=== PATIENT | female | born 1955 | race Caucasian/White ===

== ENCOUNTER 2024-07-05 09:44 | Outpatient (OUT) | payer MEDICARE, SELFPAY ==
[2024-07-05 10:13] LABS: Bilirubin Urine NEGATIVE (NEGATIVE); Blood Urine SMALL (NEGATIVE); Clarity Urine CLEAR (CLEAR); Color Urine LT. YELLOW (YELLOW); Glucose Urine UA NEGATIVE (NEGATIVE); Ketones Urine NEGATIVE (NEGATIVE); Leukocyte Esterase Urine SMALL (NEGATIVE); Nitrite Urine NEGATIVE (NEGATIVE); Protein Urine NEGATIVE (NEG/TRACE); Specific Gravity Urine <=1.005 (1.005-1.025); Urobilinogen Urine 0.2 EU/dL (0.2-1.0)
[2024-07-05 10:24] LABS: Bacteria Urine TRACE #/HPF (NONE SEEN); Cast Seen? NONE SEEN #/LPF (NONE SEEN); Crystals Seen? None Seen #/HPF (None Seen); Mucus Urine NONE SEEN (NONE SEEN); RBC Urine 0-2 #/HPF (0-2); Squamous Epithelial Cell Urine RARE #/LPF (NONE/RARE)
== END 2024-07-05 09:45 | disposition home or self-care (01) ==
LOC: LAB 09:56
PROVIDERS: PCP Internal Medicine; Visit Provider Internal Medicine
DX: R30.0 Dysuria (principal)
CPT/HCPCS: 81001; 87086

== ENCOUNTER 2024-08-11 09:22 | Outpatient (OUT) | payer MEDICARE, SELFPAY ==
--- OUTSIDE RECORDS SUMMARY | 2024-08-11 09:44 | XMS_ITS | CCD ---
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 Role Phone ALEXEY MANLEY Admitting Unavailable ALEXEY MANLEY Attending Unavailable ALEXEY MANLEY Primary Care Unavailable ALEXEY MANLEY Consulting Unavailable SITA PACK V Consulting Unavailable CORETTA MESSINA Admitting Unavailable CORETTA MESSINA Attending Unavailable VINEET, ALEXEY Primary Care Unavailable CORETTA MESSINA Consulting Unavailable DO Alexey Manley Primary Care Provider Community, Outreach Attending Provider DO Alexey Manley Primary Care Provider DO Katina Vigil Attending Provider DO Alexey Manley Primary Care Provider Community, Outreach Attending Provider Alexey Manley Unavailable DO Alexey Manley Primary Care Provider DO Katina Vigil Attending Provider DO Alexey Manley Primary Care Provider MD Joseph Cotton Attending Provider [phone] DO Alexey Manley Referring Provider Community, Outreach Attending Provider [phone] DO Alexey Manley Primary Care Provider MD Joseph Cotton Attending Provider EDDIE Almanzar Attending Provider NO FAMILY, PHYSICIAN Primary Care Provider Unava ilable MD Joseph Cotton Attending Provider [phone] DO Alexey Manley Primary Care Provider MD Joseph Cotton Attending Provider Ly, DO Shari Baumann Attending Provider [phone] Ball, DO Alexey Attending Provider [phone] ANOOP STONER Referring Unavailable KATINA VIGIL Attending Unavailable ANOOP STONER Attending Unavailable ANOOP STONER Referring Unavailable Alexey Manley MD Primary Care Provider NatKatina elias DO Attending Provider Vineet REID, Alexey Primary Care Provider Joseph Cotton MD Attending Provider Vineet REID, Alexey Primary Care Provider [phone] Joseph Cotton MD Attending Provider Vineet REID, Alexey Attending Provider Ball Alexey REID Referring Provider [phone] Community, Outreach Attending Provider [phone] Alexey Manley Admitting Unavailable Vineet, Alexey Attending Unavailable Joseph Cotton Admitting Unavailab le Joseph Cotton Attending Unavailab le Alexey Manley Primary Care Unavailable Ball, Alexey Referring Unavailable Community, Outreach Admitting Unavailable Community, Outreach Attending Unavailable Vineet, Alexey Referring Unavailable Community, Outreach Attending Unavailable Ball, Alexey Primary Care Unavailable Community, Outreach Admitting Unavailable Ball, Alexey Admitting Unavailable Ball, Alexey Primary Care Unavailable Ball, Alexey Attending Unavailable Ball, Alexey Admitting Unavailable Ball, Alexey Primary Care Unavailable Ball, Alexey Attending Unavailable NO FAMILY, PHYSICIAN Primary Care Unavailable Mar Almanzar L Admitting Unavailable Mar Almanzar Attending Unavailable Ball, Alexey Admitting Unavailable Ball, Alexey Primary Care Unavailable Ball, Alexey Attending Unavailable Ball, Alexey Primary Care Unavailable Nataprawira, Katina Admitting Unavailable Nataprawira, Katina Attending Unavailable Ball, Alexey Primary Care Unavailable Alma, Shari Baumann Admitting Unavailable Ly, Shari Baumann Attending Unavailable Medications Current Medications Medication Drug Class(es) Dates Sig (Normalized) Sig (Original) Apple Cider Vinegar (4 sources) Apple Cider Vinegar Active Fish Oils (4 sources) take 1 capsule by mouth twice daily Fish Oil 1200 MG 1 capsule Orally BID Active Flaxseed extract (7 sources) Non-Standardized Food Allergenic Extract, Non-Standardized Plant Allergenic Extract Start: 12-22-2023 take 1 capsule by mouth once daily Flaxseed 1,000 mg capsule Active 1000 MG PO Daily December 22, 2023 12:00am Start: 12-22-2023 take 1000 mg by mouth once nichol ly Flaxseed Active 1000 MG PO Daily December 22, 2023 12:00am Flaxseed Oil 1200 MG (2 sources) Flaxseed Oil 120 0 MG Orally Active fluticasone propionate 0.05 mg/actuat metered dose nasal spray (16 sources) Corticosteroid Start: 10-09-2023 take 1 spray(s) nasal route once daily Fluticasone Propionate (Flonase Allergy Relief) 50 mcg/actuation spray,suspension Active 1 SPRAY INTRANASAL Daily October 09, 2023 12:00am administer into each nostril Start: 11-02-2021 Flonase 50MCG/ ACT Flonase( 50MCG/ACT Nasal As needed for allergies ) Active -Hx Entry Nasal As needed for allergies for 0 *Reorder from [employer] for eRx and Interaction Alerts* Oct, Active fluticasone (José Miguel nase) 50 MCG/ACT nasal spray 1 (one) time each day at the same time. Active Bdiotyii-Rcuw-Cbp1-C-Yuri-Benedict sw (Osteo Bi-Flex Triple Strength) 750 mg-644 mg- 30 mg-1 mg tablet (7 sources) Start: 12-22-2023 take 2 tablets by mouth once daily Ybilbykm-Dkmj-Ftx0-C-Yuri-Bosw (Osteo Bi-Flex Triple Strength) 750 mg-644 mg- 30 mg-1 mg tablet Active 2 TAB PO Daily December 22, 2023 12:00am linseed oil 1200 mg oral cap johnna (2 sources) Flaxseed Oil 120 0 MG Orally Active loratadine 10 mg oral tablet (10 sources) Start: 11-09-2023 take 1 tablet by mouth once daily Loratadine (Allergy Relief (Loratadine)) 10 mg tablet Active 10 MG PO Daily November 09, 2023 12:00am Loratadine (Clar itin) 10 MG capsule Oral Active lutein 25 mg / zeaxanthin 5 mg oral capsule (4 sources) Lutein-Zeaxanthi n 25-5 MG Orally Active Lutein-Zeaxanthi n 25-5 MG Orally Active magnesium citrate 125 mg oral capsule (13 sources) Start: 12-22-2023 take 1 capsule by mouth once daily Magnesium Citrate 125 mg capsule Active 125 MG PO Daily December 22, 2023 12:00am Magnesium Citrat e 200 MG tablet as directed Orally Active Magnesium Citrat e Active milk thistle extract 150 mg oral capsule (4 sources) Milk Thistle 150 MG as directed Orally Active paxlovid (300/100) 20 x 150 mg & 10 x 100mg tablet therapy pack (2 sources) Start: 04-19-19 take 3 tablets by mouth every twelve hours Paxlovid (300/100) 20 x 150 MG & 10 x 100MG 3 tablets Orally Twice a day for 5 days Mar, Active potassium citrate (4 sources) Potassium Citrat e Active sulfamethoxazole 800 mg / trimethoprim 160 mg oral tablet (8 sources) Dihydrofolate Reductase Inhibitor Antibacterial, Sulfonamide Antimicrobial Start: 06-08-19 End: 06-23-19 take 1 tablet by mouth twice daily Sulfamethoxazole- Trimethoprim 800-160 mg tablet Active 1 TAB PO Twice daily 10 June 22, 2024 10:09am Turmeric Curcumin 500 MG (4 sources) Turmeric Curcumi n 500 MG Orally Active Vit C,L-Lu-Ycbff-Lutein-Zeax an (Preservision Areds-2) 250-90-40-1 mg capsule (7 sources) Start: 12-22-19 Vit C,Q-Hn-Fjxbo-Lute in-Zeaxan (Preservision Areds-2) 250-90-40-1 mg capsule Active 1 TAB PO Twice daily December 22, 2023 12:00am vitamin B12 (4 sources) Vitamin B12 Vitamin B12 Active Completed/Discontinued Medications Medication Drug Class(es) Dates Sig (Normalized) Sig (Original) nitrofurantoin, macrocrystals 25 mg / nitrofurantoin, monohydrate 75 mg oral capsule (20 sources) Nitrofuran Antibacterial Start: 10-09-2023 End: 11-09-2023 take 1 capsule by mouth every twelve hours at mealtime Nitrofurantoin Monohyd/M-Cryst (Macrobid) 100 mg capsule Discontinued 100 MG PO Q12H 8 October 12, 2023 12:00am November 09, 2023 1:41pm must administer with a meal/food Problems Active Problems Problem Classification Problem Date Documented Da te Episodic/Chronic Abdominal pain (4 sources) Left lower quadrant pain; Translations: [Left lower quadrant pain] Episodic Calculus of urinary tract (20 sources) Calculus of ureter; Translations: [H/O: urinary stone] Onset: 02-24-2018 11-07-2023 Episodic Diabetes mellitus without complication (2 sources) Impaired fasting glucose Episodic Diverticulosis and diverticulitis (4 sources) Diverticular disease of colon; Translations: [Diverticulosis of large intestine without perforation or abscess without bleeding] Chronic Genitourinary symptoms and ill-defined conditions (1 source) Other specified urinary incontinence; Translations: [Other specified urinary incontinence] Onset: 03-02-2024 Chronic Genitourinary symptoms and ill-defined conditions (11 sources) Dysuria; Translations: [Dysuria] Onset: 10-09-2023 10-09-2023 Episodic Mood disorders (6 sources) Moderate major depression, single episode; Translations: [Major depressive disorder, single episode, moderate] Chronic Other bone disease and musculoskeletal deformities (4 sources) Bone density finding; Translations: [Other specified disorders of bone density and structure, unspecified site] Episodic Other bone disease and musculoskeletal deformities (8 sources) Osteopenia; Translations: [Other specified disorders of bone density and structure, unspecified site] 11-07-2023 Episodic Comment on above: HipDEXA - 02/2024 Other injuries and conditions due to external causes (4 sources) History of fall; Translations: [History of falling] Episodic Other non-traumatic joint disorders (2 sources) Pain in right knee; Translations: [Other acute pain] 04-24-2024 Episodic Other nutritional; endocrine; and metabolic disorders (4 sources) Simple obesity ; Translations: [Other obesity due to excess calories] Onset: 05-30-2015 Chronic Other nutritional; endocrine; and metabolic disorders (4 sources) Obesity; Translations: [Obesity, unspecified] Chronic Other nutritional; endocrine; and metabolic disorders (2 sources) Body mass index 30+ - obesity; Translations: [Body mass index (BMI) 30.0-30.9, adult] Chronic Other nutritional; endocrine; and metabolic disorders (1 source) Other obesity due to excess calories Chronic Other nutritional; endocrine; and metabolic disorders (1 source) Body mass index (BMI) 30.0-30.9, adult Chronic Other nutritional; endocrine; and metabolic disorders (2 sources) Overweight Episodic Residual codes; unclassified (4 sources) Procedure not done; Translations: [Procedure and treatment not carried out because of patient's decision for unspecified reasons] Episodic Residual codes; unclassified (8 sources) Menopause present; Translations: [Asymptomatic menopausal state] 11-07-2023 Episodic Urinary tract infections (6 sources) Acute cystitis; Translations: [Acute cystitis without hematuria] 06-22-2024 Episodic Past or Other Problems Problem Classification Problem Date Documented Da te Episodic/Chronic Gastrointestinal hemorrhage (4 sources) Melena; Translations: [Melena] Onset: 12-24-2014 Episodic Intestinal infection (4 sources) Infectious colitis, enteritis and gastroenteritis; Translations: [Infectious gastroenteritis and colitis, unspecified] Onset: 12-24-2014 Episodic Malaise and fatigue (1 source) Other fatigue; Translations: [OTHER FATIGUE] Onset: 03-14-2018 Episodic Noninfectious gastroenteritis (4 sources) Non-infective enteritis and colitis; Translations: [Noninfective gastroenteritis and colitis, unspecified] Onset: 12-24-2014 Episodic Other bone disease and musculoskeletal deformities (5 sources) Other specified disorders of bone density and structure, unspecified site; Translations: [Disorder of bone and cartilage, unspecified] Onset: 03-14-2018 11-09-2023 Episodic Other liver diseases (1 source) Nonspecific elevation of levels of transaminase and lactic acid dehydrogenase [LDH]; Translations: [NONSPEC ELEV LVLS TRANSAMINSE AND LDH] Onset: 03-14-2018 Episodic Other screening for suspected conditions (not mental disorders or infectious disease) (20 sources) Encounter for screening for osteoporosis; Translations: [Encounter for screening for malignant neoplasm of cervix] Onset: 03-10-2018 Episodic Other skin disorders (4 sources) Localized swelling, mass and lump, left lower limb; Translations: [Localized swelling, mass and lump, left lower limb] Onset: 02-24-2018 Episodic Residual codes; unclassified (4 sources) Asymptomatic menopausal state; Translations: [Symptomatic menopausal or female climacteric states] Onset: 03-20-2024 11-09-2023 Episodic Residual codes; unclassified (1 source) Family history of ischemic heart disease and other diseases of the circulatory system; Translations: [Family history of ischemic heart disease and other diseases of the circulatory system] Onset: 01-06-2024 Episodic Viral infection (2 sources) COVID-19 Results Test Name Value Interpretation Reference Range Facility Redraw Abbie 07-18-2024 AST [Catalytic activity/Vol] 28 U/L Normal 13-39 [facility] Comment on above: Performed By: #### R EDRAW VITD, REDRAW AST, REDRAW K #### [address] Redraw Potassiumon Potassium [Moles/Vol] 4.5 mmol/L Normal 3.5-5.1 [facility] Comment on above: Performed By: #### R EDRAW VITD, REDRAW AST, REDRAW K #### [address] Redraw Vitamin D 25OHon 06-28 Redraw Vitamin D 25OH 92.0 ng/mL Normal 30-100 [facility] Comment on above: Result Comment: MECHE MIN D STATUS 25(OH)VITAMIN D RANGE (ng/mL) Deficient <20 Insufficient 20 to <30 Sufficient 30 to 100 Reference: Candido MF,Bryan NC, Sienna LOJA, et al. Evaluation,treatment, and prevention of vitamin D deficiency; an Endocrine Society clinical practice guideline. JCEM. 2010; 96(7):1911-30. PERFORMED BY: [place] [address] PATHOLOGIST FIRE OFFICER ANNAMARIA KNOX M.D. Performed By: #### R EDRAW VITD, REDRAW AST, REDRAW K #### [address] Alanine aminotransferase [En zymatic activity/volume] in Serum or PlasmaOrdered By: [facility]RE[facility]ITY on 07-08-2024 ALT [Catalytic activity/Vol] Alanine aminotransferase [Enzymatic activity/volume] in Serum or Plasma [facility] Albumin [Mass/volume] in Ser um or Plasma by Bromocresol green (BCG) dye binding methoOrdered By: [facility]REACH COMMUNITY on 07-08-2024 Albumin BCG dye [Mass/Vol] Albumin [Mass/volume] in Serum or Plasma by Bromocresol green (BCG) dye binding metho 3.5-5.7 [facility] Alkaline phosphatase [Enzyma tic activity/volume] in Serum or PlasmaOrdered By: [facility] on 07-08-2024 ALP [Catalytic activity/Vol] Alkaline phosphatase [Enzymatic activity/volume] in Serum or Plasma 34-104 [facility] Aspartate aminotransferase [ Enzymatic activity/volume] in Serum or PlasmaOrdered By: [facility] on 07-08-2024 AST [Catalytic activity/Vol] Aspartate aminotransferase [Enzymatic activity/volume] in Serum or Plasma 13-39 [facility] Comment on above: Specimen hemolyzed, redraw requested Bilirubin.total [Mass/volume ] in Serum or PlasmaOrdered By: [facility] on 07-08-2024 Bilirubin [Mass/Vol] Bilirubin.total [Mass/volume] in Serum or Plasma 0.3-1.0 [facility] Blood estimated average gluc ose determination by estimation from glycated hemoglobinOrdered By: [facility] on 07-08-2024 Average glucose Estimated from glycated hemoglobin (Bld) [Mass/Vol] Glucose mean value [Mass/volume] in Blood Estimated from glycated hemoglobin [facility] CBC Without Differentialon 0 07-08-2024 Erythrocyte distribution width (RBC) [Ratio] 13.3 % Normal 11.9-15.3 [facility] Comment on above: Performed By: #### O UTREACH VITD, OUTREACH GLYCO, OUTREACH CMP, CBCNOOUTREACH, OUTREACH LIPID ####[place] [id number] [address] Hematocrit (Bld) [Volume fraction] 40.8 % Normal 34.0-46.4 [facility] Comment on above: Performed By: #### O UTREACH VITD, OUTREACH GLYCO, OUTREACH CMP, CBCNOOUTREACH, OUTREACH LIPID ####[place] [id number] [address] Hemoglobin (Bld) [Mass/Vol] 13.7 g/dL Normal 11.8-15.4 [facility] Comment on above: Performed By: #### O UTREACH VITD, OUTREACH GLYCO, OUTREACH CMP, CBCNOOUTREACH, OUTREACH LIPID ####[address] MCH (RBC) [Entitic mass] 32.1 pg Normal 24.7-34.3 [facility] Comment on above: Performed By: #### O UTREACH VITD, OUTREACH GLYCO, OUTREACH CMP, CBCNOOUTREACH, OUTREACH LIPID ####[address] MCV (RBC) [Entitic vol] 95.7 fL Normal 80-100 [facility] Comment on above: Performed By: #### O UTREACH VITD, OUTREACH GLYCO, OUTREACH CMP, CBCNOOUTREACH, OUTREACH LIPID ####[address] Mean Corpuscular HGB Conc 33.6 g/dL Normal 32.0-35.0 [facility] Comment on above: Performed By: #### O UTREACH VITD, OUTREACH GLYCO, OUTREACH CMP, CBCNOOUTREACH, OUTREACH LIPID ####[address] Platelet mean volume (Bld) [Entitic vol] 7.2 fL Normal 6.3-10.7 [facility] Comment on above: Result Comment: PERF ORMED BY: [facility] [address] [place] [address] PATHOLOGIST FIRE OFFICER ANNAMARIA KNOX M.D. Performed By: #### O UTREACH VITD, OUTREACH GLYCO, OUTREACH CMP, CBCNOOUTREACH, OUTREACH LIPID ####[address] Platelets (Bld) [#/Vol] 271 10*3/uL Normal 150-450 [facility] Comment on above: Performed By: #### O UTREACH VITD, OUTREACH GLYCO, OUTREACH CMP, CBCNOOUTREACH, OUTREACH LIPID ####[place] [id number] [facility] RBC (Bld) [#/Vol] 4.26 10*6/uL Normal 3.60-5.00 [facility] Comment on above: Performed By: #### O UTREACH VITD, OUTREACH GLYCO, OUTREACH CMP, CBCNOOUTREACH, OUTREACH LIPID ####[address] [address] [facility] [place] WBC (Bld) [#/Vol] 3.9 10*3/uL Normal 3.8-11.6 [facility] Comment on above: Performed By: #### O UTREACH VITD, OUTREACH GLYCO, OUTREACH CMP, CBCNOOUTREACH, OUTREACH LIPID ####[place] [id number] [facility] CMP Outreachon 07-08-2024 Albumin [Mass/Vol] 3.8 g/dL Normal 3.5-5.7 [facility] Comment on above: Performed By: #### O UTREACH VITD, OUTREACH GLYCO, OUTREACH CMP, CBCNOOUTREACH, OUTREACH LIPID ####[address] [address] [facility] ALP [Catalytic activity/Vol] 83 U/L Normal 34-104 [facility] Comment on above: Performed By: #### O UTREACH VITD, OUTREACH GLYCO, OUTREACH CMP, CBCNOOUTREACH, OUTREACH LIPID ####[address] [address] [facility] ALT [Catalytic activity/Vol] 41 U/L Normal 7-52 [facility] Comment on above: Performed By: #### O UTREACH VITD, OUTREACH GLYCO, OUTREACH CMP, CBCNOOUTREACH, OUTREACH LIPID ####[address] [address] [facility] Anion gap [Moles/Vol] Not performed Normal 6.0-15.0 [facility] Comment on above: Performed By: #### O UTREACH VITD, OUTREACH GLYCO, OUTREACH CMP, CBCNOOUTREACH, OUTREACH LIPID ####[address] [address] [facility] Aspartate Amino Transferase Normal 13-39 [facility] Comment on above: Result Comment: Spec imen hemolyzed, redraw requested Performed By: #### O UTREACH VITD, OUTREACH GLYCO, OUTREACH CMP, CBCNOOUTREACH, OUTREACH LIPID ####[place] [id number] [facility] [place] Bilirubin [Mass/Vol] 0.4 mg/dL Normal 0.3-1.0 [facility] Comment on above: Performed By: #### O UTREACH VITD, OUTREACH GLYCO, OUTREACH CMP, CBCNOOUTREACH, OUTREACH LIPID ####[place] [id number] [facility] [place] Calcium [Mass/Vol] 9.1 mg/dL Normal 8.6-10.3 [facility] Comment on above: Performed By: #### O UTREACH VITD, OUTREACH GLYCO, OUTREACH CMP, CBCNOOUTREACH, OUTREACH LIPID ####[place] [id number] [place] Chloride [Moles/Vol] 108 mmol/L High 98-107 [facility] Comment on above: Performed By: #### O UTREACH VITD, OUTREACH GLYCO, OUTREACH CMP, CBCNOOUTREACH, OUTREACH LIPID ####[place] [id number] [facility] [place] CO2 [Moles/Vol] 28.3 mmol/L Normal 21.0-31.0 [facility] Comment on above: Performed By: #### O UTREACH VITD, OUTREACH GLYCO, OUTREACH CMP, CBCNOOUTREACH, OUTREACH LIPID ####[place] [id number] [facility] [place] Creatinine [Mass/Vol] 0.76 mg/dL Normal 0.60-1.20 [facility] Comment on above: Performed By: #### O UTREACH VITD, OUTREACH GLYCO, OUTREACH CMP, CBCNOOUTREACH, OUTREACH LIPID ####[place] [id number] [facility] [place] GFR/1.73 sq M.predicted MDRD (S/P/Bld) [Vol rate/Area] mL/min/{1.73_m2} Normal [facility] Comment on above: Performed By: #### O UTREACH VITD, OUTREACH GLYCO, OUTREACH CMP, CBCNOOUTREACH, OUTREACH LIPID ####[place] [id number] [facility] [place] Glucose [Mass/Vol] 86 mg/dL Normal 70-100 [facility] Comment on above: Result Comment: [facility] Glucose Reference Range is dependent on time and content of last meal. Glucose of more than 200 mg/dL in a nonstressed, ambulatory subject supports the diagnosis of Diabetes Mellitus. ADA recommended reference range Performed By: #### O UTREACH VITD, OUTREACH GLYCO, OUTREACH CMP, CBCNOOUTREACH, OUTREACH LIPID ####[address] Potassium Normal 3.5-5.1 [facility] Comment on above: Result Comment: Spec imen hemolyzed, redraw requested Performed By: #### O UTREACH VITD, OUTREACH GLYCO, OUTREACH CMP, CBCNOOUTREACH, OUTREACH LIPID ####[place] [id number] [facility] [place] Protein [Mass/Vol] 6.7 g/dL Normal 6.4-8.9 [facility] Comment on above: Performed By: #### O UTREACH VITD, OUTREACH GLYCO, OUTREACH CMP, CBCNOOUTREACH, OUTREACH LIPID ####[place] [id number] [facility] [place] Sodium [Moles/Vol] 141 mmol/L Normal 136-145 [facility] Comment on above: Performed By: #### O UTREACH VITD, OUTREACH GLYCO, OUTREACH CMP, CBCNOOUTREACH, OUTREACH LIPID ####[place] [id number] [facility] [place] Urea nitrogen [Mass/Vol] 19 mg/dL Normal 7-25 [facility] Comment on above: Performed By: #### O UTREACH VITD, OUTREACH GLYCO, OUTREACH CMP, CBCNOOUTREACH, OUTREACH LIPID ####[address] [place] [address] [facility] Calcium [Mass/volume] in Ser um or PlasmaOrdered By: [facility] on 07-08-2024 Calcium [Mass/Vol] Calcium [Mass/volume ] in Serum or Plasma 8.6-10.3 [facility] Carbon dioxide, total [Moles /volume] in Serum or PlasmaOrdered By: [facility]RE[facility] on 07-08-2024 CO2 [Moles/Vol] Carbon dioxide, tota l [Moles/volume] in Serum or Plasma 21.0-31.0 [facility] Chloride [Moles/volume] in S jean or PlasmaOrdered By: [facility] on 07-08-2024 Chloride [Moles/Vol] Chloride [Moles/volume] in Serum or Plasma High 98-107 [facility] Cholesterol [Mass/volume] in Serum or PlasmaOrdered By: [facility]RE[facility] on 07-08-2024 Cholesterol [Mass/Vol] Cholesterol [Mass/volume] in Serum or Plasma 140-200 [facility] Comment on above: Chol less than 200 m g/dl low riskChol 201-239 mg/dl borderline riskChol 240 mg/dl and greater high risk Cholesterol in HDL [Mass/vol ume] in Serum or PlasmaOrdered By: [facility]RE[facility] on 07-08-2024 Cholesterol in HDL [Mass/Vol] Serum or plasma high density lipoprotein (HDL) cholesterol measurement 23-92 [facility] Comment on above: HDL CHOL ATP-III CLA SSIFICATION Cardiovascular RiskHDL > or equal to 60 mg/dL LOWHDL < 40 mg/dL HIGH Cholesterol in LDL Calc [Mas s/Vol]Ordered By: [facility] on 07-08-2024 Cholesterol in LDL [Mass/Vol] Cholesterol in LDL [Mass/volume] in Serum or Plasma by calculation High 0-100 [facility] Comment on above: LDL ATP III CLASSIFI CATIONLDL less than 100 mg/dL OptimalLDL 100-129 mg/dL Near or above optimalLDL 130-159 mg/dL Borderline highLDL 160-189 mg/dL HighLDL greater than 189 mg/dL Very high Cholesterol in VLDL Calc [Ma ss/Vol]Ordered By: [facility] on 07-08-2024 Cholesterol in VLDL [Mass/Vol] Cholesterol in VLDL [Mass/volume] in Serum or Plasma by calculation [facility] Creatinine [Mass/volume] in Serum or PlasmaOrdered By: [facility] on 07-08-2024 Creatinine [Mass/Vol] Creatinine [Mass/volume] in Serum or Plasma 0.60-1.20 [facility] Erythrocyte distribution wid th Auto (RBC) [Ratio]Ordered By: [facility] on 07-08-2024 Erythrocyte distribution width (RBC) [Ratio] Erythrocyte distribution width [Ratio] by Automated count 11.9-15.3 [facility] Glucose [Mass/volume] in Ser um or PlasmaOrdered By: [facility] on 07-08-2024 Glucose [Mass/Vol] Glucose [Mass/volume ] in Serum or Plasma 70-100 [facility] Comment on above: ADA recommended refe rence rangeRandom Glucose Reference Range is dependent on time and content of last meal. Glucose of more than 200 mg/dL in a nonstressed, ambulatory subject supports the diagnosis of Diabetes Mellitus. Hematocrit Auto (Bld) [Volum e fraction]Ordered By: [facility] on 07-08-2024 Hematocrit (Bld) [Volume fraction] Hematocrit [Volume Fraction] of Blood by Automated count 34.0-46.4 [facility] Hemoglobin A1c measurementOr dered By: [facility] on 07-08-2024 HbA1c (Bld) [Mass fraction] 5.4 % Normal 4.3-5.6 [facility] Comment on above: Increased risk for d iabetes: 5.7 - 6.4diabetes: >6.4glycemic control for adults with diabetes: <7.0 Result Comment: Incr eased risk for diabetes: 5.7 - 6.4 diabetes: >6.4 glycemic control for adults with diabetes: <7.0 Performed By: #### O UTREACH VITD, OUTREACH GLYCO, OUTREACH CMP, CBCNOOUTREACH, OUTREACH LIPID ####[facility] [address] [place] [address] [facility] Hemoglobin [Mass/volume] in BloodOrdered By: [facility] on 07-08-2024 Hemoglobin (Bld) [Mass/Vol] Hemoglobin [Mass/volume] in Blood 11.8-15.4 [facility] Leukocytes [#/volume] correc scott for nucleated erythrocytes in Blood by Automated counOrdered By: [facility] on 07-08-2024 WBC corrected for nucl RBC Auto (Bld) [#/Vol] Leukocytes [#/volume] corrected for nucleated erythrocytes in Blood by Automated coun 3.8-11.6 [facility] Lipid Profile Outreach Cholesterol [Mass/Vol] 184 mg/dL Normal 140-200 Th e [facility] Comment on above: Result Comment: Chol less than 200 mg/dl low risk Chol 201-239 mg/dl borderline risk Chol 240 mg/dl and greater high risk Performed By: #### O UTREACH VITD, OUTREACH GLYCO, OUTREACH CMP, CBCNOOUTREACH, OUTREACH LIPID ####[place] [address] [place] [address] [facility] Cholesterol in HDL [Mass/Vol] 63 mg/dL Normal 23-92 [facility] Comment on above: Result Comment: HDL CHOL ATP-III CLASSIFICATION Cardiovascular Risk HDL > or equal to 60 mg/dL LOW HDL < 40 mg/dL HIGH Performed By: #### O UTREACH VITD, OUTREACH GLYCO, OUTREACH CMP, CBCNOOUTREACH, OUTREACH LIPID ####[place] [address] [place] [address] [facility] Cholesterol.total/Rosa sterol in HDL [Mass ratio] 2.9 {ratio} Normal <5.0 [facility] Comment on above: Performed By: #### O UTREACH VITD, OUTREACH GLYCO, OUTREACH CMP, CBCNOOUTREACH, OUTREACH LIPID ####[place] [address] [place] [address] [facility] LDL Cholesterol,Calculated 104 mg/dL High 0-100 [facility] Comment on above: Result Comment: LDL ATP III CLASSIFICATION LDL less than 100 mg/dL Optimal LDL 100-129 mg/dL Near or above optimal LDL 130-159 mg/dL Borderline high LDL 160-189 mg/dL High LDL greater than 189 mg/dL Very high Performed By: #### O UTREACH VITD, OUTREACH GLYCO, OUTREACH CMP, CBCNOOUTREACH, OUTREACH LIPID ####[place] [address] [place] [address] [facility] Triglyceride w/Reflex 83 mg/dL Normal 0-149 [facility] Comment on above: Result Comment: TRIG ATP III CLASSIFICATION TRIG less than 150 mg/dL Normal TRIG 150-199 mg/dL Borderline high TRIG 200-500 mg/dL High TRIG greater than 500 mg/dL Very high Standard traceable to the Center for Disease Conrtrol and Prevention (CDC) test method. Performed By: #### O UTREACH VITD, OUTREACH GLYCO, OUTREACH CMP, CBCNOOUTREACH, OUTREACH LIPID ####[facility] VLDL CHOLESTEROL 16 mg/dL Normal [facility] Comment on above: Performed By: #### O UTREACH VITD, OUTREACH GLYCO, OUTREACH CMP, CBCNOOUTREACH, OUTREACH LIPID ####[place] [address] MCH Auto (RBC) [Entitic mass ]Ordered By: [facility] on 07-08-2024 MCH (RBC) [Entitic mass] MCH [Entitic mass] by Automated count 24.7-34.3 [facility] MCHC Auto (RBC) [Mass/Vol]Or dered By: [facility] on 07-08-2024 MCHC (RBC) [Mass/Vol] MCHC [Mass/volume] by Automated count 32.0-35.0 [facility] MCV Auto (RBC) [Entitic vol] Ordered By: [facility] on 07-08-2024 MCV (RBC) [Entitic vol] MCV [Entitic vol ume] by Automated count 80-100 [facility] No Panel InformationOrdered By: [facility] on 07-08-2024 Estimated GFR (CKD-EPI) > 60.0 mL/Min [facility] Creatinine Clearance (Chem N/A [facility] Outreach Glycoon 07-08-2024 Glucose [Mass/Vol] 108 mg/dL Normal [facility] Comment on above: Result Comment: PERF ORMED BY: [facility] [address] [place] [id number] PATHOLOGIST FIRE OFFICER ANNAMARIA KNOX M.D. Performed By: #### O UTREACH VITD, OUTREACH GLYCO, OUTREACH CMP, CBCNOOUTREACH, OUTREACH LIPID ####[place] [address] [place] [address] [facility] Outreach VitD 25on 5 Outreach VitD 25 Normal 30-100 [facility] Comment on above: Result Comment: Spec imen hemolyzed, redraw requested VITAMIN D STATUS 25(OH)VITAMIN D RANGE (ng/mL) Deficient <20 Insufficient 20 to <30 Sufficient 30 to 100 Reference: Candido MF,Bryan NC, Sienna LOJA, et al. Evaluation,treatment, and prevention of vitamin D deficiency; an Endocrine Society clinical practice guideline. JCEM. 2010; 96(7):1911-30. PERFORMED BY: [facility] [address] [place] [phone] PATHOLOGIST FIRE OFFICER ANNAMARIA KNOX M.D. Performed By: #### O UTREACH VITD, OUTREACH GLYCO, OUTREACH CMP, CBCNOOUTREACH, OUTREACH LIPID ####[facility] [place] [address] [facility] Platelet mean volume Auto (B ld) [Entitic vol]Ordered By: [facility] on 07-08-2024 Platelet mean volume (Bld) [Entitic vol] Platelet mean volume [Entitic volume] in Blood by Automated count 6.3-10.7 [facility] Platelets Auto (Bld) [#/Vol] Ordered By: [facility] on 07-08-2024 Platelets (Bld) [#/Vol] Platelets [#/vol ume] in Blood by Automated count 150-450 [facility] Potassium [Moles/volume] in Serum or PlasmaOrdered By: [facility] on 07-08-2024 Potassium [Moles/Vol] Potassium [Moles/volume] in Serum or Plasma 3.5-5.1 [facility] Comment on above: Specimen hemolyzed, redraw requested Protein [Mass/volume] in Ser um or PlasmaOrdered By: [facility] on 07-08-2024 Protein [Mass/Vol] Protein [Mass/volume ] in Serum or Plasma 6.4-8.9 [facility] RBC Auto (Bld) [#/Vol]Ordere d By: [facility] on 07-08-2024 RBC (Bld) [#/Vol] Erythrocytes [#/volume] in Blood by Automated count 3.60-5.00 [facility] Serum or plasma anion gap de terminationOrdered By: [facility] on 07-08-2024 Anion gap [Moles/Vol] Serum or plasma an ion gap determination [facility] Comment on above: Test not performed Serum or plasma total choles terol/high density lipoprotein (HDL) cholesterol mass ratOrdered By: [facility] on 07-08-2024 Cholesterol.total/Rosa sterol in HDL [Mass ratio] Serum or plasma total cholesterol/high density lipoprotein (HDL) cholesterol mass rat <5.0 [facility] Sodium [Moles/volume] in Ser um or PlasmaOrdered By: [facility] on 07-08-2024 Sodium [Moles/Vol] Sodium [Moles/volume ] in Serum or Plasma 136-145 [facility] Triglyceride [Mass/volume] i n Serum or PlasmaOrdered By: OUTREACH [facility] on 07-08-2024 Triglyceride [Mass/Vol] Triglyceride [Mass/volume] in Serum or Plasma 0-149 [facility] Comment on above: TRIG ATP III CLASSIF ICATIONTRIG less than 150 mg/dL NormalTRIG 150-199 mg/dL Borderline highTRIG 200-500 mg/dL High TRIG greater than 500 mg/dL Very highStandard traceable to the Center for Disease Conrtrol and Prevention (CDC) test method. Urea nitrogen [Mass/volume] in Serum or PlasmaOrdered By: [facility] on 07-08-2024 Urea nitrogen [Mass/Vol] Urea nitrogen [Mass/volume] in Serum or Plasma 7-25 [facility] Vitamin D+Metabolites [Mass/ volume] in Serum or PlasmaOrdered By: [facility] on 07-08-2024 Vitamin D+Metabolites [Mass/Vol] Vitamin D+Metabolites [Mass/volume] in Serum or Plasma 30-100 [facility] Comment on above: Specimen hemolyzed, redraw requestedVITAMIN D STATUS 25(OH)VITAMIN D RANGE (ng/mL) Deficient <20 Insufficient 20 to <30Sufficient 30 to 100Reference: Candido MF,Bryan NC, Sienna LOJA, et al. Evaluation,treatment, and prevention of vitamin D deficiency; an Endocrine Society clinical practice guideline. JCEM. 2010; 96(7):1911-30. Urine Cultureon 07-05-2024 Bacteria identified Cx Nom (U) <10,000 colonies/ml mixed bacterial skin contaminants including mixed gram negative bacilli - 2 Days PERFORMED BY: [place] [address] PATHOLOGIST FIRE OFFICER ANNAMARIA KNOX M.D. Normal [facility] Comment on above: Performed By: #### C UU ####[address] Urine cultureOrdered By: Fuentes Manley on 07-05-2024 Bacteria identified Cx Nom (U) Urine culture [facility] Blood Urea Nitrogenon 2024 Urea nitrogen [Mass/Vol] 15 mg/dL Normal 10-20 [facility] Comment on above: Order Comment: STAT FOR CT Performed By: #### C REAT, BUN ####[address] abdomen pelvis w conon CT abdomen pelvis w con [facility] Main [place] [address] [place] [address] CT Scan Report Signed Patient: Joseph Abbott MR#: [id number] : 1955 Acct:[id number] Age/Sex: 69 / F ADM Date: 06/28/24 Loc: CT Room: Type: [facility] Attending Dr: Alexey Manley DO Copies to: Alexey Manley DO Ordering Provider: Alexey Manley DO Date of Service: 06/28/24 CT/CT abdomen pelvis w con: R31.0 - Gross hematuria CT ABDOMEN AND PELVIS WITH INTRAVENOUS CONTRAST: CLINICAL HISTORY: Recurrent UTIs hematuria back pain. COMPARISON: None TECHNIQUE: Spiral images were obtained through the abdomen and pelvis following the administration of intravenous contrast. This CT exam was performed using one or more following dose reduction techniques: Automated exposure control, adjustment of the mA and/or kV according to patient size, or use of iterative reconstruction technique. FINDINGS: Lung Bases: [Bibasilar atelectasis/scarring. ] Organs:Liver gallbladder portal vein spleen pancreas and adrenal glands appear unremarkable. 3 mm stone right kidney. Left kidney appears unremarkable. Delayed images demonstrate no collecting system lesion. Aorta appears normal in caliber.[ GI: Stomach is grossly unremarkable. Small bowel appears nondilated. No acute colonic abnormalities.[ Pelvis:[Uterus is atrophic. No adnexal mass. Urinary bladder is grossly unremarkable.] Peritoneum/Retroperit oneum:No free air or free fluid or lymphadenopathy.[ Abd wall/Bones:Abdominal wall demonstrate no acute findings. Osseous structures demonstrate degenerative change.[ CT/CT abdomen pelvis w con IMPRESSION: No acute process. Right nephrolithiasis. Impression dictated by: Ozzy Duggan Jr., D.ORachel06/28/2024 9:34 AM Dictation Location: [place] [address] Transcribed By: [facility] 06/28/24 0934 Dictated By: Ozzy Duggan Jr, DO 06/28/24 0931 Signed By: 06/28/24 0934 Normal [facility] Creatinineon 06-28-2024 Creatinine [Mass/Vol] 0.82 mg/dL Normal 0.60-1.20 [facility] Comment on above: Order Comment: STAT FOR CT Performed By: #### C REISABELA, BUN ####[place] [address] [place] [phone] [facility] GFR/1.73 sq M.predicted MDRD (S/P/Bld) [Vol rate/Area] mL/min/{1.73_m2} Normal [facility] Comment on above: Order Comment: STAT FOR CT Result Comment: PERF ORMED BY: [facility] [address] [place] [address] PATHOLOGIST FIRE OFFICER ANNAMARIA KNOX M.D. Performed By: #### C REISABELA, BUN ####[place] [address] [place] [address] [facility] Creatinine [Mass/volume] in Serum or PlasmaOrdered By: Alexey Manley on 06-28-2024 Creatinine [Mass/Vol] Creatinine [Mass/volume] in Serum or Plasma 0.60-1.20 [facility] No Panel InformationOrdered By: Alexey Manley on 06-28-2024 Estimated GFR (CKD-EPI) > 60.0 mL/Min [facility] Creatinine Clearance (Chem N/A [facility] Urea nitrogen [Mass/volume] in Serum or PlasmaOrdered By: Alexey Manley on 06-28-2024 Urea nitrogen [Mass/Vol] Urea nitrogen [Mass/volume] in Serum or Plasma 10-20 [facility] Laboratory - Chemistry and C hemistry - challengeon 06-07-2024 Bilirubin Ql (U) Negative [facility] Glucose (U) [Mass/Vol] [facility] Ketones Ql (U) Negative [facility] pH (U) 6.5 [pH] [facility] Specific gravity (U) [Rel density] 1.000 [facility] Urobilinogen (U) [Mass/Vol] 0.2 mg/dL [facility] Laboratory - Specimen inform ationon 06-07-2024 Appearance (U) cloudy [facility] Color (U) lightyellow [facility] Laboratory - Urinalysison Leukocyte esterase Test strip Ql (U) + [facility] Nitrite Ql (U) Negative [facility] Protein Ql (U) + [facility] No Panel Informationon 06-07 Urine Occult Blood +++ [facility] XR Knee - left 3 [facility] Result: X-rays and imaging permanently saved to the patient's record were reviewed bilateral AP, lateral and sunrise views weight bearing films taken in the [place] office shows moderate, borderline early severe degenerative changes particularly of the lateral facet of the patella and medial joints. There is no fracture, dislocation, tumor or infection seen. [facility] XR Knee - right 3 [facility] Result: X-rays and imaging permanently saved to the patient's record were reviewed bilateral AP, lateral and sunrise views weight bearing films taken in the [place] office shows moderate, borderline early severe degenerative changes particularly of the lateral facet of the patella and medial joints. There is no fracture, dislocation, tumor or infection seen. [facility] No Panel Informationon 04-26 Radiology Study observation (narrative) [facility] MM screening mammo BI w/CADo n 12-23-2024 MM screening mammo BI w/CAD [facility] Main [place] [address] [place] [id number] Mammography Report Signed Patient: Joseph Abbott MR#: [id number] : 1955 Acct:[id number] Age/Sex: 69 / F ADM Date: 03/20/24 Loc: [place] Room: Type: [facility] Attending Dr: Katina Vigil DO Copies to: DO MARLYN Holder MONA DO Ordering Provider: KATINA VIGIL DO Date of Service: 03/20/24 MM/MM screening mammo BI w/CAD: screening CLINICAL DATA: Screening for malignancy. BILATERAL SCREENING MAMMOGRAMS - FULL FIELD DIGITAL WITH TOMOSYNTHESIS AND CAD Tomosynthesis craniocaudal and mediolateral oblique views of both breasts were obtained using low- dose digital technique. Comparison is made to prior studies from February 29, 2020 through March 17, 2023. This examination was reviewed with the aid of CAD. There are scattered fibroglandular densities. There are no developing masses, typically malignant calcifications or architectural distortion. There has been no significant interval change. MM/MM screening mammo BI w/CAD IMPRESSION: NO MAMMOGRAPHIC EVIDENCE OF MALIGNANCY. ROUTINE FOLLOW-UP IS RECOMMENDED IN ONE YEAR. RESULT CODE: 1 Negative DENSITY CODE: 2 (approximately 25-50% glandular) FOLLOW UP: 1YR The false-negative rate of mammography is approximately 10-percent. Management of a palpable abnormality must be based on clinical grounds. Patient was entered into a reminder system with a target due date for the next mammogram. Impression dictated by: Archana Curiel M.D.03/20/2024 4:38 PM Dictation Location: [facility] Transcribed By: [facility] 03/20/24 1638 Dictated By: Archana Curiel MD 03/20/24 1635 Signed By: 03/20/24 1638 Normal [facility] CT heart calcium score genaro 01-06-2024 CT heart calcium score wo [facility] Main [address] [address] [address] Scan Report Signed Patient: Joseph Abbott MR#: [id number] : 1955 Acct:[id number] Age/Sex: 68 / F ADM Date: 01/06/24 Loc: CT Room: Type: [facility] Attending Dr: Alexey Manley DO Copies to: Alexey Manley DO Ordering Provider: Alexey Manley DO Date of Service: 01/06/24 CT/CT heart calcium score wo: Z82.49 - Family history of ischemic heart disease and oth... CT heart calcium score w/o contrast REASON FOR EXAM: Family history of coronary artery disease TECHNIQUE: Prospective gated imaging of the heart were obtained for calcium evaluation of the coronary arteries. Agatston score was calculated. The CT exam was performed using one or more the following dose reduction techniques: Automated exposure control, adjustment of the MA and/or Kv according to patient size, or use of the iterative reconstruction technique. COMPARISON:None FINDINGS: LEFT MAIN: 8.05 LEFT ANTERIOR DESCENDIN CIRCUMFLEX: 0 RIGHT CORONARY ARTERY: 60.3 TOTAL AGATSTON CALCIUM SCORE: 68.35 This calcium score places the patient at the 73rd percentile. EXTRACARDIAC STRUCTURES: No evidence of mediastinal or hilar lymphadenopathy. No pericardial effusion. Visualized lungs demonstrate no acute process. No lung nodule is seen. Limited images of the upper abdomen demonstrate no acute findings. CT/CT heart calcium score wo IMPRESSION: No significant extracardiac CT findings. CALCIUM SCORE INTERPRETATION (1-99) RIsk is mildly increased. Treatment recommendation - moderate intensity statin. Source: May 2017 - Coronary artery calcium data and reporting system. An expert consensus document of the Society of Cardiovascular Computed Tomography) Impression dictated by: Ozzy Duggan Jr., D.ORachel01/06/2024 2:32 PM Dictation Location: [place] [address] Transcribed By: [facility] 01/06/24 1432 Dictated By: Ozzy Duggan Jr, DO 01/06/24 1423 Signed By: 01/06/24 1432 Normal [facility] Laboratory - Chemistry and C hemistry - challengeon 10-09-2023 Bilirubin Ql (U) Negative [facility] Glucose (U) [Mass/Vol] Negative [facility] Ketones Ql (U) Negative [facility] pH (U) 7.0 [pH] [facility] Specific gravity (U) [Rel density] 1.005 [facility] Urobilinogen (U) [Mass/Vol] 0.2 mg/dL [facility] Laboratory - Specimen inform ationon 10-09-2023 Appearance (U) cloudy [facility] Color (U) lightorange [facility] Laboratory - Urinalysison Leukocyte esterase Test strip Ql (U) Moderate [facility] Nitrite Ql (U) Negative [facility] Protein Ql (U) Positive [facility] No Panel Informationon 10-08 Urine Occult Blood Large [facility] Urine Cultureon 10-09-2023 Bacteria identified Cx Nom (U) >100,000 colonies/ml mixed bacterial skin contaminants 2 Days PERFORMED BY: [facility] [address] [place] [address] PATHOLOGIST FIRE OFFICER MATTHEW BLOCK M.D. Normal [facility] Comment on above: Performed By: #### C UU ####[facility] [address] Urine culture routineOrdered By: Mar Almanzar on 10-09-2023 Bacteria identified Cx Nom (U) 2 Days [facility] Alanine aminotransferase [En zymatic activity/volume] in Serum or PlasmaOrdered By: [facility] on 09-11-2023 ALT [Catalytic activity/Vol] 27 U/L Normal 7-52 [facility] Comment on above: Performed By: #### O UTREACH GLYCO, CBCNOOUTREACH, OUTREACH LIPID, OUTREACH CMP #### [facility] [address] Albumin [Mass/volume] in Ser um or Plasma by Bromocresol green (BCG) dye binding methoOrdered By: [facility] on 09-11-2023 Albumin BCG dye [Mass/Vol] 4.0 g/dL 3.5-5.7 [facility] Alkaline phosphatase [Enzyma tic activity/volume] in Serum or PlasmaOrdered By: [facility] on 09-11-2023 ALP [Catalytic activity/Vol] 54 U/L Normal 34-104 [facility] Comment on above: Performed By: #### O UTREACH GLYCO, CBCNOOUTREACH, OUTREACH LIPID, OUTREACH CMP #### [address] Aspartate aminotransferase [ Enzymatic activity/volume] in Serum or PlasmaOrdered By: [facility] on 09-11-2023 AST [Catalytic activity/Vol] 29 U/L Normal 13-39 [facility] Comment on above: Performed By: #### O UTREACH GLYCO, CBCNOOUTREACH, OUTREACH LIPID, OUTREACH CMP #### [address] Bilirubin.total [Mass/volume ] in Serum or PlasmaOrdered By: [facility] on 09-11-2023 Bilirubin [Mass/Vol] 0.5 mg/dL Normal 0.3-1.0 [facility] Comment on above: Performed By: #### O UTREACH GLYCO, CBCNOOUTREACH, OUTREACH LIPID, OUTREACH CMP #### [address] CBC Without Differentialon 0 09-11-2023 Mean Corpuscular HGB Conc 33.3 g/dL Normal 32.0-35.0 [facility] Comment on above: Performed By: #### O UTREACH GLYCO, CBCNOOUTREACH, OUTREACH LIPID, OUTREACH CMP #### [address] WBC (Bld) [#/Vol] 3.9 10*3/uL Normal 3.8-11.6 [facility] Comment on above: Performed By: #### O UTREACH GLYCO, CBCNOOUTREACH, OUTREACH LIPID, OUTREACH CMP #### [address] CMP Outreachon 09-11-2023 Albumin [Mass/Vol] 4.0 g/dL Normal 3.5-5.7 [facility] Comment on above: Performed By: #### O UTREACH GLYCO, CBCNOOUTREACH, OUTREACH LIPID, OUTREACH CMP #### [address] GFR/1.73 sq M.predicted MDRD (S/P/Bld) [Vol rate/Area] mL/min/{1.73_m2} Normal [facility] Comment on above: Performed By: #### O UTREACH GLYCO, CBCNOOUTREACH, OUTREACH LIPID, OUTREACH CMP #### [facility] [address] [place] [id number] [place] Calcium [Mass/volume] in Ser um or PlasmaOrdered By: [facility] on 09-11-2023 Calcium [Mass/Vol] 9.1 mg/dL Normal 8.6-10.3 [facility] Comment on above: Performed By: #### O UTREACH GLYCO, CBCNOOUTREACH, OUTREACH LIPID, OUTREACH CMP #### [facility] [address] [place] [address] [place] Carbon dioxide, total [Moles /volume] in Serum or PlasmaOrdered By: [facility] on 09-11-2023 CO2 [Moles/Vol] 28.9 mmol/L Normal 21.0-31.0 [facility] Comment on above: Performed By: #### O UTREACH GLYCO, CBCNOOUTREACH, OUTREACH LIPID, OUTREACH CMP #### [facility] [address] [id number] [place] Chloride [Moles/volume] in S jean or PlasmaOrdered By: [facility]REACH [facility] on 09-11-2023 Chloride [Moles/Vol] 105 mmol/L Normal 98-107 [facility] Comment on above: Performed By: #### O UTREACH GLYCO, CBCNOOUTREACH, OUTREACH LIPID, OUTREACH CMP #### [facility] [address] [id number] [place] Cholesterol [Mass/volume] in Serum or PlasmaOrdered By: [facility] on 09-11-2023 Cholesterol [Mass/Vol] 185 mg/dL Normal 140-200 [facility] Comment on above: Chol less than 200 m g/dl low riskChol 201-239 mg/dl borderline riskChol 240 mg/dl and greater high risk Result Comment: Chol less than 200 mg/dl low risk Chol 201-239 mg/dl borderline risk Chol 240 mg/dl and greater high risk Performed By: #### O UTREACH GLYCO, CBCNOOUTREACH, OUTREACH LIPID, OUTREACH CMP #### [facility] [address] [place] [address] [place] Cholesterol in LDL Calc [Mas s/Vol]Ordered By: OUTREACH [facility] on 09-11-2023 Cholesterol in LDL [Mass/Vol] 98 mg/dL 0-100 [facility] Comment on above: LDL ATP III CLASSIFI CATIONLDL less than 100 mg/dL OptimalLDL 100-129 mg/dL Near or above optimalLDL 130-159 mg/dL Borderline highLDL 160-189 mg/dL HighLDL greater than 189 mg/dL Very high Cholesterol in VLDL Calc [Ma ss/Vol]Ordered By: [facility] on 09-11-2023 Cholesterol in VLDL [Mass/Vol] 17 mg/dL [facility] Creatinine [Mass/volume] in Serum or PlasmaOrdered By: [facility] on 09-11-2023 Creatinine [Mass/Vol] 0.86 mg/dL Normal 0.60-1.20 [facility] Comment on above: Performed By: #### O UTREACH GLYCO, CBCNOOUTREACH, OUTREACH LIPID, OUTREACH CMP #### [facility] [address] [id number] [place] Erythrocyte distribution wid th [Ratio] by Automated countOrdered By: [facility] on 09-11-2023 Erythrocyte distribution width (RBC) [Ratio] 13.3 % Normal 11.9-15.3 [facility] Comment on above: Performed By: #### O UTREACH GLYCO, CBCNOOUTREACH, OUTREACH LIPID, OUTREACH CMP #### [facility] [address] [id number] [place] Erythrocytes [#/volume] in B lood by Automated countOrdered By: [facility] on 09-11-2023 RBC (Bld) [#/Vol] 4.19 10*6/uL Normal 3.60-5.00 [facility] Comment on above: Performed By: #### O UTREACH GLYCO, CBCNOOUTREACH, OUTREACH LIPID, OUTREACH CMP #### [facility] [address] [id number] [place] Glucose [Mass/volume] in Ser um or PlasmaOrdered By: [facility] on 09-11-2023 Glucose [Mass/Vol] 78 mg/dL Normal 70-100 [facility] Comment on above: ADA recommended refe rence rangeRandom Glucose Reference Range is dependent on time and content of last meal. Glucose of more than 200 mg/dL in a nonstressed, ambulatory subject supports the diagnosis of Diabetes Mellitus. Result Comment: Ovid om Glucose Reference Range is dependent on time and content of last meal. Glucose of more than 200 mg/dL in a nonstressed, ambulatory subject supports the diagnosis of Diabetes Mellitus. ADA recommended reference range Performed By: #### O UTREACH GLYCO, CBCNOOUTREACH, OUTREACH LIPID, OUTREACH CMP #### [facility] [address] Glucose mean value [Mass/vol ume] in Blood Estimated from glycated hemoglobinOrdered By: [facility] on 09-11-2023 Average glucose Estimated from glycated hemoglobin (Bld) [Mass/Vol] 114 mg/dL [facility] Hematocrit [Volume Fraction] of Blood by Automated countOrdered By: [facility] on 09-11-2023 Hematocrit (Bld) [Volume fraction] 40.1 % Normal 34.0-46.4 [facility] Comment on above: Performed By: #### O UTREACH GLYCO, CBCNOOUTREACH, OUTREACH LIPID, OUTREACH CMP #### [facility] [address] [place] [address] [place] Hemoglobin [Mass/volume] in BloodOrdered By: [facility] on 09-11-2023 Hemoglobin (Bld) [Mass/Vol] 13.4 g/dL Normal 11.8-15.4 [facility] Comment on above: Performed By: #### O UTREACH GLYCO, CBCNOOUTREACH, OUTREACH LIPID, OUTREACH CMP #### [facility] [address] [id number] [place] Leukocytes [#/volume] correc scott for nucleated erythrocytes in Blood by Automated counOrdered By: [facility] on 09-11-2023 WBC corrected for nucl RBC Auto (Bld) [#/Vol] 3.9 10*3/uL 3.8-11.6 [facility] Lipid Profile [facility] LDL Cholesterol,Calculated 98 mg/dL Normal 0-100 [facility] Comment on above: Result Comment: LDL ATP III CLASSIFICATION LDL less than 100 mg/dL Optimal LDL 100-129 mg/dL Near or above optimal LDL 130-159 mg/dL Borderline high LDL 160-189 mg/dL High LDL greater than 189 mg/dL Very high Performed By: #### O UTREACH GLYCO, CBCNOOUTREACH, OUTREACH LIPID, OUTREACH CMP #### [facility] [address] Triglyceride w/Reflex 85 mg/dL Normal 0-149 [facility] Comment on above: Result Comment: TRIG ATP III CLASSIFICATION TRIG less than 150 mg/dL Normal TRIG 150-199 mg/dL Borderline high TRIG 200-500 mg/dL High TRIG greater than 500 mg/dL Very high Standard traceable to the Center for Disease Conrtrol and Prevention (CDC) test method. Performed By: #### O UTREACH GLYCO, CBCNOOUTREACH, OUTREACH LIPID, OUTREACH CMP #### [address] VLDL CHOLESTEROL 17 mg/dL Normal [facility] Comment on above: Performed By: #### O UTREACH GLYCO, CBCNOOUTREACH, OUTREACH LIPID, OUTREACH CMP #### [address] MCH [Entitic mass] by Automa scott countOrdered By: [facility]REACH [facility] on 09-11-2023 MCH (RBC) [Entitic mass] 31.9 pg Normal 24.7-34.3 [facility] Comment on above: Performed By: #### O UTREACH GLYCO, CBCNOOUTREACH, OUTREACH LIPID, OUTREACH CMP #### [facility] [address] MCHC Auto (RBC) [Mass/Vol]Or dered By: [facility] on 09-11-2023 MCHC (RBC) [Mass/Vol] 33.3 g/dL 32.0-35.0 [facility] MCV [Entitic volume] by Auto mated countOrdered By: OUTREACH COMMUNITY on 09-11-2023 MCV (RBC) [Entitic vol] 95.7 fL Normal 80-100 [facility] Comment on above: Performed By: #### O UTREACH GLYCO, CBCNOOUTREACH, OUTREACH LIPID, OUTREACH CMP #### [facility] [address] [place] [address] No Panel InformationOrdered By: OUTREACH COMMUN[facility] on 09-11-2023 Estimated GFR (CKD-EPI) > 60.0 mL/Min [facility] Creatinine Clearance (Chem N/A [facility] Outreach Gly[employer]on 09-11-2023 Glucose [Mass/Vol] 114 mg/dL Normal [facility] Comment on above: Result Comment: PERF ORMED BY: [place] [address] PATHOLOGIST FIRE OFFICER MATTHEW BLOCK M.D. Performed By: #### O UTREACH GLYCO, CBCNOOUTREACH, OUTREACH LIPID, OUTREACH CMP #### [address] Outreach GlycoOrdered By: [facility] on 09-11-[facility]23 HbA1c (Bld) [Mass fraction] 5.6 % Normal 4.3-5.6 [facility] Comment on above: Increased risk for d iabetes: 5.7 - 6.4diabetes: >6.4glycemic control for adults with diabetes: <7.0 Result Comment: Incr eased risk for diabetes: 5.7 - 6.4 diabetes: >6.4 glycemic control for adults with diabetes: <7.0 Performed By: #### O UTREACH GLYCO, CBCNOOUTREACH, OUTREACH LIPID, OUTREACH CMP #### [address] Platelet mean volume [Entiti c volume] in Blood by Automated countOrdered By: [facility] on 09-11-2023 Platelet mean volume (Bld) [Entitic vol] 7.7 fL Normal 6.3-10.7 [facility] Comment on above: Result Comment: PERF ORMED BY: [place] [address] PATHOLOGIST FIRE OFFICER MATTHEW BLOCK M.D. Performed By: #### O UTREACH GLYCO, CBCNOOUTREACH, OUTREACH LIPID, OUTREACH CMP #### [facility] [address] [place] [address] [place] Platelets [#/volume] in Bloo d by Automated countOrdered By: [facility]REACH [facility] on 09-11-2023 Platelets (Bld) [#/Vol] 269 10*3/uL Normal 150-450 [facility] Comment on above: Performed By: #### O UTREACH GLYCO, CBCNOOUTREACH, OUTREACH LIPID, OUTREACH CMP #### [facility] [address] [id number] [place] Potassium [Moles/volume] in Serum or PlasmaOrdered By: [facility]RE[facility] on 09-11-2023 Potassium [Moles/Vol] 3.9 mmol/L Normal 3.5-5.1 [facility] Comment on above: Performed By: #### O UTREACH GLYCO, CBCNOOUTREACH, OUTREACH LIPID, OUTREACH CMP #### [facility] [address] [place] [address] [place] Protein [Mass/volume] in Ser um or PlasmaOrdered By: [facility]RE[facility] on 09-11-2023 Protein [Mass/Vol] 6.4 g/dL Normal 6.4-8.9 [facility] Comment on above: Performed By: #### O UTREACH GLYCO, CBCNOOUTREACH, OUTREACH LIPID, OUTREACH CMP #### [facility] [address] [id number] [place] Serum or plasma anion gap de terminationOrdered By: OUTREACH COMMUN[facility] on 09-11-2023 Anion gap [Moles/Vol] 9.0 mmol/L Normal 6.0-15.0 [facility] Comment on above: Performed By: #### O UTREACH GLYCO, CBCNOOUTREACH, OUTREACH LIPID, OUTREACH CMP #### [facility] [address] [phone] [place] Serum or plasma high density lipoprotein (HDL) cholesterol measurementOrdered By: OUTREACH COMMUN[facility] on 09-11-2023 Cholesterol in HDL [Mass/Vol] 70 mg/dL Normal 23-92 [facility] Comment on above: HDL CHOL ATP-III CLA SSIFICATION Cardiovascular RiskHDL > or equal to 60 mg/dL LOWHDL < 40 mg/dL HIGH Result Comment: HDL CHOL ATP-III CLASSIFICATION Cardiovascular Risk HDL > or equal to 60 mg/dL LOW HDL < 40 mg/dL HIGH Performed By: #### O UTREACH GLYCO, CBCNOOUTREACH, OUTREACH LIPID, OUTREACH CMP #### [facility] [address] Serum or plasma total choles terol/high density lipoprotein (HDL) cholesterol mass ratOrdered By: OUTREACH [facility] on 09-11-2023 Cholesterol.total/Rosa sterol in HDL [Mass ratio] 2.6 {ratio} Normal <5.0 [facility] Comment on above: Result Comment: PERF ORMED BY: [place] [address] PATHOLOGIST FIRE OFFICER MATTHEW BLOCK M.D. Performed By: #### O UTREACH GLYCO, CBCNOOUTREACH, OUTREACH LIPID, OUTREACH CMP #### [place] [address] [place] Sodium [Moles/volume] in Ser um or PlasmaOrdered By: [facility] on 09-11-2023 Sodium [Moles/Vol] 139 mmol/L Normal 136-145 [facility] Comment on above: Performed By: #### O UTREACH GLYCO, CBCNOOUTREACH, OUTREACH LIPID, OUTREACH CMP #### [address] Triglyceride [Mass/volume] i n Serum or PlasmaOrdered By: OUTREACH COMMUNITY on 09-11-2023 Triglyceride [Mass/Vol] 85 mg/dL 0-149 [facility] Comment on above: TRIG ATP III CLASSIF ICATIONTRIG less than 150 mg/dL NormalTRIG 150-199 mg/dL Borderline highTRIG 200-500 mg/dL High TRIG greater than 500 mg/dL Very highStandard traceable to the Center for Disease Conrtrol and Prevention (CDC) test method. Urea nitrogen [Mass/volume] in Serum or PlasmaOrdered By: OUTREACH [facility] on 09-11-2023 Urea nitrogen [Mass/Vol] 12 mg/dL Normal 7-25 [facility] Comment on above: Performed By: #### O UTREACH GLYCO, CBCNOOUTREACH, OUTREACH LIPID, OUTREACH CMP #### [facility] [address] Alanine aminotransferase [En zymatic activity/volume] in Serum or PlasmaOrdered By: OUTREACH [facility] on 09-12-2022 ALT [Catalytic activity/Vol] 25 U/L 7-52 [facility] Albumin [Mass/volume] in Ser um or Plasma by Bromocresol green (BCG) dye binding methoOrdered By: [facility]REACH [facility] on 09-12-2022 Albumin BCG dye [Mass/Vol] 4.5 g/dL 3.5-5.7 [facility] Alkaline phosphatase [Enzyma tic activity/volume] in Serum or PlasmaOrdered By: OUTREACH [facility] on 09-12-2022 ALP [Catalytic activity/Vol] 57 U/L 34-104 [facility] Aspartate aminotransferase [ Enzymatic activity/volume] in Serum or PlasmaOrdered By: OUTREACH [facility] on 09-12-2022 AST [Catalytic activity/Vol] 25 U/L 13-39 [facility] Bilirubin.total [Mass/volume ] in Serum or PlasmaOrdered By: OUTREACH [facility] on 09-12-2022 Bilirubin [Mass/Vol] 0.7 mg/dL 0.3-1.0 [facility] Calcium [Mass/volume] in Ser um or PlasmaOrdered By: OUTREACH [facility] on 09-12-2022 Calcium [Mass/Vol] 9.5 mg/dL 8.6-10.3 [facility] Carbon dioxide, total [Moles /volume] in Serum or PlasmaOrdered By: OUTREACH [facility] on 09-12-2022 CO2 [Moles/Vol] 27.7 mmol/L 21.0-31.0 [facility] [place] [facility] Chloride [Moles/volume] in S jean or PlasmaOrdered By: OUTREACH COMMUNITY on 09-12-2022 Chloride [Moles/Vol] 107 mmol/L 98-107 [facility] Cholesterol [Mass/volume] in Serum or PlasmaOrdered By: OUTREACH [facility] on 09-12-2022 Cholesterol [Mass/Vol] 209 mg/dL 140-200 [facility] Comment on above: Chol less than 200 m g/dl low riskChol 201-239 mg/dl borderline riskChol 240 mg/dl and greater high risk Cholesterol in LDL Calc [Mas s/Vol]Ordered By: [facility] on 09-12-2022 Cholesterol in LDL [Mass/Vol] 115 mg/dL 0-100 [facility] Comment on above: LDL ATP III CLASSIFI CATIONLDL less than 100 mg/dL OptimalLDL 100-129 mg/dL Near or above optimalLDL 130-159 mg/dL Borderline highLDL 160-189 mg/dL HighLDL greater than 189 mg/dL Very high Cholesterol in VLDL Calc [Ma ss/Vol]Ordered By: [facility] on 09-12-2022 Cholesterol in VLDL [Mass/Vol] 21 mg/dL [facility] Creatinine [Mass/volume] in Serum or PlasmaOrdered By: [facility] on 09-12-2022 Creatinine [Mass/Vol] 0.77 mg/dL 0.60-1.20 [facility] Erythrocyte distribution wid th Auto (RBC) [Ratio]Ordered By: [facility] on 09-12-2022 Erythrocyte distribution width (RBC) [Ratio] 13.5 % 11.9-15.3 [facility] Glucose [Mass/volume] in Ser um or PlasmaOrdered By: [facility] on 09-12-2022 Glucose [Mass/Vol] 86 mg/dL 70-100 [facility] Comment on above: ADA recommended refe rence rangeRandom Glucose Reference Range is dependent on time and content of last meal. Glucose of more than 200 mg/dL in a nonstressed, ambulatory subject supports the diagnosis of Diabetes Mellitus. Glucose mean value [Mass/vol ume] in Blood Estimated from glycated hemoglobinOrdered By: [facility] on 09-12-2022 Average glucose Estimated from glycated hemoglobin (Bld) [Mass/Vol] 117 mg/dL [facility] Hematocrit Auto (Bld) [Volum e fraction]Ordered By: [facility] on 09-12-2022 Hematocrit (Bld) [Volume fraction] 41.9 % 34.0-46.4 [facility] Hemoglobin [Mass/volume] in BloodOrdered By: [facility] on 09-12-2022 Hemoglobin (Bld) [Mass/Vol] 14.1 g/dL 11.8-15.4 [facility] - Hematology and Cell countsOrdered By: [facility] on 09-12-2022 HbA1c (Bld) [Mass fraction] 5.7 % 4.3-5.6 [facility] Comment on above: Increased risk for d iabetes: 5.7 - 6.4diabetes: >6.4glycemic control for adults with diabetes: <7.0 Leukocytes [#/volume] correc scott for nucleated erythrocytes in Blood by Automated counOrdered By: OUTREACH [facility] on 09-12-2022 WBC corrected for nucl RBC Auto (Bld) [#/Vol] 5.4 10*3/uL 3.8-11.6 [facility] MCH Auto (RBC) [Entitic mass ]Ordered By: [facility] on 09-12-2022 MCH (RBC) [Entitic mass] 31.6 pg 24.7-34.3 [facility] MCHC Auto (RBC) [Mass/Vol]Or dered By: OUTREACH [facility] on 09-12-2022 MCHC (RBC) [Mass/Vol] 33.6 g/dL 32.0-35.0 [facility] MCV Auto (RBC) [Entitic vol] Ordered By: [facility] on 09-12-2022 MCV (RBC) [Entitic vol] 93.9 fL 80-100 [facility] No Panel InformationOrdered By: [facility] on 09-12-2022 Estimated GFR (CKD-EPI) > 60.0 mL/Min [facility] Creatinine Clearance (Chem N/A [facility] Platelet mean volume Auto (B ld) [Entitic vol]Ordered By: OUTREACH [facility] on 09-12-2022 Platelet mean volume (Bld) [Entitic vol] 6.9 fL 6.3-10.7 [facility] Platelets Auto (Bld) [#/Vol] Ordered By: OUTREACH [facility] on 09-12-2022 Platelets (Bld) [#/Vol] 305 10*3/uL 150-450 [facility] Potassium [Moles/volume] in Serum or PlasmaOrdered By: OUTREACH [facility] on 09-12-2022 Potassium [Moles/Vol] 4.2 mmol/L 3.5-5.1 [facility] Protein [Mass/volume] in Ser um or PlasmaOrdered By: [facility]RE[facility] on 09-12-2022 Protein [Mass/Vol] 6.8 g/dL 6.4-8.9 [facility] RBC Auto (Bld) [#/Vol]Ordere d By: [facility] on 09-12-2022 RBC (Bld) [#/Vol] 4.46 10*6/uL 3.60-5.00 [facility] Serum or plasma anion gap de terminationOrdered By: OUTREACH COMM[facility] on 09-12-2022 Anion gap [Moles/Vol] 10.5 mmol/L 6.0-15.0 [facility] Serum or plasma high density lipoprotein (HDL) cholesterol measurementOrdered By: OUTREACH [facility] on 09-12-2022 Cholesterol in HDL [Mass/Vol] 72 mg/dL 23- [facility] Comment on above: HDL CHOL ATP-III CLA SSIFICATION Cardiovascular RiskHDL > or equal to 60 mg/dL LOWHDL < 40 mg/dL HIGH Serum or plasma total choles terol/high density lipoprotein (HDL) cholesterol mass ratOrdered By: [facility]RE[facility] on 09-12-2022 Cholesterol.total/Rosa sterol in HDL [Mass ratio] 2.9 {ratio} <5.0 [facility] Sodium [Moles/volume] in Ser um or PlasmaOrdered By: OUTREACH [facility] on 09-12-2022 Sodium [Moles/Vol] 141 mmol/L 136-145 [facility] Triglyceride [Mass/volume] i n Serum or PlasmaOrdered By: OUTREACH [facility] on 09-12-2022 Triglyceride [Mass/Vol] 109 mg/dL 0-149 [facility] Comment on above: TRIG ATP III CLASSIF ICATIONTRIG less than 150 mg/dL NormalTRIG 150-199 mg/dL Borderline highTRIG 200-500 mg/dL High TRIG greater than 500 mg/dL Very highStandard traceable to the Center for Disease Conrtrol and Prevention (CDC) test method. Urea nitrogen [Mass/volume] in Serum or PlasmaOrdered By: [facility] on 09-12-2022 Urea nitrogen [Mass/Vol] 16 mg/dL 7- [facility] Blood hemoglobin measurement (mass/volume)Ordered By: [facility] on 11-08-2021 Hemoglobin (Bld) [Mass/Vol] 14.5 g/dL 11.8-15.4 [facility] Body fluid albumin measureme nt (mass/volume)Ordered By: [facility] on 11-08-2021 Albumin (Body fld) [Mass/Vol] 3.9 g/dL 3.2-5.5 [facility] Cholesterol [Mass/volume] in Serum or PlasmaOrdered By: [facility] on 11-08-2021 Cholesterol [Mass/Vol] 230 mg/dL 140-200 [facility] Comment on above: Chol less than 200 m g/dl low risk Chol 201-239 mg/dl borderline risk Chol 240 mg/dl and greater high risk Cholesterol in LDL Calc [Mas s/Vol]Ordered By: [facility] on 11-08-2021 Cholesterol in LDL [Mass/Vol] 149 mg/dL 0-100 [facility] Comment on above: LDL ATP III CLASSIFI CATION LDL less than 100 mg/dL Optimal LDL 100-129 mg/dL Near or above optimal LDL 130-159 mg/dL Borderline high LDL 160-189 mg/dL High LDL greater than 189 mg/dL Very high Cholesterol in VLDL Calc [Ma ss/Vol]Ordered By: [facility] on 11-08-2021 Cholesterol in VLDL [Mass/Vol] 14 mg/dL [facility] Creatinine and Glomerular fi ltration rate.predicted panel (S/P/Bld)Ordered By: [facility] on 11-08-2021 Creatinine [Mass/Vol] 0.89 mg/dL 0.44-1.03 [facility] Erythrocyte distribution wid th Auto (RBC) [Ratio]Ordered By: [facility] on 11-08-2021 Erythrocyte distribution width (RBC) [Ratio] 13.6 % 11.9-15.3 [facility] Estimated glomerular filtrat ion rate (GFR) non- AmericanOrdered By: [facility] on 11-08-2021 GFR/1.73 sq M.predicted among non-blacks MDRD (S/P/Bld) [Vol rate/Area] > 60 mL/Min [facility] Hematocrit Auto (Bld) [Volum e fraction]Ordered By: [facility] on 11-08-2021 Hematocrit (Bld) [Volume fraction] 44.1 % 34.0-46.4 [facility] MCH Auto (RBC) [Entitic mass ]Ordered By: [facility] on 11-08-2021 MCH (RBC) [Entitic mass] 30.9 pg 24.7-34.3 [facility] MCHC Auto (RBC) [Mass/Vol]Or dered By: OUTREACH [facility] on 11-08-2021 MCHC (RBC) [Mass/Vol] 32.8 g/dL 32.0-35.0 [facility] MCV Auto (RBC) [Entitic vol] Ordered By: OUTREACH [facility] on 11-08-2021 MCV (RBC) [Entitic vol] 94.0 fL 80-100 [facility] No Panel InformationOrdered By: [facility] on 11-08-2021 Estimated GFR () > 60 mL/Min [facility] Comment on above: GFR estimated refere nce range: According to KDOQI guidelines, <60 ml/min/1.73m2 is sufficient to diagnose a patient with chronic kidney disease. Pharmacy Creatinine Clearance (Chem N/A [facility] Triglycerides Reflex 73 mg/dL 35-149 [facility] Comment on above: TRIG ATP III CLASSIF ICATION TRIG less than 150 mg/dL Normal TRIG 150-199 mg/dL Borderline high TRIG 200-500 mg/dL High TRIG greater than 500 mg/dL Very high Standard traceable to the Center for Disease Conrtrol and Prevention (CDC) test method. Platelet mean volume Auto (B ld) [Entitic vol]Ordered By: [facility] on 11-08-2021 Platelet mean volume (Bld) [Entitic vol] 7.6 fL 6.3-10.7 [facility] Platelets Auto (Bld) [#/Vol] Ordered By: OUTREACH [facility] on 11-08-2021 Platelets (Bld) [#/Vol] 317 10*3/uL 150-450 [facility] Protein [Mass/volume] in Ser um or PlasmaOrdered By: OUTREACH [facility] on 11-08-2021 Protein [Mass/Vol] 6.8 g/dL 6.1-7.9 [facility] RBC Auto (Bld) [#/Vol]Ordere d By: OUTREACH [facility] on 11-08-2021 RBC (Bld) [#/Vol] 4.69 10*6/uL 3.60-5.00 [facility] Serum or plasma alanine meneses otransferase measurement without P-5'-P (enzymatic activiOrdered By: [facility] on 11-08-2021 ALT No additional P-5'-P [Catalytic activity/Vol] 33 U/L 10-60 [facility] Serum or plasma alkaline sarah sphatase measurement (enzymatic activity/volume)Ordered By: [facility] on 11-08-2021 ALP [Catalytic activity/Vol] 65 U/L 32-92 [facility] Serum or plasma aspartate am inotransferase measurement (enzymatic activity/volume)Ordered By: [facility] on 11-08-2021 AST [Catalytic activity/Vol] 29 U/L 10-42 [facility] Serum or plasma calcium deanna urement (mass/volume)Ordered By: [facility] on 11-08-2021 Calcium [Mass/Vol] 9.6 mg/dL 8.2-10.2 [facility] Serum or plasma chloride hayder surement (moles/volume)Ordered By: [facility] on 11-08-2021 Chloride [Moles/Vol] 105 mmol/L 95-114 [facility] Serum or plasma glucose deanna urement (mass/volume)Ordered By: [facility] on 11-08-2021 Glucose [Mass/Vol] 90 mg/dL 70-100 [facility] Comment on above: ADA recommended refe rence range Random Glucose Reference Range is dependent on time and content of last meal. Glucose of more than 200 mg/dL in a nonstressed, ambulatory subject supports the diagnosis of Diabetes Mellitus. Serum or plasma high density lipoprotein (HDL) cholesterol measurementOrdered By: [facility] on 11-08-2021 Cholesterol in HDL [Mass/Vol] 66 mg/dL 35-85 [facility] Comment on above: HDL CHOL ATP-III CLA SSIFICATION Cardiovascular Risk HDL > or equal to 60 mg/dL LOW HDL < 40 mg/dL HIGH Serum or plasma potassium me asurement (moles/volume)Ordered By: [facility] on 11-08-2021 Potassium [Moles/Vol] 4.2 mmol/L 3.5-5.1 [facility] Serum or plasma sodium measu rement (moles/volume)Ordered By: [facility] on 11-08-2021 Sodium [Moles/Vol] 140 mmol/L 136-146 [facility] Serum or plasma total biliru bin measurement (mass/volume)Ordered By: [facility] on 11-08-2021 Bilirubin [Mass/Vol] 0.8 mg/dL 0.3-1.2 [facility] Serum or plasma total carbon dioxide measurement (moles/volume)Ordered By: [facility] on 11-08-2021 CO2 [Moles/Vol] 26.0 mmol/L 22.0-30.0 [facility] [place] [facility] Serum or plasma total choles terol/high density lipoprotein (HDL) cholesterol mass ratOrdered By: [facility] on 11-08-2021 Cholesterol.total/Rosa sterol in HDL [Mass ratio] 3.5 {ratio} <5.0 [facility] Serum or plasma urea nitroge n measurement (mass/volume)Ordered By: [facility] on 11-08-2021 Urea nitrogen [Mass/Vol] 16 mg/dL 9-23 [facility] WBC Auto (Bld) [#/Vol]Ordere d By: [facility] on 11-08-2021 WBC (Bld) [#/Vol] 4.2 10*3/uL 3.8-11.6 [facility] GLYCOHEMOGLOBIN A1Con 2018 Glucose [Mass/Vol] 108 mg/dL Normal [facility] Comment on above: Performed By: #### A 1C #### [facility] [address], [place] [address] Wesley Archana HbA1c (Bld) [Mass fraction] 5.4 % Normal <=6.0 [facility] Comment on above: Performed By: #### A 1C #### [facility] [address], [place] [address] Wesley Archana CBC AUTO DIFFon 03-10-2018 Basophils (Bld) [#/Vol] 0.0 103/ul Normal 0.0-0.1 [facility] Comment on above: Performed By: #### C BC #### [facility] [address], [place] [address] Welsey Archana Basophils/100 WBC (Bld) 0.7 % Normal 0.2-2.0 [facility] Comment on above: Performed By: #### C BC #### [facility] [address] [place] [address] Wesley Archana Eosinophils (Bld) [#/Vol] 0.1 103/ul Normal 0.0-0.7 [facility] Comment on above: Performed By: #### C BC #### [facility] [address] [place], [place] [id number] Wesley Archana Eosinophils/100 WBC (Bld) 2.7 % Normal 0.9-7.0 [facility] Comment on above: Performed By: #### C BC #### [facility] [address] [place] [address] Wesley Archana Erythrocyte distribution width (RBC) [Ratio] 12.4 % Normal 11.0-15.0 [facility] Comment on above: Performed By: #### C BC #### [facility] [address] [place] [address] Wesley Archana Hematocrit (Bld) [Volume fraction] 43.2 % Normal 36.0-48.0 [facility] Comment on above: Performed By: #### C BC #### [facility] [address] [place] [address] Wesley Archana Hemoglobin (Bld) [Mass/Vol] 14.5 g/dL Normal 12.0-16.0 [facility] Comment on above: Performed By: #### C BC #### [facility] [address] [place] [address] Wesley Archana IG # 0.00 10e3/ul Normal 0.00-0.03 [facility] Comment on above: Performed By: #### C BC #### [facility] [address] [place] [address] Wesley Archana IG % 0.0 % Normal 0.0-0.5 [facility] Comment on above: Performed By: #### C BC #### [facility] [address] [place], [place] [id number] Wesley Archana Lymphocytes (Bld) [#/Vol] 1.4 103/ul Normal 1.2-3.8 [facility] Comment on above: Performed By: #### C BC #### [facility] [address] [place], [place] [address] Wesley Archana Lymphocytes/100 WBC (Bld) 34.9 % Normal 20.5-60.0 [facility] Comment on above: Performed By: #### C BC #### [facility] [address] [place] [address] Wesley Archana MANUAL DIFF REQ NO Normal [facility] Comment on above: Performed By: #### C BC #### [facility] [address] [place], [place] [address] Wesley Archana MCH (RBC) [Entitic mass] 31.5 pg Normal 26.7-34.0 [facility] Comment on above: Performed By: #### C BC #### [facility] [address] [place] [id number] Wesley Archana MCHC (RBC) [Mass/Vol] 33.6 g/dL Normal 29.9-35.2 [facility] Comment on above: Performed By: #### C BC #### [facility] [address] [place] [address] Wesley Archana MCV (RBC) [Entitic vol] 93.7 fL Normal 81.0-99.0 [facility] Comment on above: Performed By: #### C BC #### [facility] [address] [place] [address] Wesley Archana Monocytes (Bld) [#/Vol] 0.4 103/ul Normal 0.3-0.8 [facility] Comment on above: Performed By: #### C BC #### [facility] [address] [place] [address] Wesley Archana Monocytes/100 WBC (Bld) 9.9 % Normal 1.7-12.0 [facility] Comment on above: Performed By: #### C BC #### [facility] [address] [place] [address] Wesley Archana Neutrophils (Bld) [#/Vol] 2.1 103/ul Normal 1.4-6.5 [facility] Comment on above: Performed By: #### C BC #### [facility] [address] [place], [place] [id number] Wesley Magaña Neutrophils/100 WBC (Bld) 51.8 % Normal 43.0-75.0 [facility] Comment on above: Performed By: #### C BC #### [facility] [address] [place], [place] [id number] Wesley Magaña Platelet mean volume (Bld) [Entitic vol] 8.9 fL Critically low 9.5-13.5 [facility] Comment on above: Performed By: #### C BC #### [facility] [address] [place] [address] Wesley Magaña Platelets (Bld) [#/Vol] 283 103/ul Normal 150-450 [facility] Comment on above: Performed By: #### C BC #### [facility] [address] [place] [address] Wesley Magaña RBC (Bld) [#/Vol] 4.61 106/ul Normal 4.20-5.40 [facility] Comment on above: Performed By: #### C BC #### [facility] [address] [place], [place] [id number] Wesley Magaña WBC (Bld) [#/Vol] 4.1 103/ul Normal 4.0-11.0 [facility] Comment on above: Performed By: #### C BC #### [facility] [address] [place], [place] [id number] Wesley Magaña CULTURE URINEon 03-10-2018 CULTURE URINE Culture Observations : LIGHT GROWTH OF MIXED GENITAL PARDEEP. NO POTENTIAL PATHOGENS SEEN. Normal [facility] Comment on above: Performed By: #### U RCX #### [facility] [address] [place], [place] [id number] Wesley Magaña PROF CHEM 8 (BAS METB)on Anion gap [Moles/Vol] 10.3 mmol/L Normal [facility] Comment on above: Performed By: #### B MP, ALT, AST #### [facility] [address] [address] Wesley Archana Calcium [Mass/Vol] 9.3 mg/dL Normal 8.4-10.2 [facility] Comment on above: Performed By: #### B MP, ALT, AST #### [facility] [address] [place] [address] Wesley Archana Chloride [Moles/Vol] 104 mmol/L Normal 98-[address] [facility] Comment on above: Performed By: #### B MP, ALT, AST #### [facility] [address] [place] [address] Wesley Archana CO2 [Moles/Vol] 30.6 mmol/L Critically high 22.0-30.[address] [facility] Comment on above: Performed By: #### B MP, ALT, AST #### [facility] [address] [place] [address] Wesley Archana Creatinine [Mass/Vol] 0.98 mg/dL Normal 0.52-1.04 [facility] Comment on above: Performed By: #### B MP, ALT, AST #### [facility] [address] [place] [address] Wesley Archana EGFR-AF TAIWANESE >60 Normal >=60 [facility] Comment on above: Performed By: #### B MP, ALT, AST #### [facility] [address] [place] [address] Wesley Archana EGFR-NON AF TAIWANESE 58 mL/min/1.73m2 Critically low >=[address] [facility] Comment on above: Performed By: #### B MP, ALT, AST #### [facility] [address] [place] [address] Wesley Archana Glucose [Mass/Vol] 93 mg/dL Normal 74-106 [facility] Comment on above: Performed By: #### B MP, ALT, AST #### [facility] [address] [place] [address] Wesley Archana Potassium [Moles/Vol] 3.9 mmol/L Normal 3.4-5.[address] [facility] Comment on above: Performed By: #### B MP, ALT, AST #### [facility] [address] [place] [address] Wesley Archana Sodium [Moles/Vol] 141 mmol/L Normal 137-145 [facility] Comment on above: Performed By: #### B MP, ALT, AST #### [facility] [address] [place] [address] Wesley Archana Urea nitrogen [Mass/Vol] 18.0 mg/dL Critically high 7.0-17.0 [facility] Comment on above: Performed By: #### B MP, ALT, AST #### [facility] [address] [place] [address] Wesley Archana Urea nitrogen/Creatinine [Mass ratio] 18.4 mg/mg Normal [facility] Comment on above: Performed By: #### B MP, ALT, AST #### [facility] [address] [place] [address] Wesley Archana SGOTon 03-10-2018 AST [Catalytic activity/Vol] 25 U/L Normal 14-36 [facility] Comment on above: Performed By: #### B MP, ALT, AST #### [facility] [address] [place] [address] Wesley Archana SGPTon 03-10-2018 ALT [Catalytic activity/Vol] 39 U/L Normal 9-52 [facility] Comment on above: Performed By: #### B MP, ALT, AST #### [facility] [address] [place] [address] Wesley Archana UA (CLEAN/CATCH) PHYSICAL THERAPY MANAGER/MICRO I F IND.on 03-10-2018 Bilirubin [Mass/Vol] Negative Normal NEGATIVE [facility] Comment on above: Performed By: #### U ACSIND UMICRO #### [facility] [address] [place] [address] Wesley Archana BLOOD Negative Normal NEGATIVE [facility] Comment on above: Performed By: #### U ACSIND, UMICRO #### [facility] [address] [place], [place] [id number] Wesley Archana Clarity (U) CLEAR Normal [facility] Comment on above: Performed By: #### U ACSWILLIAN TRAVISICRO #### [facility] [address] [place] [address] Wesley Archana Color (U) LT. YELLOW Normal YELLOW [facility] Comment on above: Performed By: #### U ANNETTE UMICRO #### [facility] [address] [place] [address] Wesley Archana Glucose [Mass/Vol] Negative Normal NEGATIVE [facility] Comment on above: Performed By: #### U ACSTHADDEUS UMICRO #### [facility] [address] [place] [address] Wesley Archana Ketones Ql (U) Negative Normal NEGATIVE [facility] Comment on above: Performed By: #### U WILLIAN BRYANTICRO #### [facility] [address] [place] [address] Wesley Archana Nitrite Ql (U) Negative Normal NEGATIVE [facility] Comment on above: Performed By: #### U WILLIAN BRYANTICRO #### [facility] [address] [place] [address] Wesley Archana pH (Bld) 7.5 Normal 5-9 [facility] Comment on above: Performed By: #### U WILLIAN BRYANTICRO #### [facility] [address] [place] [address] Wesley Archana Protein [Mass/Vol] Negative Normal [facility] Comment on above: Performed By: #### U WILLIAN BRYANTICRO #### [facility] [address] [place] [address] Wesley Archana SPEC GRAVITY 1.010 Normal 1.005-<=1.02 5 [facility] Comment on above: Performed By: #### U WILLIAN BRYANTICRO #### [facility] [address] [place] [address] Wesley Archana UR MICRO IND INDICATED Normal [facility] Comment on above: Performed By: #### U ANNETTE UMICRO #### [facility] [address] [place] [address] Wesley Archana Urobilinogen Qn (U) 0.2 EU/dl Normal [facility] Comment on above: Performed By: #### U ACSTHADDEUS, UMICRO #### [facility] [address] [place] [address] Wesley Archana WBC (Bld) [#/Vol] TRACE Normal NEGATIVE [facility] Comment on above: Performed By: #### U ACSIND, UMICRO #### [facility] [address] [place], [place] [id number] Wesley Archana URINE MICROSCOPIC ONLYon Bacteria LM.HPF (Urine sed) [#/Area] SMALL Normal NONE SEEN [facility] Comment on above: Performed By: #### U ACSTHADDEUS, UMICRO #### [facility] [address] [place] [address] Wesley Archana CAST NONE SEEN Normal NONE SEEN [facility] Comment on above: Performed By: #### U ACSTHADDEUS, UMICRO #### [facility] [address] [place] [address] Wesley Archana Crystals LM Nom (Urine sed) NONE SEEN Normal NONE SEEN [facility] Comment on above: Performed By: #### U ACSTHADDEUS, UMICRO #### [facility] [address] [place] [address] Wesley Archana CULTURE INDICATED Normal [facility] Comment on above: Performed By: #### U ACSTHADDEUS, UMICRO #### [facility] [address] [place], [place] [id number] Wesley Archana Epithelial cells LM.HPF (Urine sed) [#/Area] FEW Normal [facility] Comment on above: Performed By: #### U ACSIND, UMICRO #### [facility] [address] [place] [address] Wesley Archana MUCOUS TRACE Normal NONE SEEN [facility] Comment on above: Performed By: #### U ACSIND, UMICRO #### [facility] [address] [place] [address] Wesley Archana RBC (U) [#/Vol] 2-5 Normal 0-2 [facility] Comment on above: Performed By: #### U ACSIND, UMICRO #### [facility] [address], [place] [address] Wesley Magaña WBC (Bld) [#/Vol] 0-2 Normal NONE SEEN [facility] Comment on above: Performed By: #### U ACSTHADDEUS, JANAERO #### [facility] [address] [place], [place] [address] Wesley Magaña XR DEXA BONE DENSITYon 03-10 XR DEXA BONE DENSITY [address] [place] [address] Patient: JOSEPH ABBOTT Exam Date: 03/10/2018 : 1955 Gender:F Ordering : DR ALEXEY MANLEY Admission #: [id number] Family : CORETTA MESSINA . Order #: [id number] CLICK HERE TO VIEW EXAM RADIOLOGY REPORT PROCEDURE: RADIOGRAPH DEXA BONE DENSITY COMPARISON: None. INDICATIONS: Screening for osteoporosis TECHNIQUE: Dual-energy X-ray absorptiometry (DXA) was performed. SPINE ANALYSIS RESULTS: Average lumbar bone mineral density (BMD) (g/cm2): 1.135 T-score (standard deviation relative to young adult mean BMD): -0.4 SPINE CLASSIFICATION (WHO): NORMAL: T-score at or above -1.0 SD HIP ANALYSIS RESULTS: Right femoral neck bone mineral density (BMD) (g/cm2): 0.876 T-score (standard deviation relative to young adult mean BMD): -1.2 HIP CLASSIFICATION (WHO): OSTEOPENIA: T-score between -1.0 AND -2.5 SD Note: The 2007 International Society for Clinical Densitometry (ISCD) Official Positions state that osteoporosis in denise-menopausal and post-menopausal women and in men age 50 and older may be diagnosed if the T-score of the lumbar spine, total hip, or femoral neck is -2.5 or less. Hip BMD is reported from the femoral neck, trochanter, or total proximal femur whichever is lowest. IMPRESSION: Osteopenia, moderate fracture risk. Dictated by: Sita Pack M.D. on 03/10/2018 at 09:00 Approved by: Sita Pack M.D. on 03/10/2018 at 09:[address] [facility] Vital Signs Date Time Vital Sign Value Performing Clinician Facility 06-22-2024 09:29-0400 Body height 162.56 cm Alexey Ball DO Work Phone: [facility] 06-22-2024 09:29-0400 Body mass index (BMI) [Ratio] 26.5 kg/m2 Alexey Ball DO Work Phone: [facility] 06-22-2024 09:29-0400 Body weight 70.08 kg Alexey Ball DO Work Phone: [facility] 06-22-2024 09:29-0400 Diastolic blood pressure 78 mm[Hg] Alexey Ball DO Work Phone: [facility] 06-22-2024 09:29-0400 Heart rate 57 /min Alexey Ball DO Work Phone: [facility] 06-22-2024 09:29-0400 Respiratory rate 12 /min Alexey Ball DO Work Phone: [facility] 06-22-2024 09:29-0400 Systolic blood pressure 152 mm[Hg] Alexey Ball DO Work Phone: [facility] 04-26-2024 09:28-0500 Body height 163.8 cm Anoop Stoner DO Work Phone: [facility] 04-26-2024 09:28-0500 Body mass index (BMI) [Ratio] 25.35 kg/m2 Anoop Stoner DO Work Phone: [facility] 04-26-2024 09:28-0500 Body weight 68.04 kg Anoop Stoner DO Work Phone: [facility] 12-30-2023 09:40-0400 Diastolic blood pressure 66 mm[Hg] PHYSICIAN NO [facility] 12-30-2023 09:40-0400 Heart rate 57 /min PHYSICIAN NO [facility] 12-30-2023 09:40-0400 Respiratory rate 20 /min PHYSICIAN NO [facility] 12-30-2023 09:40-0400 SaO2% (BldA) [Mass fraction] 100 % PHYSICIAN NO [facility] 12-30-2023 09:40-0400 Systolic blood pressure 121 mm[Hg] PHYSICIAN NO [facility] 12-30-2023 07:35-0400 Body height 162.56 cm PHYSICIAN NO [facility] 12-30-2023 07:35-0400 Body weight 67.58 kg PHYSICIAN NO [facility] 11-09-2023 13:43-0400 Body height 163.83 cm DO Alexey Ball Work Phone: [facility] 11-09-2023 13:43-0400 Body mass index (BMI) [Ratio] 25.2 kg/m2 DO Alexey Ball Work Phone: [facility] 11-09-2023 13:43-0400 Body weight 67.58 kg DO Alexey Ball Work Phone: [facility] 11-09-2023 13:43-0400 Diastolic blood pressure 78 mm[Hg] DO Alexey Ball Work Phone: [facility] 11-09-2023 13:43-0400 Heart rate 56 /min DO Alexey Ball Work Phone: [facility] 11-09-2023 13:43-0400 Respiratory rate 12 /min DO Alexey Ball Work Phone: [facility] 11-09-2023 13:43-0400 Systolic blood pressure 133 mm[Hg] DO Alexey Ball Work Phone: [facility] 10-09-2023 11:15-0400 Body height 166.37 cm DO Alexey Ball Work Phone: [facility] 10-09-2023 11:15-0400 Body mass index (BMI) [Ratio] 24.9 kg/m2 DO Alexey Ball Work Phone: [facility] 10-09-2023 11:15-0400 Body temperature 97.9 [degF] DO Alexey Ball Work Phone: [facility] 10-09-2023 11:15-0400 Body weight 69.05 kg DO Alexey Ball Work Phone: [facility] 10-09-2023 11:15-0400 Diastolic blood pressure 72 mm[Hg] DO Alexey Ball Work Phone: [facility] 10-09-2023 11:15-0400 Heart rate 51 /min DO Alexey Ball Work Phone: [facility] 10-09-2023 11:15-0400 Respiratory rate 18 /min DO Alexey Ball Work Phone: [facility] 10-09-2023 11:15-0400 SaO2% (BldA) [Mass fraction] 99 % DO Alexey Ball Work Phone: [facility] 10-09-2023 11:15-0400 Systolic blood pressure 125 mm[Hg] DO Alexey Ball Work Phone: [facility] 04-19-2023 12:15-0500 Body height 166.37 cm Alexey Ball Other [facility] Other 04-19-2023 12:15-0500 Body mass index (BMI) [Ratio] 30.31 kg/m2 Alexey Ball Other [facility] Other 04-19-2023 12:15-0500 Body weight 83.92 kg Alexey Ball Other [facility] Other 11-06-2022 13:30-0400 Body height 166.37 cm Alexey Ball Other [employer] Other 11-06-2022 13:30-0400 Body mass index (BMI) [Ratio] 29.13 kg/m2 Alexey Ball Other [employer] Other 11-06-2022 13:30-0400 Body weight 80.65 kg Alexey Ball Other [employer] Other 08-11-2023 13:30-0400 Diastolic blood pressure 80 mm[Hg] Alexey Ball Other [facility] Other 11-06-2022 13:30-0400 Respiratory rate 12 /min Alexey Ball Other [facility] Other 11-06-2022 13:30-0400 Systolic blood pressure 131 mm[Hg] Alexey Manley Other [facility] Other Encounters Encounter Date Encounter Type Care Provider Facility Start: 07-11-2024 ambulatory Facility:[facility] Start: 07-08-2024 End: 07-08-2024 Departed Referred Alexey Ball DO Work Phone: [facility] Work Phone: Start: 07-08-2024 End: 07-08-2024 ambulatory Alexey Ball DO Work Phone: [facility] Work Phone: Start: 07-05-2024 Non-patient / Non-visit Alexey Ball DO Work Phone: [facility] Work Phone: Start: 07-05-2024 End: 07-05-2024 ambulatory Alexey Ball DO Work Phone: [facility] Work Phone: Start: 07-05-2024 End: 07-05-2024 Departed Referred Alexey Ball DO Work Phone: [facility] Start: 06-28-2024 End: 06-28-2024 Patient encounter procedure Alexey Ball DO Work Phone: [facility] [place] Work Phone: Start: 06-28-2024 End: 06-28-2024 ambulatory Alexey Ball DO Work Phone: [facility] Work Phone: Start: 06-22-2024 End: 06-22-2024 ambulatory Alexey Ball DO Work Phone: [facility] Work Phone: Start: 06-22-2024 End: 06-22-2024 Patient encounter procedure Alexey Ball DO Work Phone: [facility] Work Phone: Start: 06-07-2024 Registered Recurring Alexey Ball DO Work Phone: [facility] Start: 06-07-2024 ambulatory Joseph Last acility:[facility] Start: 06-07-2024 End: 06-07-2024 ambulatory Alexey Ball DO Work Phone: [facility] Work Phone: Start: 06-07-2024 End: 06-07-2024 Patient encounter procedure Alexey Ball DO Work Phone: [facility] Physician [facility] Work Phone: Start: 04-26-2024 End: 04-26-2024 Patient encounter procedure Anoop Stoner DO Work Phone: [facility] Comment on above: Acute pain of both k nees (Primary Dx) Start: 04-26-2024 End: 04-26-2024 ambulatory ANOOP STONER Not Available Start: 04-11-2024 Registered Recurring Alexey Ball DO Work Phone: [facility] Start: 03-20-2024 End: 03-20-2024 Patient encounter procedure [facility] Work [facility]: Start: 03-20-2024 End: 03-20-2024 ambulatory Alexey Ball Facility:[facility] Start: 03-02-2024 End: 03-02-2024 ambulatory Alexey Ball Facility:[facility] Start: 01-06-2024 End: 01-06-2024 Patient encounter procedure PHYSICIAN ANGELICA REDDING [facility] [place] Work Phone: Start: 01-06-2024 End: 01-06-2024 ambulatory PHYSICIAN NO [facility] Work Phone: Start: 01-05-2024 Non-patient / Non-visit PHYSICIAN NO [facility] Work Phone: Start: 12-30-2023 Non-patient / Non-visit PHYSICIAN NO [facility] Work Phone: Start: 12-30-2023 End: 12-30-2023 Admission to same day surgery center PHYSICIAN NO [facility] Work Phone: Start: 12-30-2023 End: 12-30-2023 ambulatory PHYSICIAN NO [facility] Work Phone: Start: 11-10-2023 Registered Recurring PHYSICIAN ANGELICA ROONEY [facility] Start: 11-09-2023 End: 11-09-2023 ambulatory DO Alexey Ball Work Phone: [facility] Work Phone: Start: 11-09-2023 End: 11-09-2023 Patient encounter procedure DO Alexey Ball Work Phone: [facility] Work Phone: Start: 10-18-2023 End: 10-18-2023 ambulatory KATINA VIGIL Not Available Start: 10-12-2023 Registered Recurring DO Benjam in Ball Work Phone: [facility] Start: 10-09-2023 End: 10-09-2023 Departed Referred DO Alexey Ball Work Phone: [facility] [place] Work Phone: Start: 10-09-2023 End: 10-09-2023 ambulatory DO Alexey Ball Work Phone: [facility] Work Phone: Start: 10-09-2023 End: 10-09-2023 Patient encounter procedure DO Alexey Ball Work Phone: [facility] [place] Work Phone: Start: 09-21-2023 Registered Recurring DO Benjam in Ball Work Phone: [facility] Start: 09-11-2023 End: 09-11-2023 Departed Referred DO Alexey Ball Work Phone: [facility] Work Phone: Start: 09-11-2023 End: 09-11-2023 ambulatory DO Alexey Manley Work Phone: [facility] Work Phone: Start: 08-12-2023 Registered Recurring DO Benjam in Ball Work Phone: [facility] Start: 04-19-2023 End: 04-19-2023 ambulatory Alexey Manley Other [employer] Other Start: 04-19-2023 Office outpatient visit 15 minutes Alexey Manley [facility] Start: 04-19-2023 Telephone encounter Alexey Manley [facility] Start: 03-17-2023 End: 03-17-2023 ambulatory DO Alexey Vineet Work Phone: [facility] Work Phone: Start: 03-17-2023 End: 03-17-2023 Patient encounter procedure DO Alexey Ball Work Phone: [facility] Work Phone: Start: 11-06-2022 End: 11-06-2022 ambulatory Alexey Manley Other [employer] Other Start: 11-06-2022 Patient encounter procedure Alexey Manley [facility] Start: 09-12-2022 End: 09-12-2022 ambulatory DO Alexey Manley Work Phone: [facility] Work Phone: Start: 09-12-2022 End: 09-12-2022 Departed Referred DO Alexey Manley Work Phone: [facility] Work Phone: Start: 03-16-2022 End: 03-16-2022 ambulatory DO Alexey Manley Work Phone: [facility] Work Phone: Start: 03-16-2022 End: 03-16-2022 Patient encounter procedure DO Alexey Manley Work Phone: [facility] Start: 11-08-2021 End: 11-08-2021 Departed Referred DO Alexey Manley Work Phone: [facility] Start: 11-04-2021 Adult health examination Alexey Manley Other [employer] Other Start: 01-11-2019 End: 01-12-2019 Patient encounter procedure CORETTA MESSINA Facility:[facility] Start: 03-10-2018 End: 03-11-2018 Patient encounter procedure ALEXEY MANLEY Facility:[facility] Procedures Date Procedure Procedure Detail Performing Clinician Start: 07-05-2024 Urine culture Alexey Manley DO Work Phone: Start: 06-28-2024 Computed tomography of abdomen and pelvis with contrast Alexey Manley DO Work Phone: Start: 04-26-2024 Radiologic examinati on knee 3 views Anoop Stoner DO Work Phone: Start: 03-20-2024 Dual energy X-ray absorptiometry Alexey Manley DO Work Phone: Start: 03-20-2024 End: 03-20-2024 Mammography Anoop Stoner DO Work Phone: Start: 01-06-[address] [facility] Start: 12-30-2023 Screening colonoscopy P [facility] Start: 10-09-2023 Bacteria identified in Urine by Culture [facility] Start: 10-09-2023 Urine culture DO Ang in Ball Work Phone: Start: 03-17-2023 Screening mammograph y of bilateral breasts DO Alexey Manley Work Phone: Start: 03-16-2022 Dual energy X-ray absorptiometry DO Alexey Manley Work Phone: Start: 03-16-2022 Screening mammograph y of bilateral breasts DO Alexey Manley Work Phone: Start: 02-24-2018 Screening for osteoporosis Alexey Manley Other Depression screening Brinda Manley Other Plan of Treatment Date Care Activity Detail Author Start: 10-18-2025 End: 10-18-2025 Patient encounter procedure 10/18/2025 1:30 PM EDT Office Visit [facility] [address] [place] [id number] Marianne Barksdale, DO [address] [place] [address] [facility] Start: 03-20-2025 Screening for malignant neoplasm of breast Mammogram [facility] Start: 07-05-2024 Bacteria identified in Urine by Culture Urine Culture [facility] Start: 07-05-2024 Urine culture [facility] Start: 12-30-2023 [facility] Start: 11-09-2023 Patient referral [facility] Work Phone: Start: 10-09-2023 Bacteria identified in Urine by Culture [facility] Start: 1955 Screening for malignant neoplasm of colon [facility] Patient Education Hemorrhoids (D C) Diverticulosis (DC) Know your Meds [facility] Work Phone: Patient referral [facility] Work Phone: Immunizations Immunization Date Immunization Notes Care Provider Carloz gordillo 02-27-2022 pneumococcal polysaccharide vaccine, 23 valent Alexey Manley Other [facility] 12-07-2021 COVID-19 Vaccine Pfi zer - Documentation Purposes Only Alexey Manley Other [facility] 12-07-2021 influenza virus vaccine, split virus (incl. purified surface antigen) Alexey Manley Other [facility] Other 12-07-2021 influenza virus vaccine, unspecified formulation DO Alexey Manley Work Phone: [facility] 07-12-2021 COVID-19 Vaccine Pfi zer - Documentation Purposes Only Alexey Manley Other [facility] 02-22-2021 pneumococcal conjuga te vaccine, 13 valent Alexey Manley Other [facility] 2021 COVID-19 Vaccine Pfi zer - Documentation Purposes Only Alexey Manley Other [facility] 12-31-2020 influenza virus vaccine, split virus (incl. purified surface antigen) Alexey Manley Other [facility] Other 12-31-2020 influenza virus vaccine, unspecified formulation DO Alexey Manley Work Phone: [facility] 06-26-2020 COVID-19 Vaccine Pfi zer - Documentation Purposes Only Alexey Manley Other [facility] 06-05-2020 COVID-19 Vaccine Pfi zer - Documentation Purposes Only Alexey Manley Other [facility] 12-21-2019 diphtheria, tetanus toxoids and acellular pertussis vaccine, unspecified formulation Alexey Manley Other [facility] 12-21-2019 influenza virus vaccine, split virus (incl. purified surface antigen) Alexey Manley Other [facility] Other 12-21-2019 influenza virus vaccine, unspecified formulation DO Alexey Manley Work Phone: [facility] 03-09-2019 zoster vaccine, live Benjjuanjo Manley Other [facility] 12-31-2018 influenza virus vaccine, split virus (incl. purified surface antigen) Alexey Manley Other [employer] Other 12-31-2018 influenza virus vaccine, unspecified formulation DO Alexey Vineet Work Phone: [facility] 12-10-2016 tetanus and diphther ia toxoids, adsorbed, preservative free, for adult use (5 Lf of tetanus toxoid and 2 Lf of diphtheria toxoid) Alexey Manley Other [facility] 12-10-2016 zoster vaccine, live Benjami eliza Vineet Other [facility] 01-05-2013 tetanus and diphther ia toxoids, adsorbed, preservative free, for adult use (5 Lf of tetanus toxoid and 2 Lf of diphtheria toxoid) Alexey Manley Other [facility] Payers Date Payer Category Payer Self-pay [id number] 2023 Self-pay [id number] 2022 Private Health Insurance [facility] [id number] 2022 Unknown [id number] 2021 Medicare MEDICARE [id number] 2021 Medicare [id number] 1959 Unknown [id number] 1959 Unknown [id number] 1956 Unknown [id number] [id number] .593 1956 Unknown [id number] 2.16.840.1.173228.3.579.2 .593 1956 Unknown [id number] 2.16.840.1.827848.3.579.2 .1259 1956 Unknown [id number] 2.16.840.1.960123.3.579.2 .1259 1956 Unknown [id number] 2.16.840.1.668394.3.579.2 .1259 1956 Unknown [id number] 2.16.840.1.263102.3.579.2 .1259 Unknown [employer] BC/BS [id number] Unknown [id number] 2.16.840.1.687602.3.579.2 .531 Unknown [id number] 2.16.840.1.119728.3.579.2 .531 Unknown [id number] 2.16.840.1.192455.3.579.2 .531 Unknown [id number] 2.16.840.1.891651.3.579.2 .531 Unknown [id number] 2.16.840.1.445827.3.579.2 .531 Unknown [id number] 2.16.840.1.435703.3.579.2 .531 Unknown [id number] 2.16.840.1.366703.3.579.2 .531 Unknown [id number] 2.16.840.1.985139.3.579.2 .531 Unknown [id number] 2.16.840.1.310173.3.579.2 .531 Unknown [id number] 2.16.840.1.496277.3.579.2 .531 Social History Date Type Detail Facility Tobacco smoking stat us NHIS Unknown if ever smoked [facility] Work Phone: Start: 1955 Sex Assigned At Female [facility] Start: 10-18-2023 Sex Assigned At [employer] Other Start: 04-19-2023 End: 06-21-2024 Tobacco smoking status NHIS Never smoked tobacco (finding) [facility] Start: 09-30-2022 Tobacco use and exposure Smokeless tobacco non-user [facility] Start: 04-26-2024 Alcoholic beverage intake Ex-drinker (finding) [facility] Start: 10-18-2023 History of Social function [facility] Start: 10-02-2022 Alcohol Comment caffeine intake : decaffeinated tea [facility] Start: 02-16-2023 Gender identity Identifies as female gender (finding) [facility] Start: 02-16-2023 Sexual orientation Heterosexual (finding) [facility] Start: 06-07-2024 End: 07-09-2024 Sex Female (finding) [facility] Goals Date Patient Goal Desired Activity /State Clinical Notes 11-06-2022 to 06-28-2024 Note Date & Type Note Facility 06-28-2024 Radiology Diagnostic study note [facility] [place] [address] CT Scan Report Signed Patient: Joseph Abbott MR#: [id number] : 1955 Acct:[id number] Age/Sex: 69 / F ADM Date: 5 Loc: CT Room: Type: REG CLI Attending Dr: Alexey Manley DO Copies to: Alexey Manley DO~ Ordering Provider: Alexey Manley DO Date of Service: 06/28/24 CT/CT abdomen pelvis w con: R31.0 - Gross hematuria CT ABDOMEN AND PELVIS WITH INTRAVENOUS CONTRAST: CLINICAL HISTORY: Recurrent UTIs hematuria back pain. COMPARISON: None TECHNIQUE: Spiral images were obtained through the abdomen and pelvis followingthe administration of intravenous contrast. This CT exam was performed using one or more following dose reduction techniques: Automated exposure control, adjustment of the mA and/or kV according to patient size, or use of iterative reconstruction technique. FINDINGS: Lung Bases: [Bibasilar atelectasis/scarring.] Organs:Liver gallbladder portal vein spleen pancreas and adrenal glands appear unremarkable. 3 mm stone right kidney. Left kidney appears unremarkable. Delayed images demonstrate no collecting system lesion. Aorta appears normal incaliber.[ GI: Stomach is grossly unremarkable. Small bowel appears nondilated. No acute colonic abnormalities.[ Pelvis:[Uterus is atrophic. No adnexal mass. Urinary bladder is grossly unremarkable.] Peritoneum/Retroperitoneum:No free air or free fluid or lymphadenopathy.[ Abd wall/Bones:Abdominal wall demonstrate no acute findings. Osseous structures demonstrate degenerative change.[ CT/CT abdomen pelvis w con IMPRESSION: No acute process. Right nephrolithiasis. Impression dictated by: Ozzy Duggan Jr., D.O.06/28/2024 9:34 AM Dictation Location: [place] [address] Transcribed By: [facility] 06/28/24 0934 Dictated By: Ozzy Duggan Jr, DO 06/28/24 0931 Signed By: 06/28/24 0934 [facility] 06-22-2024 Evaluation note Diagnosis Onset Date Resolution Acute cystitis acute May 9:03am Hematuria acute June 22 9:03am History of nephrolithiasis acute June 22, 2024 9:03am [facility] Work Phone: 1(112) 326-974901-29-2025 History of Present illness Narrative* Mi Sánchez - 04/26/2024 9:45 AM EST Images from the original note were not included. Joseph Abbott is a 69 y.o. female presents with chief complaint of bilateral knee pain and stiffness, left worse than right. HPI: Joseph is here as a 69-year-old female very active with exercise with a two to three year historyof some achiness in the knees. It is very dependent on weather as well as what activities she does.She has tried some impact activities but pays for it. She is taking a glucosamine and turmeric combination and this seems to be helpful. No significant anti-inflammatory other than occasional Aleve. No bracing. There is no falls or trauma. She is here more fact finding and wants staging. She has lost 60-70 pounds over the last few years and is very avid with regular exercise as well as dietary measures. She does try to restrict her sugar intake. SUBJECTIVE: MEDICATIONS: Current Outpatient Medications Medication Instructions fluticasone (Flonase) 50 MCG/ACT nasal spray Every 24 hours Loratadine (Claritin) 10 MG capsule Oral Magnesium Citrate 200 MG tablet as directed Orally nitrofurantoin, macrocrystal-monohydrate, (Macrobid) 100 MG capsule TAKE 1 CAPSULE BY MOUTH EVERY 12 HOURS FOR 4 DAYS must TAKE WITH FOOD or meal ALLERGIES: No Known Allergies SURGICAL HISTORY: Past Surgical History: Procedure Laterality Date COLONOSCOPY 2014 DILATION AND CURETTAGE OF UTERUS miscarriage FAMILY HISTORY: Family History Problem Relation Name Age of Onset Stroke Mother Jessy Powers Osteoarthritis Mother Jessy Powers Diabetes Father Kerwin Powers Diabetes Sister Iliana Munoz SOCIAL HISTORY: Social History Tobacco Use Smoking status: Never Smokeless tobacco: Never Substance Use Topics Alcohol use: Not Currently Comment: caffeine intake : decaffeinated tea Drug use: Never Depression: Not on file REVIEW OF SYMPTOMS: The review of systems, history and current medications list are all reviewed today. OBJECTIVE: Visit Vitals Ht 5' 4.5 Wt 150 lb BMI 25.35 kg/m OB Status Postmenopausal Smoking Status Never BSA 1.76 m Physical Exam On physical exam, the bilateral knees have mild swelling. There is no rash or infection. There is mild to moderate hypertrophic changes. Slight varus positioning. She gets full extension and flexion is to 115 degrees. Patellofemoral joint is crepitant. Grind test is positive. Collateral ligaments are intact. Tenderness of the medial joint is present that is mild. She does have full extension with intact extensor. Bench and straight leg raise testing is negative. Hip exam produces no groin pain or irritability. X-rays and imaging permanently saved to the patient's record were reviewed bilateral AP, lateral and sunrise views weight bearing films taken in the [place] office shows moderate, borderline early severe degenerative changes particularly of the lateral facet of the patella and medial joints. Thereis no fracture, dislocation, tumor or infection seen. ASSESSMENT AND PLAN: Assessment/Plan Bilateral knee osteoarthritis with recent exacerbation. The nature of the findings were discussed at length. Conservative management with ice, Tylenol, topicals, vitamin therapy and bracing were all reviewed. Anti-inflammatory and analgesics were discussed. Exercise options were reviewed as well. We discussed cortisone injections up to three per year. We discussed the role of Visco supplementation. She is not bone on bone. USP discussion of potential total knee replacement. Indications for this were reviewed. Lengthy visit was encountered. Numerous questions were answered. She is discharged in stable condition. Follow up p.r.n.. The patient was seen and examined. From the time of check in, nurse triage, vital signs, x-ray, x-ray interpretation, review of systems, comprehensive history and physical exam as well as setting up treatment plan and further management took 50 minutes. Cosigned by Anoop Stoner DO at 05/01/2024 2:50 PM EST documented in this encounterRe[facility] [id number] Procedure [facility]01-22-2024 Evaluation note* Encounter Date Diagnosis Assessment Notes Treatment Notes Treatment Clinical Notes Mar, COVID-19 (ICD-10 - U07.1) Instructed to use Robitussin or Mucinex for cough, saline or Flonase NS for congestion, Tylenol for pain and fever. Self isolate at home. - Cannot work - avoid contact with others - avoid pets - wipe counters, door knobs if touched - if can't avoid leaving home, must wear mask to protect others - need to stay isolated for 10 days from onset of symptoms - to discontinue isolation must be 5 days AND must be without fever for 24 hours AND symptoms must be improving. Always wear a mask in public places for complete 10 days Mar, Other obesity due to excess calories (ICD-10 - E66.09) This patient has been instructed on a low-fat, high-fiber diet. They are instructed to reduce calories, portion sizes and snacks. It is recommended that they exercise for 30 minutes, 3-5 times weekly. Increases risk for complicated COVID infection. Mar, Body mass index [BMI] 30.0-30.9, adult (ICD-10 - Z68.30) [employer] Other 01-22-2024 Evaluation note* Encounter Date Diagnosis Assessment Notes Treatment Notes Treatment Clinical Notes Mar, COVID-19 (ICD-10 - U07.1) [employer] Other 08-11-2023 Evaluation note* Encounter Date Diagnosis Assessment Notes Treatment Notes Treatment Clinical Notes Oct, Medicare annual wellness visit, initial (ICD-10 - Z00.00) Personalized health advice was given to the beneficiary including a written plan for screenings discussed and provided. Advanced care planning reviewed and/or information given as requested. Additional counseling was provided here today in regards to, [ ]. The above visit was performed by [ ] under direct supervision of [ ]. Document reviewed and amended by provider signed below. Healthy diet and exercise. Reviewed age-appropriate preventive testing recommended. Oct, IFG (impaired fasting glucose) (ICD-10 - R73.01) This patient is following a comprehensive diabetic treatment plan. They are checking their feet daily for calluses and nonhealing ulcers. They are being seen for yearly dilated eye examinations. Goals: SBP less than 130, LDL less than 100, FBS less than 140, AC and A1C less than 7%. They are checking their BS daily, will which are reviewed at the office visit. Continue regular routine monitoring of A1C,] Microalbumin, Dilated eye exam and Foot exam Oct, Overweight (ICD-10 - E66.3) This patient has been instructed on a low-fat, high-fiber diet. They are instructed to reduce calories, portion sizes and snacks. It is recommended that they exercise for 30 minutes, 3-5 times weekly. Oct, Current moderate episode of major depressive disorder without prior episode (ICD-10 - F32.1) She recently experienced the loss of her spouse to cancer. She is coping but depressed. She is not suicidal but is requesting counseling. Handouts for [facility] and [facility] supplied Oct, Screening mammogram for breast cancer (ICD-10 - Z12.31) Will be completed in February. Instructed on monthly SBE [employer] Other Evaluation noteNo assessment information available [facility] Work Phone: Evaluation note* Diagnosis Onset Date Resolution Status Dysuria noneactive History of nephrolithiasis a cute Menopause acute Osteopenia acute Medicare annual wellness visit, subsequent noneactive Screening for colon cancer n oneactive Screening mammogram for breast cancer noneactive [facility] Work Phone: Evaluation note* Diagnosis Acute pain of both knees- Primary documented in this encounter [facility] Author Shari Marquez [facility] December 30, 2023 8:26am Note Date/Time December 30, 2023 8: 26am [facility] [address] [place] [address] Gastroenterology H&P Signed Patient: Joseph Abbott MR#: [id number] : 1955 Acct:[id number] Age/Sex: 68 / F Adm Date: 4 Loc: Room: Type: [facility] Attending Dr: Shari Marquez DO Copies to: DO Shari Holder, DO~ Date of Service: 12/30/2023 HISTORY & PHYSICAL: Patient's history with special attention to the cardiovascular, pulmonary systems and the current problem was reviewed with the patient immediately prior to the procedure. Present medications and doses reviewed in the EMR. Allergies and pertinent laboratory tests were also reviewedat this time in the EMR. The physical examination, as below, was then performed. Indication, assessment and HPI: 68-year-old female who presents for screening colonoscopy. Last colonoscopy 10 years ago. Denies GI complaints. Family history of GI malignancy? No PHYSICAL EXAMINATION General appearance: cooperative, NAD Skin: No jaundice, no rash or lesions Head: NCAT Eyes: Anicteric Neck: Supple Lungs: Normal respiratory effort, no use of accessory muscles Abdomen: Soft, nondistended Neuro: No focal deficits, Ox3. REVIEW OF SYSTEMS Constitutional: Denies malaise, fevers Cardiovascular: Denies chest pain, palpitations Respiratory: Denies shortness of breath, wheezing Gastrointestinal: As per HPI Genitourinary: Denies dysuria, polyuria Musculoskeletal: Denies joint swelling, joint stiffness Neurological: Denies confusion, numbness, tingling Endocrine: Denies fatigue Written informed consent obtained from the patient. Risks (including but not limited to perforation, infection, bloating, bleeding, need for emergent surgeryand loss of life), benefits and alternatives explained and questions answered. The patient verbalized understanding. Based on history patient is an appropriate candidate for the procedure. Shari Marquez DO Present medication and doses reviewed in the EMR Documented By: Shari Marquez DO 12/30/23825 Signed By: <Electronically signed by Shari Marquez DO> 12/30/23825 [facility] Work Phone: History general Narrative - Reported* Type Description Date Medical History Osteopenia Medical History History of nephrolithiasis Medical History Diverticulosis of large intestin e without hemorrhage Surgical History COLONOSCOPY 2014 Hospitalization History SEE SURGICAL HX [employer] Other Summary Purpose Family History No Family History Records Found Relationship Condition Age at Onset Recorded Date/T nader father Unknown Heart disease Unknown Advance Directives No Advanced Directives Records Found Advance Directive Response Recorded Date/ Time Advance Directives No November 01 018 1:03pm Advance Directive Response Recorded Date/ Time Advance Directives No November 01 018 12:03pm Advance Directive Response Recorded Date/ Time Advance Directives No June 21, 025 2:18pm Chief Complaint and Reason for Visit Chief Complaint Complete Chief Complaint Z12.31 Z13.820 Z78.0 Chief Complaint CBC A1C Chief Complaint Z12.31 Chief Complaint CMP A1C Chief Complaint CMP A1C Possible UTI Chief Complaint CMP A1C Possible UTI Dysuria Chief Complaint CMP A1C Possible UTI R30.0 bh Medicare Wellness Reason for Visit Dysuria History of nephrolithiasis Menopause Osteopenia Medicare annual wellness visit, subsequent Screening for colon cancer Screening mammogram for breast cancer Chief Complaint Possible UTI R30.0 Medicare Wellness bh Screening Screening Reason for Visit Dysuria History of nephrolithiasis Menopause Osteopenia Medicare annual wellness visit, subsequent Screening for colon cancer Screening mammogram for breast cancer Chief Complaint Possible UTI R30.0 Medicare Wellness bh Screening Screening Amb Documentation Z82.49 Reason for Visit Dysuria History of nephrolithiasis Menopause Osteopenia Medicare annual wellness visit, subsequent Screening for colon cancer Screening mammogram for breast cancer Chief Complaint Admit Date M85.80 Z78.0 Z12.31 March 20, 2024 1:23pm April 11, 2024 4 :35pm UTI, burning, urgency June 07, 2024 9 :30am Chief Complaint Admit Date UTI, burning, urgency June 07, 2024 9 :30am June 07, 2024 1:4 6pm fatigue, back pain June 22, 2024 9:0 3am Chief Complaint Admit Date UTI, burning, urgency June 07, 2024 9 :30am June 07, 2024 1:4 6pm fatigue, back pain June 22, 2024 9:0 3am R31.0 Z87.442 June 28, 2024 7:49 am Reason for Visit Admit Date Acute cystitis June 22, 2024 9:0 3am Hematuria June 22, 2024 9:0 3am History of nephrolithiasis June 22 9:03am Chief Complaint Admit Date UTI, burning, urgency June 07, 2024 9 :30am June 07, 2024 1:4 6pm fatigue, back pain June 22, 2024 9:0 3am R31.0 Z87.442 June 28, 2024 7:49 am Unknown July 05, 2024 1:00 am Chief Complaint Admit Date UTI, burning, urgency June 07, 2024 9 :30am June 07, 2024 1:4 6pm fatigue, back pain June 22, 2024 9:0 3am R31.0 [id number] June 28, 2024 7:49 am Unknown July 05, 2024 1:00 am cbc, a1c, vitamin D July 08, 2024 9:3 4am Additional Source Comments INFORMATION SOURCE (unrecogn ized section and content) DATE CREATED AUTHOR 01/17/2019 [facility] DATE CREATED AUTHOR AUTHOR'S ORGANIZ ATION 05/01/2024 [facility] EPIC DATE CREATED AUTHOR AUTHOR'S ORGANIZ ATION 07/12/2024 [facility] DATE CREATED AUTHOR AUTHOR'S ORGANIZ ATION 07/23/2024 [facility] Care Teams (unrecognized sec tion and content) Team Status: Active Member Role Status Dates Alexey Manley DO Primary Care Provider Active Team Status: Inactive Member Role Status Dates Alexey Manley DO Primary Care Provide r, Referring Provider Active Start: September 11, 2023 End: September 11, 2023 [facility] Attending Provider Active Sta rt: September 11, 2023 End: September 11, 2023 Team Status: Active Member Role Status Dates Alexey Manley DO Primary Care Provider Active Start: September 21, 2023 Joseph Cotton MD Attending Provider Active Start: September 21, 2023 Team Status: Inactive Member Role Status Dates Alexey Manley DO Primary Care Provider Active Start: October 09, 2023 End: October 09, 2023 Mar Almanzar APRN Attending Provider Active Start: October 09, 2023 End: October 09, 2023 Team Status: Active Member Role Status Dates Alexey Manley DO Primary Care Provider Active Start: August 12, 2023 Joseph Cotton MD Attending Provider Active Start: August 12, 2023 Team Status: Inactive Member Role Status Chen Manley DO Primary Care Provider Active [facility] Attending Provider Active Team Status: Inactive Member Role Status Chen Manley DO Primary Care Provider Active Katina Vigil DO Attending Provider Active Team Status: Inactive Member Role Status Dates Mar Almanzar APRN Attending Provider Active Start: October 09, 2023 End: October 09, 2023 Team Status: Active Member Role Status Dates PHYSICIAN NO FAMILY Primary Care Provider Active Team Status: Inactive Member Role Status Dates Mar Almanzar APRN Attending Provider Active Start: October 09, 2023 End: October 09, 2023 PHYSICIAN NO FAMILY Primary Care Provider Active Start: October 09, 2023 End: October 09, 2023 Team Status: Active Member Role Status Chen Manley DO Primary Care Provider Active Start: October 12, 2023 Joseph Cotton MD Attending Provider Active Start: October 12, 2023 Team Status: Inactive Member Role Status Chen Manley DO Attending Provider Active Sta rt: November 09, 2023 End: November 09, 2023 PHYSICIAN NO FAMILY Primary Care Provider Active Start: November 09, 2023 End: November 09, 2023 Team Status: Active Member Role Status Dates Alexey Manley DO Primary Care Provider Active Start: November 10, 2023 Joseph Cotton MD Attending Provider Active Start: November 10, 2023 Team Status: Inactive Member Role Status Dates Shari Marquez , Attending Provider Active St art: December 30, 2023 End: December 30, 2023 Alexey Manley DO Primary Care Provider Active Start: December 30, 2023 End: December 30, 2023 Team Status: Active Member Role Status Dates Shari Marquez , DO Attending Provider, Other Provider Active Start: December 30, 2023 Alexey Manley DO Primary Care Provider Active Start: December 30, 2023 Team Status: Active Member Role Status Dates Alexey Manley DO Primary Care Provider Active Start: January 05, 2024 Kenzie Demarco Attending Provider Active Start: [facility] 2023 Team Status: Inactive Member Role Status Chen Manley DO Primary Care Provide r, Attending Provider Active Start: January 06, 2024 End: January 06, 2024 [employer] Relationship Specialty Start Date End Date Alexey Manley MD [address] [place] [id number] PCP - General Internal Medicine 09/30/22 Team Status: Inactive Member Role Status Chen Vigil DO Attending Provider Active Start: March 20, 2024 End: March 20, 2024 Alexey Manley DO Primary Care Provider Active Start: March 20, 2024 End: March 20, 2024 Team Status: Active Member Role Status Chen Manley DO Primary Care Provider Active Start: April 11, 2024 Joseph Cotton MD Attending Provider Active Start: April 11, 2024 Team Status: Inactive Member Role Status hCen Manley DO Primary Care Provide r, Attending Provider Active Start: June 07, 2024 End: June 07, 2024 Team Status: Active Member Role Status Chen Manley DO Primary Care Provider Active Start: June 07, 2024 Joseph Cotton MD Attending Provider Active Start: June 07, 2024 Team Status: Inactive Member Role Status Chen Manley DO Primary Care Provide r, Attending Provider Active Start: June 22, 2024 End: June 22, 2024 Team Status: Inactive Member Role Status Dates Alexey Ball , DO Primary Care Provide r, Attending Provider Active Start: June 28, 2024 End: June 28, 2024 Team Status: Inactive Member Role Status Dates Alexey Manley , DO Attending Provider Active Sta rt: July 05, 2024 End: July 05, 2024 Team Status: Active Member Role Status Dates Alexey Manley , DO Primary Care Provide r, Attending Provider Active Start: July 05, 2024 Team Status: Inactive Member Role Status Dates Alexey Manley , DO Referring Provider Active Sta rt: July 08, 2024 End: July 08, 2024 Outreach [facility] Attending Provider Active Sta rt: July 08, 2024 End: July 08, 2024 Goals (unrecognized section and content) Goals may be documented in a n alternate sectionGoals may be documented in an alternate sectionGoals may be documented in an alternate sectionNo InformationNo InformationGoals may be documented in an alternate sectionNo InformationNo InformationGoals may be documented in an alternate sectionGoals may be documented in an alternate sectionGoals may be documented in an alternate sectionGoals may be documented in an alternate sectionGoals may be documented in an alternate sectionGoals may be documented in an alternate sectionGoals may be documented in an alternate sectionGoals may be documented in an alternate sectionGoals may be documented in an alternate section REASON FOR VISIT (unrecogniz ed section and content) Reason Comments Follow-up FOR RECORDS PERTAINING TO PATIENTS WHO ARE OR HAVE BEEN ENROLLED IN A CHEMICAL DEPENDENCY/SUBSTANCEABUSE PROGRAM, SOME INFORMATION MAY BE OMITTED. This clinical summary was aggregated from multiple sources. Caution should be exercised in using it in the provision of clinical care. This summary normalizes information from multiple sources, and as a consequence, information in this document may materially change the coding, format and clinical context of patient data. In addition, data may be omitted in some cases. CLINICAL DECISIONS SHOULD BE BASED ON THE PRIMARY CLINICAL RECORDS. [facility] [employer] [facility] provides no warranty or guarantee of the accuracy or completeness of information in this document.
[2024-08-11 11:17] LABS: Bilirubin Urine NEGATIVE (NEGATIVE); Blood Urine LARGE (NEGATIVE); Clarity Urine SL CLOUDY (CLEAR); Color Urine LT. YELLOW (YELLOW); Glucose Urine UA NEGATIVE (NEGATIVE); Ketones Urine NEGATIVE (NEGATIVE); Leukocyte Esterase Urine SMALL (NEGATIVE); Nitrite Urine POSITIVE (NEGATIVE); Protein Urine NEGATIVE (NEG/TRACE); Urobilinogen Urine 0.2 EU/dL (0.2-1.0)
[2024-08-11 11:36] LABS: BOX Test Reference Lab FRMC; BOX Test Sent Out CYTOLOGY TO FRMC
[2024-08-11 12:10] LABS: Bacteria Urine LARGE #/HPF (NONE SEEN); Mucus Urine NONE SEEN (NONE SEEN); Squamous Epithelial Cell Urine FEW #/LPF (NONE/RARE)
[2024-08-11 12:11] LABS: Cast Seen? NONE SEEN #/LPF (NONE SEEN); Crystals Seen? None Seen #/HPF (None Seen)
== END 2024-08-11 09:23 | disposition home or self-care (01) ==
LOC: LAB 09:22
PROVIDERS: PCP Internal Medicine; Visit Provider Urology
DX: R31.0 Gross hematuria (principal)
CPT/HCPCS: 36415; 81001; 88112

== ENCOUNTER 2024-08-30 08:03 | Emergency (ER) | payer MEDICARE, SELFPAY ==
[2024-08-30 08:05] VITALS: BP 152/100; PULSE 67; TEMP 37.1; O2SAT 98; BMI 25.7
[2024-08-30 08:24] VITALS: BP 152/78
--- OUTSIDE RECORDS SUMMARY | 2024-08-30 08:25 | XMS_ITS | CCD ---
Author Organization [facility]iniSymd Care Team Providers Care Neighborhood Worker Name Role Phone ALEXEY MANLEY Admitting Unavailable ALEXEY MANLEY Attending Unavailable ALEXEY MANLEY Primary Care Unavailable ALEXEY MANLEY Consulting Unavailable SITA PACK V Consulting Unavailable CORETTA MESSINA Admitting Unavailable MAYURI, CORETTA Attending Unavailable JOEL, ALEXEY Primary Care Unavailable CORETTA MESSINA Consulting [...] Care Provider MD Joseph Cotton Attending Provider [phone] DO Alexey Manley Referring Provider Community, Outreach Attending Provider DO Alexey Manley Primary Care Provider MD Joseph Cotton Attending Provider EDDIE Almanzar Attending Provider NO FAMILY, PHYSICIAN Primary Care Provider Unava ilMD Joseph Mora Attending Provider [phone] DO Alexey Manley Primary Care Provider MD Joseph Cotton Attending Provider [phone] DO Shari Marquez L Attending Provider [phone] Ball, DO Alexey Attending Provider [phone] ANOOP STONER Referring Unavailable KATINA VIGIL Attending Unavailable ANOOP STONER Attending Unavailable ANOOP STONER Referring Unavailable Alexey Manley MD Primary Care Provider NatKatina elias DO Attending Provider Joel DO, Alexey Primary Care Provider Joseph Cotton MD Attending Provider Joel DO, Alexey Primary Care Provider Joseph Cotton MD Attending Provider Joel REID, Alexey Attending Provider Ball DO, Alexey Referring Provider [phone] Community, Outreach Attending Provider [phone] Community, Outreach Attending Unavailable Ball, Alexey Primary Care Unavailable Community, Outreach Admitting Unavailable Ball, Alexey Referring Unavailable Ball, Alexey Admitting Unavailable Ball, Alexey Primary Care Unavailable Ball, Alexey Attending Unavailable Ball, Alexey Admitting Unavailable Ball, Alexey Primary Care Unavailable Ball, Alexey Attending Unavailable Ball, Alexey Primary Care Unavailable Nataprawira, Katina Admitting Unavailable Natapramritra, Katina Attending Unavailable Ball, Alexey Admitting Unavailable Ball, Alexey Primary Care Unavailable Ball, Alexey Attending Unavailable NO FAMILY, PHYSICIAN Primary Care Unavailable Mar Almanzra Admitting Unavailable Mar Almanzar Attending Unavailable Ball, Alexey Primary Care Unavailable Ly, Shari Baumann Admitting Unavailable Ly, Shari Baumann Attending Unavailable Ball, Alexey Primary Care Unavailable Rc Ryan Admitting Unavailable Rc Ryan Attending Unavailable Community, Outreach Admitting Unavailable Community, Outreach Attending Unavailable Joel, Alexey Referring Unavailable Joseph Cotton Admitting Unavailab le Joseph Cotton Attending Unavailab le Joel, Alexey Primary Care Unavailable Ball, Alexey Attending Unavailable Ball, Alexey Admitting Unavailable Medications Current Medications Medication Drug Class(es) [...] needed for allergies for 0 *Reorder from [employer] for eRx and Interaction Alerts* Oct, Active fluticasone (José Miguel nase) 50 MCG/ACT nasal spray 1 (one) time each day at the same time. Active Iuvtsjxn-Cysw-Pzv0-C-Yuri-Benedict sw (Osteo Bi-Flex Triple Strength) 750 mg-644 mg- 30 mg-1 mg tablet (7 sources) Start: 12-22-2023 take 2 tablets by mouth once daily Usemsoue-Ltoz-Lup6-C-Yuri-Bosw (Osteo Bi-Flex Triple Strength) 750 mg-644 mg- [...] Curcumi n 500 MG Orally Active Vit C,Q-Mw-Wjfkr-Lutein-Zeax an (Preservision Areds-2) 250-90-40-1 mg capsule (7 sources) Start: 12-22-19 Vit C,H-Id-Hnzmu-Lute in-Zeaxan (Preservision Areds-2) 250-90-40-1 mg capsule Active [...] capsule Discontinued 100 MG PO Q12H 8 4 October 12, 2023 12:00am November 09, 2023 [...] Test Name Value Interpretation Reference Range Facility Consultation/Specialist Note on 08-28-2024 Consultation/Specialist Note [id number]# 1.00[facility] - Other Lab [facility] - Other Lab Results [id number]# [facility] Report on 08-28-2024 Lab - Other Pathology Report [id number]# 1.00[facility] Santi 08-11-2024 L - -------- Specimen: [id number] Received: 08/14/24 Status: ZORAIDA Robert Num: [id number] Spec Type: Cytology Subm Dr: Rc Ryan MD Tissues: A URINECYTO (URINE) Procedures: Cyto Prepstain, PAPSTN -------- Age/ Patient Sex Location Account Attending Physician -------- Rosa M Abbott 69/F LABELL [id number] Rc Ryan MD -------- SPEC NUM: [id number] RECD: 08/14/24 STATUS: ZORAIDA ROBERT NUM: [id number] DIANA: 08/11/[address] [facility] [address]: Rc Ryan MD ENTERED: 08/14/[address] [facility] [address]: Jose Hanna SPEC TYPE: Cytology DEPT: DAYO NCYT ENTERED BY: [id number] RECV BY: [id number] ORDERED: Cyto Prepstain, PAPSTN ORDERED: Cyto Prepstain, PAPSTN Pathological Diagnosis Urine, random, cytology - Negative for high-grade urothelial carcinoma - Moderate numbers of red blood cells - Moderate number of neutrophils and occasional chronic inflammatory cells - Occasional degenerated fibrin debris with admixed bacterial organism - Overall findings are also compatible with gross hematuria, and underlying urinary tract inflammation and/or infection Clinical Information R310 Gross Description Received fresh is 25 ml yellow cloudy unfixed fluid for cytology said to have been obtained as Urine. ThinPrep preparations are prepared for microscopic examination. (CC/nh) Microscopic Description Microscopic examination is performed -------- Specimen: [id number] Received: 08/14/24 Status: ZORAIDA Robert Num: [id number] Spec Type: Cytology Subm Dr: Rc Ryan MD Tissues: A URINECYTO (URINE) Procedures: Cyto Prepstain, PAPSTN -------- Patient: Rosa M Abbott [id number] (Continued) -------- Specimen: [id number] Received: 08/14/24 (Continued) Signed (signature on file) Lorie Herrera MD 08/15/24847 -------- Specimen: [id number] Received: 08/14/24 Status: ZORAIDA Robert Num: [id number] Spec Type: Cytology Subm Dr: Rc Ryan MD Tissues: A URINECYTO (URINE) Procedures: Cyto Prepstain, PAPSTN -------- Patient: Rosa M Abbott [id number] (Continued) -------- Specimen: Received: 08/14/24 (Continued) CPT Codes 30334 -------- -------- Specimen: Received: 08/14/24 Status: ZORAIDA Robert Num: [id number] Spec Type: Cytology Subm Dr: Rc Ryan MD Tissues: A URINECYTO (URINE) Procedures: Cyto Prepstain, PAPSTN -------- Patient: Rosa M Abbott [id number] (Continued) -------- Signed (signature on file) Chin-Miguel Herrera MD 08/15/24 0848 Normal [facility] Redraw Abbie 07-18-2024 AST [Catalytic activity/Vol] 28 U/L Normal 13-39 [facility] Comment on above: Performed By: #### R EDRAW VITD, REDRAW AST, REDRAW K ####[address] Redraw Potassiumon 5 Potassium [Moles/Vol] 4.5 mmol/L Normal 3.5-5.1 [facility] Comment on above: Performed By: #### R EDRAW VITD, REDRAW AST, REDRAW K ####[place] [id number] [facility] Redraw Vitamin D 25OHon 06-28 Redraw Vitamin D 25OH 92.0 ng/mL Normal 30-100 [facility] Comment on above: Result Comment: MECHE MIN D STATUS 25(OH)VITAMIN D RANGE (ng/mL) Deficient <20 Insufficient 20 to <30 Sufficient 30 to 100 Reference: Candido MF,Bryan NC, Shavon-Tobin LOJA, et al. Evaluation,treatment, and prevention of vitamin D deficiency; an Endocrine Society clinical practice guideline. JCEM. 2010; 96(7):1911-30. PERFORMED BY: [place] [id number] PATHOLOGIST DRAFTER CIVIL ANNAMARIA KNOX M.D. Performed By: #### R EDRAW VITD, REDRAW AST, REDRAW K ####[facility] [id number] Alanine aminotransferase [En zymatic activity/volume] in Serum or PlasmaOrdered By: OUTREACH COMMUNITY on 07-08-2024 ALT [Catalytic activity/Vol] Alanine aminotransferase [Enzymatic activity/volume] in Serum or Plasma 7-52 [facility] Albumin [Mass/volume] in Ser um or Plasma by Bromocresol green (BCG) dye binding methoOrdered By: OUTREACH COMMUNITY on 07-08-2024 Albumin BCG dye [Mass/Vol] Albumin [Mass/volume] in Serum or Plasma by Bromocresol green (BCG) dye binding metho 3.5-5.7 [facility] Alkaline phosphatase [Enzyma tic activity/volume] in Serum or PlasmaOrdered By: OUTREACH COMMUNITY on 07-08-2024 ALP [Catalytic activity/Vol] Alkaline phosphatase [Enzymatic activity/volume] in Serum or Plasma 34-104 [facility] Aspartate aminotransferase [ Enzymatic activity/volume] in Serum or PlasmaOrdered By: OUTREACH COMMUNITY on 07-08-2024 AST [Catalytic activity/Vol] Aspartate aminotransferase [Enzymatic activity/volume] in Serum or Plasma 13-39 [facility] Comment on above: Specimen hemolyzed, redraw requested Bilirubin.total [Mass/volume ] in Serum or PlasmaOrdered By: OUTREACH COMMUNITY on 07-08-2024 Bilirubin [Mass/Vol] Bilirubin.total [Mass/volume] in Serum or Plasma 0.3-1.0 [facility] Blood estimated average gluc ose determination by estimation from glycated hemoglobinOrdered By: OUTREACH COMMUNITY on 07-08-2024 Average glucose Estimated from glycated hemoglobin (Bld) [Mass/Vol] Glucose mean value [Mass/volume] in Blood Estimated from glycated hemoglobin [facility] CBC Without Differentialon 0 07-08-2024 Erythrocyte distribution width (RBC) [Ratio] 13.3 % Normal 11.9-15.3 [facility] Comment on above: Performed By: #### O UTREACH VITD, OUTREACH GLYCO, OUTREACH CMP, CBCNOOUTREACH, OUTREACH LIPID #### [facility] [address] [place] [address] Hematocrit (Bld) [Volume fraction] 40.8 % Normal 34.0-46.4 [facility] Comment on above: Performed By: #### O UTREACH VITD, OUTREACH GLYCO, OUTREACH CMP, CBCNOOUTREACH, OUTREACH LIPID #### [address] Hemoglobin (Bld) [Mass/Vol] 13.7 g/dL Normal 11.8-15.4 [facility] Comment on above: Performed By: #### O UTREACH VITD, OUTREACH GLYCO, OUTREACH CMP, CBCNOOUTREACH, OUTREACH LIPID #### [address] MCH (RBC) [Entitic mass] 32.1 pg Normal 24.7-34.3 [facility] Comment on above: Performed By: #### O UTREACH VITD, OUTREACH GLYCO, OUTREACH CMP, CBCNOOUTREACH, OUTREACH LIPID #### [address] MCV (RBC) [Entitic vol] 95.7 fL Normal 80-100 [facility] Comment on above: Performed By: #### O UTREACH VITD, OUTREACH GLYCO, OUTREACH CMP, CBCNOOUTREACH, OUTREACH LIPID #### [address] Mean Corpuscular HGB Conc 33.6 g/dL Normal 32.0-35.0 [facility] Comment on above: Performed By: #### O UTREACH VITD, OUTREACH GLYCO, OUTREACH CMP, CBCNOOUTREACH, OUTREACH LIPID #### [address] Platelet mean volume (Bld) [Entitic vol] 7.2 fL Normal 6.3-10.7 [facility] Comment on above: Result Comment: PERF ORMED BY: [place] [address] PATHOLOGIST DRAFTER CIVIL ANNAMARIA KNOX M.D. Performed By: #### O UTREACH VITD, OUTREACH GLYCO, OUTREACH CMP, CBCNOOUTREACH, OUTREACH LIPID #### [facility] [address] [place] [address] Platelets (Bld) [#/Vol] 271 10*3/uL Normal 150-450 [facility] Comment on above: Performed By: #### O UTREACH VITD, OUTREACH GLYCO, OUTREACH CMP, CBCNOOUTREACH, OUTREACH LIPID #### [address] RBC (Bld) [#/Vol] 4.26 10*6/uL Normal 3.60-5.00 [facility] Comment on above: Performed By: #### O UTREACH VITD, OUTREACH GLYCO, OUTREACH CMP, CBCNOOUTREACH, OUTREACH LIPID #### [address] WBC (Bld) [#/Vol] 3.9 10*3/uL Normal 3.8-11.6 [facility] Comment on above: Performed By: #### O UTREACH VITD, OUTREACH GLYCO, OUTREACH CMP, CBCNOOUTREACH, OUTREACH LIPID #### [facility] [address] [place] [address] CMP Outreachon 07-08-2024 Albumin [Mass/Vol] 3.8 g/dL Normal 3.5-5.7 [facility] Comment on above: Performed By: #### O UTREACH VITD, OUTREACH GLYCO, OUTREACH CMP, CBCNOOUTREACH, OUTREACH LIPID #### [address] ALP [Catalytic activity/Vol] 83 U/L Normal 34-104 [facility] Comment on above: Performed By: #### O UTREACH VITD, OUTREACH GLYCO, OUTREACH CMP, CBCNOOUTREACH, OUTREACH LIPID #### [address] ALT [Catalytic activity/Vol] 41 U/L Normal 7-52 [facility] Comment on above: Performed By: #### O UTREACH VITD, OUTREACH GLYCO, OUTREACH CMP, CBCNOOUTREACH, OUTREACH LIPID #### [facility] [address] Anion gap [Moles/Vol] Not performed Normal 6.0-15.0 [facility] Comment on above: Performed By: #### O UTREACH VITD, OUTREACH GLYCO, OUTREACH CMP, CBCNOOUTREACH, OUTREACH LIPID #### [facility] [address] [place] [address] [place] Aspartate Amino Transferase Normal 13-39 [facility] Comment on above: Result Comment: Spec imen hemolyzed, redraw requested Performed By: #### O UTREACH VITD, OUTREACH GLYCO, OUTREACH CMP, CBCNOOUTREACH, OUTREACH LIPID #### [facility] [address] Bilirubin [Mass/Vol] 0.4 mg/dL Normal 0.3-1.0 [facility] Comment on above: Performed By: #### O UTREACH VITD, OUTREACH GLYCO, OUTREACH CMP, CBCNOOUTREACH, OUTREACH LIPID #### [facility] [address] [place] [address] [place] Calcium [Mass/Vol] 9.1 mg/dL Normal 8.6-10.3 [facility] Comment on above: Performed By: #### O UTREACH VITD, OUTREACH GLYCO, OUTREACH CMP, CBCNOOUTREACH, OUTREACH LIPID #### [facility] [address] [place] [address] [place] Chloride [Moles/Vol] 108 mmol/L High 98-107 [facility] Comment on above: Performed By: #### O UTREACH VITD, OUTREACH GLYCO, OUTREACH CMP, CBCNOOUTREACH, OUTREACH LIPID #### [facility] [address] [place] [phone] [place] CO2 [Moles/Vol] 28.3 mmol/L Normal 21.0-31.0 [facility] Comment on above: Performed By: #### O UTREACH VITD, OUTREACH GLYCO, OUTREACH CMP, CBCNOOUTREACH, OUTREACH LIPID #### [facility] [address] [place] [address] [place] Creatinine [Mass/Vol] 0.76 mg/dL Normal 0.60-1.20 [facility] Comment on above: Performed By: #### O UTREACH VITD, OUTREACH GLYCO, OUTREACH CMP, CBCNOOUTREACH, OUTREACH LIPID #### [place] [id number] [place] GFR/1.73 sq M.predicted MDRD (S/P/Bld) [Vol rate/Area] mL/min/{1.73_m2} Normal [facility] Comment on above: Performed By: #### O UTREACH VITD, OUTREACH GLYCO, OUTREACH CMP, CBCNOOUTREACH, OUTREACH LIPID #### [address] Glucose [Mass/Vol] 86 mg/dL Normal 70-100 [facility] Comment on above: Result Comment: [place] Glucose Reference Range is dependent on time and content of last meal. Glucose of more than 200 mg/dL in a nonstressed, ambulatory subject supports the diagnosis of Diabetes Mellitus. ADA recommended reference range Performed By: #### O UTREACH VITD, OUTREACH GLYCO, OUTREACH CMP, CBCNOOUTREACH, OUTREACH LIPID #### [address] Potassium Normal 3.5-5.1 [facility] Comment on above: Result Comment: Spec imen hemolyzed, redraw requested Performed By: #### O UTREACH VITD, OUTREACH GLYCO, OUTREACH CMP, CBCNOOUTREACH, OUTREACH LIPID #### [address] Protein [Mass/Vol] 6.7 g/dL Normal 6.4-8.9 [facility] Comment on above: Performed By: #### O UTREACH VITD, OUTREACH GLYCO, OUTREACH CMP, CBCNOOUTREACH, OUTREACH LIPID #### [place] [id number] [place] Sodium [Moles/Vol] 141 mmol/L Normal 136-145 [facility] Comment on above: Performed By: #### O UTREACH VITD, OUTREACH GLYCO, OUTREACH CMP, CBCNOOUTREACH, OUTREACH LIPID #### [facility] [address] [place] [address] [place] Urea nitrogen [Mass/Vol] 19 mg/dL Normal 7-25 [facility] Comment on above: Performed By: #### O UTREACH VITD, OUTREACH GLYCO, OUTREACH CMP, CBCNOOUTREACH, OUTREACH LIPID #### [facility] [address] [place] [id number] [place] Calcium [Mass/volume] in Ser um or PlasmaOrdered By: OUTREACH COMMUNITY on 07-08-2024 Calcium [Mass/Vol] Calcium [Mass/volume ] in Serum or Plasma 8.6-10.3 [facility] Carbon dioxide, total [Moles /volume] in Serum or PlasmaOrdered By: OUTREACH COMMUNITY on 07-08-2024 CO2 [Moles/Vol] Carbon dioxide, tota l [Moles/volume] in Serum or Plasma 21.0-31.0 [facility] Chloride [Moles/volume] in S jean or PlasmaOrdered By: OUTREACH COMMUNITY on 07-08-2024 Chloride [Moles/Vol] Chloride [Moles/volume] in Serum or Plasma High 98-107 [facility] Cholesterol [Mass/volume] in Serum or PlasmaOrdered By: OUTREACH COMMUNITY on 07-08-2024 Cholesterol [Mass/Vol] Cholesterol [Mass/volume] in Serum or Plasma 140-200 [facility] Comment on above: Chol less than 200 m g/dl low riskChol 201-239 mg/dl borderline riskChol 240 mg/dl and greater high risk Cholesterol in HDL [Mass/vol ume] in Serum or PlasmaOrdered By: OUTREACH COMMUNITY on 07-08-2024 Cholesterol in HDL [Mass/Vol] Serum or plasma high density lipoprotein (HDL) cholesterol measurement 23-92 [facility] Comment on above: HDL CHOL ATP-III CLA SSIFICATION Cardiovascular RiskHDL > or equal to 60 mg/dL LOWHDL < 40 mg/dL HIGH Cholesterol in LDL Calc [Mas s/Vol]Ordered By: OUTREACH COMMUNITY on 07-08-2024 Cholesterol in LDL [Mass/Vol] Cholesterol in LDL [Mass/volume] in Serum or Plasma by calculation High 0-100 [facility] Comment on above: LDL ATP III CLASSIFI CATIONLDL less than 100 mg/dL OptimalLDL 100-129 mg/dL Near or above optimalLDL 130-159 mg/dL Borderline highLDL 160-189 mg/dL HighLDL greater than 189 mg/dL Very high Cholesterol in VLDL Calc [Ma ss/Vol]Ordered By: [facility] on 07-08-2024 Cholesterol in VLDL [Mass/Vol] Cholesterol in VLDL [Mass/volume] in Serum or Plasma by calculation [facility] Creatinine [Mass/volume] in Serum or PlasmaOrdered By: [facility] on 07-08-2024 Creatinine [Mass/Vol] Creatinine [Mass/volume] in Serum or Plasma 0.60-1.20 [facility] Erythrocyte distribution wid th Auto (RBC) [Ratio]Ordered By: [facility] on 07-08-2024 Erythrocyte distribution width (RBC) [Ratio] Erythrocyte distribution width [Ratio] by Automated count 11.9-15.3 [facility] Glucose [Mass/volume] in Ser um or PlasmaOrdered By: [facility] on 07-08-2024 Glucose [Mass/Vol] Glucose [Mass/volume ] in Serum or Plasma 70-100 [facility] Comment on above: ADA recommended refe rence rangeRandom Glucose Reference Range is dependent on time and content of last meal. Glucose of more than 200 mg/dL in a nonstressed, ambulatory subject supports the diagnosis of Diabetes Mellitus. Hematocrit Auto (Bld) [Volum e fraction]Ordered By: [facility] on 07-08-2024 Hematocrit (Bld) [Volume fraction] Hematocrit [Volume Fraction] of Blood by Automated count 34.0-46.4 [facility] Hemoglobin A1c measurementOr dered By: [facility] on 07-08-2024 HbA1c (Bld) [Mass fraction] 5.4 % Normal 4.3-5.6 [facility] Comment on above: Increased risk for d iabetes: 5.7 - 6.4diabetes: >6.4glycemic control for adults with diabetes: <7.0 Result Comment: Incr eased risk for diabetes: 5.7 - 6.4 diabetes: >6.4 glycemic control for adults with diabetes: <7.0 Performed By: #### O UTREACH VITD, OUTREACH GLYCO, OUTREACH CMP, CBCNOOUTREACH, OUTREACH LIPID #### [facility] [address] [place] [id number] [facility] Hemoglobin [Mass/volume] in BloodOrdered By: [facility] on 07-08-2024 Hemoglobin (Bld) [Mass/Vol] Hemoglobin [Mass/volume] in Blood 11.8-15.4 [facility] Leukocytes [#/volume] correc scott for nucleated erythrocytes in Blood by Automated counOrdered By: [facility] on 07-08-2024 WBC corrected for nucl RBC Auto (Bld) [#/Vol] Leukocytes [#/volume] corrected for nucleated erythrocytes in Blood by Automated coun 3.8-11.6 [facility] Lipid Profile [facility] Cholesterol [Mass/Vol] 184 mg/dL Normal 140-200 Th [facility] Comment on above: Result Comment: Chol less than 200 mg/dl low risk Chol 201-239 mg/dl borderline risk Chol 240 mg/dl and greater high risk Performed By: #### O UTREACH VITD, OUTREACH GLYCO, OUTREACH CMP, CBCNOOUTREACH, OUTREACH LIPID #### [facility] [address] [place] [id number] [facility] Cholesterol in HDL [Mass/Vol] 63 mg/dL Normal 23-92 [facility] Comment on above: Result Comment: HDL CHOL ATP-III CLASSIFICATION Cardiovascular Risk HDL > or equal to 60 mg/dL LOW HDL < 40 mg/dL HIGH Performed By: #### O UTREACH VITD, OUTREACH GLYCO, OUTREACH CMP, CBCNOOUTREACH, OUTREACH LIPID #### [facility] [address] [place] [id number] [facility] Cholesterol.total/Rosa sterol in HDL [Mass ratio] 2.9 {ratio} Normal <5.0 [facility] Comment on above: Performed By: #### O UTREACH VITD, OUTREACH GLYCO, OUTREACH CMP, CBCNOOUTREACH, OUTREACH LIPID #### [facility] [address] [place] [id number] [facility] LDL Cholesterol,Calculated 104 mg/dL High 0-100 [facility] Comment on above: Result Comment: LDL ATP III CLASSIFICATION LDL less than 100 mg/dL Optimal LDL 100-129 mg/dL Near or above optimal LDL 130-159 mg/dL Borderline high LDL 160-189 mg/dL High LDL greater than 189 mg/dL Very high Performed By: #### O UTREACH VITD, OUTREACH GLYCO, OUTREACH CMP, CBCNOOUTREACH, OUTREACH LIPID #### [facility] [address] Triglyceride w/Reflex 83 mg/dL Normal 0-149 [facility] Comment on above: Result Comment: TRIG ATP III CLASSIFICATION TRIG less than 150 mg/dL Normal TRIG 150-199 mg/dL Borderline high TRIG 200-500 mg/dL High TRIG greater than 500 mg/dL Very high Standard traceable to the Center for Disease Conrtrol and Prevention (CDC) test method. Performed By: #### O UTREACH VITD, OUTREACH GLYCO, OUTREACH CMP, CBCNOOUTREACH, OUTREACH LIPID #### [facility] [address] VLDL CHOLESTEROL 16 mg/dL Normal [facility] Comment on above: Performed By: #### O UTREACH VITD, OUTREACH GLYCO, OUTREACH CMP, CBCNOOUTREACH, OUTREACH LIPID #### [facility] [address] MCH Auto (RBC) [Entitic mass ]Ordered By: OUTREACH COMMUNITY on 07-08-2024 MCH (RBC) [Entitic mass] MCH [Entitic mass] by Automated count 24.7-34.3 [facility] MCHC Auto (RBC) [Mass/Vol]Or dered By: OUTREACH COMMUNITY on 07-08-2024 MCHC (RBC) [Mass/Vol] MCHC [Mass/volume] by Automated count 32.0-35.0 [facility] MCV Auto (RBC) [Entitic vol] Ordered By: OUTREACH COMMUNITY on 07-08-2024 MCV (RBC) [Entitic vol] MCV [Entitic vol ume] by Automated count 80-100 [facility] No Panel InformationOrdered By: OUTREACH COMMUNITY on 07-08-2024 Estimated GFR (CKD-EPI) > 60.0 mL/Min [facility] Creatinine Clearance (Chem N/A [facility]reach [place] 07-08-2024 Glucose [Mass/Vol] 108 mg/dL Normal [facility] Comment on above: Result Comment: PERF ORMED BY: [place] [address] PATHOLOGIST DRAFTER CIVIL ANNAMARIA KNOX M.D. Performed By: #### O UTREACH VITD, OUTREACH GLYCO, OUTREACH CMP, CBCNOOUTREACH, OUTREACH LIPID #### [facility] [address] [place] [id number] [facility] Outreach VitD 25on 5 Outreach VitD 25 Normal 30-100 [facility] Comment on above: Result Comment: Spec imen hemolyzed, redraw requested VITAMIN D STATUS 25(OH)VITAMIN D RANGE (ng/mL) Deficient <20 Insufficient 20 to <30 Sufficient 30 to 100 Reference: Candido MF,Bryan VO, Sienna LOJA, et al. Evaluation,treatment, and prevention of vitamin D deficiency; an Endocrine Society clinical practice guideline. JCEM. 2010; 96(7):1911-30. PERFORMED BY: [place] [address] PATHOLOGIST DRAFTER CIVIL ANNAMARIA KNOX M.D. Performed By: #### O UTREACH VITD, OUTREACH GLYCO, OUTREACH CMP, CBCNOOUTREACH, OUTREACH LIPID #### [facility] [address] [place], [place] [id number] [facility] Platelet mean volume Auto (B ld) [Entitic vol]Ordered By: [facility]ITY on 07-08-2024 Platelet mean volume (Bld) [Entitic vol] Platelet mean volume [Entitic volume] in Blood by Automated count 6.3-10.7 [facility] Platelets Auto (Bld) [#/Vol] Ordered By: [facility] on 07-08-2024 Platelets (Bld) [#/Vol] Platelets [#/vol ume] in Blood by Automated count 150-450 [facility] Potassium [Moles/volume] in Serum or PlasmaOrdered By: [facility] on 07-08-2024 Potassium [Moles/Vol] Potassium [Moles/volume] in Serum or Plasma 3.5-5.1 [facility] Comment on above: Specimen hemolyzed, redraw requested Protein [Mass/volume] in Ser um or PlasmaOrdered By: [facility] on 07-08-2024 Protein [Mass/Vol] Protein [Mass/volume ] in Serum or Plasma 6.4-8.9 [facility] RBC Auto (Bld) [#/Vol]Ordere d By: [facility] on 07-08-2024 RBC (Bld) [#/Vol] Erythrocytes [#/volume] in Blood by Automated count 3.60-5.00 [facility] Serum or plasma anion gap de terminationOrdered By: [facility] on 07-08-2024 Anion gap [Moles/Vol] Serum or plasma an ion gap determination [facility] Comment on above: Test not performed Serum or plasma total choles terol/high density lipoprotein (HDL) cholesterol mass ratOrdered By: [facility] on 07-08-2024 Cholesterol.total/Rosa sterol in HDL [Mass ratio] Serum or plasma total cholesterol/high density lipoprotein (HDL) cholesterol mass rat <5.0 [facility] Sodium [Moles/volume] in Ser um or PlasmaOrdered By: [facility] on 07-08-2024 Sodium [Moles/Vol] Sodium [Moles/volume ] in Serum or Plasma 136-145 [facility] Triglyceride [Mass/volume] i n Serum or PlasmaOrdered By: [facility] on 07-08-2024 Triglyceride [Mass/Vol] Triglyceride [Mass/volume] in Serum or Plasma 0-149 [facility] Comment on above: TRIG ATP III CLASSIF ICATIONTRIG less than 150 mg/dL NormalTRIG 150-199 mg/dL Borderline highTRIG 200-500 mg/dL High TRIG greater than 500 mg/dL Very highStandard traceable to the Center for Disease Conrtrol and Prevention (CDC) test method. Urea nitrogen [Mass/volume] in Serum or PlasmaOrdered By: OUTREACH [facility] on 07-08-2024 Urea nitrogen [Mass/Vol] Urea nitrogen [Mass/volume] in Serum or Plasma 7-25 [facility] Vitamin D+Metabolites [Mass/ volume] in Serum or PlasmaOrdered By: [facility] on 07-08-2024 Vitamin D+Metabolites [Mass/Vol] Vitamin D+Metabolites [Mass/volume] in Serum or Plasma 30-100 [facility] Comment on above: Specimen hemolyzed, redraw requestedVITAMIN D STATUS 25(OH)VITAMIN D RANGE (ng/mL) Deficient <20 Insufficient 20 to <30Sufficient 30 to 100Reference: Candido MF,Bryan VO, Sienna LOJA, et al. Evaluation,treatment, and prevention of vitamin D deficiency; an Endocrine Society clinical practice guideline. JCEM. 2010; 96(7):1911-30. Urine Cultureon 07-05-2024 Bacteria identified Cx Nom (U) <10,000 colonies/ml mixed bacterial skin contaminants including mixed gram negative bacilli - 2 Days PERFORMED BY: [place] [address] PATHOLOGIST DRAFTER CIVIL ANNAMARIA KNOX M.D. Normal [facility] Comment on above: Performed By: #### C UU #### [address] Urine cultureOrdered By: Fuentes Manley on 07-05-2024 Bacteria identified Cx Nom (U) Urine culture [facility] Blood Urea Nitrogenon 2024 Urea nitrogen [Mass/Vol] 15 mg/dL Normal 7-25 [facility] Comment on above: Order Comment: STAT FOR CT Performed By: #### C REAT, BUN ####[place] [id number] abdomen pelvis w conon CT abdomen pelvis w con [facility] [place] [address] [place] [address] CT Scan Report Signed Patient: Rosa M Abbott MR#: [id number] : 1955 Acct:[id number] Age/Sex: 69 / F ADM Date: 06/28/24 Loc: CT Room: Type: [facility] Attending Dr: Alexey Manley DO Copies to: [...] Duggan Jr., D.ORachel06/28/2024 9:34 AM Dictation Location: [place] [address] Transcribed By: [facility] 06/28/24 0934 Dictated By: Ozzy Duggan Jr, DO 06/28/24 0931 Signed By: 06/28/24 0934 Normal [facility] Creatinineon 06-28-2024 Creatinine [Mass/Vol] 0.82 mg/dL Normal 0.60-1.20 [facility] Comment on above: Order Comment: STAT FOR CT Performed By: #### C GIOVANA LUCERO ####[place] [id number] [place] [address] [facility] GFR/1.73 sq M.predicted MDRD (S/P/Bld) [Vol rate/Area] mL/min/{1.73_m2} Normal [facility] Comment on above: Order Comment: STAT FOR CT Result Comment: PERF ORMED BY: [facility] [address] [place] [address] PATHOLOGIST DRAFTER CIVIL ANNAMARIA KNOX M.D. Performed By: #### C NIC BUN ####[place] [id number] [place] [phone] [facility] Creatinine [Mass/volume] in Serum or PlasmaOrdered By: Alexey Manley on 06-28-2024 Creatinine [Mass/Vol] Creatinine [Mass/volume] in Serum or Plasma 0.60-1.20 [facility] No Panel InformationOrdered By: Alexey Manley on 06-28-2024 Estimated GFR (CKD-EPI) > 60.0 mL/Min [facility] Creatinine Clearance (Chem N/A [facility] Urea nitrogen [Mass/volume] in Serum or PlasmaOrdered By: Alexey Manley on 06-28-2024 Urea nitrogen [Mass/Vol] Urea nitrogen [Mass/volume] in Serum or Plasma 7 [facility] - Chemistry and C hemistry - challengeon 06-07-2024 Bilirubin Ql (U) Negative [facility] Glucose (U) [Mass/Vol] Negative [facility] Ketones Ql (U) Negative [facility] pH (U) 6.5 [pH] [facility] Specific gravity (U) [Rel density] 1.000 [facility] Urobilinogen (U) [Mass/Vol] 0.2 mg/dL [facility] - Specimen inform ationon 06-07-2024 Appearance (U) cloudy [facility] Color (U) lightyellow [facility] - Urinalysison Leukocyte esterase Test strip Ql (U) + [facility] Nitrite Ql (U) Negative [facility] Protein Ql (U) + [facility] No Panel Informationon 06-07 Urine Occult Blood +++ [facility] XR Knee - left 3 [facility] Result: X-rays and imaging permanently saved to the patient's record were reviewed bilateral AP, lateral and sunrise views weight bearing films taken in the [place] office shows moderate, borderline early severe degenerative changes particularly of the lateral facet of the patella and medial joints. There is no fracture, dislocation, tumor or infection seen. [facility] XR Knee - right 3 [facility] Result: X-rays and imaging permanently saved to the patient's record were reviewed bilateral AP, lateral and sunrise views weight bearing films taken in the [place] office shows moderate, borderline early severe degenerative changes particularly of the lateral facet of the patella and medial joints. There is no fracture, dislocation, tumor or infection seen. [facility] No Panel Informationon 04-26 Radiology Study observation (narrative) [facility] MM screening mammo BI w/CADo n 03-20-2024 MM screening mammo BI w/CAD [facility] [place] [address] [place] [address] Mammography Report Signed Patient: Rosa M Abbott MR#: [id number] : 1955 Acct:[id number] Age/Sex: 69 / F ADM Date: 03/20/24 Loc: [place] Room: Type: [facility] Attending Dr: Katina Vigil DO Copies to: [...] Archana Curiel M.D.03/20/2024 4:38 PM Dictation Location: [facility] Transcribed By: PAM 03/20/24 6584 Dictated By: Archana Curiel MD 03/20/24 1635 Signed By: 03/20/24 1638 Normal [facility] CT heart calcium score woon 01-06-2024 CT heart calcium score wo [facility] [place] [address] [place] [address] [address] [address] Scan Report Signed Patient: Rosa M Abbott MR#: [id number] : 1955 Acct:[id number] Age/Sex: 68 / F ADM Date: 01/06/24 Loc: CT Room: Type: [facility] Attending Dr: Alexey Manley DO Copies to: [...] Tomography) Impression dictated by: Ozzy Duggan Jr., D.O.01/06/2024 2:32 PM Dictation Location: [place] [address] Transcribed By: [facility] 01/06/24 1432 Dictated By: Ozzy Duggan Jr, DO 01/06/24 1423 Signed By: 01/06/24 1432 Normal [facility] Laboratory - Chemistry and C hemistry - challengeon 10-09-2023 Bilirubin Ql (U) Negative [facility] Glucose (U) [Mass/Vol] Negative [facility] Ketones Ql (U) Negative [facility] pH (U) 7.0 [pH] [facility] Specific gravity (U) [Rel density] 1.005 [facility] Urobilinogen (U) [Mass/Vol] 0.2 mg/dL [facility] - Specimen inform ationon 10-09-2023 Appearance (U) cloudy [facility] Color (U) lightorange [facility] - Urinalysison Leukocyte esterase Test strip Ql (U) Moderate [facility] Nitrite Ql (U) Negative [facility] Protein Ql (U) Positive [facility] No Panel Informationon 10-08 Urine Occult Blood [facility] Urine Cultureon 10-09-2023 Bacteria identified Cx Nom (U) >100,000 colonies/ml mixed bacterial skin contaminants 2 Days PERFORMED BY: [facility] [address] [place] [address] PATHOLOGIST DRAFTER CIVIL MATTHEW BLOCK M.D. Normal [facility] Comment on above: Performed By: #### C UU #### [facility] [address] Urine culture routineOrdered By: Mar Almanzar on 10-09-2023 Bacteria identified Cx Nom (U) 2 Days [facility] Alanine aminotransferase [En zymatic activity/volume] in Serum or PlasmaOrdered By: [facility]ITY on 09-11-2023 ALT [Catalytic activity/Vol] 27 U/L Normal [facility] Comment on above: Performed By: #### O UTREACH GLYCO, CBCNOOUTREACH, OUTREACH LIPID, OUTREACH CMP ####[facility] [id number] Albumin [Mass/volume] in Ser um or Plasma by Bromocresol green (BCG) dye binding methoOrdered By: [facility] on 09-11-2023 Albumin BCG dye [Mass/Vol] 4.0 g/dL 3.5-5.7 [facility] Alkaline phosphatase [Enzyma tic activity/volume] in Serum or PlasmaOrdered By: [facility] on 09-11-2023 ALP [Catalytic activity/Vol] 54 U/L Normal 34-104 [facility] Comment on above: Performed By: #### O UTREACH GLYCO, CBCNOOUTREACH, OUTREACH LIPID, OUTREACH CMP ####[address] Aspartate aminotransferase [ Enzymatic activity/volume] in Serum or PlasmaOrdered By: [facility] on 09-11-2023 AST [Catalytic activity/Vol] 29 U/L Normal 13-39 [facility] Comment on above: Performed By: #### O UTREACH GLYCO, CBCNOOUTREACH, OUTREACH LIPID, OUTREACH CMP ####[address] Bilirubin.total [Mass/volume ] in Serum or PlasmaOrdered By: [facility] COMM[facility]ITY on 09-11-2023 Bilirubin [Mass/Vol] 0.5 mg/dL Normal 0.3-1.0 [facility] Comment on above: Performed By: #### O UTREACH GLYCO, CBCNOOUTREACH, OUTREACH LIPID, OUTREACH CMP ####[address] CBC Without Differentialon 0 09-11-2023 Mean Corpuscular HGB Conc 33.3 g/dL Normal 32.0-35.0 [facility] Comment on above: Performed By: #### O UTREACH GLYCO, CBCNOOUTREACH, OUTREACH LIPID, OUTREACH CMP ####[place] [id number] [facility] WBC (Bld) [#/Vol] 3.9 10*3/uL Normal 3.8-11.6 [facility] Comment on above: Performed By: #### O UTREACH GLYCO, CBCNOOUTREACH, OUTREACH LIPID, OUTREACH CMP ####[place] [id number] [facility] CMP Outreachon 09-11-2023 Albumin [Mass/Vol] 4.0 g/dL Normal 3.5-5.7 [facility] Comment on above: Performed By: #### O UTREACH GLYCO, CBCNOOUTREACH, OUTREACH LIPID, OUTREACH CMP ####[place] [address] [place] [address] [place] GFR/1.73 sq M.predicted MDRD (S/P/Bld) [Vol rate/Area] mL/min/{1.73_m2} Normal [facility] Comment on above: Performed By: #### O UTREACH GLYCO, CBCNOOUTREACH, OUTREACH LIPID, OUTREACH CMP ####[address] [address] [place] Calcium [Mass/volume] in Ser um or PlasmaOrdered By: [facility] COMM[facility] on 09-11-2023 Calcium [Mass/Vol] 9.1 mg/dL Normal 8.6-10.3 [facility] Comment on above: Performed By: #### O UTREACH GLYCO, CBCNOOUTREACH, OUTREACH LIPID, OUTREACH CMP ####[address] [address] [place] Carbon dioxide, total [Moles /volume] in Serum or PlasmaOrdered By: [facility] COMM[facility] on 09-11-2023 CO2 [Moles/Vol] 28.9 mmol/L Normal 21.0-31.0 [facility] Comment on above: Performed By: #### O UTREACH GLYCO, CBCNOOUTREACH, OUTREACH LIPID, OUTREACH CMP ####[address] [address] [place] Chloride [Moles/volume] in S jean or PlasmaOrdered By: [facility] COMM[facility] on 09-11-2023 Chloride [Moles/Vol] 105 mmol/L Normal 98-107 [facility] Comment on above: Performed By: #### O UTREACH GLYCO, CBCNOOUTREACH, OUTREACH LIPID, OUTREACH CMP ####[address] [address] [place] Cholesterol [Mass/volume] in Serum or PlasmaOrdered By: [facility] COMM[facility] on 09-11-2023 Cholesterol [Mass/Vol] 185 mg/dL Normal 140-200 [facility] Comment on above: Chol less than 200 m g/dl low riskChol 201-239 mg/dl borderline riskChol 240 mg/dl and greater high risk Result Comment: Chol less than 200 mg/dl low risk Chol 201-239 mg/dl borderline risk Chol 240 mg/dl and greater high risk Performed By: #### O DUSTIN GLYCO, CBCNOOUTREACH, OUTREACH LIPID, OUTREACH CMP ####[facility] [id number] [place] [id number] [facility] Cholesterol in LDL Calc [Mas s/Vol]Ordered By: [facility] on 09-11-2023 Cholesterol in LDL [Mass/Vol] 98 mg/dL 0-100 [facility] Comment on above: LDL ATP III CLASSIFI CATIONLDL less than 100 mg/dL OptimalLDL 100-129 mg/dL Near or above optimalLDL 130-159 mg/dL Borderline highLDL 160-189 mg/dL HighLDL greater than 189 mg/dL Very high Cholesterol in VLDL Calc [Ma ss/Vol]Ordered By: [facility] on 09-11-2023 Cholesterol in VLDL [Mass/Vol] 17 mg/dL [facility] Creatinine [Mass/volume] in Serum or PlasmaOrdered By: [facility] on 09-11-2023 Creatinine [Mass/Vol] 0.86 mg/dL Normal 0.60-1.[address] [facility] Comment on above: Performed By: #### O DUSTIN GLYCO, CBCNOOUTREACH, OUTREACH LIPID, OUTREACH CMP ####[place] [id number] [place] [phone] [facility] Erythrocyte distribution wid th [Ratio] by Automated countOrdered By: [facility] on 09-11-2023 Erythrocyte distribution width (RBC) [Ratio] 13.3 % Normal 11.9-15.3 [facility] Comment on above: Performed By: #### O DUSTIN GLYCO, CBCNOOUTREACH, OUTREACH LIPID, OUTREACH CMP ####[facility] [id number] [place] [phone] [facility] Erythrocytes [#/volume] in B lood by Automated countOrdered By: [facility] COMMUNITY on 09-11-2023 RBC (Bld) [#/Vol] 4.19 10*6/uL Normal 3.60-5.00 [facility] Comment on above: Performed By: #### O UTREACH GLYCO, CBCNOOUTREACH, OUTREACH LIPID, OUTREACH CMP ####[facility] [id number] [place] [phone] [facility] Glucose [Mass/volume] in Ser um or PlasmaOrdered By: [facility] on 09-11-2023 Glucose [Mass/Vol] 78 mg/dL Normal 70-100 [facility] Comment on above: ADA recommended refe rence rangeRandom Glucose Reference Range is dependent on time and content of last meal. Glucose of more than 200 mg/dL in a nonstressed, ambulatory subject supports the diagnosis of Diabetes Mellitus. Result Comment: [place] om Glucose Reference Range is dependent on time and content of last meal. Glucose of more than 200 mg/dL in a nonstressed, ambulatory subject supports the diagnosis of Diabetes Mellitus. ADA recommended reference range Performed By: #### O UTREACH GLYCO, CBCNOOUTREACH, OUTREACH LIPID, OUTREACH CMP ####[facility] [id number] [place] [address] [facility] Glucose mean value [Mass/vol ume] in Blood Estimated from glycated hemoglobinOrdered By: [facility] on 09-11-2023 Average glucose Estimated from glycated hemoglobin (Bld) [Mass/Vol] 114 mg/dL [facility] Hematocrit [Volume Fraction] of Blood by Automated countOrdered By: [facility] on 09-11-2023 Hematocrit (Bld) [Volume fraction] 40.1 % Normal 34.0-46.4 [facility] Comment on above: Performed By: #### O UTREACH GLYCO, CBCNOOUTREACH, OUTREACH LIPID, OUTREACH CMP ####[facility] [id number] [place] [phone] [facility] Hemoglobin [Mass/volume] in BloodOrdered By: [facility] on 09-11-2023 Hemoglobin (Bld) [Mass/Vol] 13.4 g/dL Normal 11.8-15.4 [facility] Comment on above: Performed By: #### O UTREACH GLYCO, CBCNOOUTREACH, OUTREACH LIPID, OUTREACH CMP ####[facility] [place] [phone] [facility] Leukocytes [#/volume] correc scott for nucleated erythrocytes in Blood by Automated counOrdered By: [facility] on 09-11-2023 WBC corrected for nucl RBC Auto (Bld) [#/Vol] 3.9 10*3/uL 3.8-11.6 [facility] Lipid Profile Outreach LDL Cholesterol,Calculated 98 mg/dL Normal 0-100 [facility] Comment on above: Result Comment: LDL ATP III CLASSIFICATION LDL less than 100 mg/dL Optimal LDL 100-129 mg/dL Near or above optimal LDL 130-159 mg/dL Borderline high LDL 160-189 mg/dL High LDL greater than 189 mg/dL Very high Performed By: #### O UTREACH GLYCO, CBCNOOUTREACH, OUTREACH LIPID, OUTREACH CMP ####[place] [id number] Triglyceride w/Reflex 85 mg/dL Normal 0-149 [facility] Comment on above: Result Comment: TRIG ATP III CLASSIFICATION TRIG less than 150 mg/dL Normal TRIG 150-199 mg/dL Borderline high TRIG 200-500 mg/dL High TRIG greater than 500 mg/dL Very high Standard traceable to the Center for Disease Conrtrol and Prevention (CDC) test method. Performed By: #### O UTREACH GLYCO, CBCNOOUTREACH, OUTREACH LIPID, OUTREACH CMP ####[place] [id number] [place] [phone] [facility] VLDL CHOLESTEROL 17 mg/dL Normal [facility] Comment on above: Performed By: #### O UTREACH GLYCO, CBCNOOUTREACH, OUTREACH LIPID, OUTREACH CMP ####[place] [id number] [place] [phone] [facility] MCH [Entitic mass] by Automa scott countOrdered By: [facility] on 09-11-2023 MCH (RBC) [Entitic mass] 31.9 pg Normal 24.7-34.3 [facility] Comment on above: Performed By: #### O UTREACH GLYCO, CBCNOOUTREACH, OUTREACH LIPID, OUTREACH CMP ####[address] [place] [address] [facility] MCHC Auto (RBC) [Mass/Vol]Or dered By: [facility] on 09-11-2023 MCHC (RBC) [Mass/Vol] 33.3 g/dL 32.0-35.[address] [facility] MCV [Entitic volume] by Auto mated countOrdered By: [facility] on 09-11-2023 MCV (RBC) [Entitic vol] 95.7 fL Normal 80-100 [facility] Comment on above: Performed By: #### O UTREACH GLYCO, CBCNOOUTREACH, OUTREACH LIPID, OUTREACH CMP ####[place] [phone] [facility] No Panel InformationOrdered By: [facility] on 09-11-2023 Estimated GFR (CKD-EPI) > 60.0 mL/Min [facility] Creatinine Clearance (Chem N/A [facility] Outreach Glycoon 09-11-2023 Glucose [Mass/Vol] 114 mg/dL Normal [facility] Comment on above: Result Comment: PERF ORMED BY: [facility] [address] [address] PATHOLOGIST DRAFTER CIVIL MATTHEW BLOCK M.D. Performed By: #### O UTREACH GLYCO, CBCNOOUTREACH, OUTREACH LIPID, OUTREACH CMP ####[place] [phone] [facility] Outreach GlycoOrdered By: [facility] on 09-11-2023 HbA1c (Bld) [Mass fraction] 5.6 % Normal 4.3-5.6 [facility] Comment on above: Increased risk for d iabetes: 5.7 - 6.4diabetes: >6.4glycemic control for adults with diabetes: <7.0 Result Comment: Incr eased risk for diabetes: 5.7 - 6.4 diabetes: >6.4 glycemic control for adults with diabetes: <7.0 Performed By: #### O UTREACH GLYCO, CBCNOOUTREACH, OUTREACH LIPID, OUTREACH CMP ####[place] [phone] [place] Platelet mean volume [Entiti c volume] in Blood by Automated countOrdered By: [facility] on 09-11-2023 Platelet mean volume (Bld) [Entitic vol] 7.7 fL Normal 6.3-10.7 [facility] Comment on above: Result Comment: PERF ORMED BY: [facility] [address] [place] [id number] PATHOLOGIST DRAFTER CIVIL MATTHEW BLOCK M.D. Performed By: #### O UTREACH GLYCO, CBCNOOUTREACH, OUTREACH LIPID, OUTREACH CMP ####[address] [address] [place] Platelets [#/volume] in Bloo d by Automated countOrdered By: [facility] on 09-11-2023 Platelets (Bld) [#/Vol] 269 10*3/uL Normal 150-450 [facility] Comment on above: Performed By: #### O UTREACH GLYCO, CBCNOOUTREACH, OUTREACH LIPID, OUTREACH CMP ####[place] [phone] [place] Potassium [Moles/volume] in Serum or PlasmaOrdered By: [facility] on 09-11-2023 Potassium [Moles/Vol] 3.9 mmol/L Normal 3.5-5.[address] [facility] Comment on above: Performed By: #### O UTREACH GLYCO, CBCNOOUTREACH, OUTREACH LIPID, OUTREACH CMP ####[place] [phone] [place] Protein [Mass/volume] in Ser um or PlasmaOrdered By: [facility] on 09-11-2023 Protein [Mass/Vol] 6.4 g/dL Normal 6.4-8.9 [facility] Comment on above: Performed By: #### O UTREACH GLYCO, CBCNOOUTREACH, OUTREACH LIPID, OUTREACH CMP ####[address] [address] [facility] Serum or plasma anion gap de terminationOrdered By: [facility] on 09-11-2023 Anion gap [Moles/Vol] 9.0 mmol/L Normal 6.0-15.[address] [facility] Comment on above: Performed By: #### O UTREACH GLYCO, CBCNOOUTREACH, OUTREACH LIPID, OUTREACH CMP ####[place] [id number] Serum or plasma high density lipoprotein (HDL) cholesterol measurementOrdered By: OUTREACH COMMUNITY on 09-11-2023 Cholesterol in HDL [Mass/Vol] 70 mg/dL Normal 23-92 [facility] Comment on above: HDL CHOL ATP-III CLA SSIFICATION Cardiovascular RiskHDL > or equal to 60 mg/dL LOWHDL < 40 mg/dL HIGH Result Comment: HDL CHOL ATP-III CLASSIFICATION Cardiovascular Risk HDL > or equal to 60 mg/dL LOW HDL < 40 mg/dL HIGH Performed By: #### O UTREACH GLYCO, CBCNOOUTREACH, OUTREACH LIPID, OUTREACH CMP ####[address] Serum or plasma total choles terol/high density lipoprotein (HDL) cholesterol mass ratOrdered By: OUTREACH COMMUNITY on 09-11-2023 Cholesterol.total/Rosa sterol in HDL [Mass ratio] 2.6 {ratio} Normal <5.0 [facility] Comment on above: Result Comment: PERF ORMED BY: [facility] [address] [place] [address] PATHOLOGIST DRAFTER CIVIL MATTHEW BLOCK M.D. Performed By: #### O UTREACH GLYCO, CBCNOOUTREACH, OUTREACH LIPID, OUTREACH CMP ####[place] [address] [place] Sodium [Moles/volume] in Ser um or PlasmaOrdered By: OUTREACH COMMUNITY on 09-11-2023 Sodium [Moles/Vol] 139 mmol/L Normal 136-145 [facility] Comment on above: Performed By: #### O UTREACH GLYCO, CBCNOOUTREACH, OUTREACH LIPID, OUTREACH CMP ####[place] [id number] [facility] Triglyceride [Mass/volume] i n Serum or PlasmaOrdered By: OUTREACH COMMUNITY on 09-11-2023 Triglyceride [Mass/Vol] 85 mg/dL 0-149 [facility] Comment on above: TRIG ATP III CLASSIF ICATIONTRIG less than 150 mg/dL NormalTRIG 150-199 mg/dL Borderline highTRIG 200-500 mg/dL High TRIG greater than 500 mg/dL Very highStandard traceable to the Center for Disease Conrtrol and Prevention (CDC) test method. Urea nitrogen [Mass/volume] in Serum or PlasmaOrdered By: OUTREACH COMMUNITY on 09-11-2023 Urea nitrogen [Mass/Vol] 12 mg/dL Normal 7- [facility] Comment on above: Performed By: #### O UTREA GLYCO, CBCNOOUTREACH, OUTREACH LIPID, OUTREACH CMP ####[facility] [id number] Alanine aminotransferase [En zymatic activity/volume] in Serum or PlasmaOrdered By: OUTREACH COMMUNITY on 09-12-2022 ALT [Catalytic activity/Vol] 25 U/L 7-52 [facility] Albumin [Mass/volume] in Ser um or Plasma by Bromocresol green (BCG) dye binding methoOrdered By: OUTREACH COMMUNITY on 09-12-2022 Albumin BCG dye [Mass/Vol] 4.5 g/dL 3.5-5.7 [facility] Alkaline phosphatase [Enzyma tic activity/volume] in Serum or PlasmaOrdered By: OUTREACH COMMUNITY on 09-12-2022 ALP [Catalytic activity/Vol] 57 U/L 34-104 [facility] Aspartate aminotransferase [ Enzymatic activity/volume] in Serum or PlasmaOrdered By: OUTREACH COMMUNITY on 09-12-2022 AST [Catalytic activity/Vol] 25 U/L 13-39 [facility] Bilirubin.total [Mass/volume ] in Serum or PlasmaOrdered By: OUTREACH COMMUNITY on 09-12-2022 Bilirubin [Mass/Vol] 0.7 mg/dL 0.3-1.0 [facility] Calcium [Mass/volume] in Ser um or PlasmaOrdered By: OUTREACH COMMUNITY on 09-12-2022 Calcium [Mass/Vol] 9.5 mg/dL 8.6-10.3 [facility] Carbon dioxide, total [Moles /volume] in Serum or PlasmaOrdered By: OUTREACH COMMUNITY on 09-12-2022 CO2 [Moles/Vol] 27.7 mmol/L 21.0-31.0 [facility] Chloride [Moles/volume] in S jean or PlasmaOrdered By: OUTREACH COMMUNITY on 09-12-2022 Chloride [Moles/Vol] 107 mmol/L 98-107 [facility] Cholesterol [Mass/volume] in Serum or PlasmaOrdered By: OUTREACH COMMUNITY on 09-12-2022 Cholesterol [Mass/Vol] 209 mg/dL 140-200 [facility] Comment on above: Chol less than 200 m g/dl low riskChol 201-239 mg/dl borderline riskChol 240 mg/dl and greater high risk Cholesterol in LDL Calc [Mas s/Vol]Ordered By: OUTREACH COMMUNITY on 09-12-2022 Cholesterol in LDL [Mass/Vol] 115 mg/dL 0-100 [facility] Comment on above: LDL ATP III CLASSIFI CATIONLDL less than 100 mg/dL OptimalLDL 100-129 mg/dL Near or above optimalLDL 130-159 mg/dL Borderline highLDL 160-189 mg/dL HighLDL greater than 189 mg/dL Very high Cholesterol in VLDL Calc [Ma ss/Vol]Ordered By: OUTREACH COMMUNITY on 09-12-2022 Cholesterol in VLDL [Mass/Vol] 21 mg/dL [facility] Creatinine [Mass/volume] in Serum or PlasmaOrdered By: [facility] on 09-12-2022 Creatinine [Mass/Vol] 0.77 mg/dL 0.60-1.[address] [facility] Erythrocyte distribution wid th Auto (RBC) [Ratio]Ordered By: OUTREACH [facility] on 09-12-2022 Erythrocyte distribution width (RBC) [Ratio] 13.5 % 11.9-15.3 [facility] Glucose [Mass/volume] in Ser um or PlasmaOrdered By: OUTREACH COMMUNITY on 09-12-2022 Glucose [Mass/Vol] 86 mg/dL 70-100 [facility] Comment on above: ADA recommended refe rence rangeRandom Glucose Reference Range is dependent on time and content of last meal. Glucose of more than 200 mg/dL in a nonstressed, ambulatory subject supports the diagnosis of Diabetes Mellitus. Glucose mean value [Mass/vol ume] in Blood Estimated from glycated hemoglobinOrdered By: OUTREACH COMMUNITY on 09-12-2022 Average glucose Estimated from glycated hemoglobin (Bld) [Mass/Vol] 117 mg/dL [facility] Hematocrit Auto (Bld) [Volum e fraction]Ordered By: OUTREACH [facility] on 09-12-2022 Hematocrit (Bld) [Volume fraction] 41.9 % 34.0-46.4 [facility] Hemoglobin [Mass/volume] in BloodOrdered By: [facility] on 09-12-2022 Hemoglobin (Bld) [Mass/Vol] 14.1 g/dL 11.8-15.4 [facility] - Hematology and Cell countsOrdered By: [facility] on 09-12-2022 HbA1c (Bld) [Mass fraction] 5.7 % 4.3-5.6 [facility] Comment on above: Increased risk for d iabetes: 5.7 - 6.4diabetes: >6.4glycemic control for adults with diabetes: <7.0 Leukocytes [#/volume] correc scott for nucleated erythrocytes in Blood by Automated counOrdered By: OUTREACH [facility] on 09-12-2022 WBC corrected for nucl RBC Auto (Bld) [#/Vol] 5.4 10*3/uL 3.8-11.6 [facility] MCH Auto (RBC) [Entitic mass ]Ordered By: [facility] on 09-12-2022 MCH (RBC) [Entitic mass] 31.6 pg 24.7-34.3 [facility] MCHC Auto (RBC) [Mass/Vol]Or dered By: [facility] on 09-12-2022 MCHC (RBC) [Mass/Vol] 33.6 g/dL 32.0-35.[address] [facility] MCV Auto (RBC) [Entitic vol] Ordered By: OUTREACH [facility] on 09-12-2022 MCV (RBC) [Entitic vol] 93.9 fL 80-100 [facility] No Panel InformationOrdered By: [facility] on 09-12-2022 Estimated GFR (CKD-EPI) > 60.0 mL/Min [facility] Creatinine Clearance (Chem N/A [facility] Platelet mean volume Auto (B ld) [Entitic vol]Ordered By: OUTREACH [facility] on 09-12-2022 Platelet mean volume (Bld) [Entitic vol] 6.9 fL 6.3-10.7 [facility] Platelets Auto (Bld) [#/Vol] Ordered By: OUTREACH COMMUNITY on 09-12-2022 Platelets (Bld) [#/Vol] 305 10*3/uL 150-450 [facility] Potassium [Moles/volume] in Serum or PlasmaOrdered By: OUTREACH COMMUNITY on 09-12-2022 Potassium [Moles/Vol] 4.2 mmol/L 3.5-5.[address] [facility] Protein [Mass/volume] in Ser um or PlasmaOrdered By: OUTREACH COMMUNITY on 09-12-2022 Protein [Mass/Vol] 6.8 g/dL 6.4-8.9 [facility] RBC Auto (Bld) [#/Vol]Ordere d By: OUTREACH COMMUNITY on 09-12-2022 RBC (Bld) [#/Vol] 4.46 10*6/uL 3.60-5.00 [facility] Serum or plasma anion gap de terminationOrdered By: OUTREACH COMMUNITY on 09-12-2022 Anion gap [Moles/Vol] 10.5 mmol/L 6.0-15.0 [facility] Serum or plasma high density lipoprotein (HDL) cholesterol measurementOrdered By: OUTREACH COMMUNITY on 09-12-2022 Cholesterol in HDL [Mass/Vol] 72 mg/dL 23-92 [facility] Comment on above: HDL CHOL ATP-III CLA SSIFICATION Cardiovascular RiskHDL > or equal to 60 mg/dL LOWHDL < 40 mg/dL HIGH Serum or plasma total choles terol/high density lipoprotein (HDL) cholesterol mass ratOrdered By: OUTREACH COMMUNITY on 09-12-2022 Cholesterol.total/Rosa sterol in HDL [Mass ratio] 2.9 {ratio} <5.0 [facility] Sodium [Moles/volume] in Ser um or PlasmaOrdered By: OUTREACH COMMUNITY on 09-12-2022 Sodium [Moles/Vol] 141 mmol/L 136-145 [facility] Triglyceride [Mass/volume] i n Serum or PlasmaOrdered By: OUTREACH COMMUNITY on 09-12-2022 Triglyceride [Mass/Vol] 109 mg/dL 0-149 [facility] Comment on above: TRIG ATP III CLASSIF ICATIONTRIG less than 150 mg/dL NormalTRIG 150-199 mg/dL Borderline highTRIG 200-500 mg/dL High TRIG greater than 500 mg/dL Very highStandard traceable to the Center for Disease Conrtrol and Prevention (CDC) test method. Urea nitrogen [Mass/volume] in Serum or PlasmaOrdered By: [facility] on 09-12-2022 Urea nitrogen [Mass/Vol] 16 mg/dL 7-25 [facility] Blood hemoglobin measurement (mass/volume)Ordered By: [facility] on 11-08-2021 Hemoglobin (Bld) [Mass/Vol] 14.5 g/dL 11.8-15.4 [facility] Body fluid albumin measureme nt (mass/volume)Ordered By: [facility] on 11-08-2021 Albumin (Body fld) [Mass/Vol] 3.9 g/dL 3.2-5.5 [facility] Cholesterol [Mass/volume] in Serum or PlasmaOrdered By: [facility] on 11-08-2021 Cholesterol [Mass/Vol] 230 mg/dL 140-200 [facility] Comment on above: Chol less than 200 m g/dl low risk Chol 201-239 mg/dl borderline risk Chol 240 mg/dl and greater high risk Cholesterol in LDL Calc [Mas s/Vol]Ordered By: [facility] on 11-08-2021 Cholesterol in LDL [Mass/Vol] 149 mg/dL 0-100 [facility] Comment on above: LDL ATP III CLASSIFI CATION LDL less than 100 mg/dL Optimal LDL 100-129 mg/dL Near or above optimal LDL 130-159 mg/dL Borderline high LDL 160-189 mg/dL High LDL greater than 189 mg/dL Very high Cholesterol in VLDL Calc [Ma ss/Vol]Ordered By: [facility] on 11-08-2021 Cholesterol in VLDL [Mass/Vol] 14 mg/dL [facility] Creatinine and Glomerular fi ltration rate.predicted panel (S/P/Bld)Ordered By: [facility] on 11-08-2021 Creatinine [Mass/Vol] 0.89 mg/dL 0.44-1.[address] [facility] Erythrocyte distribution wid th Auto (RBC) [Ratio]Ordered By: [facility] on 11-08-2021 Erythrocyte distribution width (RBC) [Ratio] 13.6 % 11.9-15.3 [facility] Estimated glomerular filtrat ion rate (GFR) non- AmericanOrdered By: OUTREACH [facility] on 11-08-2021 GFR/1.73 sq M.predicted among non-blacks MDRD (S/P/Bld) [Vol rate/Area] > 60 mL/Min [facility] Hematocrit Auto (Bld) [Volum e fraction]Ordered By: [facility] on 11-08-2021 Hematocrit (Bld) [Volume fraction] 44.1 % 34.0-46.4 [facility] MCH Auto (RBC) [Entitic mass ]Ordered By: OUTREACH [facility] on 11-08-2021 MCH (RBC) [Entitic mass] 30.9 pg 24.7-34.3 [facility] MCHC Auto (RBC) [Mass/Vol]Or dered By: OUTREACH [facility] on 11-08-2021 MCHC (RBC) [Mass/Vol] 32.8 g/dL 32.0-35.[address] [facility] MCV Auto (RBC) [Entitic vol] Ordered By: OUTREACH [facility] on 11-08-2021 MCV (RBC) [Entitic vol] 94.0 fL 80-100 [facility] No Panel InformationOrdered By: [facility] on 11-08-2021 Estimated GFR () > 60 mL/Min [facility] Comment on above: GFR estimated refere nce range: According to KDOQI guidelines, <60 ml/min/1.73m2 is sufficient to diagnose a patient with chronic kidney disease. Pharmacy Creatinine Clearance (Chem N/A [facility] Triglycerides Reflex 73 mg/dL 35-149 [facility] Comment on above: TRIG ATP III CLASSIF ICATION TRIG less than 150 mg/dL Normal TRIG 150-199 mg/dL Borderline high TRIG 200-500 mg/dL High TRIG greater than 500 mg/dL Very high Standard traceable to the Center for Disease Conrtrol and Prevention (CDC) test method. Platelet mean volume Auto (B ld) [Entitic vol]Ordered By: OUTREACH [facility] on 11-08-2021 Platelet mean volume (Bld) [Entitic vol] 7.6 fL 6.3-10.7 [facility] Platelets Auto (Bld) [#/Vol] Ordered By: OUTREACH [facility] on 11-08-2021 Platelets (Bld) [#/Vol] 317 10*3/uL 150-450 [facility] Protein [Mass/volume] in Ser um or PlasmaOrdered By: [facility] on 11-08-2021 Protein [Mass/Vol] 6.8 g/dL 6.1-7.9 [facility] RBC Auto (Bld) [#/Vol]Ordere d By: [facility] on 11-08-2021 RBC (Bld) [#/Vol] 4.69 10*6/uL 3.60-5.00 [facility] Serum or plasma alanine meneses otransferase measurement without P-5'-P (enzymatic activiOrdered By: [facility] on 11-08-2021 ALT No additional P-5'-P [Catalytic activity/Vol] 33 U/L 10-60 [facility] Serum or plasma alkaline sarah sphatase measurement (enzymatic activity/volume)Ordered By: [facility] on 11-08-2021 ALP [Catalytic activity/Vol] 65 U/L 32-92 [facility] Serum or plasma aspartate am inotransferase measurement (enzymatic activity/volume)Ordered By: [facility] on 11-08-2021 AST [Catalytic activity/Vol] 29 U/L 10-42 [facility] Serum or plasma calcium deanna urement (mass/volume)Ordered By: [facility] on 11-08-2021 Calcium [Mass/Vol] 9.6 mg/dL 8.2-10.2 [facility] Serum or plasma chloride hayder surement (moles/volume)Ordered By: [facility] on 11-08-2021 Chloride [Moles/Vol] 105 mmol/L 95-114 [facility] Serum or plasma glucose deanna urement (mass/volume)Ordered By: [facility] on 11-08-2021 Glucose [Mass/Vol] 90 mg/dL 70-100 [facility] Comment on above: ADA recommended refe rence range Random Glucose Reference Range is dependent on time and content of last meal. Glucose of more than 200 mg/dL in a nonstressed, ambulatory subject supports the diagnosis of Diabetes Mellitus. Serum or plasma high density lipoprotein (HDL) cholesterol measurementOrdered By: [facility] on 08-13-2022 Cholesterol in HDL [Mass/Vol] 66 mg/dL 35-85 [facility] Comment on above: HDL CHOL ATP-III CLA SSIFICATION Cardiovascular Risk HDL > or equal to 60 mg/dL LOW HDL < 40 mg/dL HIGH Serum or plasma potassium me asurement (moles/volume)Ordered By: [facility] on 11-08-2021 Potassium [Moles/Vol] 4.2 mmol/L 3.5-5.[address] [facility] Serum or plasma sodium measu rement (moles/volume)Ordered By: [facility] on 11-08-2021 Sodium [Moles/Vol] 140 mmol/L 136-146 [facility] Serum or plasma total biliru bin measurement (mass/volume)Ordered By: [facility] on 11-08-2021 Bilirubin [Mass/Vol] 0.8 mg/dL 0.3-1.2 [facility] Serum or plasma total carbon dioxide measurement (moles/volume)Ordered By: [facility] on 11-08-2021 CO2 [Moles/Vol] 26.0 mmol/L 22.0-30.0 [facility] Serum or plasma total choles terol/high density lipoprotein (HDL) cholesterol mass ratOrdered By: [facility] on 11-08-2021 Cholesterol.total/Rosa sterol in HDL [Mass ratio] 3.5 {ratio} <5.0 [facility] Serum or plasma urea nitroge n measurement (mass/volume)Ordered By: [facility] on 11-08-2021 Urea nitrogen [Mass/Vol] 16 mg/dL 9-23 [facility] WBC Auto (Bld) [#/Vol]Ordere d By: [facility] on 11-08-2021 WBC (Bld) [#/Vol] 4.2 10*3/uL 3.8-11.6 [facility] GLYCOHEMOGLOBIN A1Con 2018 Glucose [Mass/Vol] 108 mg/dL Normal [facility] Comment on above: Performed By: #### A 1C #### [facility] [address] [address] Wesley Magaña HbA1c (Bld) [Mass fraction] 5.4 % Normal <=6.0 [facility] Comment on above: Performed By: #### A 1C #### [facility] [address] [place], [place] [id number] Wesley Archana CBC AUTO DIFFon 03-10-2018 Basophils (Bld) [#/Vol] 0.0 103/ul Normal 0.0-0.1 [facility] Comment on above: Performed By: #### C BC #### [facility] [address] [place], [place] [id number] Wesley Archana Basophils/100 WBC (Bld) 0.7 % Normal 0.2-2.0 [facility] Comment on above: Performed By: #### C BC #### [facility] [address] [place], [place] [phone] Wesley Archana Eosinophils (Bld) [#/Vol] 0.1 103/ul Normal 0.0-0.7 [facility] Comment on above: Performed By: #### C BC #### [facility] [address] [place] [address] Wesley Archana Eosinophils/100 WBC (Bld) 2.7 % Normal 0.9-7.0 [facility] Comment on above: Performed By: #### C BC #### [facility] [address] [place] [address] Wesley Archana Erythrocyte distribution width (RBC) [Ratio] 12.4 % Normal 11.0-15.0 [facility] Comment on above: Performed By: #### C BC #### [facility] [address] [place] [address] Wesley Archana Hematocrit (Bld) [Volume fraction] 43.2 % Normal 36.0-48.0 [facility] Comment on above: Performed By: #### C BC #### [facility] [address] [place], [place] [id number] Wesley Archana Hemoglobin (Bld) [Mass/Vol] 14.5 g/dL Normal 12.0-16.0 [facility] Comment on above: Performed By: #### C BC #### [facility] [address] [place] [address] Wesley Archana IG # 0.00 10e3/ul Normal 0.00-0.03 [facility] Comment on above: Performed By: #### C BC #### [facility] [address] [place], [place] [id number] Wesley Archana IG % 0.0 % Normal 0.0-0.5 [facility] Comment on above: Performed By: #### C BC #### [facility] [address] [place], [place] [id number] Wesley Archana Lymphocytes (Bld) [#/Vol] 1.4 103/ul Normal 1.2-3.8 [facility] Comment on above: Performed By: #### C BC #### [facility] [address] [place], [place] [id number] Wesley Archana Lymphocytes/100 WBC (Bld) 34.9 % Normal 20.5-60.0 [facility] Comment on above: Performed By: #### C BC #### [facility] [address] [place], [place] [id number] Wesley Archana MANUAL DIFF REQ NO Normal [facility] Comment on above: Performed By: #### C BC #### [facility] [address] [place], [place] [id number] Wesley Archana MCH (RBC) [Entitic mass] 31.5 pg Normal 26.7-34.0 [facility] Comment on above: Performed By: #### C BC #### [facility] [address] [place], [place] [id number] Wesleytony Foremanen MCHC (RBC) [Mass/Vol] 33.6 g/dL Normal 29.9-35.2 [facility] Comment on above: Performed By: #### C BC #### [facility] [address] [place], [place] [id number] Wesley Archana MCV (RBC) [Entitic vol] 93.7 fL Normal 81.0-99.0 [facility] Comment on above: Performed By: #### C BC #### [facility] [address] [place], [place] [id number] Wesley Archana Monocytes (Bld) [#/Vol] 0.4 103/ul Normal 0.3-0.8 [facility] Comment on above: Performed By: #### C BC #### [facility] [address] [place] [id number] Wesley Archana Monocytes/100 WBC (Bld) 9.9 % Normal 1.7-12.0 [facility] Comment on above: Performed By: #### C BC #### [facility] [address] [place] [address] Wesley Archana Neutrophils (Bld) [#/Vol] 2.1 103/ul Normal 1.4-6.5 [facility] Comment on above: Performed By: #### C BC #### [facility] [address] [place], [place] [id number] Wesley Archana Neutrophils/100 WBC (Bld) 51.8 % Normal 43.0-75.0 [facility] Comment on above: Performed By: #### C BC #### [facility] [address] [place], [place] [id number] Wesley Archana Platelet mean volume (Bld) [Entitic vol] 8.9 fL Critically low 9.5-13.5 [facility] Comment on above: Performed By: #### C BC #### [facility] [address] [place], [place] [id number] Wesley Archana Platelets (Bld) [#/Vol] 283 103/ul Normal 150-450 [facility] Comment on above: Performed By: #### C BC #### [facility] [address] [place] [address] Wesley Archana RBC (Bld) [#/Vol] 4.61 106/ul Normal 4.20-5.40 [facility] Comment on above: Performed By: #### C BC #### [facility] [address] [place] [address] Wesley Archana WBC (Bld) [#/Vol] 4.1 103/ul Normal 4.0-11.0 [facility] Comment on above: Performed By: #### C BC #### [facility] [address] [place], [place] [phone] Wesley Archana CULTURE URINEon 03-10-2018 CULTURE URINE Culture Observations : LIGHT GROWTH OF MIXED GENITAL PARDEEP. NO POTENTIAL PATHOGENS SEEN. Normal [facility] Comment on above: Performed By: #### U RCX #### [facility] [address] [place] [address] Wesley Archana PROF CHEM 8 (BAS METB)on Anion gap [Moles/Vol] 10.3 mmol/L Normal [facility] Comment on above: Performed By: #### B MP, ALT, AST #### [facility] [address] [place] [address] Wesley Archana Calcium [Mass/Vol] 9.3 mg/dL Normal 8.4-10.2 [facility] Comment on above: Performed By: #### B MP, ALT, AST #### [facility] [address] [place] [address] Wesley Archana Chloride [Moles/Vol] 104 mmol/L Normal 98-107 [facility] Comment on above: Performed By: #### B MP, ALT, AST #### [facility] [address] [place] [address] Wesley Archana CO2 [Moles/Vol] 30.6 mmol/L Critically high 22.0-30.0 [facility] Comment on above: Performed By: #### B MP, ALT, AST #### [facility] [address] [place] [address] Wesley Archana Creatinine [Mass/Vol] 0.98 mg/dL Normal 0.52-1.04 [facility] Comment on above: Performed By: #### B MP, ALT, AST #### [facility] [address] [place] [address] Wesley Archana EGFR-AF FINNISH >60 Normal >=60 [facility] Comment on above: Performed By: #### B MP, ALT, AST #### [facility] [address] [place] [address] Wesley Archana EGFR-NON AF FINNISH 58 mL/min/1.73m2 Critically low >=60 [facility] Comment on above: Performed By: #### B MP, ALT, AST #### [facility] [address] [id number] Wesley Archana Glucose [Mass/Vol] 93 mg/dL Normal 74-106 [facility] Comment on above: Performed By: #### B MP, ALT, AST #### [facility] [address] [address] Wesley Archana Potassium [Moles/Vol] 3.9 mmol/L Normal 3.4-5.0 [facility] Comment on above: Performed By: #### B MP, ALT, AST #### [facility] [address] [address] Wesley Archana Sodium [Moles/Vol] 141 mmol/L Normal 137-145 [facility] Comment on above: Performed By: #### B MP, ALT, AST #### [facility] [address] [place] [address] Wesley Archana Urea nitrogen [Mass/Vol] 18.0 mg/dL Critically high 7.0-17.0 [facility] Comment on above: Performed By: #### B MP, ALT, AST #### [facility] [address] [place] [address] Wesley Archana Urea nitrogen/Creatinine [Mass ratio] 18.4 mg/mg Normal [facility] Comment on above: Performed By: #### B MP, ALT, AST #### [facility] [address] [place] [address] Wesley Archana SGOTon 03-10-2018 AST [Catalytic activity/Vol] 25 U/L Normal 14-36 [facility] Comment on above: Performed By: #### B MP, ALT, AST #### [facility] [facility] [address] [place], [place] [id number] Wesley Archana SGPTon 03-10-2018 ALT [Catalytic activity/Vol] 39 U/L Normal 9-52 [facility] Comment on above: Performed By: #### B MP, ALT, AST #### [facility] [address] [place], [place] [id number] Wesley Archana UA (CLEAN/CATCH) SCRAP HOOKER/MICRO I F IND.on 03-10-2018 Bilirubin [Mass/Vol] Negative Normal NEGATIVE [facility] Comment on above: Performed By: #### U WILLIAN BRYANTICRO #### [facility] [address] [place] [address] Wesley Archana BLOOD Negative Normal NEGATIVE [facility] Comment on above: Performed By: #### U ACSWILLIAN TRAVISICRO #### [facility] [address] [place] [address] Wesley Archana Clarity (U) CLEAR Normal [facility] Comment on above: Performed By: #### U ACSWILLIAN TRAVISICRO #### [facility] [address] [place] [address] Wesley Archana Color (U) LT. YELLOW Normal YELLOW [facility] Comment on above: Performed By: #### U ACSWILLIAN TRAVISICRO #### [facility] [address] [place] [address] Wesley Archana Glucose [Mass/Vol] Negative Normal NEGATIVE The [facility] Comment on above: Performed By: #### U WILLIAN BRYANTICRO #### [facility] [address] [place] [address] Wesley Archana Ketones Ql (U) Negative Normal NEGATIVE The [facility] Comment on above: Performed By: #### U WILLIAN BRYANTICRO #### [facility] [address] [place] [address] Wesley Archana Nitrite Ql (U) Negative Normal NEGATIVE The [facility] Comment on above: Performed By: #### U WILLIAN BRYANTICRO #### [facility] [address] [place] [address] Wesley Archana pH (Bld) 7.5 Normal 5-9 [facility] Comment on above: Performed By: #### U JANAE BRYANTRO #### [facility] [address] [place] [address] Wesley Archana Protein [Mass/Vol] Negative Normal The [facility] Comment on above: Performed By: #### U JANAE BRYANTRO #### [facility] [address] [place] [address] Wesley Archana SPEC GRAVITY 1.010 Normal 1.005-<=1.02 5 [facility] Comment on above: Performed By: #### U ANNETTE UMICRO #### [facility] [address] [place] [address] Wesley Magaña UR MICRO IND INDICATED Normal [facility] Comment on above: Performed By: #### U ANNETTE UMICRO #### [facility] [address] [place] [address] Wesleytony Magaña Urobilinogen Qn (U) 0.2 EU/dl Normal [facility] Comment on above: Performed By: #### U ANNETTE UMICRO #### [facility] [address] [place] [address] Wesley Magaña WBC (Bld) [#/Vol] TRACE Normal NEGATIVE The [facility] Comment on above: Performed By: #### U ANNETTE UMICRO #### [facility] [address] [place] [address] Wesleytony Magaña URINE MICROSCOPIC ONLYon Bacteria LM.HPF (Urine sed) [#/Area] SMALL Normal NONE SEEN [facility] Comment on above: Performed By: #### U ANNETTE UMICRO #### [facility] [address] [place] [address] Wesleytony Magaña CAST NONE SEEN Normal NONE SEEN [facility] Comment on above: Performed By: #### U ANNETTE UMICRO #### [facility] [address] [place] [address] Wesleytony Magaña Crystals LM Nom (Urine sed) NONE SEEN Normal NONE SEEN [facility] Comment on above: Performed By: #### U ACSTHADDEUS UMICRO #### [facility] [address] [place] [address] Wesleytony Magaña CULTURE INDICATED Normal [facility] Comment on above: Performed By: #### U ACSTHADDEUS UMICRO #### [facility] [address] [place] [address] Wesleytony Magaña Epithelial cells LM.HPF (Urine sed) [#/Area] FEW Normal The [facility] Comment on above: Performed By: #### U ACSIND, UMICRO #### [facility] [address] [place], [place] [address] Wesley Archana MUCOUS TRACE Normal NONE SEEN [facility] Comment on above: Performed By: #### U ACSIND, UMICRO #### [facility] [address] [place], [place] [address] Wesley Archana RBC (U) [#/Vol] 2-5 Normal 0-2 The [facility] Comment on above: Performed By: #### U ACSIND, UMICRO #### [facility] [address] [place], [place] [address] Wesley Archana WBC (Bld) [#/Vol] 0-2 Normal NONE SEEN The [facility] Comment on above: Performed By: #### U ACSIND, UMICRO #### [facility] [address] [place], [place] [address] Wesley Archana XR DEXA BONE DENSITYon 03-10 XR DEXA BONE DENSITY [address] [place] [id number] Patient: ROSA M ABBOTT Exam Date: 03/10/2018 : 1955 Gender:F Ordering : DR ALEXEY MANLEY Admission #: [id number] Family : CORETTA RomeroRachel MAYURI . Order #: [id number] CLICK HERE TO VIEW EXAM RADIOLOGY REPORT [...] Sita Pack M.D. on 03/10/2018 at 09:01 [facility] Vital Signs Date Time Vital Sign Value Performing Clinician Facility 06-22-2024 09:29-0400 Body height 162.56 cm IMT DO Work Phone: [facility] 06-22-2024 09:29-0400 Body mass index (BMI) [Ratio] 26.5 kg/m2 Alexey [facility] DO Work Phone: [facility] 06-22-2024 09:29-0400 Body weight 70.08 kg Alexey [facility] DO Work Phone: [facility] 06-22-2024 09:29-0400 Diastolic blood pressure 78 mm[Hg] Alexey Ball DO Work Phone: [facility] 06-22-2024 09:29-0400 Heart rate 57 /min Alexey Ball DO Work Phone: [facility] 06-22-2024 09:29-0400 Respiratory rate 12 /min Alexey [facility] DO Work Phone: [facility] 06-22-2024 09:29-0400 Systolic blood pressure 152 mm[Hg] Alexey Ball DO Work Phone: [facility] 04-26-2024 09:28-0500 Body height 163.8 cm Anoop Stoner DO Work Phone: [facility] 04-26-2024 09:28-0500 Body mass index (BMI) [Ratio] 25.35 kg/m2 Anoop Stoner DO Work Phone: [facility] 04-26-2024 09:28-0500 Body weight 68.04 kg Anoop Stoner DO Work Phone: [facility] 12-30-2023 09:40-0400 Diastolic blood pressure 66 mm[Hg] PHYSICIAN NO [facility] 12-30-2023 09:40-0400 Heart rate 57 /min PHYSICIAN NO [facility] 12-30-2023 09:40-0400 Respiratory rate 20 /min PHYSICIAN NO [facility] 12-30-2023 09:40-0400 SaO2% (BldA) [Mass fraction] 100 % PHYSICIAN NO [facility] 12-30-2023 09:40-0400 Systolic blood pressure 121 mm[Hg] PHYSICIAN NO [facility] 12-30-2023 07:35-0400 Body height 162.56 cm PHYSICIAN NO [facility] 12-30-2023 07:35-0400 Body weight 67.58 kg PHYSICIAN NO [facility] 11-09-2023 13:43-0400 Body height 163.83 cm DO Alexey Ball Work Phone: [facility] 11-09-2023 13:43-0400 Body mass index (BMI) [Ratio] 25.2 kg/m2 DO Alexey Ball Work Phone: [facility] 11-09-2023 13:43-0400 Body weight 67.58 kg DO Alexey Ball Work Phone: [facility] 11-09-2023 13:43-0400 Diastolic blood pressure 78 mm[Hg] DO Alexey Ball Work Phone: [facility] 11-09-2023 13:43-0400 Heart rate 56 /min DO Alexey Ball Work Phone: [facility] 11-09-2023 13:43-0400 Respiratory rate 12 /min DO Alexey Ball Work Phone: [facility] 11-09-2023 13:43-0400 Systolic blood pressure 133 mm[Hg] DO Alexey Ball Work Phone: [facility] 10-09-2023 11:15-0400 Body height 166.37 cm DO Alexey Ball Work Phone: [facility] 10-09-2023 11:15-0400 Body mass index (BMI) [Ratio] 24.9 kg/m2 DO Alexey Ball Work Phone: [facility] 10-09-2023 11:15-0400 Body temperature 97.9 [degF] DO Alexey Ball Work Phone: [facility] 10-09-2023 11:15-0400 Body weight 69.05 kg DO Alexey Ball Work Phone: [facility] 10-09-2023 11:15-0400 Diastolic blood pressure 72 mm[Hg] DO Alexey Ball Work Phone: [facility] 10-09-2023 11:15-0400 Heart rate 51 /min DO Alexey Ball Work Phone: [facility] 10-09-2023 11:15-0400 Respiratory rate 18 /min DO Alexey Ball Work Phone: [facility] 10-09-2023 11:15-0400 SaO2% (BldA) [Mass fraction] 99 % DO Alexey Ball Work Phone: [facility] 10-09-2023 11:15-0400 Systolic blood pressure 125 mm[Hg] DO Alexey Ball Work Phone: [facility] 04-19-2023 12:15-0500 Body height 166.37 cm Alexey Ball Other [facility] [employer] Other 04-19-2023 12:15-0500 Body mass index (BMI) [Ratio] 30.31 kg/m2 Alexey Ball Other [employer] Other 04-19-2023 12:15-0500 Body weight 83.92 kg Alexey Ball Other [facility] [employer] Other 11-06-2022 13:30-0400 Body height 166.37 cm Alexey Ball Other [employer] Other 11-06-2022 13:30-0400 Body mass index (BMI) [Ratio] 29.13 kg/m2 Alexey Ball Other [employer] Other 11-06-2022 13:30-0400 Body weight 80.65 kg Alexey Ball Other [employer] Other 11-06-2022 13:30-0400 Diastolic blood pressure 80 mm[Hg] Alexey Ball Other [employer] Other 11-06-2022 13:30-0400 Respiratory rate 12 /min Alexey Ball Other [employer] Other 11-06-2022 13:30-0400 Systolic blood pressure 131 mm[Hg] Alexey Ball Other [employer] Other Encounters Encounter Date Encounter Type Care Provider Facility Start: 08-11-2024 End: 08-11-2024 ambulatory Alexey Ball Facility:[facility] Start: 07-11-2024 ambulatory Facility:[facility]ae[facility] Start: 07-08-2024 End: 07-08-2024 Departed Referred Alexey Ball DO Work Phone: [facility] Work Phone: Start: 07-08-2024 End: 07-08-2024 ambulatory Alexey Ball DO Work Phone: [facility] Work Phone: Start: 07-05-2024 Non-patient / Non-visit Alexey Ball DO Work Phone: [facility] [employer] Work Phone: Start: 07-05-2024 End: 07-05-2024 ambulatory Alexey Ball DO Work Phone: [facility] Work Phone: Start: 07-05-2024 End: 07-05-2024 Departed Referred Alexey Ball DO Work Phone: [facility] Start: 06-28-2024 End: 06-28-2024 Patient encounter procedure Alexey Ball DO Work Phone: [facility] Scan [place] Work Phone: Start: 06-28-2024 End: 06-28-2024 ambulatory Alexey Ball DO Work Phone: [facility] Work Phone: Start: 06-22-2024 End: 06-22-2024 ambulatory Alexey Ball DO Work Phone: [facility] Work Phone: Start: 06-22-2024 End: 06-22-2024 Patient encounter procedure Alexey Ball DO Work Phone: [facility] Work Phone: Start: 06-07-2024 Registered Recurring Alexey Ball DO Work Phone: [facility] Start: 06-07-2024 ambulatory Joseph Last acility:[facility] Start: 06-07-2024 End: 06-07-2024 ambulatory Alexey Ball DO Work Phone: [facility] Work Phone: Start: 06-07-2024 End: 06-07-2024 Patient encounter procedure Alexey Ball DO Work Phone: [facility] Work Phone: Start: 04-26-2024 End: 04-26-2024 Patient encounter procedure Anoop Stoner DO Work Phone: [facility] Comment on above: Acute pain of both k nees (Primary Dx) Start: 04-26-2024 End: 04-26-2024 ambulatory ANOOP STONER Not Available Start: 04-11-2024 Registered Recurring Alexey Ball DO Work Phone: [facility] Start: 03-20-2024 End: 03-20-2024 Patient encounter procedure Alexey Ball DO Work Phone: [facility] Work Phone: Start: 03-20-2024 End: 03-20-2024 ambulatory Alexey Ball Facility:[facility] Start: 03-02-2024 End: 03-02-2024 ambulatory Alexey Ball Facility:[facility] Start: 01-06-2024 End: 01-06-2024 Patient encounter procedure PHYSICIAN NO [facility] [place] Work Phone: Start: 01-06-2024 End: 01-06-2024 ambulatory PHYSICIAN NO [facility] Work Phone: Start: 01-05-2024 Non-patient / Non-visit PHYSICIAN NO [facility] Work Phone: Start: 12-30-2023 Non-patient / Non-visit PHYSICIAN NO [facility] Work Phone: Start: 12-30-2023 End: 12-30-2023 Admission to same day surgery center PHYSICIAN NO [facility] Work Phone: Start: 12-30-2023 End: 12-30-2023 ambulatory PHYSICIAN NO [facility] Work Phone: Start: 11-10-2023 Registered Recurring PHYSICIAN NO [facility] Start: 11-09-2023 End: 11-09-2023 ambulatory DO Alexey Ball Work Phone: [facility] Work Phone: Start: 11-09-2023 End: 11-09-2023 Patient encounter procedure DO Alexey Ball Work Phone: [facility] Work Phone: Start: 10-18-2023 End: 10-18-2023 ambulatory KATINA J MARLYN Not Available Start: 10-12-2023 Registered Recurring DO Benjam in Ball Work Phone: [facility] Start: 10-09-2023 End: 10-09-2023 Departed Referred DO Alexey Ball Work Phone: [facility] [place] Work Phone: Start: 10-09-2023 End: 10-09-2023 ambulatory DO Alexey Ball Work Phone: [facility] Work Phone: Start: 10-09-2023 End: 10-09-2023 Patient encounter procedure DO Alexey Ball Work Phone: [facility] [place] Work Phone: Start: 09-21-2023 Registered Recurring DO Benjam in Ball Work Phone: [facility] Start: 09-11-2023 End: 09-11-2023 Departed Referred DO Alexey Ball Work Phone: [facility] Work Phone: Start: 09-11-2023 End: 09-11-2023 ambulatory DO Alexey Ball Work Phone: [facility] Work Phone: Start: 08-12-2023 Registered Recurring DO Benjam in Ball Work Phone: [facility] Start: 04-19-2023 End: 04-19-2023 ambulatory Alexey Manley Other [employer] Other Start: 04-19-2023 Office outpatient visit 15 minutes Alexey Manley [facility] Start: 04-19-2023 Telephone encounter Alexey Manley [facility] Start: 03-17-2023 End: 03-17-2023 ambulatory DO Alexey Ball Work Phone: [facility] Work Phone: Start: 03-17-2023 End: 03-17-2023 Patient encounter procedure DO Alexey Manley Work Phone: [facility] Work Phone: Start: 11-06-2022 End: 11-06-2022 ambulatory Alexey Manley Other [employer] Other Start: 11-06-2022 Patient encounter procedure Alexey Manley [facility] Start: 09-12-2022 End: 09-12-2022 ambulatory DO Alexey Manley Work Phone: [facility] Work Phone: Start: 09-12-2022 End: 09-12-2022 Departed Referred DO Alexey Manley Work Phone: [facility] Work Phone: Start: 03-16-2022 End: 03-16-2022 ambulatory DO Alexey Manley Work Phone: [facility] Work Phone: Start: 03-16-2022 End: 03-16-2022 Patient encounter procedure DO Alexey Manley Work Phone: [facility] Start: 11-08-2021 End: 11-08-2021 Departed Referred DO Alexey Manley Work Phone: [facility] Start: 11-04-2021 Adult health examination Alexey Manley Other [employer] Other Start: 01-11-2019 End: 01-12-2019 Patient encounter [...] NO FAMILY Start: 10-09-2023 Urine culture DO Benjmary in [place] Work Phone: Start: 03-17-2023 Screening mammograph y of bilateral breasts DO Alexey [facility] Work Phone: Start: 03-16-2022 Dual energy X-ray absorptiometry DO Alexey [facility] Work Phone: Start: 03-16-2022 Screening mammograph y of bilateral breasts DO Alexey [facility] Work Phone: Start: 02-24-2018 Screening for osteoporosis Alexey Manley Other Depression screening Brinda Manley Other Plan of Treatment Date Care Activity Detail Author Start: 10-18-2025 End: 10-18-2025 Patient encounter procedure 10/18/2025 1:30 PM EDT Office Visit [facility] [address] [place] [address] Marianne Barksdale, DO [address] [place] [address] [facility] Start: 03-20-2025 Screening for malignant neoplasm of breast Mammogram [facility] Start: 07-05-2024 Bacteria identified in Urine by Culture Urine Culture [facility] Start: 07-05-2024 Urine culture [facility] Start: 12-30-2023 [facility] Start: 11-09-2023 Patient referral [facility] Work Phone: Start: 10-09-2023 Bacteria identified in Urine by Culture [facility] Start: 1955 Screening for malignant neoplasm of colon [facility] Patient Education Hemorrhoids (D C) Diverticulosis (DC) Know your Meds [facility] Work Phone: Patient referral [facility] Work Phone: Immunizations Immunization Date Immunization Notes Care Provider Fa duy 02-27-2022 pneumococcal polysaccharide vaccine, 23 valent Alexey Manley Other [facility] 12-07-2021 COVID-19 Vaccine Pfi zer - Documentation Purposes Only Alexey Manley Other [facility] 12-07-2021 influenza virus vaccine, split virus (incl. purified surface antigen) Alexey Manley Other [facility] Other 12-07-2021 influenza virus vaccine, unspecified formulation DO Alexey Manley Work Phone: [facility] 07-12-2021 COVID-19 Vaccine Pfi zer - Documentation Purposes Only Alexey Manley Other [facility] 02-22-2021 pneumococcal conjuga te vaccine, 13 valent Alexey Manley Other [facility] 2021 COVID-19 Vaccine Pfi zer - Documentation Purposes Only Alexey Manley Other [facility] 12-31-2020 influenza virus vaccine, split virus (incl. purified surface antigen) Alexey Manley Other [facility] Other 12-31-2020 influenza virus vaccine, unspecified formulation DO Alexey Manley Work Phone: [facility] 06-26-2020 COVID-19 Vaccine Pfi zer - Documentation Purposes Only Alexey Manley Other [facility] 06-05-2020 COVID-19 Vaccine Pfi zer - Documentation Purposes Only Alexey Manley Other [facility] 12-21-2019 diphtheria, tetanus toxoids and acellular pertussis vaccine, unspecified formulation Alexey Manley Other [facility] 12-21-2019 influenza virus vaccine, split virus (incl. purified surface antigen) Alexey Manley Other [facility] [employer] Other 12-21-2019 influenza virus vaccine, unspecified formulation DO Alexey Manley Work Phone: [facility] 03-09-2019 zoster vaccine, live Benjami n Joel Other [facility] 12-31-2018 influenza virus vaccine, split virus (incl. purified surface antigen) Alexey Manley Other [facility] [employer] Other 12-31-2018 influenza virus vaccine, unspecified formulation DO Alexey [facility] Work Phone: [facility] 12-10-2016 tetanus and diphther ia toxoids, adsorbed, preservative free, for adult use (5 Lf of tetanus toxoid and 2 Lf of diphtheria toxoid) Alexey Manley Other [facility] 12-10-2016 zoster vaccine, live Benjami n Joel Other [facility] 01-05-2013 tetanus and diphther ia toxoids, adsorbed, preservative free, for adult use (5 Lf of tetanus toxoid and 2 Lf of diphtheria toxoid) Alexey Manley Other [facility] Payers Date Payer Category Payer Self-pay [id number] 2023 Self-pay [id number] 2022 Private Health Insurance SHALA mathews [id number] 2022 Unknown [id number] 2021 Medicare MEDICARE [id number] 2021 Medicare [id number] 1959 Unknown [id number] 1959 Unknown [id number] 1955 Unknown [id number] [id number] .593 1955 Unknown [id number] 2.16.840.1.967809.3.579.2 .593 1955 Unknown [id number] 2.16.840.1.010148.3.579.2 .1259 1955 Unknown [id number] 2.16.840.1.873959.3.579.2 .1259 1955 Unknown [id number] 2.16.840.1.135629.3.579.2 .1259 1955 Unknown [id number] 2.16.840.1.702131.3.579.2 .1259 Unknown [place] BC/BS [id number] Unknown [id number] 2.16.840.1.045552.3.579.2 .531 Unknown [id number] 2.16.840.1.844344.3.579.2 .531 Unknown [id number] 2.16.840.1.482824.3.579.2 .531 Unknown [id number] 2.16.840.1.307136.3.579.2 .531 Unknown [id number] 2.16.840.1.866622.3.579.2 .531 Unknown [id number] 2.16.840.1.070870.3.579.2 .531 Unknown [id number] 2.16.840.1.484839.3.579.2 .531 Unknown [id number] 2.16.840.1.544399.3.579.2 .531 Unknown [id number] 2.16.840.1.550178.3.579.2 .531 Unknown [id number] 2.16.840.1.689773.3.579.2 .531 Unknown [id number] 2.16.840.1.892124.3.579.2 .531 Social History Date Type Detail Facility Tobacco smoking stat us MOIS Unknown if ever smoked [facility] Work Phone: Start: 1955 Sex Assigned At Female [facility] Start: 10-18-2023 Sex Assigned At [facility] [employer] Other Start: 04-19-2023 End: 06-21-2024 Tobacco smoking status MOIS Never smoked tobacco (finding) [facility] Start: 09-30-2022 Tobacco use and exposure Smokeless tobacco non-user [facility] Start: 04-26-2024 Alcoholic beverage intake Ex-drinker (finding) [facility] Start: 10-18-2023 History of Social function [facility] Start: 10-02-2022 Alcohol Comment caffeine intake : decaffeinated tea [facility] Start: 02-16-2023 Gender identity Identifies as female gender (finding) [facility] Start: 02-16-2023 Sexual orientation Heterosexual (finding) [facility] Start: 06-07-2024 End: 07-09-2024 Sex Female (finding) [facility] Goals Date Patient Goal Desired Activity /State Clinical Notes 11-06-2022 to 06-28-2024 Note Date & Type Note Facility 06-28-2024 Radiology Diagnostic study note [facility] [place] [address] [place] [address] CT Scan Report Signed Patient: Rosa M Abbott MR#: [id number] : 1955 Acct:[id number] Age/Sex: 69 / F ADM Date: 5 Loc: CT Room: Type: [facility] CLI Attending Dr: Alexey Manley DO Copies [...] Right nephrolithiasis. Impression dictated by: Ozzy Duggan Jr. DRachelORachel06/28/2024 9:34 AM Dictation Location: RADIO-PC-23 Transcribed By: PAM 06/28/24 0934 Dictated By: Ozzy Duggan Jr, DO 06/28/24 0931 Signed By: 06/28/24 0934 [facility] 06-22-2024 Evaluation note Diagnosis Onset Date Resolution Acute cystitis acute May 9:03am Hematuria acute June 22 9:03am History of nephrolithiasis acute June 22, 2024 9:03am [facility] Work Phone: 1(166) 670-136601-29-2025 History of Present illness Narrative* Mi Sánchez - 04/26/2024 9:45 AM EST Images from the original note were not included. Rosa M Abbott is a 69 y.o. female presents with chief complaint of bilateral knee pain and stiffness, left worse than right. HPI: Rosa M is here as a 69-year-old female very [...] Osteoarthritis Mother Jessy Powers Diabetes Father [facility]win [facility] Diabetes Sister Iliana Munoz SOCIAL HISTORY: Social [...] views weight bearing films taken in the [place] office shows moderate, borderline early severe degenerative [...] supplementation. She is not bone on bone. 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 Indications [...] 05/01/2024 2:50 PM EST documented in this encounterMissouri Delta Medical [id number] [facility]01-22-2024 Evaluation note* Encounter Date Diagnosis Assessment [...] index [BMI] 30.0-30.9, adult (ICD-10 - Z68.30) [facility] Other 01-22-2024 Evaluation note* Encounter Date Diagnosis Assessment Notes Treatment Notes Treatment Clinical Notes Mar, COVID-19 (ICD-10 - U07.1) [facility] Other 08-11-2023 Evaluation note* Encounter Date Diagnosis [...] suicidal but is requesting counseling. Handouts for [facility] supplied Oct, Screening mammogram for breast cancer (ICD-10 - Z12.31) Will be completed in February. Instructed on monthly SBE [facility] Other Evaluation noteNo assessment information available [facility] Work Phone: Evaluation note* Diagnosis Onset Date Resolution Status Dysuria noneactive History of nephrolithiasis a cute Menopause acute Osteopenia acute Medicare annual wellness visit, subsequent noneactive Screening for colon cancer n oneactive Screening mammogram for breast cancer noneactive [facility] Work Phone: Evaluation note* Diagnosis Acute pain of both knees- Primary documented in this encounter [facility] Author Shari Marquez [facility] December 30, 2023 8:26am Note Date/Time December 30, 2023 8: 26am [facility] [address] [place] [address] Gastroenterology H&P Signed Patient: Rosa M Abbott MR#: [id number] : 1955 Acct:[id number] Age/Sex: 68 / F Adm Date: 4 Loc: Room: Type: [facility] Attending Dr: Shari Marquez DO Copies to: Alexey Manley,DO Shari Marquez DO~ Date of Service: 12/30/2023 HISTORY & [...] <Electronically signed by Shari Marquez DO> 12/30/23825 [facility] Work Phone: History general Narrative - Reported* Type Description Date Medical History Osteopenia Medical History History of nephrolithiasis Medical History Diverticulosis of large intestin e without hemorrhage Surgical History COLONOSCOPY 2014 Hospitalization History SEE SURGICAL HX [facility] [employer] Other Summary Purpose Family History No Family History Records Found Relationship Condition Age at Onset Recorded Date/T nader father Unknown Heart disease Unknown Advance Directives No Advanced Directives Records Found Advance Directive Response Recorded Date/ Time Advance Directives No November 01, 018 1:03pm Advance Directive Response Recorded Date/ Time Advance Directives No November 01, 2 018 12:03pm Advance Directive Response Recorded Date/ Time Advance Directives No June 21, 025 2:18pm Chief Complaint and Reason for Visit Chief Complaint Complete Chief Complaint Z12.31 Z13.820 Z78.0 Chief Complaint CBC A1C Chief Complaint Z12.31 Chief Complaint bh CMP A1C Chief Complaint CMP A1C bh Possible UTI Chief Complaint CMP A1C bh Possible UTI Dysuria Chief Complaint CMP A1C [...] 9:0 3am History of nephrolithiasis June 22 025 9:03am Chief Complaint Admit Date UTI, burning, urgency June 07, 2024 9 :30am June 07, 2024 1:4 6pm fatigue, back pain June 22, 2024 9:0 3am R31.0 Z87.442 June 28, 2024 7:49 am Unknown July 05, 2024 1:00 am Chief Complaint Admit Date UTI, burning, urgency June 07, 2024 9 :30am bh June 07, 2024 1:4 6pm fatigue, back pain June 22, 2024 9:0 3am R31.0 Z87.442 June 28, 2024 7:49 am Unknown July 05, 2024 1:00 am cbc, a1c, vitamin D July 08, 2024 9:3 4am Additional Source Comments INFORMATION SOURCE (unrecogn ized section and content) DATE CREATED AUTHOR 01/17/2019 [facility] DATE CREATED AUTHOR AUTHOR'S ORGANIZ ATION 05/01/2024 [facility] EPIC DATE CREATED AUTHOR AUTHOR'S ORGANIZ ATION 07/12/2024 [facility] DATE CREATED AUTHOR AUTHOR'S ORGANIZ ATION 08/16/2024 [facility] DATE CREATED AUTHOR AUTHOR'S ORGANIZ ATION 08/29/2024 [facility] Care Teams (unrecognized sec tion and content) [...] Alexey Manley DO Primary Care Provider Active Outreach Community Attending Provider Active Team Status: Inactive Member Role Status Dates Alexey Manley DO Primary Care Provider Active Katina [...] Member Role Status Dates Alexey Manley DO Attending Provider Active Sta rt: [...] Inactive Member Role Status Dates Shari Marquez DO Attending Provider Active St art: December 30, 2023 End: December 30, 2023 Alexey Manley DO Primary Care Provider Active Start: December 30, 2023 End: December 30, 2023 Team Status: Active Member Role Status Dates Shari Marquez DO Attending Provider, Other Provider Active Start: December 30, 2023 Alexey Manley DO Primary Care Provider Active Start: December 30, 2023 Team Status: Active Member Role Status Dates Alexey Manley DO Primary Care Provider Active Start: January 05, 2024 Kenzie Demarco Attending Provider Active Start: [facility] 2023 Team Status: Inactive Member Role Status Dates Alexey Manley DO Primary Care Provide r, Attending Provider Active Start: January 06, 2024 End: January 06, 2024 Neighborhood Worker Relationship Specialty Start Date End Date Alexey Manley MD [address] [facility] [place] [address] PCP - General Internal Medicine 09/30/22 Team Status: Inactive Member Role Status Dates Katina Vigil DO Attending Provider Active Start: March [...] Alexey Manley DO Primary Care Provide r, Attending Provider Active Start: June 07, 2024 End: June 07, 2024 Team Status: Active Member Role Status Dates Alexey Manley DO Primary Care Provider Active Start: June 07, 2024 Joseph Cotton MD Attending Provider Active Start: June 07, 2024 Team Status: Inactive Member Role Status Dates Alexey Manley DO Primary Care Provide r, Attending Provider Active Start: June 22, 2024 End: June 22, 2024 Team Status: Inactive Member Role Status Dates Alexey Manley DO Primary Care Provide r, Attending Provider Active Start: June 28, 2024 End: June 28, 2024 Team Status: Inactive Member Role Status Dates Alexey Manley DO Attending Provider Active Sta rt: July 05, 2024 End: July 05, 2024 Team Status: Active Member Role Status Dates Alexey Manley DO Primary Care Provide r, Attending Provider Active Start: July 05, 2024 Team Status: Inactive Member Role Status Chen Manley DO Referring Provider Active Sta rt: July 08, 2024 End: July 08, 2024 [facility] Community Attending Provider Active Sta rt: July [...] BE BASED ON THE PRIMARY CLINICAL RECORDS. [facility] CenterRealTargeting [facility]. provides no warranty or guarantee of the accuracy or completeness of information in this document.
--- NOTE | 2024-08-30 08:37 | ED_ITS ---
HPI HPI - General Adult General Chief complaint: Urogenital-Female Stated complaint: POSSIBLE KIDNEY STONE Time Seen by Provider: 08/30/24 08:30 Source: patient Mode of arrival: walk-in Limitations: no limitations History of Present Illness HPI narrative: 69-year-old female presents to the emergency department for right flank pain. It began this morning about 5:30 AM. No injury. She has a history of kidney stones and thinks it feels similar. No dysuria or hematuria. She recently had urinalysis performed which showed some white cells and red blood cells in it. She saw urologist about that issue. No fever or vomiting and the pain does not radiate. Related Data Previous Rx's ?Medication ?Instructions ?Recorded acetaminophen 300 mg-codeine 30 mg 1 tab PO Q6H PRN pa in 5 days #20 08/30/24 tablet tabs cephalexin 500 mg capsule 500 mg PO TID 7 days #21 cap s 08/30/24 ondansetron 4 mg disintegrating 4 mg PO Q6H PRN nausea and 08/30/24 tablet vomiting #20 tabs tamsulosin 0.4 mg capsule (Flomax) 0.4 mg PO DAILY #7 caps 08/30/24 Allergies Allergy/AdvReac Type Severity Reaction Status Date / Time No Known Drug Allergies Allergy Verified 08/30/24 08:09 Opioid HPI Opioid Management Most Recent Opioid Data: Last Pain Scale 2 Today, 08:24 Review of Systems ROS Narrative A ten point review of systems is negative except as noted above. PFSH PFSH Social History Little interest or pleasure in doing things: not at all Feeling down, depressed, or hopeless: not at all Exam Narrative Exam Narrative: Nurses note and vital signs reviewed and patient is not hypoxic. General: The patient appears well and in no apparent distress. Patient is resting comfortably on cart. Skin: Warm, dry, no pallor noted. There is no rash noted. Head: Normocephalic, atraumatic Eye: Normal conjunctiva, no drainage Ears, Nose, Mouth, and Throat: oral mucosa is moist. Nares patent. Cardiovascular: Regular Rate and Rhythm Respiratory: Patient is in no distress, no accessory muscle use, lungs are angela r to auscultation, no wheezing, rales or rhonchi Back: non-tender, no CVA tenderness bilaterally to percussion. GI: Soft and nontender Musculoskeletal: The patient has no evidence of calf tenderness, no pitting edema, symmetrical pulses noted bilaterally Neurological: A&O, normal speech Psychiatric: Cooperative Constitutional Vital Signs, click to edit/add: Last Vital Signs Temp 98.7 F 08/30/24 08:05 Pulse 67 08/30/24 08:05 Resp 18 08/30/24 08:05 BP 152/78 H 08/30/24 08:24 Pulse Ox 98 08/30/24 08:05 O2 Del Method Room Air 08/30/24 08:05 Course Vital Signs Vital signs: Vital Signs Temperature 98.7 F 08/30/24 08:05 Pulse Rate 67 08/30/24 08:05 Respiratory Rate 18 08/30/24 08:05 Blood Pressure 152/100 H 08/30/24 08:05 Pulse Oximetry 98 08/30/24 08:05 Oxygen Delivery Method Room Air 08/30/24 08:05 Temperature 98.7 F 08/30/24 08:05 Pulse Rate 67 08/30/24 08:05 Respiratory Rate 18 08/30/24 08:05 Blood Pressure 152/78 H 08/30/24 08:24 Pulse Oximetry 98 08/30/24 08:05 Oxygen Delivery Method Room Air 08/30/24 08:05 Medical Decision Making MDM Narrative Medical decision making narrative: Partially obstructing stone is present with UTI. I have no clinical suspicion of pyelonephritis and at this point I do not feel that she needs to be admitted to the hospital. She was given IV Rocephin and is prescribed Keflex, Tylenol 3, Flomax, and Zofran. She has an established urologist, Dr. Ryan, that she will follow-up with. Treatment diagnosis and follow-up were discussed with the patient thoroughly. Differential Diagnosis Differential Diagnosis: Kidney stone, UTI, pyelonephritis Lab Data Lab results reviewed: Yes I reviewed the patient's lab results Labs: Lab Results 08/30/24 08/30/24 Range/Units 08:10 08:20 WBC 12.0 H (4.0-11.0) 10^3/uL RBC 4.62 (4.20-5.40) 10^6/uL Hgb 14.8 (12.0-16.0) g/dL Hct 44.3 (36.0-48.0) % MCV 95.9 (81.0-99.0) fL MCH 32.0 (26.7-34.0) pg MCHC 33.4 (29.9-35.2) g/dL RDW 12.7 (11.0-15.0) % Plt Count 271 (150-450) 10^3/uL MPV 9.2 L (9.5-13.5) fL Neut % (Auto) 80.7 H (43.0-75.0) % Lymph % (Auto) 10.7 L (20.5-60.0) % [place] % (Auto) 7.1 (1.7-12.0) % Eos % (Auto) 0.9 (0.9-7.0) % Baso % (Auto) 0.2 (0.2-2.0) % Neut # (Auto) 9.7 H (1.4-6.5) 10^3/uL Lymph # (Auto) 1.3 (1.2-3.8) 10^3/uL [place]et # (Auto) 0.9 H (0.3-0.8) 10^3/uL Eos # (Auto) 0.1 (0.0-0.7) 10^3/uL Baso # (Auto) 0.0 (0.0-0.1) 10^3/uL Abs Immat Gran (auto) 0.05 H (0.00-0.03) 10^3/uL Imm/Tot Granulo (auto) 0.4 (0.0-0.5) % Sodium 141 (136-145) mmol/L Potassium 4.3 (3.5-5.1) mmol/L Chloride 104 (98-107) mmol/L Carbon Dioxide 29.3 (21.0-32.0) mmol/L Anion Gap 12.0 BUN 18.0 (7.0-18.0) mg/dL Creatinine 0.83 (0.55-1.02) mg/dL Est GFR ( Amer) >60 (>=60 mL/min/1.73m^2) Est GFR (Non-Af Amer) >60 (>=60 mL/min/1.73m^2) BUN/Creatinine Ratio 21.7 Glucose 90 (74-106) mg/dL Calcium 9.2 (8.5-10.1) mg/dL Urine Color Lt. yellow (YELLOW) Urine Clarity Sl cloudy (CLEAR) Urine pH 5.5 (5.0-9.0) Ur Specific [place] 1.020 (1.005-1.025) Urine Protein 30 A (NEG/TRACE) mg/dL Urine Glucose (UA) Negative (NEGATIVE) mg/dL Urine Ketones Negative (NEGATIVE) mg/dL Urine Occult Blood Moderate A (NEGATIVE) Urine Nitrite Positive A (NEGATIVE) Urine Bilirubin Negative (NEGATIVE) Urine Urobilinogen 0.2 (0.2-1.0) EU/dL Ur Leukocyte Esterase Moderate A (NEGATIVE) Urine RBC 10-20 A (0-2) #/HPF Urine WBC 50-75 A (NONE SEEN) #/HPF Ur Squamous Epith Cells Few A (NONE/RARE) #/LPF Urine Crystals None seen (None Seen) #/HPF Urine Bacteria Moderate A (NONE SEEN) #/HPF Urine Casts None seen (NONE SEEN) #/LPF Urine Mucus Trace A (NONE SEEN) Ur Culture Indicated? Yes-[facility] Imaging Data CT scan - abdomen: Radiologist's impression: ITS Impressions Abdomen/Pelvis CT 08/30/24 09:12 IMPRESSION: PARTIALLY OBSTRUCTING RIGHT URETEROVESICAL JUNCTION STONE. MILD SIGMOID DIVERTICULOSIS. Impression dictated by: Archana Curiel M.D. 08/30/2024 9:34 AM Dictation Location: [place] [address] Electronically authenticated by: [id number] Y Date: 08/30/2024 09:34 Discharge Plan Discharge Chief Complaint: Urogenital-Female Clinical Impression: Kidney stone, Urinary tract infection Patient Disposition: Home, Self-Care Time of Disposition Decision: 10:04 Condition: Good Mode of Transportation: Private Vehicle Prescriptions / Home Meds: New cephalexin 500 mg capsule 500 mg PO TID 7 Days Qty: 21 0RF acetaminophen-codeine 300-30 mg tablet 1 tab PO Q6H PRN (Reason: pain) 5 Days Qty: 20 0RF tamsulosin [Flomax] 0.4 mg capsule 0.4 mg PO DAILY Qty: 7 0RF ondansetron 4 mg tablet,disintegrating 4 mg PO Q6H PRN (Reason: nausea and vomiting) Qty: 20 0RF Print Language: Indian Instructions: Kidney Stones (ED), Urinary Tract Infection in Women (ED) Referrals: Alexey Manley DO [Primary Care Provider, Internal Medicine] - 1 week
[2024-08-30 08:46] LABS: Basophils Percent Auto 0.2 % (0.2-2.0); Eosinophils Absolute Auto 0.1 10^3/uL (0.0-0.7); Eosinophils Percent Auto 0.9 % (0.9-7.0); Hematocrit 44.3 % (36.0-48.0); Hemoglobin 14.8 g/dL (12.0-16.0); Immature Granulocytes Abs Auto 0.05 10^3/uL (0.00-0.03); Immature Granulocytes Pct Auto 0.4 % (0.0-0.5); Lymphocytes Absolute Auto 1.3 10^3/uL (1.2-3.8); Lymphocytes Percent Auto 10.7 % (20.5-60.0); Mean Corpuscular HGB Conc 33.4 g/dL (29.9-35.2); Mean Corpuscular Volume 95.9 fL (81.0-99.0); Mean Platelet Volume 9.2 fL (9.5-13.5); Monocytes Absolute Auto 0.9 10^3/uL (0.3-0.8); Monocytes Percent Auto 7.1 % (1.7-12.0); Neutrophils Absolute Auto 9.7 10^3/uL (1.4-6.5); Neutrophils Percent Auto 80.7 % (43.0-75.0); Platelet Count 271 10^3/uL (150-450); Red Blood Count 4.62 10^6/uL (4.20-5.40); Red Cell Distribution Width 12.7 % (11.0-15.0)
[2024-08-30 08:53] LABS: BUN Creatinine Ratio 21.7; Calcium 9.2 mg/dL (8.5-10.1); Carbon Dioxide 29.3 mmol/L (21.0-32.0); Chloride 104 mmol/L (98-107); Estimated GFR (African America >60 (>=60 mL/min/1.73m^2); Estimated GFR (Non-African Ame >60 (>=60 mL/min/1.73m^2); Glucose 90 mg/dL (74-106); Potassium 4.3 mmol/L (3.5-5.1); Sodium 141 mmol/L (136-145)
[2024-08-30 08:54] LABS: Bilirubin Urine NEGATIVE (NEGATIVE); Blood Urine MODERATE (NEGATIVE); Clarity Urine SL CLOUDY (CLEAR); Color Urine LT. YELLOW (YELLOW); Glucose Urine UA NEGATIVE (NEGATIVE); Ketones Urine NEGATIVE (NEGATIVE); Leukocyte Esterase Urine MODERATE (NEGATIVE); Nitrite Urine POSITIVE (NEGATIVE); Protein Urine 30 mg/dL (NEG/TRACE); Urobilinogen Urine 0.2 EU/dL (0.2-1.0); pH Urine 5.5 (5.0-9.0)
[2024-08-30 09:08] LABS: Bacteria Urine MODERATE #/HPF (NONE SEEN); Crystals Seen? None Seen #/HPF (None Seen); Mucus Urine TRACE (NONE SEEN); Squamous Epithelial Cell Urine FEW #/LPF (NONE/RARE); WBC Urine 50-75 #/HPF (NONE SEEN)
[2024-08-30 09:09] LABS: Cast Seen? NONE SEEN #/LPF (NONE SEEN); Urine Culture Indicated YES-FRMC
--- NOTE | 2024-08-30 09:12 | CT_ITS ---
The [address] [address] Patient Name: JOSEPH ROWELL MRN: [id number] date: 1955 Sex: F Assigned Patient Location: ER Current Patient Location: ER Accession/Order Number: [id number] Exam Date: 08/30/2024 09:26 Report Date: 08/30/2024 09:34 At the request of: ABELINO COLON MD Procedure: CT abdomen pelvis wo con CT ABDOMEN AND PELVIS WITHOUT CONTRAST COMPARISON: None Howard data: Right flank pain, dysuria and urgency. History of kidney stones. Spiral images were obtained through the abdomen and pelvis without contrast. This CT exam was performed using one or more following dose reduction techniques: Automated exposure control, adjustment of the mA and/or kV according to patient size, or use of iterative reconstruction technique. Limited cuts through the lung bases show atelectasis and/or scarring. Assessment of the intra-abdominal organs is slightly limited by the absence of contrast. The dome of the liver is not included in its entirety. No hepatic abnormalities are identified. No calcified gallstones are seen. The spleen, pancreas and adrenal glands show no acute findings. No renal calculi are identified. There is moderate right hydronephrosis and hydroureter. This is secondary to a stone at the ureterovesical junction measuring 7 x 3 mm in size. There is a small amount of plaque at the abdominal aorta. Small abdominal lymph nodes are present. No ascites is seen. The small bowel loops are not distended. There is stool at the ascending and transverse colon. The descending colon is mostly decompressed. There are degenerative changes at the spine, greatest at the lower facets. There is associated stenosis at L4-5 where there is also mild spondylolisthesis. Images through the pelvis show normal caliber small bowel loops, some containing fluid. No appendiceal inflammation is seen. There is mild distal colonic stool. There are sigmoid diverticula, without associated active inflammation. No adnexal cysts are visualized. The urinary bladder is not well-distended and there are no obvious contour or intraluminal abnormalities. No ascites is seen. CT/CT abdomen pelvis wo con IMPRESSION: PARTIALLY OBSTRUCTING RIGHT URETEROVESICAL JUNCTION STONE. MILD SIGMOID DIVERTICULOSIS. Impression dictated by: Archana Curiel M.D. 08/30/2024 9:34 AM Dictation Location: [place] [address] Electronically authenticated by: [id number] Y Date: 08/30/2024 09:34
[2024-08-30] MEDS: CEFTRIAXONE 1,000 MG in 0.9 % SODIUM CHLORIDE 50 ML 100 MG IV (09:50)
== END 2024-08-30 10:31 | disposition home or self-care (01) ==
PROVIDERS: Emergency Provider Emergency Medicine; PCP Internal Medicine
DX: N20.0 Calculus of kidney (principal); N39.0 Urinary tract infection, site not specified; Z87.442 Personal history of urinary calculi
CPT/HCPCS: 36415; 74176; 80048; 81001; 85025; 87086; 87088; 87186; 96365; 99285; J0696

== ENCOUNTER 2025-02-20 10:32 | Outpatient (OUT) | payer MEDICARE, SELFPAY ==
--- OUTSIDE RECORDS SUMMARY | 2025-02-20 10:36 | XMS_ITS | Clinical Summary ---
Author Organization [facility] Address [address] [place] [address] Care Team Providers Care Warranty Manager Name Role Phone Alexey Manley DO Primary Care Provider [phone] Allergies No known active allergies Medications MedicationSigDispense QuantityRefillsLast FilledStart DateEnd DateStatus Magnesium Citrate 200 MG tablet as directed OrallyActive Loratadine (Claritin) 10 MG capsule OralActive fluticasone (Flonase) 50 MCG/ACT nasal spray 1 (one) time each day at the same time.Active nitrofurantoin, macrocrystal-monohydrate, (Macrobid) 100 MG capsule TAKE 1 CAPSULE BY MOUTH EVERY 12 HOURS FOR 4 DAYS must TAKE WITH FOOD or meal Active Family History Medical HistoryRelationNameCommentsDiabetesFatherCarl WinninghamOsteoarthritis MotherDeana WinninghamStrokeMotherDeana Channing HomehamDiabetesSisterSohiohealth dublin methodist hospitaljosh Shabazzbaptist health [facility] RelationNameStatusCommentsFatherCarl WinninghamDeceasedMotherDeArbour Hospital AliveSisWenatchee Valley Medical Centerjosh [place]1 sisterSonAlive1 son Social History Tobacco UseTypesPacks/DayYears UsedDateSmoking Tobacco: NeverSmokeless Tobacco: Never Tobacco Cessation:Counseling Given: Not Answered Alcohol UseStandard Drinks/WeekCommentsNot Currently0 (1 standard drink = 0.6 oz pure alcohol)caffeine intake : decaffeinated teaCommentsNoSex and Gender InformationValueDate RecordedSex Assigned at DaplxQjagkn14/21/2023 11:05 AM EST Legal WbiQyqilw67/15/2023 6:49 PM EDTGender DxvvrusdOinfsd80/21/2023 11:05 AM ESTSexual AlnbpkkuhmxUakubsds07/21/2023 11:05 AM EST Last Filed Vital Signs Vital SignReadingTime TakenCommentsBlood Dpjefaxe066/80010/18/2023 2:37 PM EDT Pulse--Temperature--Respiratory Rate--Oxygen Saturation--Inhaled Oxygen Concentration--Rposto75 kg (150 lb)04/26/2024 9:28 AM TNLWuaksl049.8 cm (5' 4.5 )04/26/2024 9:28 AM ESTBody Mass Index25.35004/26/2024 9:28 AM EST Plan of Treatment DateTypeDepartmentCare Team (Latest Contact Info)Tgevimanygk25/23/2026 1:30 PM EDTOffice Visit LUIS A HART [address] [place] [id number] Marianne Barksdale DO [address] [facility] [address] [place] [address] Health MaintenanceDue DateLast DoneCommentsCT Qtzklkawzdii1956olonoscopy 1955olorectal Cancer Tuoihvedu1955FIT-DNA1955FIT1955 FOBT1955 2108Upscwqakmsshz1956OVID-19 Vaccine ( season) , 12/19/2022, 07/12/2021, Additional history existsInfluenza Vaccine (#1), 12/19/2022, 12/07/2021, Additional history xqdpgqSiufsfcdd76, 03/17/2023, 03/16/2022neumococcal Vaccine: 65+ OhmwvLkochzqnb61/02/2022, 02/22/2021 Procedures Procedure NamePriorityDate/TimeAssociated DiagnosisCommentsBI MAMMOGRAM SCREENING TOMOSYNTHESIS YNXLRFLCWDbpjcoq52/23/2024 4:35 PM EST Other screening mammogram from Last 3 Months or Most Recently Relevant to Health Maintenance Results * Bilateral screening mammogram with tomosynthesis (03/20/2024 4:35 PM EST) Anatomical RegionLateralityModalityBreastBilateralMammographySpecimen (Source) Anatomical Location / LateralityCollection Method / VolumeCollection Time Received Time03/20/2024 4:35 PM EST Impressions 03/20/2024 4:40 PM EST NO MAMMOGRAPHIC EVIDENCE OF MALIGNANCY. ? ROUTINE FOLLOW-UP IS RECOMMENDED IN ONE YEAR. ? RESULT CODE: 1 ? Negative ?? DENSITY CODE: 2 (approximately 25-50% glandular) ?? FOLLOW UP: 1YR ? The false-negative rate of mammography is approximately 10-percent. ? Management of a palpable abnormality must be based on clinical grounds. ?? Patient was entered into a reminder system with a target due date for the next mammogram. ? Impression dictated by: Archana Curiel M.D.03/20/2024 4:38 PM ? Dictation Location: S01 ? Transcribed By: ? PWS ?03/20/24 1638 ? Dictated By: ?Archana Curiel MD ?03/20/24 1635 ? Signed By: <Electronically signed by MD Archana Curiel in OV> ? 03/20/24 1638 Narrative 03/20/2024 4:40 PM EST [facility] ?[address] ? [place] [address] ? Mammography Report ? Signed ? Patient: Abbott,Rosa M ?MR#: [id number] ?? [id number] ? : 1955 ?Acct:[id number] ? Age/Sex: 69 / F ?ADM Date: 03/20/24 ? Loc: [place] ?Room: ?Type: REG CLI ?? Attending Dr: Yeni Vigil DO ?? Copies to: Alexey Manley,DO ?? YENI VIGIL DO ? Ordering Provider: YENI VIGIL DO ?? Date of Service: 03/20/24 ?? MM/MM screening mammo BI w/CAD: screening ? CLINICAL DATA: ??Screening for malignancy. ? BILATERAL SCREENING MAMMOGRAMS - FULL FIELD DIGITAL WITH TOMOSYNTHESIS AND CAD ? Tomosynthesis craniocaudal and mediolateral oblique views of both breasts were obtained using low- dose digital technique. ??Comparison is made to prior studies from February 29, 2020 through March 17, 2023. ??This examination was reviewed with the aid of CAD. ? There are scattered fibroglandular densities. ??There are no developing masses, typically malignant calcifications or architectural distortion. ??There has been no significant interval change. ? MM/MM screening mammo BI w/CAD ?? Procedure Note Radiology, Radiologist, MD - 03/20/2024 [facility] [address] [place] [address] Mammography Report Signed Patient: Rosa M AbbottMR#: [id number] : 6Acct:[id number] Age/Sex: 69 / FADM Date: 03/20/24 Loc: [place] Room:Type: REG CLI Attending Dr: Yeni Vigil DO Copies to: DO MUSA Holder MONA DO Ordering Provider: YENI VIGIL DO Date of Service: 03/20/24 MM/MM screening mammo BI w/CAD: screening CLINICAL DATA: Screening for malignancy. BILATERAL SCREENING MAMMOGRAMS - FULL FIELD DIGITAL WITH TOMOSYNTHESIS ANDCAD Tomosynthesis craniocaudal and mediolateral oblique views of both breastswere obtained using low- dose digital technique. Comparison is made to prior studies from 2019 through March 17, 2023. This examination was reviewed with the aid of CAD. There are scattered fibroglandular densities. There are no developingmasses, typically malignant calcifications or architectural distortion. There [...] system with a target due date for thenext mammogram. Impression dictated by: Archana Curiel M.D.03/20/2024 4:38 PM Dictation Location: [facility] Transcribed By: [facility] 03/20/24 1638 Dictated By: Archana Curiel MD 03/20/24 1635 Signed By: <Electronically signed by MD Archana Curiel in OV> 03/20/24 1638 Authorizing ProviderResult TypeResult StatusMona J Musa DOI BI PROCEDURESFinal Result from Last 3 Months or Most Recently Relevant to Health Maintenance Insurance Care Teams Team MemberRelationshipSpecialtyStart DateEnd Date Alexey Manley DO PCP - GeneralInternal Medicine09/30/22
--- OUTSIDE RECORDS SUMMARY | 2025-02-20 10:39 | XMS_ITS | CCD ---
Author Organization [facility] CliniSywv Care Team Providers Care On Air Personality Name Role Phone ALEXEY MANLEY Admitting Unavailable ALEXEY MANLEY Attending Unavailable ALEXEY MANLEY Primary Care Unavailable ALEXEY MANLEY Consulting Unavailable SITA PACK V Consulting Unavailable CORETTA MESSINA Admitting Unavailable CORETTA MESSINA Attending Unavailable JOEL, ALEXEY Primary Care Unavailable CORETTA MESSINA Consulting Unavailable DO Alexey Manley Primary Care Provider Community, Outreach Attending Provider DO Alexey Manley Primary Care Provider DO Katina Vigil Attending Provider DO Alexey Manley Primary Care Provider Community, Outreach Attending Provider [phone] Alexey Manley Unavailable DO Alexey Manley Primary Care Provider DO Katina Vigil Attending Provider DO Alexey Manley Primary Care Provider MD Joseph Cotton Attending Provider DO Alexey Manley Referring Provider Community, Outreach Attending Provider [phone] DO Alexey Manley Primary Care Provider MD Joseph Cotton Attending Provider EDDIE Almanzar Attending Provider NO FAMILY, PHYSICIAN Primary Care Provider Unava ilable MD Jospeh Cotton Attending Provider DO Alexey Manley Primary Care Provider MD Joseph Cotton Attending Provider [phone] Ly, DO Shari Baumann Attending Provider BallDO Blackburn Attending Provider ANOOP STONER Referring Unavailable KATINA VIGIL Attending Unavailable ANOOP STONER Attending Unavailable ANOOP STONER Referring Unavailable Alexey Manley MD Primary Care Provider NatKatina elias DO Attending Provider Joel REID, Alexey Primary Care Provider Joseph Cotton MD Attending Provider Joel REID, Alexey Primary Care Provider Yury MENJIVAR, Joseph Attending Provider [phone] Alexey Manley DO Attending Provider Alexey Manley DO Referring Provider Community, Outreach Attending Provider Abiel Duran DO Attending Provider Alexey Manley DO Primary Care Provider Alexey Manley DO Attending Provider Joel REID, Alexey Primary Care Provider [phone] Matthew Gordon DO Emergency Provider Alexey Manley Attending Unavailable Ball, Alexey Admitting Unavailable Ball, Alexey Primary Care Unavailable Nataleera, Katina Attending Unavailable Joel, Alexey Primary Care Unavailable Nataleera, Katina Admitting Unavailable Joel, Alexey Primary Care Unavailable Alexey Manley Attending Unavailable Joel, Alexey Admitting Unavailable Ball, Alexey Primary Care Unavailable Matthew Gordon Admitting Unavailable Matthew Gordon Attending Unavailable Yury, Joseph Admitting Unavailab le Joseph Cotton Attending Unavailab le Alexey Manley Primary Care Unavailable Abiel Duran Admitting Unavailable Abiel Duran Attending Unavailable Rc Ryan Attending Unavailable Joel, Alexey Primary Care Unavailable Rc Ryan Admitting Unavailable Community, Outreach Admitting Unavailable Community, Outreach Attending Unavailable Joel, Alexey Referring Unavailable Joel, Alexey Attending Unavailable Joel, Alexey Admitting Unavailable Medications Current Medications MedicationDrug Class(es)DatesSig (Normalized)Sig (Original)Apple Cider Vinegar (4 sources)Apple Cider Vinegar Activedicyclomine hydrochloride 20 mg oral tablet (1 source)AnticholinergicStart: 30-04-0900djru 1 tablet by mouth three times daily as needed for painFish Oils (4 sources)take 1 capsule by mouth twice dailyFish Oil 1200 MG 1 capsule Orally BID ActiveFlaxseed extract (10 sources)Non-Standardized Food Allergenic Extract, Non-Standardized Plant Allergenic ExtractStart: 82-86-6877ninb 1 capsule by mouth once dailyStart: 09-36-1431lsoi 1 capsule by mouth once dailyFlaxseed 1,000 mg capsule Active 1000 MG PO Daily December 22, 2023 12:00am Complies with drug therapyStart: 24-22-7228glca 1 capsule by mouth once dailyFlaxseed 1,000 mg capsule Active 1000 MG PO Daily December 22, 2023 12:00amStart: 20-50-9347ytsg 1000 mg by mouth once dailyFlaxseed Active 1000 MG PO Daily December 22, 2023 12:00am Flaxseed Oil 1200 MG (2 sources)Flaxseed Oil 1200 MG Orally Activefluticasone propionate 0.05 mg/actuat metered dose nasal spray (19 sources)CorticosteroidStart: 17-32-7867nqsl 1 spray(s) nasal route once dailyStart: 85-51-5029Eiripat 50MCG/ACT Flonase( 50MCG/ACT Nasal As needed for allergies ) Active -Hx Entry Nasal As needed for allergies for 0 *Reorder from [employer] for eRx and Interaction Alerts* Oct, Activefluticasone (Flonase) 50 MCG/ACT nasal spray 1 (one) time each day at the same time. Active Sfaqncbt-Qeor-Mvv3-C-Yuri-Bosw (Osteo Bi-Flex Triple Strength) 750 mg-644 mg- 30 mg-1 mg tablet (10 sources)Start: 96-83-1934gswn 2 tablets by mouth once dailyStart: 12-22-2023 take 2 tablets by mouth once xfafjEgxehgkh-Ohsr-Mkb9-C-Yuri-Bosw (Osteo Bi-Flex Triple Strength) 750 mg-644 mg- 30 mg-1 mg tablet Active 2 TAB PO Daily December 22, 2023 12:00am Complies with drug therapyStart: 48-67-0749ngbd 2 tablets by mouth once ckheoLaxhqalp-Jrkq-Foe4-C-Yuri-Bosw (Osteo Bi-Flex Triple Strength) 750 mg-644 mg- 30 mg-1 mg tablet Active 2 TAB PO Daily December 22, 2023 12:00amlinseed oil 1200 mg oral capsule (2 sources)Flaxseed Oil 1200 MG Orally Activeloratadine 10 mg oral tablet (13 sources)Start: 81-87-3341gagn 1 tablet by mouth once dailyLoratadine (Claritin) 10 MG capsule Oral Activelutein 25 mg / zeaxanthin 5 mg oral capsule (4 sources)Lutein-Zeaxanthin 25-5 MG Orally ActiveLutein-Zeaxanthin 25-5 MG Orally Activemagnesium citrate 125 mg oral capsule (16 sources)Start: 28-11-1748lvtz 1 capsule by mouth once dailyMagnesium Citrate 200 MG tablet as directed Orally ActiveMagnesium Citrate Activemilk thistle extract 150 mg oral capsule (4 sources)Milk Thistle 150 MG as directed Orally Activeondansetron 4 mg disintegrating oral tablet (1 source)Serotonin-3 Receptor AntagonistStart: 08-17-2840jnfp 1 tablet by mouth every six hours as needed for nausea and vomitingpaxlovid (300/100) 20 x 150 mg & 10 x 100mg tablet therapy pack (2 sources)Start: 31-29-9285orto 3 tablets by mouth every twelve hoursPaxlovid (300/100) 20 x 150 MG & 10 x 100MG 3 tablets Orally Twice a day for 5 days Mar, Activepotassium citrate (4 sources)Potassium Citrate ActiveTurmeric Curcumin 500 MG (4 sources)Turmeric Curcumin 500 MG Orally ActiveVit C,G-Yz-Zyptq-Lutein-Zeaxan (Preservision Areds-2) 250-90-40-1 mg capsule (10 sources)Start: 67-54-9515Xfsgu: 40-13-1852Gac C,K-Hi-Daozn-Lutein-Zeaxan (Preservision Areds-2) 250-90-40-1 mg capsule Active 1 TAB PO Twice daily December 22, 2023 12:00am Complies with drug therapyStart: 06-44-5218Lhg C,T-Mt-Dcler-Lutein-Zeaxan (Preservision Areds-2) 250-90-40-1 mg capsule Active 1 TAB PO Twice daily December 22, 2023 12:00amvitamin B12 (4 sources)Vitamin Q16Eetlgir B12 Active Completed/Discontinued Medications MedicationDrug Class(es)DatesSig (Normalized)Sig (Original)nitrofurantoin, macrocrystals 25 mg / nitrofurantoin, monohydrate 75 mg oral capsule (20 sources)Nitrofuran AntibacterialStart: 10-09-2023 End: 37-05-8548myly 1 capsule by mouth every twelve hours at mealtime Nitrofurantoin Monohyd/M-Cryst (Macrobid) 100 mg capsule Discontinued 100 MG PO Q12H 8 September 12:00am November 09, 2023 1:41pm must administer with a meal/foodsulfamethoxazole 800 mg / trimethoprim 160 mg oral tablet (14 sources)Dihydrofolate Reductase Inhibitor Antibacterial, Sulfonamide AntimicrobialStart: 06-07-2024 End: 75-72-4203mwas 1 tablet by mouth twice dailySulfamethoxazole-Trimethoprim 800-160 mg tablet Discontinued 1 TAB PO Twice daily 10 June 22, 2024 10:09am November 10, 2024 1:45pm Problems Active Problems Problem ClassificationProblemDateDocumented DateEpisodic/ChronicAbdominal pain (6 sources)Left lower quadrant pain; Translations: [Left lower quadrant pain] Onset: 391554-88-2346PewvshptRbtcyawd mellitus without complication (2 sources)Impaired fasting glucoseEpisodicDiverticulosis and diverticulitis (4 sources)Diverticular disease of colon; Translations: [Diverticulosis of large intestine without perforationor abscess without bleeding]Chronic Gastrointestinal hemorrhage (5 sources)Melena; Translations: [Melena]Onset: 78-01-5759KqsmcjcxQvcfdcogjxuki symptoms and ill-defined conditions (1 source)Other specified urinary incontinence; Translations: [Other specified urinary incontinence]Onset: 70-28-3454LybqbwpNnyv disorders (6 sources)Moderate major depression, single episode; Translations: [Major depressive disorder, single episode, moderate]ChronicNoninfectious gastroenteritis (5 sources)Non-infective enteritis and colitis; Translations: [Noninfective gastroenteritis and colitis, unspecified]Onset: 802314-41-5276Tsrkapzq Other bone disease and musculoskeletal deformities (4 sources)Bone density finding; Translations: [Other specified disorders of bone density and structure, unspecified site]EpisodicOther bone disease and musculoskeletal deformities (13 sources)Osteopenia; Translations: [Other specified disorders of bone density and structure, unspecified site]58-99-3613JhywryynRxoojrv on above:HipDEX02/2024Other injuries and conditions due to external causes (4 sources)History of fall; Translations: [History of falling]EpisodicOther non- traumatic joint disorders (2 sources)Pain in right knee; Translations: [Other acute pain]04-24-2024 EpisodicOther nutritional; endocrine; and metabolic disorders (4 sources)Simple obesity ; Translations: [Other obesity due to excess calories] Onset: 19-22-4085DktyvsfUllui nutritional; endocrine; and metabolic disorders (4 sources)Obesity; Translations: [Obesity, unspecified]ChronicOther nutritional; endocrine; and metabolic disorders (2 sources)Body mass index 30+ - obesity; Translations: [Body mass index (BMI) 30.0-30.9, adult]ChronicOther nutritional; endocrine; and metabolic disorders (1 source)Other obesity due to excess caloriesChronicOther nutritional; endocrine; and metabolic disorders (1 source)Body mass index (BMI) 30.0-30.9, adultChronicOther nutritional; endocrine; and metabolic disorders (2 sources)OverweightEpisodicResidual codes; unclassified (4 sources)Procedure not done; Translations: [Procedure and treatment not carried out because of patient's decision for unspecified reasons]Episodic Residual codes; unclassified (13 sources)Menopause present; Translations: [Asymptomatic menopausal state] 89-81-1393IgaznjgtPwcnlou tract infections (10 sources)Acute cystitis; Translations: [Acute cystitis without hematuria] 80-40-5821Tkffcyme Past or Other Problems Problem ClassificationProblemDateDocumented DateEpisodic/ChronicCalculus of urinary tract (20 sources)Calculus of ureter; Translations: [H/O: urinary stone]Onset: 938868-39-5140CkgtbnhdUrwoweketkurj symptoms and ill-defined conditions (14 sources)Dysuria; Translations: [Dysuria]Onset: 468466-61-7426Gruclrdo Intestinal infection (4 sources)Infectious colitis, enteritis and gastroenteritis; Translations: [Infectious gastroenteritis and colitis, unspecified]Onset: 56-25-0792Vltkhlmc Malaise and fatigue (1 source)Other fatigue; Translations: [OTHER FATIGUE]Onset: 74-05-9885Eglibsfg Other bone disease and musculoskeletal deformities (5 sources)Other specified disorders of bone density and structure, unspecified site; Translations: [Disorder of bone and cartilage, unspecified]Onset: 648956-24-3346IlvkivrcYiogj liver diseases (1 source)Nonspecific elevation of levels of transaminase and lactic acid dehydrogenase [LDH]; Translations: [NONSPEC ELEV LVLS TRANSAMINSE AND LDH]Onset: 06-03-3963PriflyzuRoaml screening for suspected conditions (not mental disorders or infectious disease) (20 sources)Encounter for screening for osteoporosis; Translations: [Encounter for screening for malignant neoplasm of cervix]Onset: 89-33-9296PbumxtejUqjze skin disorders (4 sources)Localized swelling, mass and lump, left lower limb; Translations: [Localized swelling, mass and lump, left lower limb]Onset: 67-79-0659Nalbnfoj Residual codes; unclassified (4 sources)Asymptomatic menopausal state; Translations: [Symptomatic menopausal or female climacteric states]Onset: 519869-72-7818ZnqyrwaqXoumu infection (2 sources)COVID-19 Results Test NameValueInterpretationReference RangeFacilityAlanine aminotransferase [Enzymatic activity/volume] in Serum or PlasmaOrdered By: Matthew Gordon on 16-70-3877ECR [Catalytic activity/Vol]18 U/LNormal7-52[facility] HospitalComment on above:Performed By: #### BMP, HEPATIC, LIPASE, CBC ####[facility] [address] [place] [address] USAAlbumin [Mass/volume] in Serum or Plasma by Bromocresol green (BCG) dye binding metho Ordered By: Matthew Gordon on 31-63-5226Amasomw BCG dye [Mass/Vol]4.4 g/dL3.5-5.7 [facility] HospitalAlkaline phosphatase [Enzymatic activity/volume] in Serum or PlasmaOrdered By: Matthew Gordon on 65-06-7915NWB [Catalytic activity/Vol]80 U/NTebvbn58-906XrhexvsnxC[facility] Clinic Union Hospital Comment on above:Performed By: #### BMP, HEPATIC, LIPASE, CBC ####[place] [place] [address] USAAppearance of Urine Ordered By: Matthew Gordon on 44-74-3299Dvadscppgl (U)ClearNoalClearCleveland Clinic Union HospitalComment on above:Order Comment: Name Collection Type:: Clean-Voided MidstreamPerformed By: #### ADDONUAPLUS ####[address] [address] USAAspartate aminotransferase [Enzymatic activity/volume] in Serum or PlasmaOrdered By: Matthew Gordon on 25-70-2026WLC [Catalytic activity/Vol]23 U/PHbjgep82-45DgffznoucCleveland Clinic Union HospitalComment on above:Performed By: #### BMP, HEPATIC, LIPASE, CBC ####[address] [address] [place] Bacteria [Presence] in Urine by AutomatedOrdered By: Matthew Gordon on 12-26-2024 Bacteria Auto Ql (U)None seen [HPF]None SeenCleveland Clinic Union Hospital Basic Metabolic Panelon 14-85-6347Iepsrtxwto Clr Calc Nxflorqa39.70NormalThe [facility] Physician GroupComment on above:Performed By: #### BMP, HEPATIC, LIPASE, CBC ####[address] [place] [address] USAGFR/1.73 sq M.predicted MDRD (S/P/Bld) [Vol rate/Area]mL/min/{1.73_m2} NormalThe [facility] Physician GroupComment on above:Performed By: #### BMP, HEPATIC, LIPASE, CBC ####[address] [place] [address] USABasophils [#/volume] in Blood by Automated countOrdered By: Matthew Gordon on 80-44-1617Ukzcbghhx (Bld) [#/Vol]0.0 10*3/uLNormal0.0-0.2 [facility] HospitalComment on above:Result Comment: PERFORMED BY: [place] [address] PATHOLOGIST ROTOFORMER BACKTENDER ERMELINDA GIPSON M.D.Performed By: #### BMP, HEPATIC, LIPASE, CBC #### [facility] [address] [place] [address] USABasophils/100 leukocytes in Blood by Automated count Ordered By: Matthew Gordon on 47-82-0680Xwumsflru/100 WBC (Bld)0.5 %Normal. [facility] HospitalComment on above:Performed By: #### BMP, HEPATIC, LIPASE, CBC #### [facility] [address] [place] [address] USABilirubin Test strip Ql (U)Ordered By: Matthew Gordon on 64-86-2081Bqxdihoyd Ql (U)NegativeNegativeCleveland Clinic Union Hospital Bilirubin.direct [Mass/volume] in Serum or PlasmaOrdered By: Matthew Gordon on 07-40-2592Rmeirxpfe.direct [Mass/Vol]0.00 mg/dLLow0.03-0.18FLutheran HospitalComment on above:If the DBIL is less than 0.1, IBIL is not able to becalculated.Bilirubin.total [Mass/volume] in Serum or PlasmaOrdered By: Matthew Gordon on 12-38-4111Vnlugkjvr [Mass/Vol]0.5 mg/dLNormal0.3-1.0[facility] HospitalComment on above:Performed By: #### BMP, HEPATIC, LIPASE, CBC ####[facility] [address] [place] [address] USACT abdomen pelvis w conon 50-74-2727SZ abdomen pelvis w [facility] [address] [place] [address] [place] [address] CT Scan Report Signed Patient: Rosa M Abbott MR#: [id number] : 1955 Acct:[id number] Age/Sex: 69 / F ADM Date: 12/26/24 Loc: ER Room: Type: [facility] ER Attending Dr: Copies to: Matthew Gordon DO Ordering Provider: Matthew Gordon DO Date of Service: 12/26/24 CT/CT abdomen pelvis w con: LLQ pain CT ABDOMEN AND PELVIS WITH INTRAVENOUS CONTRAST: CLINICAL HISTORY: Abdominal pain and cramping chills blood in stool diarrhea COMPARISON: None TECHNIQUE: Spiral images were obtained [...] spleen pancreas and adrenal glands appear unremarkable. No enhancing renal mass or hydronephrosis. Aorta appears normal in caliber.[ GI: Stomach is grossly unremarkable. Small bowel appears nondilated. Wall thickening and inflammatory changes involving the left colon suspicious for colitis. No obstruction. Sigmoid diverticulosis.[Appendix is normal. Pelvis:[Urinary bladder and uterus appear grossly unremarkable. Prominent periuterine vessels.] Peritoneum/Retroperitoneum:No free air or free fluid or lymphadenopathy.[ Abd wall/Bones:Abdominal wall demonstrates no acute findings. Osseous structures demonstrate degenerative change.[ CT/CT abdomen pelvis w con IMPRESSION: Wall thickening and inflammatory changes involving the left colon suspicious for colitis. No obstruction. Impression dictated by: Ozzy Duggan Jr., D.O. 12/26/2024 2:45 PM Dictation Location: [place] [address] Transcribed By: [facility] 12/26/24 1445 Dictated By: Ozzy Duggan Jr, DO 12/26/24 1444 Signed By: 12/26/24 1445NoECU Health Physician GroupCalcium [Mass/volume] in Serum or PlasmaOrdered By: Matthew Gordon on 35-05-9476Lerojez [Mass/Vol]9.1 mg/dLNormal 8.6-10.3FLutheran HospitalComment on above:Performed By: #### BMP, HEPATIC, LIPASE, CBC ####[facility] [place] [address] USACarbon dioxide, total [Moles/volume] in Serum or PlasmaOrdered By: Matthew Gordon on 54-48-5817TW6 [Moles/Vol]26.3 mmol/LNormal 21.0-31.0[facility] HospitalComment on above:Performed By: #### BMP, HEPATIC, LIPASE, CBC ####[facility] [place] [address] USAChloride [Moles/volume] in Serum or PlasmaOrdered By: Matthew Gordon on 23-07-5157Pstjraes [Moles/Vol]105 mmol/GZuhoid14-255 [facility] HospitalComment on above:Performed By: #### BMP, HEPATIC, LIPASE, CBC ####[facility] [place] [address] USAColor of Urine by AutoOrdered By: Matthew Gordon on 12-26-2024 Color (U)Light-yellowNormalYellowCleveland Clinic Union HospitalComment on above:Order Comment: Name Collection Type:: Clean-Voided MidstreamPerformed By: #### ADDONUAPLUS ####[place] [address] USAComplete Blood Count Auto Diffon 47-60-9831Hhdk Corpuscular HGB Conc 33.5 g/pRElnyff39.0-35.0The [facility] Physician GroupComment on above:Performed By: #### BMP, HEPATIC, LIPASE, CBC #### [facility] [address] [place] [address] USAMonocytes/100 WBC (Bld)15.74 %Normal0.00-20.00The [facility] Physician GroupComment on above:Performed By: #### BMP, HEPATIC, LIPASE, CBC #### [facility] [address] [place] [address] USANRBC%0.0 /100{WBC}Normal0-0.5The [facility] Comment on above:Performed By: #### BMP, HEPATIC, LIPASE, CBC #### [facility] [address] [id number] USAWhite Blood Count7.8 [CFU]/mLNormal3.8-11.6The [facility] Physician GroupComment on above:Performed By: #### BMP, HEPATIC, LIPASE, CBC #### [facility] [address] [place] [address] USACreatinine [Mass/volume] in Serum or PlasmaOrdered By: Matthew Gordon on 23-99-8426Kytwqgpftb [Mass/Vol]0.82 mg/dLNormal0.60-1.20 [facility] HospitalComment on above:Performed By: #### BMP, HEPATIC, LIPASE, CBC ####[facility] [place] [address] USADipstick and Microscopicon 07-57-0875Bwmazmji,UrineNone Seen NormalNone SeenThe [facility] Physician GroupComment on above:Order Comment: Name Collection Type:: Clean-Voided MidstreamPerformed By: #### ADDONUAPLUS ####[place] [id number] [place] Bilirubin,UrineNegativeNormalNegativeThe [facility] Physician GroupComment on above:Order Comment: Name Collection Type:: Clean-Voided MidstreamPerformed By: #### ADDONUAPLUS ####[address] [address] USAGlucose Ql (U)NormalNormalNormalThe [facility] Physician GroupComment on above:Order Comment: Name Collection Type:: Clean-Voided MidstreamPerformed By: #### ADDONUAPLUS ####[place] [id number] USAHyaline Casts,UrineNoneNormal0-8The [facility] Physician GroupComment on above:Order Comment: Name Collection Type:: Clean- Voided MidstreamPerformed By: #### ADDONUAPLUS ####[address] [address] USAMucus,UrineRareNormalThe [facility] Physician GroupComment on above:Order Comment: Name Collection Type:: Clean- Voided MidstreamResult Comment: PERFORMED BY: [facility] [address] [place] [id number] PATHOLOGIST ROTOFORMER BACKTENDER ERMELINDA GIPSON M.D.Performed By: #### ADDONUAPLUS ####[address] [address] USANitrite,UrineNegativeNormal NegativeThe [facility] Physician GroupComment on above:Order Comment: Name Collection Type:: Clean-Voided MidstreamPerformed By: #### ADDONUAPLUS ####[address] [address] USAOccult Blood,UrineTraceNormalNegativeThe [facility] Physician GroupComment on above: Order Comment: Name Collection Type:: Clean-Voided MidstreamResult Comment: PERFORMED BY: [facility] [address] [place] [address] PATHOLOGIST ROTOFORMER BACKTENDER ERMELINDA GIPSON M.D.Performed By: #### ADDONUAPLUS ####[address] [address] USAProtein,UrineNegativeNormal NegativeHca Florida Lake [facility] Hospital Physician GroupComment on above:Order Comment: Name Collection Type:: Clean-Voided MidstreamPerformed By: #### ADDONUAPLUS ####[address] [address] [place] RBC,Mysfg6-3Huylex6-8Qvb [facility] Physician GroupComment on above:Order Comment: Name Collection Type:: Clean-Voided MidstreamPerformed By: #### ADDONUAPLUS ####[address] [address] USASpecificy Mcdonald,Urine1.226Jxgh2.001-1.030The [facility] Physician GroupComment on above:Order Comment: Name Collection Type:: Clean-Voided MidstreamPerformed By: #### ADDONUAPLUS ####[address] [address] USAUrobilinogen,UrineNormalNormalNormalThe [facility] Physician GroupComment on above:Order Comment: Name Collection Type:: Clean-Voided MidstreamPerformed By: #### ADDONUAPLUS ####[facility] [address] [place] [address] USAWBC,Kkpsr5-7Srfptv4-6Uvu [facility] Physician GroupComment on above:Order Comment: Name Collection Type:: Clean-Voided MidstreamPerformed By: #### ADDONUAPLUS ####[facility] [place] [id number] USAEosinophils [#/volume] in Blood by Automated countOrdered By: Matthew Gordon on 51-26-0683Cavouledvmi (Bld) [#/Vol]0.1 10*3/uLNormal0.0-0.45[facility] HospitalComment on above:Performed By: #### BMP, HEPATIC, LIPASE, CBC #### [facility] [address] [place] [address] USAEosinophils/100 leukocytes in Blood by Automated count Ordered By: Matthew Gordon on 71-65-1008Zdiivfcxfjt/100 WBC (Bld)0.9 %Normal. [facility] HospitalComment on above:Performed By: #### BMP, HEPATIC, LIPASE, CBC #### [facility] [address] [place] [address] USAEpithelial cells.squamous [#/area] in Urine sediment by Automated countOrdered By: Matthew Gordon on 51-98-5433Yevrfcqepk cells.squamous Auto (Urine sed) [#/Area]N/AFLutheran HospitalErythrocyte distribution width [Ratio] by Automated countOrdered By: Matthew Gordon on 54-45-9356Mjupofmrpje distribution width (RBC) [Ratio]14.0 %Nvkkgf17.9-15.3 [facility] HospitalComment on above:Performed By: #### BMP, HEPATIC, LIPASE, CBC #### [facility] [address] [place] [id number] USAErythrocytes [#/area] in Urine sediment by Automated count Ordered By: Matthew Gordon on 25-59-6488UQG Auto (Urine sed) [#/Area]1-2 [HPF]0-4 [facility] HospitalErythrocytes [#/volume] in Blood by Automated countOrdered By: Matthew Gordon on 67-29-3989PZT (Bld) [#/Vol]4.79 10*6/uLNormal 3.60-5.00[facility] HospitalComment on above:Performed By: #### BMP, HEPATIC, LIPASE, CBC #### [facility] [address] [place] [id number] USAGlomerular filtration rate [Volume Rate/Area] in Serum, Plasma or Blood by CreatinineOrdered By: Matthew Gordon on 59-21-0438Dwwofkokcs filtration rate [Volume Rate/Area] in Serum, Plasma or Blood by Creatinine> 60.0 mL/MinCleveland Clinic Union HospitalGlucose [Mass/volume] in Serum or Plasma Ordered By: Matthew Gordon on 94-41-6499Dgqkjai [Mass/Vol]81 mg/xTAgcjkq32-715 [facility] Union HospitalComment on above:ADA recommended reference rangeRandom Glucose Reference Range is dependent on time and content of last meal. Glucose of more than 200 mg/dL in a nonstressed, ambulatory subject supports the diagnosisof Diabetes Mellitus.Result Comment: Random Glucose Reference Range is dependent on time and content of last meal. Glucose of more than 200 mg/dL in a nonstressed, ambulatory subject supports the diagnosis of Diabetes Mellitus. ADA recommended reference rangePerformed By: #### BMP, HEPATIC, LIPASE, CBC ####[facility] [address] [place] [address] USAGlucose [Mass/volume] in Urine by Test stripOrdered By: Matthew Gordon on 12-26-2024 Glucose Test strip (U) [Mass/Vol]Normal mg/dLNormKnox Community HospitalHematocrit [Volume Fraction] of Blood by Automated countOrdered By: Matthew Gordon on 17-45-7393Kmhpwyxbhr (Bld) [Volume fraction]44.8 %Gnrqcv42.0-46.4 [facility] HospitalComment on above:Performed By: #### BMP, HEPATIC, LIPASE, CBC #### [facility] [address] [place] [address] USAHemoglobin Test strip Ql (U)Ordered By: Matthew Gordon on 19-56-7065Ubeundscqz Ql (U)TraceHighNegChillicothe Hospital Hemoglobin [Mass/volume] in BloodOrdered By: Matthew Gordon on 12-26-2024 Hemoglobin (Bld) [Mass/Vol]15.0 g/wKYleqli06.8-15.4FLutheran HospitalComment on above:Performed By: #### BMP, HEPATIC, LIPASE, CBC #### [facility] [address] [place] [address] USAHepatic Panelon 11-03-8459Fzbzbpa [Mass/Vol]4.4 g/dLNormal 3.5-5.7[facility] Physician GroupComment on above:Performed By: #### BMP, HEPATIC, LIPASE, CBC ####[facility] [place] [address] USABilirubin,Indirect0.5 mg/dLNormalThe [facility] Physician [facility] Comment on above:Performed By: #### BMP, HEPATIC, LIPASE, CBC ####[address] [place] [address] USABilirubin.indirect [Mass/Vol]0.00 mg/dLLow0.03-0.18[facility] Physician GroupComment on above: Result Comment: If the DBIL is less than 0.1, IBIL is not able to be calculated.Performed By: #### BMP, HEPATIC, LIPASE, CBC ####[address] [place] [address] USAHyaline casts [#/area] in Urine sediment by Automated countOrdered By: Matthew Gordon on 46-69-9370Nximiut casts Auto (Urine sed) [#/Area]None [LPF]0-8[facility] Ketones [Presence] in Urine by Test stripOrdered By: Matthew Gordon on 12-26-2024 Ketones Ql (U)3+NormalNegChillicothe HospitalComment on above: Order Comment: Name Collection Type:: Clean-Voided MidstreamPerformed By: #### ADDONUAPLUS ####[place] [address] USALeukocyte esterase [Presence] in Urine by Test stripOrdered By: Matthew Gordon on 71-03-6060Snzodxxac esterase Test strip Ql (U)NegativeNormalNegative [facility] HospitalComment on above:Order Comment: Name Collection Type:: Clean-Voided MidstreamPerformed By: #### ADDONUAPLUS ####[facility] [address] [place] [address] USALeukocytes [#/area] in Urine sediment by Automated countOrdered By: Matthew Gordon on 83-93-3577QGO Auto (Urine sed) [#/Area]5-9 [HPF]High0-4FLutheran Hospital Leukocytes [#/volume] corrected for nucleated erythrocytes in Blood by Automated counOrdered By: Matthew Gordon on 75-36-6396FIJ corrected for nucl RBC Auto (Bld) [#/Vol]7.8 10*3/uL3.8-11.6FLutheran HospitalLeukocytes [#/volume] in Blood by Automated countOrdered By: Matthew Gordon on 24-49-9408YQF (Bld) [#/Vol]7.8 10*3/uLNormal3.8-11.6FLutheran HospitalComment on above:Performed By: #### BMP, HEPATIC, LIPASE, CBC #### [facility] [address] [place] [address] USALipase [Enzymatic activity/volume] in Serum or Plasma Ordered By: Matthew Gordon on 31-47-7173Iwuibk [Catalytic activity/Vol]15.0 U/L Txzvey01.0-82.0[facility] HospitalComment on above:Result Comment: PERFORMED BY: [facility] [address] [place] [address] PATHOLOGIST ROTOFORMER BACKTENDER ERMELINDA GIPSON M.D.Performed By: #### BMP, HEPATIC, LIPASE, CBC ####[facility] [address] [place] [address] USALymphocytes [#/volume] in Blood by Automated countOrdered By: Matthew Gordon on 12-26-2024 Lymphocytes (Bld) [#/Vol]1.6 10*3/uLNormal1.00-4.8[facility] HospitalComment on above:Performed By: #### BMP, HEPATIC, LIPASE, CBC #### [facility] [address] [place] [address] USALymphocytes/100 leukocytes in Blood by Automated count Ordered By: Matthew Gordon on 69-92-5356Lmtgwipodex/100 WBC (Bld)21.0 %Normal. [facility] HospitalComment on above:Performed By: #### BMP, HEPATIC, LIPASE, CBC #### [facility] [address] [Entitic mass] by Automated countOrdered By: Matthew Gordon on 71-41-3524MPR (RBC) [Entitic mass]31.4 ebLfbmfr81.7-34.3FLutheran HospitalComment on above:Performed By: #### BMP, HEPATIC, LIPASE, CBC #### [facility] [address] StreetHC Auto (RBC) [Mass/Vol]Ordered By: Matthew Gordon on 87-16-2690OJKU (RBC) [Mass/Vol]33.5 g/dL32.0-35.0[facility] Union HospitalMCV [Entitic volume] by Automated countOrdered By: Matthew Gordon on 20-15-5981BRI (RBC) [Entitic vol]93.7 rWSpfide34-489IlfmstbklCleveland Clinic Union HospitalComment on above:Performed By: #### BMP, HEPATIC, LIPASE, CBC #### [facility] [address] [place] [id number] USAMonocyte distribution width [Entitic volume] in Blood by AutomatedOrdered By: Matthew Gordon on 37-91-5541Jciexpmv distribution width Auto (Bld) [Entitic vol]15.74 %0.00-20.00[facility] Union HospitalMonocytes [#/volume] in Blood by Automated countOrdered By: Matthew Gordon on 12-26-2024 Monocytes (Bld) [#/Vol]0.5 10*3/uLNormal0.0-0.8[facility] Comment on above:Performed By: #### BMP, HEPATIC, LIPASE, CBC #### [facility] [address] [place] [id number] USAMonocytes/100 leukocytes in Blood by Automated count Ordered By: Matthew Gordon on 61-49-3254Kghjrezdo/100 WBC (Bld)7.0 %Normal. [facility] HospitalComment on above:Performed By: #### BMP, HEPATIC, LIPASE, CBC #### [facility] [address] [place] [address] USAMucus [Presence] in Urine by AutomatedOrdered By: Matthew Godron on 62-41-1113Kdjlq Auto Ql (U)Rare [LPF][facility] Neutrophils [#/volume] in Blood by Automated countOrdered By: Matthew Gordon on 61-44-0795Wzgdzmknrbg (Bld) [#/Vol]5.5 10*3/uLNormal1.8-7.7FLutheran HospitalComment on above:Performed By: #### BMP, HEPATIC, LIPASE, CBC #### [facility] [address] [place] [id number] USANeutrophils/100 leukocytes in Blood by Automated count Ordered By: Matthew Gordon on 49-26-6259Lrulmvlslyv/100 WBC (Bld)70.6 %Normal. [facility] HospitalComment on above:Performed By: #### BMP, HEPATIC, LIPASE, CBC #### [facility] [address] [place] [address] USANitrite Test strip Ql (U)Ordered By: Matthew Gordon on 56-23-7489Wpvotly Ql (U)NegativeNegativeCleveland Clinic Union HospitalNo Panel InformationOrdered By: Matthew Gordon on 10-10-6794Hgyzpqma Creatinine Clearance (Chem56.70[facility] Union HospitalNucleated erythrocytes [Presence] in Blood by Automated countOrdered By: Matthew Gordon on 12-26-2024 Nucleated RBC Auto Ql (Bld)0.0 /100{WBC}0-0.5FLutheran Hospital Platelet mean volume [Entitic volume] in Blood by Automated countOrdered By: Matthew Gordon on 22-76-5179Csxhpdxf mean volume (Bld) [Entitic vol]7.4 fLNormal 6.3-10.7FLutheran HospitalComment on above:Performed By: #### BMP, HEPATIC, LIPASE, CBC #### [facility] [address] [place] [address] USAPlatelets [#/volume] in Blood by Automated countOrdered By: Matthew Gordon on 46-73-1018Ltuydmcty (Bld) [#/Vol]278 10*3/dKQhahsg514-152 [facility] HospitalComment on above:Performed By: #### BMP, HEPATIC, LIPASE, CBC #### [facility] [address] [place] [address] USAPotassium [Moles/volume] in Serum or PlasmaOrdered By: Matthew Gordon on 59-81-3445Xmaplazzl [Moles/Vol]3.3 mmol/LLow3.5-5.1FLutheran HospitalComment on above:Performed By: #### BMP, HEPATIC, LIPASE, CBC ####[facility] [address] [place] [id number] [place] Protein Test strip (U) [Mass/Vol]Ordered By: Matthew Gordon on 62-57-4748Byyxhsy (U) [Mass/Vol]NegativeNegativeCleveland Clinic Union HospitalProtein [Mass/volume] in Serum or PlasmaOrdered By: Matthew Gordon on 36-46-5216Avggduk [Mass/Vol]7.5 g/dLNormal6.4-8.9[facility] HospitalComment on above:Performed By: #### BMP, HEPATIC, LIPASE, CBC ####[facility] [address] [place] [id number] USASerum globulin measurement by calculation (mass/volume)Ordered By: Matthew Gordon on 12-67-1867Yvcbywdu (S) [Mass/Vol]3.1 g/dLNormalCleveland Clinic Union HospitalComment on above: Performed By: #### BMP, HEPATIC, LIPASE, CBC ####[facility] [address] [place] [id number] USASerum or plasma albumin/globulin mass ratioOrdered By: Matthew Gordon on 20-72-1033Pegroyy/Globulin [Mass ratio]1.4 {ratio}NormalCleveland Clinic Union HospitalComment on above:Performed By: #### BMP, HEPATIC, LIPASE, CBC ####[facility] [address] [place] [phone] USASerum or plasma anion gap determinationOrdered By: Matthew Gordon on 70-12-7352Ctquf gap [Moles/Vol]11.0 mmol/LNormal6.0-15.0 [facility] HospitalComment on above:Performed By: #### JULIO C, HEPATIC, LIPASE, CBC ####[facility] [address] [place] [address] USASerum or plasma non-glucuronidated bilirubin measurement (mass/volume)Ordered By: Matthew Gordon on 90-36-1089Dwrvetkzw.indirect [Mass/Vol] 0.5 mg/dLWayne Hospitalodium [Moles/volume] in Serum or PlasmaOrdered By: Matthew Gordon on 94-66-7333Ytqqdr [Moles/Vol]139 mmol/LNormal 136-145[facility] HospitalComment on above:Performed By: #### BMP, HEPATIC, LIPASE, CBC ####[facility] [place] [id number] USASpecific gravity Test strip (U) [Rel density]Ordered By: Matthew Gordon on 47-71-2733Yebqbjyu gravity (U) [Rel density]1.836Xjjo6.001-1.030 [facility] HospitalUrea nitrogen [Mass/volume] in Serum or Plasma Ordered By: Matthew Gordon on 99-71-4953Ckdf nitrogen [Mass/Vol]18 mg/dLNormal7-25 [facility] HospitalComment on above:Performed By: #### BMP, HEPATIC, LIPASE, CBC ####[facility] [address] [place] [address] USAUrobilinogen Test strip (U) [Mass/Vol]Ordered By: Matthew Gordon on 83-62-6685Bqqubtspudiz (U) [Mass/Vol]Normal mg/dLNormalCleveland Clinic Union HospitalpH of Urine by Test stripOrdered By: Matthew Gordon on 46-53-4740jH (U)6.0 [pH]Normal5.0-9.0[facility] HospitalComment on above:Order Comment: Name Collection Type:: Clean-Voided MidstreamPerformed By: #### ADDONUAPLUS ####[facility] [address] [place] [address] USABasophils Auto (Bld) [#/Vol]on 24-74-9579Bryeznaza (Bld) [#/Vol] Automated basophil count0.0-0.1FLutheran HospitalBasophils (Bld) [#/Vol]0.0 10 3/uL0.0-0.1FLutheran HospitalBasophils/100 WBC Auto (Bld)on 15-13-5419Tyiybaegp/100 WBC (Bld)Automated basophil %0.2-2.0[facility] HospitalBasophils/100 WBC (Bld)0.2 %0.2-2.0[facility] HospitalEosinophils/100 WBC Auto (Bld)on 07-38-3070Hikvknsuoph/100 WBC (Bld)Automated eosinophil %0.9-7.0[facility] Eosinophils/100 WBC (Bld)0.9 %0.9-7.0[facility] Erythrocyte distribution width Auto (RBC) [Ratio]on 65-08-5417Hyblazzpnsb distribution width (RBC) [Ratio]Erythrocyte distribution width [Ratio] by Automated count11.0-15.0[facility] Union HospitalErythrocyte distribution width (RBC) [Ratio]12.7 %11.0-15.0[facility] Estimated glomerular filtration rate (GFR) non- Americanon 08-30-2024 GFR/1.73 sq M.predicted among non-blacks MDRD (S/P/Bld) [Vol rate/Area]Estimated glomerular filtration rate (GFR) non->=60 mL/min/1.73m 2 [facility] HospitalGlomerular filtration rate (GFR) estimation in non- Americanon 26-82-2366OWN/1.73 sq M.predicted among non-blacks MDRD (S/P/Bld) [Vol rate/Area]mL/min/{1.73_m2}>=60 mL/min/1.73m 2FLutheran HospitalHematocrit Auto (Bld) [Volume fraction]on 08-58-9705Bmsaebhwje (Bld) [Volume fraction]Hematocrit [Volume Fraction] of Blood by Automated count 36.0-48.0[facility] HospitalHematocrit (Bld) [Volume fraction]44.3 %36.0-48.0[facility] HospitalHemoglobin [Mass/volume] in Bloodon 09-85-3472Eejtzakhsu (Bld) [Mass/Vol]Hemoglobin [Mass/volume] in Blood12.0-16.0 [facility] HospitalHemoglobin (Bld) [Mass/Vol]14.8 g/dL12.0-16.0 [facility] HospitalLaboratory - Chemistry and Chemistry - challengeon 27-56-2387Ntracgt [Mass/Vol]9.2 mg/dL8.5-10.1FLutheran HospitalChloride [Moles/Vol]104 mmol/T59-302TcvtcuqkzCleveland Clinic Union HospitalCO2 [Moles/Vol]29.3 mmol/L21.0-32.0[facility] Creatinine [Mass/Vol]0.83 mg/dL0.55-1.02[facility] GFR/1.73 sq M.predicted MDRD (S/P/Bld) [Vol rate/Area]mL/min/{1.73_m2}>=60 mL/min/1.73m 2FLutheran HospitalGlucose [Mass/Vol]90 mg/aG78-430 [facility] HospitalPotassium [Moles/Vol]4.3 mmol/L3.5-5.1FMetroHealth Main Campus Medical Centerodium [Moles/Vol]141 mmol/N698-300QwdvjezspCleveland Clinic Union HospitalUrea nitrogen [Mass/Vol]18.0 mg/dL7.0-18.0[facility] HospitalUrea nitrogen/Creatinine [Mass ratio]21.7 mg/mgCleveland Clinic Union HospitalBilirubin Ql (U)NegativeNEGATIVECleveland Clinic Union Hospital Glucose (U) [Mass/Vol]NegativeNEGATIVECleveland Clinic Union HospitalKetones Ql (U)NegativeNEGATIVECleveland Clinic Union HospitalpH (U)5.5 [pH]5.0-9.0 Wayne Hospitalpecific gravity (U) [Rel density]1.020 1.005-1.025[facility] HospitalUrobilinogen Qn (U)0.2 {Katy'U}/dL0.2-1.0[facility] HospitalLaboratory - Hematology and Cell countson 73-92-5969Akmprxwp granulocytes/100 WBC (Bld)0.4 %0.0-0.5 [facility] HospitalLaboratory - Specimen informationon 08-30-2024 Appearance (U)SL CLOUDYCLEARFLutheran HospitalColor (U)LT. YELLOW YELLOWCleveland Clinic Union HospitalLaboratory - Urinalysison 08-30-2024 Leukocyte esterase Test strip Ql (U)MODERATEAbnormalNEGWexner Medical CenterMucus Ql (Urine sed)TRACEAbnormalNONE SEENCleveland Clinic Union HospitalNitrite Ql (U)PositiveAbnormalNEGWexner Medical CenterProtein Ql (U)30 mg/dLAbnormalNEG/TRACECleveland Clinic Union Hospital Leukocytes [#/volume] corrected for nucleated erythrocytes in Blood by Automated counon 15-52-5967HTC corrected for nucl RBC Auto (Bld) [#/Vol]Leukocytes [#/volume] corrected for nucleated erythrocytes in Blood by Automated counHigh 4.0-11.0[facility] HospitalWBC corrected for nucl RBC Auto (Bld) [#/Vol]12.0 10 3/uLHigh4.0-11.0[facility] HospitalLymphocytes Auto (Bld) [#/Vol]on 12-50-1733Odxpdsfdtgr (Bld) [#/Vol]Lymphocytes [#/volume] in Blood by Automated count1.2-3.8[facility] HospitalLymphocytes (Bld) [#/Vol]1.3 10 3/uL1.2-3.8[facility] HospitalLymphocytes/100 WBC Auto (Bld)on 09-83-6275Wbxpnblhogl/100 WBC (Bld)Lymphocytes/100 leukocytes in Blood by Automated qxbnzDay81.5-60.0[facility] Lymphocytes/100 WBC (Bld)10.7 %Low20.5-60.0[facility] FoundationH Auto (RBC) [Entitic mass]on 56-28-6871DOY (RBC) [Entitic mass]MCH [Entitic mass] by Automated count26.7-34.0[facility] (RBC) [Entitic mass]32.0 pg26.7-34.0[facility] FoundationHC Auto (RBC) [Mass/Vol] on 54-47-5161UNWD (RBC) [Mass/Vol]MCHC [Mass/volume] by Automated count29.9-35.2 [facility] FoundationHC (RBC) [Mass/Vol]33.4 g/dL29.9-35.2 [facility] HospitalMCV Auto (RBC) [Entitic vol]on 59-35-3421YZO (RBC) [Entitic vol]MCV [Entitic volume] by Automated count81.0-99.0[facility] Clinic FoundationV (RBC) [Entitic vol]95.9 fL81.0-99.0[facility] HospitalMonocytes Auto (Bld) [#/Vol]on 11-11-4341Egwxfrtvy (Bld) [#/Vol] Automated blood monocyte countHigh0.3-0.8[facility] Monocytes (Bld) [#/Vol]0.9 10 3/uLHigh0.3-0.8[facility] Monocytes/100 WBC Auto (Bld)on 26-82-7298Eubkiaoed/100 WBC (Bld)Automated monocyte %1.7-12.0[facility] HospitalMonocytes/100 WBC (Bld)7.1 % 1.7-12.0[facility] HospitalNeutrophils Auto (Bld) [#/Vol]on 62-01-7313Ljpsbrvflmh (Bld) [#/Vol]Neutrophils [#/volume] in Blood by Automated countHigh1.4-6.5FLutheran HospitalNeutrophils (Bld) [#/Vol]9.7 10 3/uLHigh1.4-6.5FLutheran HospitalNeutrophils/100 WBC Auto (Bld) on 30-76-7988Feivdyrqfnc/100 WBC (Bld)Automated neutrophil %High43.0-75.0 [facility] HospitalNeutrophils/100 WBC (Bld)80.7 %High43.0-75.0 [facility] HospitalNo Panel Informationon 97-88-1291Blmudamefrj # (Auto)0.1 10 3/uL0.0-0.7FLutheran HospitalImmature Granulocyte # (Auto)0.05 10 3/uLHigh0.00-0.03[facility] HospitalUrine Bacteria MODERATE #/HPFAbnormalNONE [facility] HospitalUrine Culture ReflexedYES-FRMCCleveland Clinic Union HospitalUrine Occult BloodMODERATE AbnormalNEGATIVECleveland Clinic Union HospitalUrine Other CastsNONE SEEN #/LPFNONE [facility] HospitalUrine Other CrystalsNone Seen #/HPFNone [facility] HospitalUrine PLU93-21 #/HPFAbnormal0-2 [facility] HospitalUrine Squamous Epithelial CellsFEW #/LPF AbnormalNONE/RARECleveland Clinic Union HospitalUrine DRS61-82 #/HPFAbnormal NONE [facility] Memorial HospitalPlatelet mean volume Auto (Bld) [Entitic vol]on 45-45-9667Qirrkogk mean volume (Bld) [Entitic vol]Platelet mean volume [Entitic volume] in Blood by Automated countLow9.5-13.5FLutheran HospitalPlatelet mean volume (Bld) [Entitic vol]9.2 fLLow9.5-13.5FLutheran HospitalPlatelets Auto (Bld) [#/Vol]on 71-98-5075Deppyvwhb (Bld) [#/Vol]Platelets [#/volume] in Blood by Automated tgvoa209-564QddcbtzutCleveland Clinic Union HospitalPlatelets (Bld) [#/Vol]271 10 3/vC980-690TnitmcjlzCleveland Clinic Union HospitalRBC Auto (Bld) [#/Vol]on 17-66-9314QWW (d) [#/Vol]Erythrocytes [#/volume] in Blood by Automated count4.20-5.40[facility] RBC (Bld) [#/Vol]4.62 10 6/uL4.20-5.40Wayne Hospitalerum or plasma anion gap determinationon 05-19-3323Iuxhm gap [Moles/Vol]Serum or plasma anion gap determinationCleveland Clinic Union HospitalAnion gap [Moles/Vol] 12.0 mmol/[facility] HospitalUrine Cultureon 61-66-5817Cqzplylc identified Cx Nom (U)ORGANISM: Escherichia coli (O:ESCCOL) [place] Count >100,000 Aerobic OMID Charge (NMIC56) SUSCEPTIBILITY ORGANISM: O:ESCCOL ANTIBIOTIC INTERPRETATION OMID Amikacin S <16 Amoxacillin/K Clavulanate S <8 Ampicillin S <8 Ampicillin/Sulbactam S <4 Aztreonam S <4 Cefazolin S <2 Cefepime S <2 Ceftazidime S <1 Ceftazidime/Avibactam S <4 Ceftolozane/Tazobactam S <2 Ceftriaxone S <1 Cefuroxime S 8 Ciprofloxacin S <0.25 Ertapenem S <0.5 Gentamicin S <2 Levofloxacin S <0.5 Meropenem S <1 Meropenem/Vaborbactam S <2 Nitrofurantoin S <32 Piperacillin/Tazobactam S <8 Tetracycline S <4 Tigecycline S <2 Tobramycin S <2 Trimethoprim/Sulfamethoxazole S <0.5 S = SUSCEPTIBLE I = INTERMEDIATE R = RESISTANT BLANK = DATA NOT AVAILABLE, OR DRUG NOT ADVISABLE OR TESTED R* = RESISTANCE DUE TO EXTENDED SPECTRUM BETA-LACTAMASES ESBL = EXTENDED SPECTRUM BETA-LACTAMASE TFG = THYMIDINE-DEPENDENT STRAIN ROBERT = BETA-LACTAMASE POSITIVE IB = INDUCIBLE BETA-LACTAMASE. APPEARS IN PLACE OF 'S' WITH SPECIES KNOWN TO POSSESS INDUCIBLE BETA-LACTAMASES. POTENTIALLY THEY MAY BECOME RESISTANT TO ALL B-LACTAM DRUGS. PERFORMED BY: [facility] [address] [place] [address] PATHOLOGIST ROTOFORMER BACKTENDER ERMELINDA GIPSON M.D.NormalHca Florida Lake Monroe Hospital Physician GroupComment on above: Performed By: #### CUU #### [address] StreetUrine cultureOrdered By: Abiel Duran on 08-30-2024 Bacteria identified Cx Nom (U)Escherichia coliAbUC Medical CenterConsultation/Specialist Noteon 57-86-0965Zmwhffsndtyj/Specialist Note [id number]#1.00OTElyria [facility] Hospital - Other Lab Resultson 35-96-5615Dhi - Other Lab Results [id number]#1.00OTElyria Memorial Hospital - Other Pathology Reporton 42-91-2059Zis - Other Pathology Report [id number]#1.00OTGTAshtabula General HospitalLon 08-11-2024 Specimen: [id number] Received: 08/14/24 Status: ZORAIDA Robert Num: [id number] Spec Type: Cytology Subm Dr: Rc Ryan MD Tissues: A URINECYTO (URINE) Procedures: Cyto Prepstain, PAPSTN Age/ Patient Sex Location Account Attending Physician Rosa M Abbott 69/F LABELL [id number] Rc Ryan MD SPEC NUM: [id number] RECD: 08/14/24 STATUS: ZORAIDA ROBERT NUM: [id number] DIANA: 08/11/24 [facility] [address]: Rc Ryan MD ENTERED: 08/14/[address] [facility] [address]: Jacques,Lab SPEC TYPE: Cytology DEPT: DAYO MILAN ENTERED BY: [id number] RECV BY: [id number] ORDERED: Cyto Prepstain, PAPSTN ORDERED: Cyto Prepstain, [...] (CC/nh) Microscopic Description Microscopic examination is performed Specimen: [id number] Received: 08/14/24 Status: ZORAIDA Robert Num: [id number] Spec Type: Cytology Subm Dr: Rc Ryan MD Tissues: A URINECYTO (URINE) Procedures: Cyto Prepstain, PAPSTN Patient: Rosa M Abbott [id number] (Continued) Specimen: [id number] Received: 08/14/24 (Continued) Signed (signature on file) Lorie Herrera MD 08/15/24 0848 Specimen: [id number] Received: 08/14/24 Status: ZORAIDA Robert Num: [id number] Spec Type: Cytology Subm Dr: Rc Ryan MD Tissues: A URINECYTO (URINE) Procedures: Cyto Prepstain, PAPSTN Patient: Rosa M Abbott [id number] (Continued) Specimen: [id number] Received: 08/14/24 (Continued) CPT Codes 13076 Specimen: [id number] Received: 08/14/24 Status: ZORAIDA Robert Num: [id number] Spec Type: Cytology Subm Dr: Rc Ryan MD Tissues: A URINECYTO (URINE) Procedures: Cyto Prepstain, PAPSTN Patient: Rosa M Abbott [id number] (Continued) Signed (signature on file) Chin-Miguel Herrera MD 08/15/[address] [place] [address] Physician GroupAspartate aminotransferase [Enzymatic activity/volume] in Serum or PlasmaOrdered By: OUTREACH COMMUNITY on 07-18-2024 AST [Catalytic activity/Vol]Aspartate aminotransferase [Enzymatic activity/volume] in Serum or Hdljzz01-48LlpvpcdpjCleveland Clinic Union Hospital Potassium [Moles/volume] in Serum or PlasmaOrdered By: OUTREACH COMMUNITY on 60-12-8422Eoohivzfn [Moles/Vol]Potassium [Moles/volume] in Serum or Plasma 3.5-5.1FLutheran HospitalRedraw Abbie 50-13-5636QJJ [Catalytic activity/Vol]28 U/BWkdczf94-72Z[facility] Physician GroupComment on above: Performed By: #### REDRAW VITD REDRAW AST, REDRAW K ####[facility] [address] [place] [address] USARedraw Potassiumon 07-18-2024 Potassium [Moles/Vol]4.5 mmol/LNormal3.5-5.1[facility] Physician GroupComment on above:Performed By: #### REDRAW VITD REDRAW AST, REDRAW K ####[facility] [address] [place] [address] USARedraw Vitamin D 25OH on 13-32-3170Dwskyl Vitamin D 25OH92.0 ng/pNRhzver43-308Czv [facility] Physician GroupComment on above:Result Comment: VITAMIN D STATUS 25(OH)VITAMIN D RANGE (ng/mL) Deficient <20 Insufficient 20 to <30 Sufficient 30 to 100 Reference: Bryan Chambers Bischoff-Ferrari HA, et al. Evaluation,treatment, and prevention of vitamin D deficiency; an Endocrine Society clinical practice guideline. JCEM. 2010; 96(7):1911-30. PERFORMED BY: [facility] [address] [facility] [place] [address] PATHOLOGIST ROTOFORMER BACKTENDER ANNAMARIA KNOX M.D.Performed By: #### REDRAW VITD, REDRAW AST, REDRAW K ####[address] [place] [address] USAVitamin D+Metabolites [Mass/volume] in Serum or PlasmaOrdered By: OUTREACH COMMUNITY on 50-40-7539Ltgaxod D+Metabolites [Mass/Vol]Vitamin D+Metabolites [Mass/volume] in Serum or Rprawu66-749SetvhsvuzCleveland Clinic Union HospitalComment on above: VITAMIN D STATUS 25(OH)VITAMIN D RANGE (ng/mL) Deficient <20 Insufficient 20 to <29Nhcwclzllw31 to 100Reference: Bryan Chambers, Sienna LOJA, et al. Evaluation,treatment, and prevention of vitamin D deficiency; an Endocrine Society clinical practice guideline. JCEM. 2010; 96(7):1911-30.Alanine aminotransferase [Enzymatic activity/volume] in Serum or PlasmaOrdered By: OUTREACH COMMUNITY on 85-68-6726XZE [Catalytic activity/Vol]Alanine aminotransferase [Enzymatic activity/volume] in Serum or Plasma-[facility] HospitalAlbumin [Mass/volume] in Serum or Plasma by Bromocresol green (BCG) dye binding methoOrdered By: OUTREACH COMMUNITY on 94-44-2100Ipuajqa BCG dye [Mass/Vol]Albumin [Mass/volume] in Serum or Plasma by Bromocresol green (BCG) dye binding metho3.5-5.7FLutheran HospitalAlkaline phosphatase [Enzymatic activity/volume] in Serum or PlasmaOrdered By: OUTREACH COMMUNITY on 55-65-2214BFV [Catalytic activity/Vol]Alkaline phosphatase [Enzymatic activity/volume] in Serum or Fdmkhj78-210TjzylnkebCleveland Clinic Union HospitalAspartate aminotransferase [Enzymatic activity/volume] in Serum or Plasma Ordered By: [facility]REACH COMM[facility] on 89-93-5035TEM [Catalytic activity/Vol] Aspartate aminotransferase [Enzymatic activity/volume] in Serum or Ikpicu31-60 [facility] HospitalComment on above:Specimen hemolyzed, redraw requestedBilirubin.total [Mass/volume] in Serum or PlasmaOrdered By: [facility] on 11-71-5329Hnshxoalk [Mass/Vol]Bilirubin.total [Mass/volume] in Serum or Plasma0.3-1.0[facility] Union HospitalBlood estimated average glucose determination by estimation from glycated hemoglobinOrdered By: [facility] on 55-06-5046Sudmypk glucose Estimated from glycated hemoglobin (Bld) [Mass/Vol]Glucose mean value [Mass/volume] in Blood Estimated from glycated hemoglobinCleveland Clinic Union HospitalCBC Without Differentialon 07-08-2024 Erythrocyte distribution width (RBC) [Ratio]13.3 %Qeisiw73.9-15.3The [facility] Physician GroupComment on above:Performed By: #### CBCNOOUTREACH, OUTREACH LIPID, OUTREACH VITD, OUTREACH GLYCO, OUTREACH CMP #### [facility] [address] [place] [address] USAHematocrit (Bld) [Volume fraction]40.8 %Ruadwr91.0-46.4The [facility] Physician GroupComment on above:Performed By: #### CBCNOOUTREACH, OUTREACH LIPID, OUTREACH VITD, OUTREACH GLYCO, OUTREACH CMP #### [facility] [address] [place] [address] USAHemoglobin (Bld) [Mass/Vol]13.7 g/hIDkieva72.8-15.4The [facility] Physician GroupComment on above:Performed By: #### CBCNOOUTREACH, OUTREACH LIPID, OUTREACH VITD, OUTREACH GLYCO, OUTREACH CMP #### [address] (RBC) [Entitic mass]32.1 lqTtfjby95.7-34.3The [facility] Physician GroupComment on above:Performed By: #### CBCNOOUTREACH, OUTREACH LIPID, OUTREACH VITD, OUTREACH GLYCO, OUTREACH CMP #### [address] (RBC) [Entitic vol]95.7 tJFfixii48-522Rlf [facility] Physician GroupComment on above:Performed By: #### CBCNOOUTREACH, OUTREACH LIPID, OUTREACH VITD, OUTREACH GLYCO, OUTREACH CMP #### [place] [address] USAMean Corpuscular HGB Conc33.6 g/aOVhfsux94.0-35.0The [facility] Physician GroupComment on above:Performed By: #### CBCNOOUTREACH, OUTREACH LIPID, OUTREACH VITD, OUTREACH GLYCO, OUTREACH CMP #### [place] [address] USAPlatelet mean volume (Bld) [Entitic vol]7.2 fLNormal 6.3-10.7The [facility] Physician GroupComment on above:Result Comment: PERFORMED BY: [place] [address] PATHOLOGIST ROTOFORMER BACKTENDER ANNAMARIA KNOX M.D.Performed By: #### CBCNOOUTREACH, OUTREACH LIPID, OUTREACH VITD, OUTREACH GLYCO, OUTREACH CMP #### [place] [address] USAPlatelets (Bld) [#/Vol]271 10*3/dJAqorck919-384Fcj [facility] Physician GroupComment on above:Performed By: #### CBCNOOUTREACH, OUTREACH LIPID, OUTREACH VITD, OUTREACH GLYCO, OUTREACH CMP #### [place] [address] USARBC (Bld) [#/Vol]4.26 10*6/uLNormal3.60-5.00The [facility] Physician GroupComment on above:Performed By: #### CBCNOOUTREACH, OUTREACH LIPID, OUTREACH VITD, OUTREACH GLYCO, OUTREACH CMP #### [facility] [address] [place] [address] USAWBC (Bld) [#/Vol]3.9 10*3/uLNormal3.8-11.6The [facility] Physician GroupComment on above:Performed By: #### CBCNOOUTREACH, OUTREACH LIPID, OUTREACH VITD, OUTREACH GLYCO, OUTREACH CMP #### [facility] [address] [place] [address] USACMP Outreachon 33-52-2145Djuqset [Mass/Vol]3.8 g/dLNormal 3.5-5.7The [facility] Physician GroupComment on above:Performed By: #### CBCNOOUTREACH, OUTREACH LIPID, OUTREACH VITD, OUTREACH GLYCO, OUTREACH CMP #### [facility] [address] [place] [address] USAALP [Catalytic activity/Vol]83 U/MKylatv68-030Idz [facility] Physician GroupComment on above:Performed By: #### CBCNOOUTREACH, OUTREACH LIPID, OUTREACH VITD, OUTREACH GLYCO, OUTREACH CMP #### [facility] [address] [place] [address] USAALT [Catalytic activity/Vol]41 U/LNormal7-52The [facility] Physician GroupComment on above:Performed By: #### CBCNOOUTREACH, OUTREACH LIPID, OUTREACH VITD, OUTREACH GLYCO, OUTREACH CMP #### [facility] [address] [place] [address] USAAnion gap [Moles/Vol]Not performedNormal6.0-15.0The [facility] Physician GroupComment on above:Performed By: #### CBCNOOUTREACH, OUTREACH LIPID, OUTREACH VITD, OUTREACH GLYCO, OUTREACH CMP #### [facility] [address] [place] [address] USAAspartate Amino HeknalzcdteHmmrnf75-87Eas [facility] Physician GroupComment on above:Result Comment: Specimen hemolyzed, redraw requestedPerformed By: #### CBCNOOUTREACH, OUTREACH LIPID, OUTREACH VITD, OUTREACH GLYCO, OUTREACH CMP #### [facility] [address] [place] [address] USABilirubin [Mass/Vol]0.4 mg/dLNormal0.3-1.0The [facility] Physician GroupComment on above:Performed By: #### CBCNOOUTREACH, OUTREACH LIPID, OUTREACH VITD, OUTREACH GLYCO, OUTREACH CMP #### [facility] [address] [place] [address] USACalcium [Mass/Vol]9.1 mg/dLNormal8.6-10.3The [facility] Physician GroupComment on above:Performed By: #### CBCNOOUTREACH, OUTREACH LIPID, OUTREACH VITD, OUTREACH GLYCO, OUTREACH CMP #### [facility] [address] [place] [address] USAChloride [Moles/Vol]108 mmol/DYrpm90-745Wzv [facility] Physician GroupComment on above:Performed By: #### CBCNOOUTREACH, OUTREACH LIPID, OUTREACH VITD, OUTREACH GLYCO, OUTREACH CMP #### [facility] [address] [place] [address] USACO2 [Moles/Vol]28.3 mmol/HHhmndj84.0-31.0The [facility] Physician GroupComment on above:Performed By: #### CBCNOOUTREACH, OUTREACH LIPID, OUTREACH VITD, OUTREACH GLYCO, OUTREACH CMP #### [facility] [address] [place] [address] USACreatinine [Mass/Vol]0.76 mg/dLNormal0.60-1.20The [facility] Physician GroupComment on above:Performed By: #### CBCNOOUTREACH, OUTREACH LIPID, OUTREACH VITD, OUTREACH GLYCO, OUTREACH CMP #### [facility] [address] [place] [address] USAGFR/1.73 sq M.predicted MDRD (S/P/Bld) [Vol rate/Area] mL/min/{1.73_m2}NormalThe [facility] Physician GroupComment on above:Performed By: #### CBCNOOUTREACH, OUTREACH LIPID, OUTREACH VITD, OUTREACH GLYCO, OUTREACH CMP #### [facility] [address] [place] [address] USAGlucose [Mass/Vol]86 mg/fMTpurlb71-382Acm [facility] Physician GroupComment on above:Result Comment: Random Glucose Reference Range is dependent on time and content of last meal. Glucose of more than 200 mg/dL in a nonstressed, ambulatory subject supports the diagnosis of Diabetes Mellitus. ADA recommended reference rangePerformed By: #### CBCNOOUTREACH, OUTREACH LIPID, OUTREACH VITD, OUTREACH GLYCO, OUTREACH CMP #### [facility] [address] [place] [address] USAPotassiumNormal3.5-5.1The [facility] Physician GroupComment on above:Result Comment: Specimen hemolyzed, redraw requestedPerformed By: #### CBCNOOUTREACH, OUTREACH LIPID, OUTREACH VITD, OUTREACH GLYCO, OUTREACH CMP #### [place] [address] USAProtein [Mass/Vol]6.7 g/dLNormal6.4-8.9The [facility] Physician GroupComment on above:Performed By: #### CBCNOOUTREACH, OUTREACH LIPID, OUTREACH VITD, OUTREACH GLYCO, OUTREACH CMP #### [place] [address] USASodium [Moles/Vol]141 mmol/RUqunkr528-011Wjs [facility] Physician GroupComment on above:Performed By: #### CBCNOOUTREACH, OUTREACH LIPID, OUTREACH VITD, OUTREACH GLYCO, OUTREACH CMP #### [facility] [address] [place] [address] USAUrea nitrogen [Mass/Vol]19 mg/dLNormal7-25The [facility] Physician GroupComment on above:Performed By: #### CBCNOOUTREACH, OUTREACH LIPID, OUTREACH VITD, OUTREACH GLYCO, OUTREACH CMP #### [place] [address] USACalcium [Mass/volume] in Serum or PlasmaOrdered By: [facility] on 37-49-0176Ediopfx [Mass/Vol]Calcium [Mass/volume] in Serum or Plasma8.6-10.3FLutheran HospitalCarbon dioxide, total [Moles/volume] in Serum or PlasmaOrdered By: OUTREACH COMMUNITY on 06-87-0810QA9 [Moles/Vol]Carbon dioxide, total [Moles/volume] in Serum or Zawctc48.0-31.0 [facility] HospitalChloride [Moles/volume] in Serum or Plasma Ordered By: [facility]RE[facility] COMM[facility] on 82-84-1145Pyvnfzrd [Moles/Vol]Chloride [Moles/volume] in Serum or KtfkmbNbor49-825MiykauufzCleveland Clinic Union Hospital Cholesterol [Mass/volume] in Serum or PlasmaOrdered By: OUTREACH COMMUNITY on 03-56-1084Grsmhnocbhm [Mass/Vol]Cholesterol [Mass/volume] in Serum or Plasma 140-200C[facility] Union HospitalComment on above:Chol less than 200 mg/dl low riskChol 201-239 mg/dl borderline riskChol 240 mg/dl and greater high riskCholesterol in HDL [Mass/volume] in Serum or PlasmaOrdered By: [facility]REACH COMMUNITY on 02-74-1634Yqgudfsrrnu in HDL [Mass/Vol]Serum or plasma high density lipoprotein (HDL) cholesterol xtsoaifstak97-29GyiahsvryCleveland Clinic Union Hospital Comment on above:HDL CHOL ATP-III CLASSIFICATION Cardiovascular RiskHDL > or equal to 60 mg/dL LOWHDL < 40 mg/dL HIGHCholesterol in LDL Calc [Mass/Vol] Ordered By: [facility]REACH COMM[facility]ITY on 50-63-7535Bwsxzlucihv in LDL [Mass/Vol] Cholesterol in LDL [Mass/volume] in Serum or Plasma by calculationHigh0-100 [facility] HospitalComment on above:LDL ATP III CLASSIFICATIONLDL less than 100 mg/dL OptimalLDL 100-129 mg/dL Near or above fihlosbUXM207-909 mg/dL Borderline highLDL 160-189 mg/dL HighLDL greater than 189 mg/dL Very high Cholesterol in VLDL Calc [Mass/Vol]Ordered By: [facility]REACH COMMUNITY on 07-08-2024 Cholesterol in VLDL [Mass/Vol]Cholesterol in VLDL [Mass/volume] in Serum or Plasma by calculationCleveland Clinic Union HospitalCreatinine [Mass/volume] in Serum or PlasmaOrdered By: OUTREACH COMMUNITY on 62-49-3466Ermeryspez [Mass/Vol]Creatinine [Mass/volume] in Serum or Plasma0.60-1.20[facility] HospitalErythrocyte distribution width Auto (RBC) [Ratio]Ordered By: [facility] on 61-02-3152Oozddscfbxa distribution width (RBC) [Ratio] Erythrocyte distribution width [Ratio] by Automated count11.9-15.3FLutheran HospitalGlucose [Mass/volume] in Serum or PlasmaOrdered By: [facility] on 90-93-9435Xqnyzdn [Mass/Vol]Glucose [Mass/volume] in Serum or Numxfx26-675BdijeaqjfCleveland Clinic Union HospitalComment on above:ADA recommended reference rangeRandom Glucose Reference Range is dependent on time and content of last meal. Glucose of more than 200 mg/dL in a nonstressed, ambulatory subject supports the diagnosisof Diabetes Mellitus.Hematocrit Auto (Bld) [Volume fraction]Ordered By: [facility] on 54-12-3815Sakkvktswh (Bld) [Volume fraction]Hematocrit [Volume Fraction] of Blood by Automated count 34.0-46.4FLutheran HospitalHemoglobin A1c measurementOrdered By: [facility] on 76-29-1911OpP3e (Bld) [Mass fraction]5.4 %Normal4.3-5.6 [facility] HospitalComment on above:Increased risk for diabetes: 5.7 - 6.4diabetes: >6.4glycemic control for adults with diabetes: <7.0Result Comment: Increased risk for diabetes: 5.7 - 6.4 diabetes: >6.4 glycemic control for adults with diabetes: <7.0Performed By: #### CBCNOOUTREACH, OUTREACH LIPID, OUTREACH VITD, OUTREACH GLYCO, OUTREACH CMP #### [facility] [address] [place] [address] USAHemoglobin [Mass/volume] in BloodOrdered By: [facility] on 87-87-0601Iswebxysgs (Bld) [Mass/Vol]Hemoglobin [Mass/volume] in Blood11.8-15.4FLutheran HospitalLeukocytes [#/volume] corrected for nucleated erythrocytes in Blood by Automated counOrdered By: [facility] on 01-53-1795XOT corrected for nucl RBC Auto (Bld) [#/Vol]Leukocytes [#/volume] corrected for nucleated erythrocytes in Blood by Automated coun 3.8-11.6FLutheran HospitalLipid Profile Outreachon 07-08-2024 Cholesterol [Mass/Vol]184 mg/vCIbsftx598-420Ueo [facility] Physician GroupComment on above:Result Comment: Chol less than 200 mg/dl low risk Chol 201-239 mg/dl borderline risk Chol 240 mg/dl and greater high riskPerformed By: #### CBCNOOUTREACH, OUTREACH LIPID, OUTREACH VITD, OUTREACH GLYCO, OUTREACH CMP #### [facility] [address] [place] [address] USACholesterol in HDL [Mass/Vol]63 mg/uXVqdswj57-11Mxc [facility] Physician GroupComment on above:Result Comment: HDL CHOL ATP-III CLASSIFICATION Cardiovascular Risk HDL > or equal to 60 mg/dL LOW HDL < 40 mg/dL HIGHPerformed By: #### CBCNOOUTREACH, OUTREACH LIPID, OUTREACH VITD, OUTREACH GLYCO, OUTREACH CMP #### [facility] [address] [place] [address] USACholesterol.total/Cholesterol in HDL [Mass ratio]2.9 {ratio}Normal<5.0The [facility] Physician GroupComment on above:Performed By: #### CBCNOOUTREACH, OUTREACH LIPID, OUTREACH VITD, OUTREACH GLYCO, OUTREACH CMP #### [facility] [address] [place] [address] USALDL Cholesterol,Dlrkpflbvy260 mg/dLHigh0-100The [facility] Physician GroupComment on above:Result Comment: LDL ATP III CLASSIFICATION LDL less than 100 mg/dL Optimal LDL 100-129 mg/dL Near or above optimal LDL 130-159 mg/dL Borderline high LDL 160-189 mg/dL High LDL greater than 189 mg/dL Very highPerformed By: #### CBCNOOUTREACH, OUTREACH LIPID, OUTREACH VITD, OUTREACH GLYCO, OUTREACH CMP #### [facility] [address] [place] [address] USATriglyceride w/Vvtdnw17 mg/dLNormal0-149The [facility] Physician GroupComment on above:Result Comment: TRIG ATP III CLASSIFICATION TRIG less than 150 mg/dL Normal TRIG 150-199 mg/dL Borderline high TRIG 200-500 mg/dL High TRIG greater than 500 mg/dL Very high Standard traceable to the Center for Disease Conrtrol and Prevention (CDC) test method.Performed By: #### CBCNOOUTREACH, OUTREACH LIPID, OUTREACH VITD, OUTREACH GLYCO, OUTREACH CMP #### [facility] [address] [place] [address] USAVLDL SDDPIRLWBMR44 mg/dLNoECU Health Physician GroupComment on above:Performed By: #### CBCNOOUTREACH, OUTREACH LIPID, OUTREACH VITD, OUTREACH GLYCO, OUTREACH CMP #### [facility] [address] [place] [id number] [facility] Auto (RBC) [Entitic mass]Ordered By: [facility] on 18-03-9151NHZ (RBC) [Entitic mass]MCH [Entitic mass] by Automated count24.7-34.3FMercy Health Springfield Regional [facility] Auto (RBC) [Mass/Vol]Ordered By: [facility] on 40-40-2521KIRU (RBC) [Mass/Vol]MCHC [Mass/volume] by Automated count32.0-35.0C[facility] Clinic FoundationV Auto (RBC) [Entitic vol]Ordered By: [facility] on 33-70-5217NCF (RBC) [Entitic vol]MCV [Entitic volume] by Automated jusay97-655GwrawpehmCleveland Clinic Union HospitalNo Panel InformationOrdered By: [facility] on 41-95-8951Habidvsfo GFR (CKD-EPI)> 60.0 mL/MinCleveland Clinic Union HospitalPharmacy Creatinine Clearance (ChemN/CentervilleOutreach Glycoon 07-08-2024 Glucose [Mass/Vol]108 mg/dLNoECU Health Physician GroupComment on above: Result Comment: PERFORMED BY: [place] [address] PATHOLOGIST ROTOFORMER BACKTENDER ANNAMARIA KNOX M.D.Performed By: #### CBCNOOUTREACH, OUTREACH LIPID, OUTREACH VITD, OUTREACH GLYCO, OUTREACH CMP #### [facility] [address] [place] [address] USAOutreach VitD 25on 42-78-2603Tromndzl VitD 84Fvyxdz01-603 The [facility] Physician GroupComment on above:Result Comment: Specimen hemolyzed, redraw requested VITAMIN D STATUS 25(OH)VITAMIN D RANGE (ng/mL) Deficient <20 Insufficient 20 to <30 Sufficient 30 to 100 Reference: Candido MF,Bryan VO, Sienna LOJA, et al. Evaluation,treatment, and prevention of vitamin D deficiency; an Endocrine Society clinical practice guideline. JCEM. 2010; 96(7):1911-30. PERFORMED BY: [facility] [address] [place] [address] PATHOLOGIST ROTOFORMER BACKTENDER ANNAMARIA KNOX M.D.Performed By: #### CBCNOOUTREACH, OUTREACH LIPID, OUTREACH VITD, OUTREACH GLYCO, OUTREACH CMP #### [facility] [address] [place] [address] USAPlatelet mean volume Auto (Bld) [Entitic vol]Ordered By: [facility] on 20-49-9046Fvwbtppl mean volume (Bld) [Entitic vol]Platelet mean volume [Entitic volume] in Blood by Automated count6.3-10.7FLutheran HospitalPlatelets Auto (Bld) [#/Vol]Ordered By: [facility] COMM[facility] on 90-96-6525Svykbkqqe (Bld) [#/Vol]Platelets [#/volume] in Blood by Automated ofhnr452-472DgzmexxurCleveland Clinic Union HospitalPotassium [Moles/volume] in Serum or PlasmaOrdered By: OUTREACH [facility] on 00-25-4137Xcejvabrn [Moles/Vol]Potassium [Moles/volume] in Serum or Plasma3.5-5.1FLutheran HospitalComment on above:Specimen hemolyzed, redraw requestedProtein [Mass/volume] in Serum or PlasmaOrdered By: [facility] on 07-08-2024 Protein [Mass/Vol]Protein [Mass/volume] in Serum or Plasma6.4-8.9[facility] Union HospitalRBC Auto (Bld) [#/Vol]Ordered By: [facility]REACH [facility] on 82-09-5949QBK (Bld) [#/Vol]Erythrocytes [#/volume] in Blood by Automated count 3.60-5.00Wayne Hospitalerum or plasma anion gap determinationOrdered By: OUTREACH COMMUNITY on 59-22-2494Gkdho gap [Moles/Vol] Serum or plasma anion gap determinationCleveland Clinic Union HospitalComment on above:Test not performedSerum or plasma total cholesterol/high density lipoprotein (HDL) cholesterol mass ratOrdered By: OUTREACH COMMUNITY on 74-62-3527Cjivhdvvbhq.total/Cholesterol in HDL [Mass ratio]Serum or plasma total cholesterol/high density lipoprotein (HDL) cholesterol mass rat<5.0Wayne Hospitalodium [Moles/volume] in Serum or PlasmaOrdered By: OUTREACH COMMUNITY on 08-40-5690Eaoqqj [Moles/Vol]Sodium [Moles/volume] in Serum or Qhxhrj207-375SyfhkagheCleveland Clinic Union HospitalTriglyceride [Mass/volume] in Serum or PlasmaOrdered By: OUTREACH [facility]UN[facility] on 14-60-3715Evoqlrhzyawu [Mass/Vol]Triglyceride [Mass/volume] in Serum or Plasma0-149[facility] HospitalComment on above:TRIG ATP III CLASSIFICATIONTRIG less than 150 mg/dL NormalTRIG 150-199 mg/dL Borderline highTRIG 200-500 mg/dL High TRIG greater than 500 mg/dL Very highStandard traceable to the Center for Disease Co nrtrol and Prevention (CDC) test method.Urea nitrogen [Mass/volume] in Serum or PlasmaOrdered By: [facility]REACH [facility] on 19-69-6229Yyra nitrogen [Mass/Vol]Urea nitrogen [Mass/volume] in Serum or Plasma7-25[facility] Vitamin D+Metabolites [Mass/volume] in Serum or PlasmaOrdered By: OUTREACH [facility]UN[facility] on 35-68-1180Xfwexqq D+Metabolites [Mass/Vol]Vitamin D+Metabolites [Mass/volume] in Serum or Audfxb17-743OnekmewcwCleveland Clinic Union HospitalComment on above:Specimen hemolyzed, redraw requestedVITAMIN D STATUS 25(OH)VITAMIN D RANGE (ng/mL) Deficient <20Insufficient 20 to <30Sufficient 30 to 100Reference: Candido HAYS,Bryan VO, Sienna LOJA, et al. Evaluation,treatment, and prevention of vitamin D deficiency; an Endocrine Society clinical practice guideline. JCEM. 2010; 96(7):1911-30.Urine Cultureon 11-89-8246Gmiktkrl identified Cx Nom (U)<10,000 colonies/ml mixed bacterial skin contaminants including mixed gram negative bacilli - 2 Days PERFORMED BY: [facility] [address] [place] [address] PATHOLOGIST ROTOFORMER BACKTENDER ANNAMARIA KNOX M.D.NormalThe [facility] Physician GroupComment on above: Performed By: #### CUU #### [facility] [address] [place] [id number] USAUrine cultureOrdered By: Alexey Manley on 07-05-2024 Bacteria identified Cx Nom (U)Urine cultureCleveland Clinic Union Hospital Blood Urea Nitrogenon 92-30-9968Ooyu nitrogen [Mass/Vol]15 mg/dLNormal7-25The [facility] Physician GroupComment on above:Order Comment: STAT FOR CTPerformed By: #### CREAT, BUN ####[facility] [address] [place], [place] [address]FPJSD abdomen pelvis w conon 21-24-4243LX abdomen pelvis w [facility] [place] [address] [place] [address] CT Scan Report Signed Patient: Rosa M Abbott MR#: [id number] : 1955 Acct:[id number] Age/Sex: 69 / F ADM Date: 06/28/24 Loc: CT Room: Type: [facility] Attending Dr: Alexey [place] DO Copies [...] nephrolithiasis. Impression dictated by: Ozzy Duggan Jr., Maycol06/28/2024 9:34 AM Dictation Location: [place] [address] Transcribed By: [facility] 06/28/24 0934 Dictated By: Ozzy Duggan Jr, DO 06/28/24 0931 Signed By: 06/28/24 0934[facility] Physician GroupCreatinineon 06-28-2024 Creatinine [Mass/Vol]0.82 mg/dLNormal0.60-1.20The [facility] Comment on above:Order Comment: STAT FOR CTPerformed By: #### CREAT, BUN ####[facility] [address] [place], [place] [address]KLYRXF/1.73 sq M.predicted MDRD (S/P/Bld) [Vol rate/Area]mL/min/{1.73_m2}NormalThe [facility] Physician [facility] HospitalComment on above:Order Comment: STAT FOR CTResult Comment: PERFORMED BY: [facility] [address] [place] [address] PATHOLOGIST ROTOFORMER BACKTENDER ANNAMARIA KNOX M.D.Performed By: #### CREAT, BUN ####[facility] [place], [place] [address]MOVWnoydxdvzu [Mass/volume] in Serum or PlasmaOrdered By: Alexey Manley on 27-79-8663Nxihaxiecv [Mass/Vol] Creatinine [Mass/volume] in Serum or Plasma0.60-1.20[facility] HospitalNo Panel InformationOrdered By: Alexey Manley on 09-17-1221Stcdccncy GFR (CKD-EPI)> 60.0 mL/MinCleveland Clinic Union HospitalPharmacy Creatinine Clearance (ChemN/CentervilleUrea nitrogen [Mass/volume] in Serum or PlasmaOrdered By: Alexey Manley on 22-80-8589Soea nitrogen [Mass/Vol]Urea nitrogen [Mass/volume] in Serum or Plasma7-[facility] HospitalLaboratory - Chemistry and Chemistry - challengeon 06-07-2024 Bilirubin Ql (U)NegativeCleveland Clinic Union HospitalGlucose (U) [Mass/Vol] NegativeCleveland Clinic Union HospitalKetones Ql (U)NegativeCleveland Clinic Union HospitalpH (U)6.5 [pH]Wayne Hospitalpecific gravity (U) [Rel density]1.000C[facility] Union HospitalUrobilinogen (U) [Mass/Vol]0.2 mg/dLCleveland Clinic Union HospitalLaboratory - Specimen informationon 55-93-3137Rdqelhkrzp (U)cloudyCleveland Clinic Union Hospital Color (U)lightyellowCleveland Clinic Union HospitalLaboratory - Urinalysison 98-47-8081Nysmeipxx esterase Test strip Ql (U)+[facility] Nitrite Ql (U)NegativeCleveland Clinic Union HospitalProtein Ql (U)+[facility] HospitalNo Panel Informationon 99-24-5492Zensg Occult Blood+++ [facility] HospitalXR Knee - left 3 Viewson 41-75-6641Itrowyr Result: X-rays and imaging permanently saved to the patient's record were reviewed bilateral AP, lateral and sunrise views weight bearing films taken in the [place] office shows moderate, borderline early severe degenerative changes particularly of the lateral facet of the patella and medial joints. There is no fracture, dislocation, tumor or infection seen.[facility]ly [facility] HospitalXR Knee - right 3 Viewson 53-55-9011Vuxgmdf Result: X-rays and imaging permanently saved to the patient's record were reviewed bilateral AP, lateral and sunrise views weight bearing films taken in the [place] office shows moderate, borderline early severe degenerative changes particularly of the lateral facet of the patella and medial joints. There is no fracture, dislocation, tumor or infection seen.[facility], [facility]No Panel Informationon 22-41-7488Guzgqlpbu Study observation (narrative)[facility] screening mammo BI w/CADon 22-78-0100LD [facility] [place] [address] [place], [place] [id number] Mammography Report Signed Patient: Rosa M Abbott MR#: [id number] : 1955 Acct:[id number] Age/Sex: 69 / F ADM Date: 03/20/24 Loc: [place] Room: Type: [facility] Attending Dr: Katina Vigil DO Copies [...] for the next mammogram. Impression dictated by: Arcahna Curiel M.D.03/20/2024 4:38 PM Dictation Location: [facility] Transcribed By: [facility] 03/20/24 1638 Dictated By: Archana Curiel MD 03/20/24 1635 Signed By: 03/20/[address] 1638[facility]ide Physician GroupCT heart calcium score [facility] 52-70-9604WR heart calcium score [facility] Main [address] [address] [address] Scan Report Signed Patient: Rosa M Abbott MR#: [id number] : 1955 Acct:[id number] Age/Sex: 68 / F ADM Date: 01/06/24 Loc: [facility]: [facility]: Alexey Manley DO Copies to: [...] Duggan Jr., D.O.01/06/2024 2:32 PM Dictation Location: [facility]--14 Transcribed By: [facility] 01/06/24 1432 Dictated By: Ozzy Duggan Jr, DO 01/06/24 1423 Signed By: 01/06/[address] 1432[facility] Physician GroupLaboratory - Chemistry and Chemistry - challengeon 65-92-0562Bdhvsfqdp Ql (U)[facility] CenterGlucose (U) [Mass/Vol][facility] Ketones Ql (U)[facility] Medical CenterpH (U)7.0 [pH][facility] Hospitalpecific gravity (U) [Rel density]1.005Firelands Regional Medical CenterUrobilinogen (U) [Mass/Vol]0.2 mg/dLCleveland Clinic Union HospitalLaboratory - Specimen informationon 88-67-0632Xxhnmqgszv (U)cloudy [facility] HospitalColor (U)lightorangeFLutheran HospitalLaboratory - Urinalysison 86-16-7788Mktchwjfk esterase Test strip Ql (U) ModerateCleveland Clinic Union HospitalNitrite Ql (U)NegativeCleveland Clinic Union HospitalProtein Ql (U)PositiveCleveland Clinic Union HospitalNo Panel Informationon 27-19-8174Hvqpy Occult BloodLargeCleveland Clinic Union HospitalUrine culture routineOrdered By: Mar Almanzar on 11-90-5065Ivvjfbxy identified Cx Nom (U)2 DaysCleveland Clinic Union HospitalAlanine aminotransferase [Enzymatic activity/volume] in Serum or PlasmaOrdered By: [facility] on 41-20-9227WHB [Catalytic activity/Vol]27 U/L7-52C[facility] HospitalAlbumin [Mass/volume] in Serum or Plasma by Bromocresol green (BCG) dye binding methoOrdered By: [facility] on 58-52-8707Phwydgg BCG dye [Mass/Vol]4.0 g/dL3.5-5.7FLutheran HospitalAlkaline phosphatase [Enzymatic activity/volume] in Serum or PlasmaOrdered By: [facility] on 70-11-1096ESO [Catalytic activity/Vol]54 U/C80-990RwpafivdcCleveland Clinic Union HospitalAspartate aminotransferase [Enzymatic activity/volume] in Serum or PlasmaOrdered By: [facility] on 83-51-1625TLF [Catalytic activity/Vol]29 U/J97-55KktexkygjCleveland Clinic Union HospitalBilirubin.total [Mass/volume] in Serum or PlasmaOrdered By: [facility] on 09-11-2023 Bilirubin [Mass/Vol]0.5 mg/dL0.3-1.0[facility] HospitalCalcium [Mass/volume] in Serum or PlasmaOrdered By: [facility] on 09-11-2023 Calcium [Mass/Vol]9.1 mg/dL8.6-10.3FLutheran HospitalCarbon dioxide, total [Moles/volume] in Serum or PlasmaOrdered By: [facility] on 19-91-6215XQ6 [Moles/Vol]28.9 mmol/L21.0-31.0[facility] HospitalChloride [Moles/volume] in Serum or PlasmaOrdered By: [facility] on 56-98-4356Wdtqahts [Moles/Vol]105 mmol/N47-236GrmmhwigvCleveland Clinic Union HospitalCholesterol [Mass/volume] in Serum or PlasmaOrdered By: [facility] on 43-50-5442Bnoauarfkbd [Mass/Vol]185 mg/hX046-228VumxcylogCleveland Clinic Union HospitalComment on above:Chol less than 200 mg/dl low riskChol 201-239 mg/dl borderline riskChol 240 mg/dl and greater high riskCholesterol in LDL Calc [Mass/Vol]Ordered By: [facility] on 50-28-3314Wotlpildoyz in LDL [Mass/Vol]98 mg/dL0-100C[facility] Union HospitalComment on above:LDL ATP III CLASSIFICATIONLDL less than 100 mg/dL OptimalLDL 100-129 mg/dL Near or above foiulklDCB056-898 mg/dL Borderline highLDL 160-189 mg/dL HighLDL greater than 189 mg/dL Very highCholesterol in VLDL Calc [Mass/Vol]Ordered By: [facility] on 65-03-5582Yttgfygnfqy in VLDL [Mass/Vol]17 mg/dLCleveland Clinic Union HospitalCreatinine [Mass/volume] in Serum or PlasmaOrdered By: [facility] on 95-82-6564Gaxwujlqnc [Mass/Vol]0.86 mg/dL0.60-1.20[facility] HospitalErythrocyte distribution width Auto (RBC) [Ratio]Ordered By: [facility] on 94-14-3947Rkciqutgspk distribution width (RBC) [Ratio] 13.3 %11.9-15.3FLutheran HospitalGlucose [Mass/volume] in Serum or PlasmaOrdered By: [facility] on 03-00-9276Dwqfvpv [Mass/Vol]78 mg/dL 70-100[facility] HospitalComment on above:ADA recommended reference rangeRandom Glucose Reference Range is dependent on time and content of last meal. Glucose of more than 200 mg/dL in a nonstressed, ambulatory subject supports the diagnosisof Diabetes Mellitus.Glucose mean value [Mass/volume] in Blood Estimated from glycated hemoglobinOrdered By: [facility] on 18-89-0854Toiqzyk glucose Estimated from glycated hemoglobin (Bld) [Mass/Vol]114 mg/dLCleveland Clinic Union HospitalHematocrit Auto (Bld) [Volume fraction]Ordered By: [facility] on 88-81-0469Woyypltjqe (Bld) [Volume fraction]40.1 %34.0-46.4FLutheran HospitalHemoglobin [Mass/volume] in BloodOrdered By: [facility] on 79-24-7617Lmlryevfkp (Bld) [Mass/Vol]13.4 g/dL11.8-15.4FLutheran HospitalLaboratory - Hematology and Cell countsOrdered By: [facility] on 50-64-2301TuO9a (Bld) [Mass fraction]5.6 %4.3-5.6FLutheran HospitalComment on above:Increased risk for diabetes: 5.7 - 6.4diabetes: >6.4glycemic control for adults with diabetes: <7.0Leukocytes [#/volume] corrected for nucleated erythrocytes in Blood by Automated counOrdered By: [facility] on 17-32-9336JNE corrected for nucl RBC Auto (Bld) [#/Vol]3.9 10*3/uL3.8-11.6 [facility] Auto (RBC) [Entitic mass]Ordered By: [facility] on 85-49-4153WOM (RBC) [Entitic mass]31.9 pg24.7-34.3 [facility] Auto (RBC) [Mass/Vol]Ordered By: [facility] on 83-73-4345LMNR (RBC) [Mass/Vol]33.3 g/dL32.0-35.0[facility] Auto (RBC) [Entitic vol]Ordered By: [facility] on 98-79-1092LNB (RBC) [Entitic vol]95.7 xQ89-528AokqsiuexCleveland Clinic Union Hospital No Panel InformationOrdered By: [facility] on 15-86-7334Jzsxaoplh GFR (CKD-EPI)> 60.0 mL/MinCleveland Clinic Union HospitalPharmacy Creatinine Clearance (ChemN/AFirelands Regional Medical CenterPlatelet mean volume Auto (Bld) [Entitic vol]Ordered By: [facility] on 52-82-9313Jmnvlhhp mean volume (Bld) [Entitic vol]7.7 fL6.3-10.7FLutheran Hospital Platelets Auto (Bld) [#/Vol]Ordered By: [facility] on 09-11-2023 Platelets (Bld) [#/Vol]269 10*3/bB186-419ZsbkgthdyCleveland Clinic Union Hospital Potassium [Moles/volume] in Serum or PlasmaOrdered By: [facility] on 60-00-4688Ypxqhiabe [Moles/Vol]3.9 mmol/L3.5-5.1FLutheran HospitalProtein [Mass/volume] in Serum or PlasmaOrdered By: [facility] on 21-69-1134Ulesbub [Mass/Vol]6.4 g/dL6.4-8.9[facility] HospitalRBC Auto (Bld) [#/Vol]Ordered By: [facility] on 67-13-8871QKO (Bld) [#/Vol] 4.19 10*6/uL3.60-5.00Wayne Hospitalerum or plasma anion gap determinationOrdered By: [facility] on 43-44-6601Hfrec gap [Moles/Vol] 9.0 mmol/L6.0-15.0Wayne Hospitalerum or plasma high density lipoprotein (HDL) cholesterol measurementOrdered By: [facility] on 56-69-4436Adlufcbqdns in HDL [Mass/Vol]70 mg/aU68-45FzppevctjCleveland Clinic Union HospitalComment on above:HDL CHOL ATP-III CLASSIFICATION Cardiovascular RiskHDL > or equal to 60 mg/dL LOWHDL < 40 mg/dL HIGHSerum or plasma total cholesterol/high density lipoprotein (HDL) cholesterol mass ratOrdered By: [facility] on 37-17-3992Wwjhwbhzple.total/Cholesterol in HDL [Mass ratio]2.6 {ratio}<5.0Wayne Hospitalodium [Moles/volume] in Serum or PlasmaOrdered By: [facility] on 11-74-5611Qpzigv [Moles/Vol]139 mmol/P501-673JaffaupfpCleveland Clinic Union HospitalTriglyceride [Mass/volume] in Serum or PlasmaOrdered By: [facility] on 47-27-4966Ucmqvhwvehrw [Mass/Vol]85 mg/dL0-149C[facility] HospitalComment on above:TRIG ATP III CLASSIFICATIONTRIG less than 150 mg/dL NormalTRIG 150-199 mg/dL Borderline highTRIG 200-500 mg/dL High TRIG greater than 500 mg/dL Very highStandard traceable to the Center for Disease Conrtrol and Prevention (CDC) test method.Urea nitrogen [Mass/volume] in Serum or PlasmaOrdered By: [facility] on 24-53-4718Aknx nitrogen [Mass/Vol]12 mg/dL7-[facility] HospitalAlanine aminotransferase [Enzymatic activity/volume] in Serum or PlasmaOrdered By: [facility] on 68-42-7250XSH [Catalytic activity/Vol]25 U/L7-52[facility] HospitalAlbumin [Mass/volume] in Serum or Plasma by Bromocresol green (BCG) dye binding methoOrdered By: [facility] on 78-44-0486Xclahep BCG dye [Mass/Vol]4.5 g/dL3.5-5.7FLutheran HospitalAlkaline phosphatase [Enzymatic activity/volume] in Serum or PlasmaOrdered By: [facility] on 77-04-0631CCH [Catalytic activity/Vol]57 U/L34-104 [facility] HospitalAspartate aminotransferase [Enzymatic activity/volume] in Serum or PlasmaOrdered By: [facility] on 09-12-2022 AST [Catalytic activity/Vol]25 U/H81-70TficghhikCleveland Clinic Union Hospital Bilirubin.total [Mass/volume] in Serum or PlasmaOrdered By: [facility] on 11-78-1389Zfqgdlmon [Mass/Vol]0.7 mg/dL0.3-1.0[facility] HospitalCalcium [Mass/volume] in Serum or PlasmaOrdered By: [facility] on 42-09-9151Dlqcfce [Mass/Vol]9.5 mg/dL8.6-10.3FLutheran Hospital Carbon dioxide, total [Moles/volume] in Serum or PlasmaOrdered By: [facility] on 12-16-7337YH6 [Moles/Vol]27.7 mmol/L21.0-31.0[facility] HospitalChloride [Moles/volume] in Serum or PlasmaOrdered By: [facility] on 78-27-0098Puivhtlf [Moles/Vol]107 mmol/M83-344TgacofqxvCleveland Clinic Union HospitalCholesterol [Mass/volume] in Serum or PlasmaOrdered By: [facility] on 19-15-5293Htnnepphvny [Mass/Vol]209 mg/aR704-655JinjsqtrkCleveland Clinic Union HospitalComment on above:Chol less than 200 mg/dl low riskChol 201-239 mg/dl borderline riskChol 240 mg/dl and greater high riskCholesterol in LDL Calc [Mass/Vol]Ordered By: [facility] on 74-48-6304Oiriqzhruxp in LDL [Mass/Vol]115 mg/dL0-100[facility] HospitalComment on above:LDL ATP III CLASSIFICATIONLDL less than 100 mg/dL OptimalLDL 100-129 mg/dL Near or above nmecambOPZ512-244 mg/dL Borderline highLDL 160-189 mg/dL HighLDL greater than 189 mg/dL Very highCholesterol in VLDL Calc [Mass/Vol]Ordered By: [facility] on 66-89-1569Vylakanlhaq in VLDL [Mass/Vol]21 mg/dLCleveland Clinic Union HospitalCreatinine [Mass/volume] in Serum or PlasmaOrdered By: [facility] on 49-91-1619Rpfsepyxuw [Mass/Vol]0.77 mg/dL0.60-1.20[facility] HospitalErythrocyte distribution width Auto (RBC) [Ratio]Ordered By: [facility] on 56-09-4212Inttazjpdyp distribution width (RBC) [Ratio] 13.5 %11.9-15.3FLutheran HospitalGlucose [Mass/volume] in Serum or PlasmaOrdered By: [facility] on 81-42-7615Hgmxrwx [Mass/Vol]86 mg/dL 70-100[facility] HospitalComment on above:ADA recommended reference rangeRandom Glucose Reference Range is dependent on time and content of last meal. Glucose of more than 200 mg/dL in a nonstressed, ambulatory subject supports the diagnosisof Diabetes Mellitus.Glucose mean value [Mass/volume] in Blood Estimated from glycated hemoglobinOrdered By: [facility] on 80-71-5459Eufmeig glucose Estimated from glycated hemoglobin (Bld) [Mass/Vol]117 mg/dLCleveland Clinic Union HospitalHematocrit Auto (Bld) [Volume fraction]Ordered By: [facility] on 17-87-4600Ezdzfrpcwz (Bld) [Volume fraction]41.9 %34.0-46.4FLutheran HospitalHemoglobin [Mass/volume] in BloodOrdered By: [facility] on 95-23-9908Lyzwhihihh (Bld) [Mass/Vol]14.1 g/dL11.8-15.4FLutheran HospitalLaboratory - Hematology and Cell countsOrdered By: [facility] on 61-57-9688KqA0o (Bld) [Mass fraction]5.7 %4.3-5.6FLutheran HospitalComment on above:Increased risk for diabetes: 5.7 - 6.4diabetes: >6.4glycemic control for adults with diabetes: <7.0Leukocytes [#/volume] corrected for nucleated erythrocytes in Blood by Automated counOrdered By: [facility] on 37-66-6529SHR corrected for nucl RBC Auto (Bld) [#/Vol]5.4 10*3/uL3.8-11.6 [facility] Auto (RBC) [Entitic mass]Ordered By: [facility] on 75-53-5704ZHT (RBC) [Entitic mass]31.6 pg24.7-34.3 [facility] FoundationHC Auto (RBC) [Mass/Vol]Ordered By: [facility] on 77-68-0163RLOB (RBC) [Mass/Vol]33.6 g/dL32.0-35.0[facility] HospitalMCV Auto (RBC) [Entitic vol]Ordered By: [facility] on 21-81-0191IBS (RBC) [Entitic vol]93.9 zH58-177AlewoziucCleveland Clinic Union Hospital No Panel InformationOrdered By: [facility] on 94-09-5998Jdlzaentt GFR (CKD-EPI)> 60.0 mL/MinCleveland Clinic Union HospitalPharmacy Creatinine Clearance (ChemN/AFLutheran HospitalPlatelet mean volume Auto (Bld) [Entitic vol]Ordered By: [facility] on 76-06-9961Goqoamji mean volume (Bld) [Entitic vol]6.9 fL6.3-10.7FLutheran Hospital Platelets Auto (Bld) [#/Vol]Ordered By: [facility] on 09-12-2022 Platelets (Bld) [#/Vol]305 10*3/jR845-267HanxamslcCleveland Clinic Union Hospital Potassium [Moles/volume] in Serum or PlasmaOrdered By: [facility] on 14-57-3142Eohrlmpme [Moles/Vol]4.2 mmol/L3.5-5.1FLutheran HospitalProtein [Mass/volume] in Serum or PlasmaOrdered By: [facility] on 97-27-8618Mublxns [Mass/Vol]6.8 g/dL6.4-8.9[facility] HospitalRBC Auto (Bld) [#/Vol]Ordered By: [facility] on 54-91-0992OZY (Bld) [#/Vol] 4.46 10*6/uL3.60-5.00Wayne Hospitalerum or plasma anion gap determinationOrdered By: [facility] on 14-06-6582Azadb gap [Moles/Vol] 10.5 mmol/L6.0-15.0Wayne Hospitalerum or plasma high density lipoprotein (HDL) cholesterol measurementOrdered By: [facility] on 63-28-5857Uxspbkjzzmh in HDL [Mass/Vol]72 mg/zF93-01CdynqwebmCleveland Clinic Union HospitalComment on above:HDL CHOL ATP-III CLASSIFICATION Cardiovascular RiskHDL > or equal to 60 mg/dL LOWHDL < 40 mg/dL HIGHSerum or plasma total cholesterol/high density lipoprotein (HDL) cholesterol mass ratOrdered By: [facility] on 76-69-0676Brocuabsbjg.total/Cholesterol in HDL [Mass ratio]2.9 {ratio}<5.0Wayne Hospitalodium [Moles/volume] in Serum or PlasmaOrdered By: [facility] on 56-32-4277Alygdv [Moles/Vol]141 mmol/G708-157XwvxhcwhlCleveland Clinic Union HospitalTriglyceride [Mass/volume] in Serum or PlasmaOrdered By: [facility] on 86-27-2786Lipxydvqfwoq [Mass/Vol]109 mg/dL0-149[facility] HospitalComment on above:TRIG ATP III CLASSIFICATIONTRIG less than 150 mg/dL NormalTRIG 150-199 mg/dL Borderline highTRIG 200-500 mg/dL High TRIG greater than 500 mg/dL Very highStandard traceable to the Center for Disease Conrtrol and Prevention (CDC) test method.Urea nitrogen [Mass/volume] in Serum or PlasmaOrdered By: [facility] on 37-47-0665Wvwm nitrogen [Mass/Vol]16 mg/dL7-[facility] HospitalBlood hemoglobin measurement (mass/volume)Ordered By: [facility] on 90-30-1957Xgeuhimrkv (Bld) [Mass/Vol]14.5 g/dL11.8-15.4FLutheran HospitalBody fluid albumin measurement (mass/volume)Ordered By: [facility] on 54-93-0039Jivzxoe (Body fld) [Mass/Vol]3.9 g/dL3.2-5.5 [facility] HospitalCholesterol [Mass/volume] in Serum or Plasma Ordered By: [facility] on 69-53-8758Fbcgsfqfzxj [Mass/Vol]230 mg/dL 140-200C[facility] HospitalComment on above:Chol less than 200 mg/dl low risk Chol 201-239 mg/dl borderline risk Chol 240 mg/dl and greater high riskCholesterol in LDL Calc [Mass/Vol]Ordered By: [facility] on 51-94-7365Nncqcovboql in LDL [Mass/Vol]149 mg/dL0-100 [facility] HospitalComment on above:LDL ATP III CLASSIFICATION LDL less than 100 mg/dL Optimal LDL 100-129 mg/dL Near or above optimal LDL 130-159 mg/dL Borderline high LDL 160-189 mg/dL High LDL greater than 189 mg/dL Very highCholesterol in VLDL Calc [Mass/Vol]Ordered By: [facility] on 75-51-5525Rwspcmplxtm in VLDL [Mass/Vol]14 mg/dL [facility] HospitalCreatinine and Glomerular filtration rate.predicted panel (S/P/Bld)Ordered By: [facility] on 11-08-2021 Creatinine [Mass/Vol]0.89 mg/dL0.44-1.03[facility] Erythrocyte distribution width Auto (RBC) [Ratio]Ordered By: [facility] on 80-96-6248Wvtakfafcdj distribution width (RBC) [Ratio]13.6 %11.9-15.3 [facility] HospitalEstimated glomerular filtration rate (GFR) non- AmericanOrdered By: [facility] on 76-53-8088AYU/1.73 sq M.predicted among non-blacks MDRD (S/P/Bld) [Vol rate/Area]> 60 mL/MinCleveland Clinic Union HospitalHematocrit Auto (Bld) [Volume fraction]Ordered By: [facility] on 40-00-1606Oodwnpdtvn (Bld) [Volume fraction]44.1 % 34.0-46.4FOhio State Health SystemH Auto (RBC) [Entitic mass]Ordered By: [facility] on 06-43-0109TSS (RBC) [Entitic mass]30.9 pg24.7-34.3 [facility] HospitalMCHC Auto (RBC) [Mass/Vol]Ordered By: [facility] on 10-00-5984MCWO (RBC) [Mass/Vol]32.8 g/dL32.0-35.0[facility] HospitalMCV Auto (RBC) [Entitic vol]Ordered By: [facility] on 43-42-1488GYF (RBC) [Entitic vol]94.0 yU25-855DksnkmegxCleveland Clinic Union Hospital No Panel InformationOrdered By: [facility] on 46-30-3972Bgjzcddpa GFR ()> 60 mL/MinCleveland Clinic Union HospitalComment on above: GFR estimated reference range: According to KDOQI guidelines, <60 ml/min/1.73m2 is sufficient todiagnose a patient with chronic kidney disease.Pharmacy Creatinine Clearance (ChemN/CentervilleTriglycerides Uojifg40 mg/mX90-637FhvmvewnnCleveland Clinic Union HospitalComment on above:TRIG ATP III CLASSIFICATION TRIG less than 150 mg/dL Normal TRIG 150-199 mg/dL Borderline high TRIG 200-500 mg/dL High TRIG greater than 500 mg/dL Very high Standard traceable to the Center for Disease Conrtrol and Prevention (CDC) test method.Platelet mean volume Auto (Bld) [Entitic vol]Ordered By: [facility] on 75-16-9640Fmvmmljk mean volume (Bld) [Entitic vol]7.6 fL6.3-10.7 [facility] HospitalPlatelets Auto (Bld) [#/Vol]Ordered By: [facility] on 70-31-0331Darjwrzua (Bld) [#/Vol]317 10*3/iE704-056 [facility] HospitalProtein [Mass/volume] in Serum or PlasmaOrdered By: [facility] on 76-30-2768Ztqsqpz [Mass/Vol]6.8 g/dL6.1-7.9[facility] HospitalRBC Auto (Bld) [#/Vol]Ordered By: [facility] on 01-69-0195MFT (Bld) [#/Vol]4.69 10*6/uL3.60-5.00Wayne Hospitalerum or plasma alanine aminotransferase measurement without P-5'-P (enzymatic activiOrdered By: [facility] on 16-64-6784VMK No additional P-5'-P [Catalytic activity/Vol]33 U/V45-16KpxefeztoWayne Hospitalerum or plasma alkaline phosphatase measurement (enzymatic activity/volume)Ordered By: [facility] on 40-02-8910NIB [Catalytic activity/Vol]65 U/L32-92 [facility] Hospitalerum or plasma aspartate aminotransferase measurement (enzymatic activity/volume)Ordered By: [facility] on 00-38-0926QWH [Catalytic activity/Vol]29 U/A85-48CbfalfhibWayne Hospitalerum or plasma calcium measurement (mass/volume)Ordered By: [facility] on 07-44-5503Tdnjxgj [Mass/Vol]9.6 mg/dL8.2-10.2FMetroHealth Main Campus Medical Centererum or plasma chloride measurement (moles/volume)Ordered By: [facility] on 67-98-6689Bjvpvedx [Moles/Vol]105 mmol/R14-001SslsjpvjjWayne Hospitalerum or plasma glucose measurement (mass/volume)Ordered By: [facility] on 66-48-9182Fcfftwv [Mass/Vol]90 mg/aX14-254OtiifklsmCleveland Clinic Union HospitalComment on above:ADA recommended reference range Random Glucose Reference Range is dependent on time and content of last meal. Glucose of more than 200 mg/dL in a nonstressed, ambulatory subject supports the diagnosis of Diabetes Mellitus.Serum or plasma high density lipoprotein (HDL) cholesterol measurementOrdered By: [facility] on 98-34-6284Pppgznhaswt in HDL [Mass/Vol]66 mg/aT41-49OoehrktejCleveland Clinic Union HospitalComment on above: HDL CHOL ATP-III CLASSIFICATION Cardiovascular Risk HDL > or equal to 60 mg/dL LOW HDL < 40 mg/dL HIGHSerum or plasma potassium measurement (moles/volume)Ordered By: [facility] on 75-99-5321Wrbdfnuqo [Moles/Vol]4.2 mmol/L3.5-5.1 [facility] Hospitalerum or plasma sodium measurement (moles/volume)Ordered By: [facility] on 82-46-9562Ozixsa [Moles/Vol]140 mmol/A572-148IbbgcoruwWayne Hospitalerum or plasma total bilirubin measurement (mass/volume)Ordered By: [facility] on 68-09-0668Idohadwzw [Mass/Vol]0.8 mg/dL0.3-1.2FMetroHealth Main Campus Medical Centererum or plasma total carbon dioxide measurement (moles/volume)Ordered By: [facility] on 92-83-3504RB6 [Moles/Vol]26.0 mmol/L22.0-30.0[facility] Serum or plasma total cholesterol/high density lipoprotein (HDL) cholesterol mass ratOrdered By: [facility] on 11-08-2021 Cholesterol.total/Cholesterol in HDL [Mass ratio]3.5 {ratio}<5.0Wayne Hospitalerum or plasma urea nitrogen measurement (mass/volume) Ordered By: [facility] on 55-84-5146Ekxh nitrogen [Mass/Vol]16 mg/dL9-23 [facility] HospitalWBC Auto (Bld) [#/Vol]Ordered By: [facility] on 83-02-9542TLU (Bld) [#/Vol]4.2 10*3/uL3.8-11.6FLutheran HospitalGLYCOHEMOGLOBIN A1Con 42-02-5319Xgrnnfp [Mass/Vol]108 mg/dLNormal [facility] HospitalComment on above:Performed By: #### A1C #### [facility] [address] [address] Wesley JiuzqBrL4z (Bld) [Mass fraction]5.4 %Normal<=6.0[facility] Comment on above:Performed By: #### A1C #### [facility] [address] [place] [address] Wesley KarenCBC AUTO DIFFon 75-07-2511Ritahkxrd (Bld) [#/Vol]0.0 103/ulNormal 0.0-0.1[facility] CenterComment on above:Performed By: #### CBC #### [facility] [address] [place] [address] Wesley KarenBasophils/100 WBC (Bld)0.7 %Normal0.2-2.0[facility] Comment on above:Performed By: #### CBC #### [facility] [address] [place] [address] Wesley KarenEosinophils (Bld) [#/Vol]0.1 103/ulNormal0.0-0.7[facility] CenterComment on above:Performed By: #### CBC #### [facility] [address] [place] [address] Wesley KarenEosinophils/100 WBC (Bld)2.7 %Normal0.9-7.0[facility] Comment on above:Performed By: #### CBC #### [facility] [address] [place] [address] Wesley KarenErythrocyte distribution width (RBC) [Ratio]12.4 %Prydby25.0-15.0[facility] CenterComment on above:Performed By: #### CBC #### [facility] [address] [place] [address] Wesley KarenHematocrit (Bld) [Volume fraction]43.2 %Fbirov86.0-48.0The [facility] Medical CenterComment on above:Performed By: #### CBC #### [facility] [address] [place] [address] Wesley KarenHemoglobin (Bld) [Mass/Vol]14.5 g/yGZtaopg48.0-16.0The [facility] CenterComment on above:Performed By: #### CBC #### [facility] [address] [place] [address] Wesley KarenIG #0.00 10e3/ulNormal0.00-0.03The [facility] CenterComment on above:Performed By: #### CBC #### [facility] [address] [place] [address] Wesley KarenIG %0.0 %Normal0.0-0.5The [facility] CenterComment on above: Performed By: #### CBC #### [facility] [address] [place] [address] Wesley KarenLymphocytes (Bld) [#/Vol]1.4 103/ulNormal1.2-3.8The [facility] CenterComment on above:Performed By: #### CBC #### [facility] [address] [place] [address] Wesley KarenLymphocytes/100 WBC (Bld)34.9 %Uzfqqk16.5-60.0[facility] Comment on above:Performed By: #### CBC #### [facility] [address] [place] [address] Wesley KarenMANUAL DIFF REQNONormalOhiohealth Grady Memorial HospitalComment on above: Performed By: #### CBC #### [facility] [address] [place] [address] Wesley KarenMCH (RBC) [Entitic mass]31.5 lcCkonif66.7-34.0[facility] Comment on above:Performed By: #### CBC #### [facility] [address] [place] [address] Wesley KarenMCHC (RBC) [Mass/Vol]33.6 g/wNWqgyiq93.9-35.2[facility] Comment on above:Performed By: #### CBC #### [facility] [address] [place] [address] Wesley KarenMCV (RBC) [Entitic vol]93.7 nLTcripq76.0-99.0[facility] Comment on above:Performed By: #### CBC #### [facility] [address] [place] [address] Wesley KarenMonocytes (Bld) [#/Vol]0.4 103/ulNormal0.3-0.8[facility] Comment on above:Performed By: #### CBC #### [facility] [address] [place] [address] Wesley KarenMonocytes/100 WBC (Bld)9.9 %Normal1.7-12.0[facility] Comment on above:Performed By: #### CBC #### [facility] [address] [place] [address] Wesley KarenNeutrophils (Bld) [#/Vol]2.1 103/ulNormal1.4-6.5The [facility] CenterComment on above:Performed By: #### CBC #### [facility] [address] [place] [address] Wesley KarenNeutrophils/100 WBC (Bld)51.8 %Pedvfs49.0-75.0[facility] Comment on above:Performed By: #### CBC #### [facility] [address] [place] [address] Wesley KarenPlatelet mean volume (Bld) [Entitic vol]8.9 fLCritically low9.5-13.5 [facility] HospitalComment on above:Performed By: #### CBC #### [facility] [address] [place] [address] Wesley KarenPlatelets (Bld) [#/Vol]283 103/zaWpdtna237-733Ypm [facility] Comment on above:Performed By: #### CBC #### [facility] [address] [place], [place] [id number] Wesley KarenRBC (Bld) [#/Vol]4.61 106/ulNormal4.20-5.40[facility] Comment on above:Performed By: #### CBC #### [facility] [address] [place] [address] Wesley KarenWBC (Bld) [#/Vol]4.1 103/ulNormal4.0-11.0[facility] Comment on above:Performed By: #### CBC #### [facility] [address] [place] [address] Wesley KarenCULTURE URINEon 84-23-8630HLFPFBD URINECulture Observations: LIGHT GROWTH OF MIXED GENITAL PARDEEP. NO POTENTIAL PATHOGENS SEEN.NormalThe [facility] Medical CenterComment on above:Performed By: #### URCX #### [facility] [address] [place] [address] Wesley KarenPROF CHEM 8 (BAS METB)on 35-44-9400Exaya gap [Moles/Vol]10.3 mmol/L NormalThe [facility] Medical CenterComment on above:Performed By: #### BMP, ALT, AST #### [facility] [address] [place] [address] Wesley KarenCalcium [Mass/Vol]9.3 mg/dLNormal8.4-10.2[facility] Comment on above:Performed By: #### BMP, ALT, AST #### [facility] [address] [place] [address] Wesley KarenChloride [Moles/Vol]104 mmol/EGsnvxb67-853ZmzOhiohealth Grady Memorial Hospital Comment on above:Performed By: #### BMP, ALT, AST #### [facility] [address] [place] [address] Wesley KarenCO2 [Moles/Vol]30.6 mmol/LCritically high22.0-30.0The [facility] CenterComment on above:Performed By: #### BMP, ALT, AST #### [facility] [address] [place] [address] Wesley KarenCreatinine [Mass/Vol]0.98 mg/dLNormal0.52-1.04The [facility] Comment on above:Performed By: #### BMP, ALT, AST #### [facility] [address] [place] [address] Wesley KarenEGFR-AF AUSTRALIAN>60Normal>=60The [facility] Medical CenterComment on above: Performed By: #### BMP, ALT, AST #### [facility] [address] [address] Wesley KarenEGFR-NON AF WQLGQDHJ12 mL/min/1.86u7Twodrvmcgp low>=60The [facility] CenterComment on above:Performed By: #### BMP, ALT, AST #### [facility] [address] [place] [address] Wesley KarenGlucose [Mass/Vol]93 mg/fAXuyunw46-515Oty [facility] CenterComment on above:Performed By: #### BMP, ALT, AST #### [facility] [address] [place] [address] Wesley KarenPotassium [Moles/Vol]3.9 mmol/LNormal3.4-5.0The [facility] Comment on above:Performed By: #### BMP, ALT, AST #### [facility] [address] [place] [address] Wesley KarenSodium [Moles/Vol]141 mmol/NKacttx188-055Zoq [facility] Comment on above:Performed By: #### BMP, ALT, AST #### [facility] [address] [place] [address] Wesley KarenUrea nitrogen [Mass/Vol]18.0 mg/dLCritically high7.0-17.0The [facility] CenterComhelen devos children[facility] on above:Performed By: #### BMP, ALT, AST #### [facility] [address] [place] [address] Wesley KarenUrea nitrogen/Creatinine [Mass ratio]18.4 mg/mgNormalThe [facility] Medical CenterComment on above:Performed By: #### BMP, ALT, AST #### [facility] [address] [place] [address] Wesley KarenSGOTon 17-93-5450OCX [Catalytic activity/Vol]25 U/ESonkhu05-78Qvn [facility] CenterComment on above:Performed By: #### BMP, ALT, AST #### [facility] [address] [place] [address] Wesley KarenSGPTon 11-39-0561TAR [Catalytic activity/Vol]39 U/LNormal9-52[facility] HospitalComment on above:Performed By: #### BMP, ALT, AST #### [facility] [address] [place] [address] Wesley KarenUA (CLEAN/CATCH) CONSUMER MARKETING SPECIALIST/MICRO IF IND.on 19-98-0923Xwuagyhci [Mass/Vol] NegativeNormalNEGATIVECleveland Clinic [facility] HospitalComment on above:Performed By: #### DONNA SHIELDS #### [facility] [address] [place] [address] Wesley KarenBLOODNegativeNormalNEGATIVECleveland Clinic [facility] HospitalComment on above: Performed By: #### DONNA SHIELDS #### [facility] [address] [place] [address] Wesley KarenClarity (U)CLEARNormalThe [facility]etta HospitalComment on above: Performed By: #### DONNA SHIELDS #### [facility] [address] [place] [address] Wesley KarenColor (U)LT. YELLOWNormalYELLOWC[facility] HospitalComment on above:Performed By: #### DONNA SHIELDS #### [facility] [address] [place] [address] Wesley KarenGlucose [Mass/Vol]NegativeNormalNEGATIVECleveland Clinic [facility] HospitalComment on above:Performed By: #### DONNA SHIELDS #### [facility] [address] [place] [address] Wesley KarenKetones Ql (U)NegativeNormalNEGATIVECleveland Clinic [facility] HospitalComment on above:Performed By: #### DONNA SHIELDS #### [facility] [address] [place] [address] Wesley KarenNitrite Ql (U)NegativeNormalNEGATIVECleveland Clinic [facility] HospitalComment on above:Performed By: #### DONNA SHIELDS #### [facility] [address] [place] [address] Wesley KarenpH (Bld)7.5Gziuij1-4W[facility] Jacques HospitalComment on above:Performed By: #### WILLIAN SHIELDSICRO #### [facility] [address] [place] [address] Wesley KarenProtein [Mass/Vol]NegativeNormKettering Health SpringfieldComment on above:Performed By: #### WILLIAN SHIELDSICRO #### [facility] [address] [place] [address] Wesley KarenSPEC GRAVITY1.775Crbsah9.005-<=1.025The [facility] Medical CenterComment on above:Performed By: #### WILLIAN SHIELDSICRO #### [facility] [address] [place] [address] Wesley KarenUR MICRO INDINDICATEDNoAdams County Regional Medical CenterComment on above: Performed By: #### JANAE SHIELDSRO #### [facility] [address] [place] [address] Wesley KarenUrobilinogen Qn (U)0.2 EU/dlNoAdams County Regional Medical CenterComment on above:Performed By: #### WILLIAN SHIELDSICRO #### [facility] [address] [place] [address] Wesley KarenWBC (Bld) [#/Vol]TRACENormalNEGATIVEThe [facility] CenterComhelen devos children's hospital on above:Performed By: #### WILLIAN SHIELDSICRO #### [facility] [address] [place] [address] Wesley KarenURINE MICROSCOPIC ONLYon 35-37-3579Qxuyhvca LM.HPF (Urine sed) [#/Area]SMALLNormalNONE SEENOhiohealth Grady Memorial HospitalComhelen devos children's hospital on above:Performed By: #### JANAE SHIELDSRO #### [facility] [address] [place] [address] Wesley KarenCASTNONE SEENNormalNONE SEENOhiohealth Grady Memorial HospitalComhelen devos children's hospital on above: Performed By: #### ALYSON UMICRO #### [facility] [address] [place] [address] Wesley KarenCrystals LM Nom (Urine sed)NONE SEENNormalNONE SEENOhiohealth Grady Memorial HospitalComment on above:Performed By: #### ALYSON UMICRO #### [facility] [address] [place] [address] Wesley KarenCULTUREINDICATEDNoAdams County Regional Medical CenterComment on above: Performed By: #### ALYSON UMICRO #### [facility] [address] [place] [address] Wesley KarenEpithelial cells LM.HPF (Urine sed) [#/Area]FEWCleveland Clinic Marymount HospitalComment on above:Performed By: #### ALYSON UMICRO #### [facility] [address] [place] [address] Wesley KarenMUCOUSTRACENormalNONE SEENOhiohealth Grady Memorial HospitalComment on above: Performed By: #### ALYSON UMICRO #### [facility] [address] [place] [address] Wesley KarenRBC (U) [#/Vol]5-7Onmqye9-3NjkOhiohealth Grady Memorial HospitalComment on above: Performed By: #### ALYSON UMICRO #### [facility] [address] [place] [address] Wesley KarenWBC (Bld) [#/Vol]0-2NormalNONE SEENOhiohealth Grady Memorial HospitalComment on above:Performed By: #### ALYSON UMICRO #### [facility] [address] [place] [address] Wesley KarenXR DEXA BONE DENSITYon 46-85-2656KC DEXA BONE PITMVFG83[address] [place] [address] Patient: ROSA M ABBOTT Exam Date: 03/10/2018 : 1955 Gender:F Ordering : DR ALEXEY MANLEY Admission #: [id number] Family : CORETTA MESSINA . Order #: [id number] CLICK HERE TO VIEW EXAM RADIOLOGY REPORT [...] by: Sita Pack M.D. on 03/10/2018 at 09:01[facility] Vital Signs Date TimeVital SignValuePerforming OodxhayylPrsbqqzj05-69-5025 14:50-0400 Diastolic blood faoywbqc57 mm[Hg]Storm Player DO Work Phone: [facility]09-30-2025 14:50-0400 Heart rate70 /minBenjamin Ball DO Work Phone: [facility]09-30-2025 14:50-0400 Respiratory rate18 /minBenjamin Ball DO Work Phone: [phone]09-30-2025 14:50-0400 SaO2% (BldA) [Mass fraction]100 %Storm Player DO Work Phone: [phone]09-30-2025 14:50-0400 Systolic blood cslkquom286 mm[Hg]Storm Player DO Work Phone: [phone]09-30-2025 12:14-0400 Body xkbypo531.83 cmBenjamin Ball DO Work Phone: [phone] [place], [place] 9356209-30-2025 12:14-0400 Body kxsgvqfjafj77.3 [degF]Alexey Ball DO Work Phone: [phone] [place], [place] 9356209-30-2025 12:14-0400 Body iimqns34.45 kgBenjamin Ball DO Work Phone: [phone] [place], [place] 9356208-15-2025 13:23-0400 Body aqesqq995.56 cmBenjamin Ball DO Work Phone: [phone] [place], [place] 9356208-15-2025 13:23-0400 Body mass index (BMI) [Ratio]25.4 kg/z8Tiwppfaq Ball DO Work Phone: [phone])[address] [place], [place] 9356208-15-2025 13:23-0400 Body yflfba39.24 kgBenjamin Ball DO Work Phone: [phone])[address] [place], [place] 9356208-15-2025 13:23-0400 Diastolic blood qsfaarab45 mm[Hg]Alexey Ball DO Work Phone: 1(419)[address] [place], [place] 9356208-15-2025 13:23-0400 Heart rate52 /minBenjamin Ball DO Work Phone: 1(419)[address] [place], [place] 9356208-15-2025 13:23-0400 Respiratory rate12 /minBenjamin Ball DO Work Phone: [phone])[address] [place], [place] 9356208-15-2025 13:23-0400 Systolic blood etdyepai049 mm[Hg]Alexey Ball DO Work Phone: 1(419)[address] [place], [place] 9356203-27-2025 09:29-0400 Body .56 cmBenjamin Ball DO Work Phone: [phone])[address] [place], [place] 9356203-27-2025 09:29-0400 Body mass index (BMI) [Ratio]26.5 kg/v5Wxdnhtdi Ball DO Work Phone: [phone])[address] [place], [place] 9356203-27-2025 09:29-0400 Body uixcvs65.08 kgBenjamin Ball DO Work Phone: [phone] [place], [place] 9236303-27-2025 09:29-0400 Diastolic blood jxpbquzi82 mm[Hg]Alexey Ball DO Work Phone: [phone] [place], [place] 9236303-27-2025 09:29-0400 Heart rate57 /minBenjamin Ball DO Work Phone: [phone] [place], [place] 9236303-27-2025 09:29-0400 Respiratory rate12 /minBenjamin Ball DO Work Phone: [phone] [place], [place] 9236303-27-2025 09:29-0400 Systolic blood mm[Hg]Alexey Ball DO Work Phone: [phone] [place], [place] 9236301-29-2025 09:28-0500 Body ibklzv897.8 cmMichael Stoner DO Work Phone: [phone] [place], [place] 3221601-29-2025 09:28-0500Body mass index (BMI) [Ratio]25.35 kg/u0Gofzcdb Stoner DO Work Phone: [phone])[address] [place], [place] 3221601-29-2025 09:28-0500Body ucriiu99.04 kgMichael Stoner DO Work Phone: [phone])[address] [place], [place] 3221610-03-2024 09:40-0400Diastolic blood kexwmkce99 mm[Hg]PHYSICIAN [facility]10-03-2024 09:40-0400Heart rate57 /minPHYSICIAN [facility] 12-30-2023 09:40-0400Respiratory rate20 /minPHYSICIAN [facility]10-03-2024 09:40-9385ImG3% (BldA) [Mass fraction]100 % PHYSICIAN [facility]10-03-2024 09:40-0400 Systolic blood vfjttfat835 mm[Hg]PHYSICIAN [facility]10-03-2024 07:35-0400Body .56 cmPHYSICIAN [facility]10-03-2024 07:35-0400Body jifqpt84.58 kgPHYSICIAN NO [facility]08-13-2024 13:43-0400Body oasbov450.83 cm DO Alexey Ball Work Phone: [phone] [place], [place] 9236308-13-2024 13:43-0400 Body mass index (BMI) [Ratio]25.2 kg/m2DO Alexey Ball Work Phone: [phone])[phone]08-13-2024 13:43-0400 Body xonawx95.58 kgDO Alexey Ball Work Phone: [phone])[address]08-13-2024 13:43-0400 Diastolic blood syvctxdh89 mm[Hg]DO Alexey Ball Work Phone: [phone]08-13-2024 13:43-0400 Heart rate56 /minDO Alexey Ball Work Phone: [phone]08-13-2024 13:43-0400 Respiratory rate12 /minDO Alexey Ball Work Phone: [phone])[address]08-13-2024 13:43-0400 Systolic blood nfjsqesd378 mm[Hg]DO Alexey Ball Work Phone: [phone])[address]07-13-2024 11:15-0400 Body .37 cmDO Alexey Ball Work Phone: 1([phone] [place], [place] 9236307-13-2024 11:15-0400 Body mass index (BMI) [Ratio]24.9 kg/m2DO Alexey Ball Work Phone: [phone])[address]07-13-2024 11:15-0400 Body rqjgpxrthfo13.9 [degF]DO Alexey Ball Work Phone: [phone] [place], [place] 9236307-13-2024 11:15-0400 Body zdomcr68.05 kgDO Alexey Ball Work Phone: [phone]07-13-2024 11:15-0400 Diastolic blood ivrckxli79 mm[Hg]DO Alexey Ball Work Phone: [facility]07-13-2024 11:15-0400 Heart rate51 /AddyO Alexey Ball Work Phone: [facility]07-13-2024 11:15-0400 Respiratory rate18 /minDO Alexey Ball Work Phone: [phone]07-13-2024 11:15-0400 SaO2% (BldA) [Mass fraction]99 %DO Alexey Ball Work Phone: [facility]07-13-2024 11:15-0400 Systolic blood mm[Hg]DO Alexey Ball Work Phone: [facility]01-22-2024 12:15-0500 Body zoygic790.37 cmBenjamin Ball Other [employer] Other 01-22-2024 12:15-0500Body mass index (BMI) [Ratio] 30.31 kg/r1Kioygveu Ball Other [employer] Other 01-22-2024 12:15-0500Body .92 kgBenjamin Ball Other [employer] Other 08-11-2023 13:30-0400Body sfaqhp067.37 cmBenjamin Ball Other [facility] Other 08-11-2023 13:30-0400Body mass index (BMI) [Ratio] 29.13 kg/q4Gjzdbohj Ball Other [facility] Other 08-11-2023 13:30-0400Body aiezma09.65 kgBenjamin Ball Other [facility] Other 08-11-2023 13:30-0400Diastolic blood baezgjlj69 mm[Hg] Alexey Manley [facility] [employer] Other 08-11-2023 13:30-0400Respiratory rate12 /minAlexey Manley [facility] [employer] Other 08-11-2023 13:30-0400Systolic blood oduiokvo435 mm[Hg] Alexey Manley Other [employer] Other Encounters Encounter DateEncounter TypeCare ProviderFacilityStart: 12-26-2024 End: 57-15-9981Jgkgvmkby department patient visitBenbe Manley DO Work Phone: [phone]-Ykyxmxxki Room Work Phone: Start: 11-10-2024 End: 30-47-8232uvxrljmoroOxqtlrzi Ball DO Work Phone: [facility] Work Phone: Start: 11-10-2024 End: 17-63-8643Gnostoy encounter procedureBelorin Manley DO-[facility] Work Phone: Start: 63-91-4507Zol-patient / Non-visitBenbe Manley DO Work Phone: [facility] Work Phone: Start: 08-30-2024 End: 56-60-9014kgwtzjkwdjPjfnntfg Ball DO Work Phone: [facility] Work Phone: Start: 08-30-2024 End: 94-11-1116Ivtkpbmx ReferredBenbe Ball DO Work Phone: [facility]-LAB Path Spec [facility] HospStart: 08-11-2024 End: 34-27-5535lndeobjrkoSoihdvk Joseph BuckFacility:[facility] Hospitaltart: 48-02-9463Nhe-patient / Non-visitBenjamin Ball DO Work Phone: [facility] Work Phone: Start: 74-59-4212ikrkeqqlsnZimcdhuz:EU LouiewalkStart: 07-08-2024 End: 24-30-2107Nicahwqx ReferredBenjamin Ball DO Work Phone: [facility]-Community Outreach Work Phone: Start: 07-08-2024 End: 74-65-0293nnrkgehmkbPlzhlymg Ball DO Work Phone: [facility] Work Phone: Start: 01-52-2895Ldv-patient / Non-visitBenjamin Ball DO Work Phone: [facility] Work Phone: Start: 07-05-2024 End: 63-00-3151aikngxvtwsDexxuhey Ball DO Work Phone: [facility] Work Phone: Start: 07-05-2024 End: 56-21-4691Furdrpvh ReferredBenjamin Ball DO Work Phone: [facility]-LAB Path Spec Jacques HospStart: 06-28-2024 End: 31-04-3490Nsvekad encounter procedureBenjamin Ball DO Work Phone: [facility] [place] Work Phone: Start: 06-28-2024 End: 07-57-8322jldscdeqwpZuklbjpt Ball DO Work Phone: [facility] Work Phone: Start: 06-22-2024 End: 31-55-0975uumaxsrwvdDguqusux Ball DO Work Phone: [facility] Work Phone: Start: 06-22-2024 End: 04-68-5033Olkcrmj encounter procedureBenjefrymin Joel DO Work Phone: [facility] Work Phone: Start: 34-83-5869Hvmvrfpxcs RecurringBenbe Manley DO Work Phone: [facility] CredibleStart: 83-54-9866dmflslcljlDstiihtntdp AbdelazizFacility:[facility] Hospitaltart: 06-07-2024 End: 21-68-0376zhhitvgblbLuwfkhox Ball DO Work Phone: [facility] Work Phone: Start: 06-07-2024 End: 71-66-7379Mkygima encounter procedureBenjefrymin Joel DO Work Phone: [facility] Work Phone: Start: 04-26-2024 End: 27-15-6067Hhstlcq encounter procedureMichael T Stoner DO Work Phone: noMS SWS ORTHOAOComment on above:Acute pain of both knees (Primary Dx)Start: 04-26-2024 End: 54-40-9602igrcnfceqhMASXAPN T POWERSNot AvailableStart: 04-11-2024 Registered RecurringBenbe Manley DO Work Phone: [facility] CredibleStart: 03-20-2024 End: 26-84-7663Xxbsowa encounter procedureBenjefrymin Joel DO Work Phone: [facility] Work Phone: Start: 03-20-2024 End: 85-30-7290gdcazfbscuYxca MariahaprawiraFacility:[facility] Hospitaltart: 03-02-2024 End: 98-80-8175lqpafookniWmbgmteo BallFacility:[facility] Start: 01-06-2024 End: 72-83-7589erfhmhgmhoCLMNGCZJC NO [facility] Work Phone: Start: 01-06-2024 End: 99-00-7412Asnllke encounter procedurePHYSICIAN NO [facility] [place] Work Phone: Start: 72-29-8500Hfn-patient / Non-visitPHYSICIAN NO [facility] Work Phone: Start: 97-12-0559Kwn-patient / Non-visitPHYSICIAN NO [facility] Work Phone: Start: 12-30-2023 End: 39-93-3547Ovmbmsytm to same day surgery centerPHYSICIAN NO [facility]-Digestive [facility] Work Phone: Start: 12-30-2023 End: 88-91-4097cdzsrdbbevAJYGIXARU NO [facility] Work Phone: Start: 37-05-3465Dgjojzmgny RecurringPHYSICIAN NO [facility]- CredibleStart: 11-09-2023 End: 22-10-3067ylscriuttzHI Alexey Manley Work Phone: [facility] Work Phone: Start: 11-09-2023 End: 47-93-9315Fhgidji encounter procedureDO Alexey Manley Work Phone: [facility] Work Phone: Start: 10-18-2023 End: 36-62-9123entiqijpcbUAQT J NATAPRAWIRANot AvailableStart: 10-12-2023 Registered RecurringDO Alexey Manley Work Phone: [facility]- CredibleStart: 10-09-2023 End: 85-99-4481Kusbvszc ReferredDO Alexey Manley Work Phone: [facility] [place] Work Phone: Start: 10-09-2023 End: 38-50-5998zqctzvfchuEJ Alexey Manley Work Phone: [facility] Work Phone: Start: 10-09-2023 End: 41-91-7221Ptvjqvm encounter procedureDO Alexey Manley Work Phone: [facility] [place] Work Phone: Start: 41-54-5311Ovolfuxwwy RecurringDO Alexey Manley Work Phone: [facility] CredibleStart: 09-11-2023 End: 53-78-3834eqlilisnisFA Alexey Manley Work Phone: [facility] Work Phone: Start: 09-11-2023 End: 19-00-6532Ypntwean ReferredDO Alexey Manley Work Phone: [facility]-Community Outreach Work Phone: Start: 72-46-7928Pettwqmgqw RecurringDO Alexey Manley Work Phone: [facility] CredibleStart: 04-19-2023 End: 82-04-6353yxykshhsurGejzeroi Ball Other [employer] Other Start: 62-42-7115Yihozq outpatient visit 15 minutes [facility] ClinicStart: 39-77-5759Wnjwsiwrh encounterBelorin Manley Medical ClinicStart: 03-17-2023 End: 43-29-9775dokubdnhadFL Alexey Joel Work Phone: [facility] Work Phone: Start: 03-17-2023 End: 77-00-6313Pqfbuxr encounter procedureDO Alexey Joel Work Phone: [facility] Work Phone: Start: 11-06-2022 End: 16-43-9582fhrpmabelvCyvbdgqp Ball Other [employer] Other Start: 16-57-5661Sxvvxhi encounter procedureLewelizabe Manley Medical ClinicStart: 09-12-2022 End: 41-84-8827nxseqwgyatRD Alexey Manley Work Phone: [facility] Work Phone: Start: 09-12-2022 End: 34-91-4893Lkdudzet ReferredDO Alexey Manley Work Phone: [facility] Work Phone: start: 03-16-2022 End: 30-90-2500xgpkrcvskeDD Alexey Manley Work Phone: [facility] Work Phone: Start: 03-16-2022 End: 77-88-3425Odbpzds encounter procedureDO Alexey Manley Work Phone: [facility] Start: 11-08-2021 End: 58-17-1211Djzmdupj ReferredDO Alexey Manley Work Phone: [facility] Start: 57-89-7922Lvinb health examinationBelorin Manley Other [facility] [employer] Other Start: 01-11-2019 End: 26-44-3311Fxfxgvq encounter procedureANDREA MOOREFacility:D9Wnpbk: 03-10-2018 End: 01-35-5180Hfuowbt encounter procedureBEElizaBE MANLEYFacility:H1 Procedures DateProcedureProcedure DetailPerforming ClinicianStart: 56-16-2905Anbofrnt tomography of abdomen and pelvis with contrastAlexey Manley DO Work Phone: Start: 72-78-4062Adbty cultureBelorin Manley DO Work Phone: Start: 92-66-0852Yetko cultureBenbe Manley DO Work Phone: Start: 30-44-6907Txfghhbm tomography of abdomen and pelvis with contrastAlexey Manley [employer] Work Phone: Start: 96-56-7167Aqicwxxwwe examination knee 3 views Anoop Stoner DO Work Phone: Start: 41-36-6937Yplq energy X-ray absorptiometry Alexey Manley [employer] Work Phone: Start: 03-20-2024 End: 30-89-5104IixaxytdgslJysbzpk Consuelo DO Work Phone: Start: 87-43-9036Bcblash CTPHYSICIAN NO FAMILYStart: 09-64-4362Voedwtecp colonoscopyPHYSICIAN NO FAMILYStart: 32-80-4406Lsezcjyl identified in Urine by CulturePHYSICIAN NO FAMILYStart: 08-25-2395Krudg culture DO Alexey Manley Work Phone: Start: 08-75-0889Wtvjxsdrd mammography of bilateral breastsDO Alexey Manley Work Phone: Start: 11-05-0791Ukih energy X-ray absorptiometryDO Alexey Manley Work Phone: Start: 80-41-1822Gzifleuml mammography of bilateral breastsDO Alexey Manley Work Phone: Start: 75-19-5954Hkfnjnbnt for osteoporosisBelorin Manley Other Depression screeningBelorin [employer] Other Plan of Treatment DateCare ActivityDetailAuthorStart: 10-18-2025 End: 43-38-8450Wuobcna encounter kqguknmpi56/23/2026 1:30 PM EDT Office Visit [facility] [address] [place] [id number] Marianne Barksdale, DO [address] [place] [address] [facility] OBStart: 36-93-1943Ntauapjac for malignant neoplasm of breastMammogramNOMS HealthcareStart: 91-82-6580Zrfgfscr identified in Urine by CultureUrine CultureWayne Hospitaltart: 71-94-6472Czssi cultureWayne Hospitaltart: 12-77-3804Idbittud identified in Urine by CultureUrine CultureWayne Hospitaltart: 07-05-2024 Urine cultureWayne Hospitaltart: 51-75-9866LzoyeexwnWayne Hospitaltart: 29-18-4744Wuhhdvv referralOhio [facility]ing [facility] Work Phone: Start: 36-81-3668Yaoaafzc identified in Urine by CultureWayne Hospitaltart: 01-63-2077Abparnyue for malignant neoplasm of colonNOMS HealthcarePatient EducationHemorrhoids (DC) Diverticulosis (DC) Know your [facility] Work Phone: Patient referralOhio State [facility]ing [facility] Work Phone: Immunizations Immunization DateImmunizationNotesCare CgnevvggRpijttdf50-33-3222ymlilucgggre polysaccharide vaccine, 23 valentAlexey Manley Other [facility]09-11-2022COVID-19 Vaccine Pfizer - Documentation Purposes OnlyBelorin Manley Other [facility]09-11-2022influenza virus vaccine, split virus (incl. purified surface antigen)Alexey Manley Other [employer] Other [id number] virus vaccine, unspecified formulationDO Alexey Manley Work Phone: [facility]04-16-2022COVID-19 Vaccine Pfizer - Documentation Purposes OnlyAlexey Manley Other [facility]11-27-2021 pneumococcal conjugate vaccine, 13 valentAlexey Manley Other [facility]11-16-2021COVID-19 Vaccine Pfizer - Documentation Purposes OnlyBelorin Manley Other [facility]10-05-2021influenza virus vaccine, split virus (incl. purified surface antigen)Alexey Manley Other [employer] Other [id number] virus vaccine, unspecified formulationDO Alexey Manley Work Phone: [facility]03-31-2021COVID-19 Vaccine Pfizer - Documentation Purposes OnlyBenbe Manley Other [facility]03-10-2021COVID-19 Vaccine Pfizer - Documentation Purposes OnlyAlexey Manley Other [facility]09-24-2020diphtheria, tetanus toxoids and acellular pertussis vaccine, unspecified formulation Alexey Manley Other [facility]09-24-2020influenza virus vaccine, split virus (incl. purified surface antigen)Alexey Manley Other [employer] Other [id number] virus vaccine, unspecified formulationDO Alexey Manley Work Phone: [facility]12-12-2019zoster vaccine, liveBenjaamber Manley Other [facility]10-05-2019influenza virus vaccine, split virus (incl. purified surface antigen)Alexey Manley Other [employer] Other [id number] virus vaccine, unspecified formulationDO Alexey [employer] Work Phone: [facility]09-14-2017tetanus and diphtheria toxoids, adsorbed, preservative free, for adult use (5 Lf of tetanus toxoid and 2 Lf of diphtheria toxoid)Alexey Manley Other [facility]09-14-2017zoster vaccine, liveBenjaamber Manley Other [facility]10-10-2013tetanus and diphtheria toxoids, adsorbed, preservative free, for adult use (5 Lf of tetanus toxoid and 2 Lf of diphtheria toxoid)Alexey Manley Other [facility] Payers DatePayer CategoryPayerPolicy [id number] Health InsuranceAARP [id number] .[id number] [id number] [id number] 2.840.1.033300.3.579.2.593 [id number] 2.0.1.939502.3.57[id number] 2.840.1.291091.3.57[id number] 2.0.1.450809.3.57[id number] 2..1.035700.3.57[id number] 2..1.751027.3.579.2.1259Self-paySelf Pay Cosmetic/Pain [id number] /[id number] 2.840.1.0[id number] 2.840.1.626419.3.579.2.531 [id number] 2..1.7[id number] 2.0.1.39[id number] 2.840.1.085190.3.579.2.531 [id number] 2.840.1.175[id number] 2.840.1.2[id number] 2.840.1.506289.3.579.2.531 [id number] 2.16.840.1.893282.3.579.2.531 Social History DateTypeDetailFacilityTobacco smoking status NHISUnknown if ever smokedFayette County Memorial Hospital Work Phone: Start: 92-54-2378Cge Assigned At [facility]ertart: 10-59-3699Zme Assigned At [facility] [employer] Other Start: 04-19-2023 End: 59-42-2168Qjyjmkv smoking status NHISNever smoked tobacco (finding) [facility]tart: 50-85-7702Hhjlcid use and exposure Smokeless tobacco non-userNOMS HealthcareStart: 15-17-0643Zoksahoxf beverage intakeEx-drinker (finding)[facility] HealthcareStart: 31-86-7575Pzrplzj of Social functionNOMS HealthcareStart: 36-49-3045Ogrjwpk Commentcaffeine intake : decaffeinated teaNOMS HealthcareStart: 08-71-3025Wznsfb identityIdentifies as female gender (finding)[facility] HealthcareStart: 27-73-6665Sarike orientation Heterosexual (finding)[facility] HealthcareStart: 06-07-2024 End: 09-64-7395CxvZhkxpe (finding)[facility] Goals DatePatient GoalDesired Activity/State Clinical Notes 11-06-2022 to 12-26-2024 Note Date & EymhClrvHzqtazfr70-12-2179 Radiology Diagnostic [place] [address] [place] Scan Report Signed Patient: Rosa M Abbott MR#: [id number] : 1955 Acct:[id number] Age/Sex: 69 / F ADM Date: 5 Loc: ER Room: Type: [facility] ER Attending Dr: Copies to: Matthew Gordon DO~ Ordering Provider: Matthew Gordon DO Date of Service: 12/26/24 CT/CT abdomen pelvis w con: LLQ pain CT ABDOMEN AND PELVIS WITH INTRAVENOUS CONTRAST: CLINICAL HISTORY: Abdominal pain and cramping chills blood in stool diarrhea COMPARISON: None TECHNIQUE: Spiral images were obtained [...] spleen pancreas and adrenal glands appear unremarkable. No enhancing renal mass or hydronephrosis. Aorta appears normal in caliber.[ GI: Stomach is grossly unremarkable. Small bowel appears nondilated. Wall thickening and inflammatory changes involving the left colon suspicious for colitis. No obstruction. Sigmoid diverticulosis.[Appendix is normal. Pelvis:[Urinary bladder and uterus appear grossly unremarkable. Prominent periuterine vessels.] Peritoneum/Retroperitoneum:No free air or free fluid or lymphadenopathy.[ Abd wall/Bones:Abdominal wall demonstrates no acute findings. Osseous structures demonstrate degenerative change.[ CT/CT abdomen pelvis w con IMPRESSION: Wall thickening and inflammatory changes involving the left colon suspicious for colitis. No obstruction. Impression dictated by: Ozzy Duggan Jr., DRachelORachel 12/26/2024 2:45 PM Dictation Location: [place] [address] Transcribed By: [facility] 12/26/24 144 Dictated By: Ozzy Duggan Jr, DO 12/26/24 1444 Signed By: 12/26/24 [facility]5 [facility]08-15-2025 Evaluation note* Diagnosis Onset Date Resolution Status Admit Date History of nephrolithiasis acuteAugust 2024 1:14pmMenopauseacuteAugust 2024 1:14pmOsteopenia acuteAugust 2024 1:14pmMedicare annual wellness visit, subsequent noneactiveAugust 2024 1:14pmScreening mammogram for breast cancer noneactiveAugust 2024 1:14pm [facility] Work Phone: 1(635) 274-239804-02-2025 Radiology Diagnostic [facility]UC [facility] [place] [address] [place] [address] CT Scan Report Signed Patient: Rosa M Abbott MR#: [id number] : 1955 Acct:[id number] Age/Sex: 69 / F ADM Date: 5 Loc: [facility]: [facility]: Alexey Manley DO Copies to: [...] appears unremarkable. Delayed images demonstrate no collecting systemlesion. Aorta appears normal incaliber.[ GI: Stomach is [...] Duggan Jr., D.ORachel06/28/2024 9:34 AM Dictation Location: [place] [address] Transcribed By: [facility] 06/28/24 0934 Dictated By: Ozzy Duggan Jr, DO 06/28/24 0931 Signed By: 06/28/2434 [facility]03-27-2025 Evaluation note* Diagnosis Onset Date Resolution Status Admit Date Acute cystitis acuteMarch 2024 9:03amHematuriaacuteMarch 2024 9:03amHistory of nephrolithiasisacuteMarch 2024 9:03am [facility] Work Phone: 1(570) 626-115301-29-2025 History of Present illness Narrative* Mi Sánchez [...] Past Surgical History: Procedure Laterality Date COLONOSCOPY 2013 DILATION AND CURETTAGE OF UTERUS miscarriage FAMILY HISTORY: Family History Problem Relation Name Age of Onset Stroke Mother Jessy Powers Osteoarthritis Mother [facility] Diabetes Father [facility] Diabetes Sister Iliana Munoz SOCIAL HISTORY: Social [...] views weight bearing films taken in the [place] office shows moderate, borderline early severe degenerative [...] supplementation. She is not bone on bone. [facility]PC discussion of potential total knee replacement. Indications [...] 05/01/2024 2:50 PM EST documented in this encounterHermann Area District HospitalNbwggsmrqb34-52-3379 Procedure noteC[facility]01-22-2024 Evaluation note* Encounter Date Diagnosis Assessment Notes Treatment Notes Treatment Clinical Notes Mar, COVID-19 (ICD-10 - U07.1) Instructed to use Robitussin or Mucinex for cough, saline or Flonase NS for congestion, Tylenol forpain and fever. Self isolate at home. - [...] in public places for complete 10 days Mar,Other obesity due to excess calories (ICD-10 - E66.09)This patient has been instructed on a low-fat, high-fiber diet. They are instructed to reduce calories, portion sizes and snacks. It is recommended that they exercise for 30 minutes, 3-5 times weekly. Increases risk for complicated COVID infection. Mar,ody mass index [BMI] 30.0-30.9, adult (ICD-10 - Z68.30) [facility] Other 01-22-2024 Evaluation note* Encounter Date Diagnosis Assessment Notes Treatment Notes Treatment Clinical Notes Mar, COVID-19 (ICD-10 - U07.1) [facility] Other 08-11-2023 Evaluation note* Encounter Date Diagnosis [...] above visit was performed by [ ] underdirect supervision of [ ]. Document reviewed and amended by provider signed below. Healthy diet and exercise. Reviewed age-appropriate preventive testing recommended. Oct,IFG (impaired fasting glucose) (ICD-10 - R73.01)This patient is following a comprehensive diabetic treatment [...] Microalbumin, Dilated eye exam and Foot exam Oct,Overweight (ICD-10 - E66.3)This patient has been instructed on a low-fat, high-fiber diet. They are instructed to reduce calories, portion sizes and snacks. It is recommended that they exercise for 30 minutes, 3-5 times weekly. Oct,urrent moderate episode of major depressive disorder without prior episode (ICD-10 - F32.1)She recently experienced the loss of her spouse to cancer. She is coping but depressed. She is not suicidal but is requesting counseling. Handouts for [facility] and [facility] supplied Oct,Screening mammogram for breast cancer (ICD-10 - Z12.31)Will be completed in February. Instructed on monthly [facility] Other Evaluation noteNo assessment information available [facility] Work Phone: Evaluation note* Diagnosis Onset Date Resolution Status Dysuria noneactiveHistory of nephrolithiasisacuteMenopauseacuteOsteopeniaacuteMedicare annual wellness visit, subsequentnoneactiveScreening for colon cancernoneactive Screening mammogram for breast cancernoneactive [facility] Work Phone: Evaluation note* Diagnosis Acute pain of both knees- Primary documented in this encounter [facility] HealthcareEvaluation note* Diagnosis Onset Date Resolution Status Admit Date History of nephrolithiasis acuteAugust 2024 1:14pmMenopauseacuteAugust 2024 1:14pmOsteopenia acuteAugust 2024 1:14pmMedicare annual wellness visit, subsequent noneactiveAugust 2024 1:14pmScreening mammogram for breast cancer noneactiveAugust 2024 1:14pm [facility] Work Phone: History and physical note Author Shari Marquez [facility] December 30, 2023 8:26amNote Date/TimeOct2023 8:26[place] [address] Gastroenterology H&P Signed Patient: Rosa M Abbott MR#: [id number] : 1955 Acct:[id number] Age/Sex: 68 / F Adm Date: 4 Loc: Room: Type: [facility] Attending Dr: Shari Marquez DO Copies to: DO Shari Holder DO~ Date of Service: 12/30/2023 HISTORY & PHYSICAL: Patient's history with special attention to the cardiovascular, pulmonary systems and the current problem was reviewed with the patient immediately prior to the procedure. Present medications and doses reviewed in the EMR. Allergies and pertinent laboratory tests were also re viewedat this time in the EMR. The physical [...] <Electronically signed by Shari Marquez DO> 12/30/23825 [facility] Work Phone: History general Narrative - Reported* Type Description Date Medical History Osteopenia Medical HistoryHistory of nephrolithiasisMedical HistoryDiverticulosis of large intestine without hemorrhageSurgical XufpgrvMAEPOXZYJPE4796Fgixqxkpkbudpbc HistorySEE SURGICAL [facility] Other Hospital Discharge instructions Additional Instructions Start with bland diet and advance as tolerated. Your blood work did not show any acute findings here today. Your CT did not show any evidence of diverticulitis. Return with worsening symptoms or any other [facility] Work Phone: Reason for referral (narrative)No reason for referral information availableKettering Health [facility] Work Phone: Summary Purpose Family History No Family History Records Found Relationship Condition Age at Onset Recorded Date/T nader father Unknown Heart diseaseUnknown Relationship Condition Age at Onset Recorded Date/T nader father Unknown Heart diseaseUnknownfatherDiabetes mellitusUnknownHypertensionUnknown Cerebrovascular accident (CVA)UnknownmotherHeart diseaseUnknownsisterDiabetes mellitusUnknown Advance Directives No Advanced Directives Records Found Advance Directive Response Recorded Date/ Time Advance Directives No November 01, 018 1:03pm Advance Directive Response Recorded Date/ Time Advance Directives No November 01, 018 12:03pm Advance Directive Response Recorded Date/ Time Advance Directives No June 21, 025 2:18pm Chief Complaint and Reason for Visit Chief Complaint Admit Date wellness November 10, 2024 1: 14pm blood in stool December 26, 2024 12:09pm Reason for Visit Admit Date History of nephrolithiasis November 10, 2024 1:14pm Menopause November 10, 2024 1: 14pm Osteopenia November 10, 2024 1: 14pm Medicare annual wellness visit, subseque nt November 10, 2024 1:14pm Screening mammogram for breast cancer [facility] 2024 1:14pm Chief Complaint Complete Chief Complaint Z12.31 Z13.820 Z78.0 Chief Complaint CBC A1C Chief Complaint Z12.31 Chief Complaint bh CMP A1C Chief Complaint CMP A1C Possible UTI Chief Complaint CMP A1C bh Possible UTI Dysuria Chief Complaint CMP A1C Possible UTI R30.0 Medicare WellnessReason for VisitDysuria History of nephrolithiasis Menopause Osteopenia Medicare annual wellness visit, subsequent Screening for colon cancer Screening mammogram for breast cancer Chief Complaint Possible UTI R30.0 Medicare Wellness bh Screening ScreeningReason for VisitDysuria History of nephrolithiasis Menopause Osteopenia Medicare annual wellness visit, subsequent Screening for colon cancer Screening mammogram for breast cancer Chief Complaint Possible UTI R30.0 Medicare Wellness bh Screening Screening Amb Documentation Z82.49Reason for VisitDysuria History of nephrolithiasis Menopause Osteopenia Medicare annual [...] vitamin D July 08, 2024 9:3 4am Chief Complaint Admit Date UTI, burning, urgency June 07, 2024 9 :30am June 07, 2024 1:4 6pm fatigue, back pain June 22, 2024 9:0 3am R31.0 Z87.442 June 28, 2024 7:49 am Unknown July 05, 2024 1:00 am cbc, a1c, vitamin D July 08, 2024 9:3 4am Unknown August 30, 2024 8:10a m Chief Complaint Admit Date Unknown August 30, 2024 8:10a m wellness November 10, 2024 1: 14pm Additional Source Comments INFORMATION SOURCE (unrecogn ized section and content) DATE CREATED AUTHOR 01/17/2019 [facility] DATE CREATED AUTHOR AUTHOR'S ORGANIZ ATION 05/01/2024 [facility] DATE CREATED AUTHOR AUTHOR'S ORGANIZ ATION 07/12/2024 [facility] DATE CREATED AUTHOR AUTHOR'S ORGANIZ ATION 08/29/2024 [facility] DATE CREATED AUTHOR AUTHOR'S ORGANIZ ATION 01/05/2025 [facility] Care Teams (unrecognized sec tion and content) Team Status: Active Member Role Status Dates Alexey Manley DO Primary Care Provider Active Team Status: Inactive Member Role Status Dates Alexey Manley DO Primary Care Provide r, Referring Provider Active Start: September 11, 2023 End: September 11, 2023Outreach CommunityAttending ProviderActiveStart: September 11, 2023 End: September 11, 2023 Team Status: Active Member Role Status Dates Alexey Manley DO Primary Care Provider Active Start: September 21, 2023 Bernardo Vences ProviderActiveStart: September 21, 2023 Team Status: Inactive Member Role Status Dates Alexey Manley DO Primary Care Provider Active Start: October 09, 2023 End: October 08José Miguel Cooper ProviderActiveStart: October 09, 2023 End: October 09, 2023 Team Status: Active Member Role Status Dates Alexey Manley DO Primary Care Provider Active Start: August 12, 2023 Bernardo Vences ProviderActiveStart: August 12, 2023 Team Status: Inactive Member Role Status Dates Alexey Manley DO Primary Care Provider Active Outreach CommunityAttending ProviderActive Team Status: Inactive Member Role Status Dates Alexey Manley DO Primary Care Provider Active Katina Vigil DOAttending ProviderActive Team Status: Inactive Member Role Status Dates Mar Almanzar APRN Attending Provider Active Start: October 09, 2023 End: October 09, 2023 Team Status: Active Member Role Status Dates PHYSICIAN NO FAMILY Primary Care Provider Active Team Status: Inactive Member Role Status Dates Mar L Almanzar , OPTICAL INSTRUMENT ASSEMBLER Attending Provider Active Start: October 09, 2023 End: October 08HYSICIAN NO FAMILYPrimary Care ProviderActiveStart: October 09, 2023 End: October 09, 2023 Team Status: Active Member Role Status Dates Alexey Manley DO Primary Care Provider Active Start: October 12, 2023 Joseph Cotton , JOAOttending ProviderActiveStart: October 12, 2023 Team Status: Inactive Member Role Status Dates Alexey Manley DO Attending Provider Active Sta rt: November 09, 2023 End: November 08HYSICIAN NO FAMILYPrimary Care ProviderActiveStart: November 09, 2023 End: November 09, 2023 Team Status: Active Member Role Status Dates Alexey Manley DO Primary Care Provider Active Start: November 10, 2023 Joseph Cotton MDAttending ProviderActiveStart: November 10, 2023 Team Status: Inactive Member Role Status Dates Shari Marquez DO Attending Provider Active St art: December 30, 2023 End: December 29enImani Lee Care ProviderActiveStart: December 30, 2023 End: December 30, 2023 Team Status: Active Member Role Status Dates Shari Marquez DO Attending Provider, Other Provider Active Start: December 30, 2023 Imani Holder Care ProviderActiveStart: December 30, 2023 Team Status: Active Member Role Status Chen Manley DO Primary Care Provider Active Start: January 05, 2024 Kenzie Marcialending ProviderActiveStart: January 05, 2024 Team Status: Inactive Member Role Status Dates Alexey Manley DO Primary Care Provide r, Attending Provider Active Start: January 06, 2024 End: January 06, 2024Team MemberRelationshipSpecialtyStart DateEnd Date Alexey Manley MD [address] [place] [id number] PCP - GeneralInternal Medicine09/30/22 Team Status: Inactive Member Role Status Dates Katina Vigil DO Attending Provider Active Start: March 20, 2024 End: March 20Imani Abdul Care ProviderActiveStart: March 20, 2024 End: March 20, 2024 Team Status: Active Member Role Status Dates Alexey Manley DO Primary Care Provider Active Start: April 11, 2024 Bernardo Vences ProviderActiveStart: April 11, 2024 Team Status: Inactive Member Role Status Dates Alexey Manley DO Primary Care Provide r, Attending Provider Active Start: June 07, 2024 End: June 07, 2024 Team Status: Active Member Role Status Dates Alexey Manley DO Primary Care Provider Active Start: June 07, 2024 Thais Vencesending ProviderActiveStart: June 07, 2024 Team Status: Inactive Member [...] rt: July 08, 2024 End: July 08, 2024[facility] Hospitaljailene CommunityAttending ProviderActiveStart: July 08, 2024 End: July 08, 2024 Team Status: Active Member Role Status Dates Alexey Manley DO Primary Care Provider Active Start: August 11, 2024 Rc Ryan MDAttending ProviderActiveStart: August 11, 2024 Team Status: Inactive Member Role Status Dates Abiel Duran DO Attending Provider Active S tart: August 30, 2024 End: August 30, 2024 Team Status: Active Member Role Status Chen Manley DO Primary Care Provider Active Start: August 30, 2024 Abiel Duran DOAttending ProviderActiveStart: August 30, 2024 Team Status: Inactive Member Role Status Dates Alexey Manley DO Primary Care Provider Active Start: November 10, 2024 End: November 10tamanna Manley DOAttending ProviderActiveStart: November 10, 2024 End: November 10, 2024 Team Status: Inactive Member Role Status Dates Alexey Manley DO Primary Care Provider Active Start: December 26, 2024 End: December 26, 2024Aris Soria ProviderActiveStart: December 26, 2024 End: December 26, 2024 Goals (unrecognized section and content) Goals [...] FOR VISIT (unrecogniz ed section and content) ReasonCommentsFollow-up FOR RECORDS PERTAINING TO PATIENTS WHO ARE [...] BE BASED ON THE PRIMARY CLINICAL RECORDS. [email or web address] [facility]. provides no warranty or guarantee of the accuracy or completeness of information in this document.
[2025-02-20 11:11] LABS: Glucose Urine UA NEGATIVE (NEGATIVE)
[2025-02-20 11:42] LABS: Crystals Seen? None Seen #/HPF (None Seen)
[2025-02-20 11:44] LABS: Cast Seen? NONE SEEN #/LPF (NONE SEEN)
[2025-02-20 11:45] LABS: Urine Culture Indicated YES-FRMC
== END 2025-02-20 10:33 | disposition home or self-care (01) ==
LOC: LAB 10:32
PROVIDERS: PCP Internal Medicine; Visit Provider Urology
DX: R39.9 Unspecified symptoms and signs involving the genitourinary system (principal); R31.9 Hematuria, unspecified
CPT/HCPCS: 81001; 87086